=== PATIENT | male | born 1960 | race Caucasian/White ===

== ENCOUNTER 2020-05-08 14:54 | Emergency (ER) | payer BC ==
[~2020-05-08] VITALS: Ht 180.3 cm; Wt 128.4 kg
--- OUTSIDE RECORDS SUMMARY | ~2020-05-08 | XMS | Encounter Summary ---
Demographics + + + | Address | [address] | | | [place] [address] | + + + | Home Phone | | + + + | Preferred Language | Unknown | + + + | Marital Status | | + + + | Advent Affiliation | 1013 | + + + | Race | White | + + + | Ethnic Group | Not or | + + + Author + + + | Author | [facility] | | | and [place] | + + + | Organization | [facility] | | | and [place] | + + + | Address | Unknown | + + + | Phone | Unavailable | + + + Support + + + + + | Name | Relationship | Address | Phone | + + + + + | Jenny Trammellehart | ECON | [address] | | | | | [place] | | | | | [address] | | + + + + + Care Team Providers + +------+ + | Care Public Space Attendant Name | Role | Phone | + +------+ + | Radha Rodriguez | PCP | | | PA-C | | | + +------+ + Reason for Referral Evaluate & Treat (Routine) +--------+ + + + + + | Status | Reason | Specialty | Diagnoses / | Referred By | Referred To | | | | | Procedures | Contact | Contact | +--------+ + + + + + | Closed | Specialty | Neurosurgery | Diagnoses | | Oralia, | | | Services | | Cervical | Jeffery, | Spencer Fisher DO | | | Required | | radiculopath | Maricruz, | [address] | | | | | y DDD | PA-C [address] | [address] | | | | | (degenerativ | [address], | [place] | | | | | e disc | [address] | [address] Phone: | | | | | disease), | [place], [place] | [phone] | | | | | cervical | [address] | Fax: | | | | | Paresthesias | Phone: | [phone] | | | | | Foraminal | [phone] | | | | | | stenosis of | Fax: | | | | | | cervical | [phone] | | | | | | region | | | +--------+ + + + + + Reason for Visit + + + | Reason | Comments | + + + | Follow-up | post C7-T1 ILESI on 07/04/16 | + + + | Neck Pain | R>L neck pain | + + + Encounter Details +--------+---------+ + + + | Date | Type | Department | Care Team | Description | +--------+---------+ + + + | 07/31/ | Office | [facility] | Bogdanowicz, | Cervical | | 2017 | Visit | PHYSIATRY [address] | [address] | radiculopathy | | | | [address] | [address], [address] | (Primary Dx); DDD | | | | [facility], [place] | [place] [address] | (degenerative disc | | | | [address] | [phone] | disease), cervical; | | | | [phone] | | Paresthesias; | | | | | | Foraminal stenosis | | | | | | of cervical region | +--------+---------+ + + + Social History + +-------+ +--------+ + | Tobacco Use | Types | Packs/Day | Years | Date | | | | | Used | | + +-------+ +--------+ + | Former Smoker | | | 16 | Quit: 07/29/1997 | + +-------+ +--------+ + + + +---------+ + | Alcohol Use | Drinks/Week | oz/Week | Comments | + + +---------+ + | Yes | 0 Standard drinks | 0.0 | social | | | or equivalent | | | + + +---------+ + + + + | Sex Assigned at | Date Recorded | | | | + + + | Not on file | | + + + documented as of this encounter Last Filed Vital Signs + + + + + | Vital Sign | Reading | Time Taken | Comments | + + + + + | Blood Pressure | 128/79 | 07/31/2016 8:07 AM | | | | | PST | | + + + + + | Pulse | 64 | 07/31/2016 8:07 AM | | | | | PST | | + + + + + | Temperature | - | - | | + + + + + | Respiratory Rate | - | - | | + + + + + | Oxygen Saturation | - | - | | + + + + + | Inhaled Oxygen | - | - | | | Concentration | | | | + + + + + | Weight | 136.5 kg (301 lb) | 07/31/2016 8:07 AM | | | | | PST | | + + + + + | Height | 182.9 cm (6') | 07/31/2016 8:07 AM | | | | | PST | | + + + + + | Body Mass Index | 40.82 | 07/31/2016 8:07 AM | | | | | PST | | + + + + + documented in this encounter Patient Instructions Patient Instructions Maricruz Gil PA-C - 07/31/2016 8:23 AM PST1) Right upper extr emity nerve conduction study 2) Consultation with neurosurgery documented in this encounter Progress Notes Maricruz Gil PA-C - 07/31/2016 8:09 AM PSTFormatting of this note might be differe nt from the original. CHIEF COMPLAINT: Chief Complaint Patient presents with Follow-up post C7-T1 ILESI on 07/04/16 Neck Pain R>L neck pain HISTORY OF PRESENT ILLNESS: The patient is a 56 y.o. male being seen today for follow at [facility] of neck pain that radiates up into the head with daily headaches. He has previously seen us and it was recommended he have a C7/T1 ILESI. This was done 07/04/2016 and he repor ts no improvement of his symptoms, but actually feels his neck pain, headaches and paresthes ias are worsening/ Since the symptoms began he reports that the symptoms have been constant. He describes the pain as an aching, sharp, shooting and throbbing feeling. He rates the pain as moderate to s evere. His symptoms worsen with changing positions, sitting at a computer, working, reachin g, pulling. His symptoms improve with rest,changing positions and sitting. He reports numb ness into the bilateral hands, mostly to the 3-5 fingers but reports this has worsened on th e right hand to the whole hand. The patient also describes arm symptoms that occur on both sides. The arm symptoms account for greater than or equal to 50% of his symptoms. The arm symptoms are persistent and the symptoms travels from the neck down to the hands, right greater than left. The patient does describe numbness of the arms which present mostly at night. He does rep ort weakness of the left side. He has tried PT, Massage, TENS, NSAIDS and Muscle relaxers. The patient is currently taki ng tramadol, gabapentin, Soma and Aleve. Patient's medications, allergies, past medical, surgical, social and family histories were reviewed and updated as appropriate. CURRENT MEDICATIONS: Current Outpatient Prescriptions Medication Sig Dispense Refill azaTHIOprine (IMURAN) 50 mg tablet Take 50 mg by mouth 2 times daily. carisoprodol (SOMA) 350 mg tablet Take 350 mg by mouth nightly. Celecoxib (CELEBREX PO) Take by mouth. CLONIDINE HCL PO Take by mouth. FLUoxetine (PROZAC) 20 MG tablet Take 20 mg by mouth Daily. gabapentin (NEURONTIN) 600 MG tablet Take 600 mg by mouth 3 times daily. hydroxychloroquine (PLAQUENIL) 200 mg tablet Take 200 mg by mouth 2 times daily. lovastatin (MEVACOR) 20 mg tablet Take 20 mg by mouth nightly. Multiple Vitamins-Minerals (CENTRUM SILVER PO) Take 1 capsule by mouth Daily. Naproxen Sodium (ALEVE) 220 MG CAPS Take 2 tablets by mouth 3 times daily. traMADol (ULTRAM) 50 mg tablet Take 50 mg by mouth 3 times daily. No current facility-administered medications for this visit. ALLERGIES: Allergies Allergen Reactions Amitriptyline REVIEW OF SYSTEMS: A multisystem review of system checklist was reviewed with the patient and shows only the p ain and/or parasthesias and other complaints as in HPI. All remaining review of systems was negative. PHYSICAL EXAMINATION: Filed Vitals: 07/31/16 0807 PainSc: 6 PainLoc: Neck Body mass index is 40.81 kg/(m^2). GENERAL: The patient is well developed and well nourished. He does not appear uncomfortabl e when seated. HEENT: HEAD/FACE: EYES: Normocephalic and atraumatic. There are no areas of recent trauma. Normal sclerae without icterus. SKIN Limited skin exam shows no significant rashes or lesions. There are not scars in the cervical region. CHEST: The patient is in no acute respiratory distress with unlabored respirations. ABDOMEN: The patient is obese. NEUROLOGIC: The patient is awake, alert, and oriented to time, place, person. He follows simple and complex commands. His speech is fluent. He comprehends speech well. He has no apparent deficits with short or intellectual property paralegal memory. He has appropriate fund of knowledge Cranial nerves 2-12 appear grossly intact. Sensory exam does not show diminished sensation to light touch in the upper and lower extre mities. REFLEX: RIGHT LEFT BICEPS 1+ 1+ BRACHIORADIALIS 1+ 1+ TRICEPS 1+ 1+ PATELLAR 2+ 1+ ACHILLES 0 0 PARKS'S Negative Negative PLANTAR Downgoing Downgoing MUSCULOSKELETAL There is no major palpable deformity of the spine. Range of motion testing of the cervical spine was limited and painful in all directions. Sp urling sign was positive, especially to the right. Shoulder examination shows fairly well pr eserved range of motion with external rotation and internal rotation. He had significantly d ecreased ROM with abduction of both shoulders. Impingement testing was positive bilaterally . There was no tenderness over the bicipital groove or over the AC joint. Speed's test was negative. Empty can test was negative. Strength testing in bilateral upper extremities s howed 5/5 strength with the exception of decreased master steam yacht strength bilaterally. Abduction of the left shoulder was also mildly weak but the weakness may have also been due to pain inhib ition. He seemed to have negative Tinel's and Phalen's signs bilaterally at the wrists. RADIOGRAPHIC REVIEW: The patient's imaging was reviewed in detail with the patient today during the visit. The xray of the cervical spine from 03/12/2016 shows DDD at C5-C6 and C6-C7. Cervical MRI shows D DD with mild posterior disc bulges, there is foraminal stenosis at C3-C4 towards the left an d bilateral foraminal stenosis at C5-C6. ASSESSMENT: Encounter Diagnoses Name Primary? Cervical radiculopathy Yes DDD (degenerative disc disease), cervical Paresthesias Foraminal stenosis of cervical region PLAN: 1. Unfortunately the patient did not improve from the C7/T1 ILESI right of midline. He only had 25% relief initially with no improvement after two weeks and feels his symptoms have wo rsened. 2. He has already tried PT, chiropractic and multiple medications. 3. He reports worsening right hand paresthesias, now affecting the entire hand and fingers . I have ordered a right UE NCS to be done. 4. We discussed surgery, he would like to have a consultation. I informed him his headach es sound more like migraines and may not be related to his neck. A referral to Dr. Oralia low as been made. ELECTRONICALLY EDITED AND SIGNED BY: Maricruz Gil PA-C, 07/31/2016 CC: Radha Vega documented in this encounter Plan of Treatment +--------+---------+ + + + | Date | Type | Specialty | Care Team | Description | +--------+---------+ + + + | 05/12/ | Office | Rheumatology | Nandini Ward | | | 2019 | Visit | | [place] | | | | | | [facility] | | | | | | [place] [address] | | | | | | [phone] | | | | | | | | +--------+---------+ + + + + + +--------+ + + | Name | Type | Priori | Associated Diagnoses | Order Schedule | | | | ty | | | + + +--------+ + + | [facility] REF[facility] [place] [facility] | Outpatient | Routin | Cervical | Ordered: 07/31/2016 | | [facility] | Referral | e | radiculopathy DDD | | | | | | (degenerative disc | | | | | | disease), cervical | | | | | | Paresthesias | | | | | | Foraminal stenosis | | | | | | of cervical region | | + + +--------+ + + documented as of this encounter Visit Diagnoses + + | Diagnosis | + + | Cervical radiculopathy - Primary Brachial neuritis or radiculitis nos | + + | DDD (degenerative disc disease), cervical Degeneration of cervical intervertebral | | disc | + + | Paresthesias Disturbance of skin sensation | + + | Foraminal stenosis of cervical region Spinal stenosis in cervical region | + + documented in this encounter"
--- OUTSIDE RECORDS SUMMARY | ~2020-05-08 | XMS | Encounter Summary ---
Demographics + + + | Address | [address] | | | [place] [address] | + + + | Home Phone | | + + + | Preferred Language | Unknown | + + + | Marital Status | | + + + | Caodaism Affiliation | 1013 | + + + | Race | White | + + + | Ethnic Group | Not or | + + + Author + + + | Author | [facility] | | | and [place] | + + + | Organization | [facility] | | | and [place] | + + + | Address | Unknown | + + + | Phone | Unavailable | + + + Support + + + + + | Name | Relationship | Address | Phone | + + + + + | Jenny Jade | ECON | [address] | | | | | [place] | | | | | [address] | | + + + + + Care Team Providers + +------+ + | Care Business Consultant Name | Role | Phone | + +------+ + | Radha Rodriguez | PCP | | | PA-C | | | + +------+ + Reason for Visit + +--------+ + | Reason | Onset | Comments | | | Date | | + +--------+ + | Procedure | 10/11/ | | | | 2016 | | + +--------+ + Encounter Details +--------+ + + + + | Date | Type | Department | Care Team | Description | +--------+ + + + + | 10/11/ | Telephone | [facility] [place] | Spencer Barton, | Procedure | | 2017 | | NEUROSURGERY [address] | DO [address] | | | | | [address] | [address] [place], [place] | | | | | [place], [place] | [id number] | | | | | [address] | | | | | | [phone] | | | +--------+ + + + + Social History + + + +--------+ + | Tobacco Use | Types | Packs/Day | Years | Date | | | | | Used | | + + + +--------+ + | Former Smoker | Cigarettes | 2 | 16 | 07/29/1981 - | | | | | | 07/29/1997 | + + + +--------+ + + +------+---+ + | Smokeless Tobacco: | Chew | | Quit: | | Former User | | | 07/29/18 | | | | | 98 | + +------+---+ + + + +---------+ + | Alcohol [...] + + documented as of this encounter Miscellaneous Notes Telephone Encounter - Saranya Holly Cert MA - 10/16/2016 2:10 PM PDTJames has been schedu led for surgery elephone Encounte r - Saranya Holly Cert MA - 10/16/2016 2:09 PM PDTVM left for Steven requesting a call back elephone EncounDrew Brasher - 10/15/2016 9:21 AM PDTPatient called back in looking to talk with Saranya. Please call him back on cell [phone] signed by Drew Thompson at 10/16/19 9:22 AM PDTTelephone Encounter - Mia Anderson - 10/12/2016 12:27 PM PDTPatient re turned Saranya's call. He is asking for a call back to schedule surgery on Saturday elephone Encounter - Saranya Holly Cert MA - 10/11/2016 3:14 PM PDTVM left for patient to discuss scheduling surgery documented in this encounter Plan of Treatment +--------+---------+ + + + | Date | Type | Specialty | Care Team | Description | +--------+---------+ + + + | 05/12/ | Office | Rheumatology | Nandini Ward | | | 2020 | Visit | | [place] [address] | | | | | | [address] | | | | | | [place] [address] | | | | | | [phone] | | | | | | | | +--------+---------+ + + + documented as of this encounter Visit Diagnoses Not on filedocumented in this encounter"
--- OUTSIDE RECORDS SUMMARY | ~2020-05-08 | XMS | Encounter Summary ---
Demographics + + + | Address | [address] | | | [place] [address] | + + + | Home Phone | | + + + | Preferred Language | Unknown | + + + | Marital Status | | + + + | Mosque Affiliation | 1013 | + + + | Race | White | + + + | Ethnic Group | Not or | + + + Author + + + | Author | [facility] | | | and [place] | + + + | Organization | [facility] | | | and [place] | + + + | Address | Unknown | + + + | Phone | Unavailable | + + + Support + + + + + | Name | Relationship | Address | Phone | + + + + + | Jenny Jade | ECON | [address] | | | | | [place] | | | | | [address] | | + + + + + Care Team Providers + +------+ + | Care Plastics And Composites Inspector Name | Role | Phone | + +------+ + | Radha Rodriguez | PCP | | | PA-C | | | + +------+ + Reason for Visit + +--------+ + | Reason | Onset | Comments | | | Date | | + +--------+ + | Paperwork | 12/03/ | | | | 2016 | | + +--------+ + Encounter Details +--------+ + + + + | Date | Type | Department | Care Team | Description | +--------+ + + + + | 12/03/ | Telephone | [facility] [place] | Spencer Barton, | Paperwork | | 2017 | | NEUROSURGERY [address] | DO [address] | | | | | [address] | [address] [place], [place] | | | | | [place], [place] | [address] | | | | | [address] | | | | | | [phone] | | | +--------+ + + + [...] | Yes | 0 Standard drinks | 12.0 | | | | or equivalent 12 | | | | | Glasses of wine | | | + + +---------+ + + + + | Sex Assigned at | Date Recorded | | | | + + + | Not on file | | + + + documented as of this encounter Miscellaneous Notes Telephone Encounter - Raúl Alberts Cert MA - 12/03/2016 3:14 PM PDTI spoke with Stew yang and let her know that the forms are filled out and ready to be faxed. She approved me faxing it to [facility] and I will send a copy to HIM. RAÚL ALBERTS elephone Encounjuany r Raúl Kemp Cert MA - 12/03/2016 12:40 PM PDTVM left for Steven. Forms complete. Wan t to confirm okay to go ahead and fax to [facility] before sending. elephone EncounAlicia Quiroz - 12/03/2016 11:39 AM PDTPatient called returning Raúl's call. Informe d patient forms have not been completed but per Raúl she will be working on these and hopefu lly completing them and faxing them today. Patient verbalized understanding.Electronically s igned by Alicia Mansfield at 12/03/2016 11:40 AM PDTTelephone Encounter - Raúl Alberts Cer t MA - 12/03/2016 11:31 AM PDTI attempted to reach Steven back. Home line is busy and left a VM on his cell phone requesting a call back. elephone EncounRaúl Chavez Cert MA - 12/03/2016 10:48 AM PDTThese are currently pending. I plan to g et them filled out and faxed back today RAÚL ALBERTS elephone EncounAlicia Quiroz 12/03/2016 8:38 AM PDTPatient called stated he dropped off some Afl ac forms that were to be completed and returned to him. Patient would like a call back with a status update documente d in this encounter Plan of Treatment +--------+---------+ + + + | Date | Type | Specialty | Care Team | Description | +--------+---------+ + + + | 05/12/ | Office | Rheumatology | Nandini Ward | | | 2019 | Visit | | [place] [address] | | | | | | [facility] | | | | | | [place] [address] | | | | | | [phone] | | | | | | | | +--------+---------+ + + + documented as of this encounter Visit Diagnoses Not on filedocumented in this encounter"
--- OUTSIDE RECORDS SUMMARY | ~2020-05-08 | XMS | Encounter Summary ---
Demographics + + + | Address | [address] | | | [place] [address] | + + + | Home Phone | | + + + | Preferred Language | Unknown | + + + | Marital Status | | + + + | Jainism Affiliation | 1013 | + + + | Race | White | + + + | Ethnic Group | Not or | + + + Author + + + | Author | [facility] | | | and [place] | + + + | Organization | [facility] | | | and [place] | + + + | Address | Unknown | + + + | Phone | Unavailable | + + + Support + + + + + | Name | Relationship | Address | Phone | + + + + + | Jenny Trammellehart | ECON | [address] | | | | | [place] | | | | | [address] | | + + + + + Care Team Providers + +------+ + | Care Food Services Coordinator Name | Role | Phone | + +------+ + | Radha Rodriguez | PCP | | | PA-C | | | + +------+ + Reason for Referral Diagnostic/Screening (Routine) +--------+--------+ + + + + | Status | Reason | Specialty | Diagnoses / | Referred By | Referred To | | | | | Procedures | Contact | Contact | +--------+--------+ + + + + | Closed | | Radiology | Diagnoses | Rauler, | [facility] | | | | | | Dwaine M, | [address] | | | | | Osteoarthrit | [address] | [place], | | | | | is of | [place] | [place] | | | | | cervical | [place] | [address] | | | | | spine, | [address] | Phone: | | | | | unspecified | [place], [place] | [phone] | | | | | spinal | [address] | Fax: | | | | | osteoarthrit | Phone: | [phone] | | | | | is | [phone] | | | | | | complication | Fax: | | | | | | status | [phone] | | | | | | Procedures | | | | | | | MRI Cervical | | | | | | | Spine wo | | | | | | | Contrast | | | +--------+--------+ + + + + Reason for Visit Diagnostic/Screening (Routine) +--------+--------+ + + + + | Status | Reason | Specialty | Diagnoses / | Referred By | Referred To | | | | | Procedures | Contact | Contact | +--------+--------+ + + + + | Closed | | Radiology | Diagnoses | Dechter, | [facility] | | | | | | Dwaine M, | [address] | | | | | Osteoarthrit | DO [address] | [place], | | | | | is of | [place] | [place] | | | | | cervical | [place] | [address] | | | | | spine, | [address] | Phone: | | | | | unspecified | [place], [place] | [phone] | | | | | spinal | [address] | Fax: | | | | | osteoarthrit | Phone: | [phone] | | | | | is | [phone] | | | | | | complication | Fax: | | | | | | status | [phone] | | | | | | Procedures | | | | | | | MRI Cervical | | | | | | | Spine wo | | | | | | | Contrast | | | +--------+--------+ + + + + Encounter Details +--------+ + + + + | Date | Type | Department | Care Team | Description | +--------+ + + + + | 03/09/ | Hospital | [facility] | Dwaine Berg | Osteoarthritis of | | 2018 | Encounter | [facility] MRI [address] | M, [address] | cervical spine, | | | | [address] [place], | [address] | unspecified spinal | | | | [place] [address] | [place] [address] | osteoarthritis | | | | [phone] | [phone] | complication status | | | | | | | +--------+ + + + [...] + + documented as of this encounter Medications at Time of Discharge + + + +---------+ + + | Medication | Sig | Dispensed | Refills | Start | End Date | | | | | | Date | | + + + +---------+ + + | hydroxychloroquine | Take 200 mg by mouth | | 0 | | | | (PLAQUENIL) 200 mg | 2 times daily. | | | | | | tablet | | | | | | + + + +---------+ + + | azaTHIOprine | TAKE TWO AND | | 0 | 05/13/20 | | | (IMURAN) 50 mg | ONE-HALF TABLETS BY | | | 17 | 0 | | tablet | MOUTH DAILY | | | | | + + + +---------+ + + | azaTHIOprine | Take 50 mg by mouth | | 0 | | | | (IMURAN) 50 mg | 2 times daily. | | | | 0 | | tablet | | | | | | + + + +---------+ + + | carisoprodol | Take 350 mg by mouth | | 0 | | | | (SOMA) 350 mg tablet | nightly. | | | | 0 | + + + +---------+ + + | ergocalciferol | Take 1 capsule by | | 0 | 02/22/20 | | | (VITAMIN D-2) 50,000 | mouth once a week. | | | 17 | 0 | | units capsule | | | | | | + + + +---------+ + + | ergocalciferol | Take 50,000 Units by | | 0 | 02/22/20 | | | (VITAMIN D2) 42984 | mouth every 7 days. | | | 17 | 8 | | units capsule | | | | | | + + + +---------+ + + | gabapentin | Take 400 mg by mouth | | 0 | 02/06/20 | | | (NEURONTIN) 400 mg | 2 times daily. | | | 17 | 0 | | capsule | | | | | | + + + +---------+ + + | gabapentin | Take 1,200 mg by | | 0 | | | | (NEURONTIN) 600 MG | mouth nightly. | | | | 0 | | tablet | | | | | | + + + +---------+ + + | | Take 1-2 tablets by | 120 | 0 | 02/26/20 | | | HYDROcodone-acetamin | mouth every 4 hours | tablet | | 17 | 0 | | ophen (NORCO) | as needed for Pain. | | | | | | 7.5-325 mg per | | | | | | | tabletIndications: | | | | | | | S/P cervical spinal | | | | | | | fusion | | | | | | + + + +---------+ + + | lactulose 10 g/15 | Take 30 mLs by mouth | 240 mL | 2 | 11/30/19 | | | mL solution | Daily as needed. | | | 17 | 0 | + + + +---------+ + + | lovastatin | Take 20 mg by mouth | | 0 | | | | (MEVACOR) 20 mg | nightly. | | | | 0 | | tablet | | | | | | + + + +---------+ + + documented as of this encounter Plan of Treatment +--------+---------+ + + + | Date | Type | Specialty | Care Team | Description | +--------+---------+ + + + | 05/12/ | Office | Rheumatology | Nandini Ward | | | 2020 | Visit | | [facility] [address] | | | | | | [facility] | | | | | | [place] [address] | | | | | | [phone] | | | | | | | | +--------+---------+ + + + documented as of this encounter Procedures + +--------+ + + + | Procedure Name | Priori | Date/Time | Associated Diagnosis | Comments | | | ty | | | | + +--------+ + + + | MRI CERVICAL SPINE | Routin | 10/04/2017 | Osteoarthritis of | Results for this | | WO CONTRAST | e | 9:07 AM | cervical spine, | procedure are in the | | | | PST | unspecified spinal | results section. | | | | | osteoarthritis | | | | | | complication status | | + +--------+ + + + documented in this encounter Results MRI Cervical Spine wo Contrast (10/04/2017 9:07 AM PST) + + | Specimen | + + | | + + + + + | Narrative | Performed At | + + + | UNENHANCED MRI CERVICAL SPINE 10/04/2017 8:44 AM CLINICAL HISTORY: | [facility] | | Osteoarthritis of cervical spine with bilateral hand tingling and | | | numbness, ACDF performed in November 2016 COMPARISON: Radiographs | | | February 2017, MRI May 2016 TECHNIQUE: The following 3T MR | | | sequences of the cervical spine were obtained: 1. Sagittal and | | | coronal T1. 2. Axial and sagittal T2. 3. Axial GRE. 4. | | | Sagittal STIR. FINDINGS: Artifact from ACDF hardware extends | | | from C5 through C7. Evaluation of the degree of interbody fusion is | | | limited. Vertebral height is maintained without evident fracture. | | | Marrow signal is largely normal. Imaged contents of the posterior | | | fossa and foramen magnum are unremarkable. The cervical and imaged | | | thoracic spinal cord demonstrates normal signal intensity and | | | caliber. Asymmetric smaller caliber of the imaged right vertebral | | | artery is again visible, potentially reflecting a developmental | | | variant. Imaged cervical and upper thoracic soft tissues are | | | otherwise unremarkable. The craniocervical junction and C1-2 and | | | C2-3 levels are unremarkable on provided sagittal and coronal images | | | through the region. C3-4: Minimal posterior disc bulge combines | | | with dorsal ligamentous and facet hypertrophy to minimally narrow the | | | central canal and right neural foramen and at least moderately | | | narrow the left neural foramen to a similar degree. C4-5: Minimal | | | posterior disc bulge combines with dorsal ligamentous and facet | | | hypertrophy to mildly narrow the central canal and foramina to a | | | similar degree. C5-6: Vertebral osteophytes and facet hypertrophy | | | result in mild residual right foraminal stenosis and moderate to | | | severe left foraminal stenosis. There is no central canal stenosis | | | status post ACDF. C6-7: Vertebral osteophyte mildly narrows the | | | left neural foramen. There is no central canal stenosis status post | | | ACDF. C7-T1: 2 mm anterolisthesis and progressive disc space | | | narrowing are apparent, along with more pronounced Modic endplate | | | hyperintensity. Annular tear and left greater than right foraminal | | | disc osteophyte complexes persist, along with mild to moderate | | | appearing left and minimal right foraminal stenosis. There is only | | | minimal central canal stenosis. The imaged upper thoracic spine is | | | unremarkable on provided sagittal images through the region. | | | IMPRESSION - 1. SIMILAR DEGENERATIVE DISC DISEASE AND ASYMMETRIC | | | LEFT FORAMINAL STENOSIS AT C3-4 COMPARED WITH MRI OF MAY 2016. | | | 2. SIMILAR DEGENERATIVE DISC DISEASE AND MILD STENOSIS AT C4-5. | | | 3. MODERATE TO SEVERE LEFT FORAMINAL STENOSIS AT C5-6, STATUS | | | POST ACDF. 4. MILD LEFT FORAMINAL STENOSIS AT C6-7, STATUS POST | | | ACDF. 5. 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 CONSIDER FOLLOW-UP FLEXION/EXTENSION | | | RADIOGRAPHY. Dictated and Signed by: Marciano Richter MD | | | Electronically signed: 10/04/2017 10:24 AM | | + + + + + | Procedure Note | + + | Carlos, Rad Results In - 10/04/2017 10:27 AM PST UNENHANCED MRI CERVICAL SPINE 10/04/2017 | | 8:44 AMCLINICAL HISTORY: Osteoarthritis of cervical spine with bilateral hand | | tinglingand numbness, ACDF performed in November 2016COMPARISON: Radiographs February 2017, MRI | | May 2016TECHNIQUE: The following 3T MR sequences of the cervical spine were | | obtained:1. Sagittal and coronal T1.2. Axial and sagittal T2.3. Axial GRE.4. | | Sagittal STIR.FINDINGS: Artifact from ACDF hardware extends from C5 through C7. | | Evaluation ofthe degree of interbody fusion is limited. Vertebral height is | | maintainedwithout evident fracture. Marrow signal is largely normal. Imaged contents | | ofthe posterior fossa and foramen magnum are unremarkable. The cervical andimaged | | thoracic spinal cord demonstrates normal signal intensity and caliber. Asymmetric | | smaller caliber of the imaged right vertebral artery is againvisible, potentially | | reflecting a developmental variant. Imaged cervical andupper thoracic soft tissues are | | otherwise unremarkable.The craniocervical junction and C1-2 and C2-3 levels are | | unremarkable onprovided sagittal and coronal images through the region.C3-4: Minimal | | posterior disc bulge combines with dorsal ligamentous and facethypertrophy to minimally | | narrow the central canal and right neural foramen andat least moderately narrow the left | | neural foramen to a similar degree.C4-5: Minimal posterior disc bulge combines with | | dorsal ligamentous and facethypertrophy to mildly narrow the central canal and foramina | | to a similar degree.C5-6: Vertebral osteophytes and facet hypertrophy result in mild | | residual rightforaminal stenosis and moderate to severe left foraminal stenosis. There | | is nocentral canal stenosis status post ACDF.C6-7: Vertebral osteophyte mildly narrows | | the left neural foramen. There is nocentral canal stenosis status post ACDF.C7-T1: 2 mm | | anterolisthesis and progressive disc space narrowing are apparent,along with more | | pronounced Modic endplate hyperintensity. Annular tear and leftgreater than right | | foraminal disc osteophyte complexes persist, along with mildto moderate appearing left | | and minimal right foraminal stenosis. There is onlyminimal central canal stenosis.The | | imaged upper thoracic spine is unremarkable on provided sagittal imagesthrough the | | region.IMPRESSION -1. SIMILAR DEGENERATIVE DISC DISEASE AND ASYMMETRIC LEFT FORAMINAL | | STENOSIS ATC3-4 COMPARED WITH MRI OF MAY 2016.2. SIMILAR DEGENERATIVE DISC DISEASE | | AND MILD STENOSIS AT C4-5.3. MODERATE TO SEVERE LEFT FORAMINAL STENOSIS AT C5-6, | | STATUS POST ACDF.4. MILD LEFT FORAMINAL STENOSIS AT C6-7, STATUS POST ACDF.5. MILD | | ANTEROLISTHESIS AND PROGRESSIVE DEGENERATIVE DISC DISEASE AT C7-T1 WITHMILD TO MODERATE | | LEFT FORAMINAL STENOSIS AND MINIMAL CENTRAL CANAL STENOSIS. CONSIDER FOLLOW-UP | | FLEXION/EXTENSION RADIOGRAPHY.Dictated and Signed by: Marciano Richter MD Electronically | | signed: 10/04/2017 10:24 AM | | | |C6-7: Vertebral osteophyte mildly narrows the left neural foramen. There is no | |central canal stenosis status post ACDF. | | | |C7-T1: 2 mm anterolisthesis and progressive disc space narrowing are apparent, | |along with more pronounced Modic endplate hyperintensity. Annular tear and left | |greater than right foraminal disc osteophyte complexes persist, along with mild | |to moderate appearing left and minimal right foraminal stenosis. There is only | |minimal central canal stenosis. | | | |The imaged upper thoracic spine is unremarkable on provided sagittal images | |through the region. | | | |IMPRESSION - | |1. SIMILAR DEGENERATIVE DISC DISEASE AND ASYMMETRIC LEFT FORAMINAL STENOSIS AT | |C3-4 COMPARED WITH MRI OF MAY 2016. | | | |2. SIMILAR DEGENERATIVE DISC DISEASE AND MILD STENOSIS AT C4-5. | | | |3. MODERATE TO SEVERE LEFT FORAMINAL STENOSIS AT C5-6, STATUS POST ACDF. | | | |4. MILD LEFT FORAMINAL STENOSIS AT C6-7, STATUS POST ACDF. | | | |5. MILD ANTEROLISTHESIS AND PROGRESSIVE DEGENERATIVE DISC DISEASE AT C7-T1 WITH | |MILD TO MODERATE LEFT FORAMINAL STENOSIS AND MINIMAL CENTRAL CANAL STENOSIS. | |CONSIDER FOLLOW-UP FLEXION/EXTENSION RADIOGRAPHY. | | | |Dictated and Signed by: Marciano Richter MD | | Electronically signed: 10/04/2017 10:24 AM | + + + +---------+ + + | Performing | Address | City/State/Zipcode | Phone Number | | Organization | | | | + +---------+ + + | [facility] | | | | + +---------+ + + documented in this encounter Visit Diagnoses + + | Diagnosis | + + | Osteoarthritis of cervical spine, unspecified spinal osteoarthritis complication | | status | + + documented in this encounter"
--- OUTSIDE RECORDS SUMMARY | ~2020-05-08 | XMS | Encounter Summary ---
Demographics + + + | Address | [address] | | | [place] [address] | + + + | Home Phone | | + + + | Preferred Language | Unknown | + + + | Marital Status | | + + + | Hoahaoism Affiliation | 1013 | + + + | Race | White | + + + | Ethnic Group | Not or | + + + Author + + + | Author | [facility] | | | and [place] | + + + | Organization | [facility] | | | and [place] | + + + | Address | Unknown | + + + | Phone | Unavailable | + + + Support + + + + + | Name | Relationship | Address | Phone | + + + + + | Jenny Jade | ECON | [address] | | | | | [place] | | | | | [address] | | + + + + + Care Team Providers + +------+ + | Care Marine Mechanic Name | Role | Phone | + +------+ + | Radha Rodriguez | PCP | | | PA-C | | | + +------+ + Reason for Visit +---------+ + | Reason | Comments | +---------+ + | Post Op | 3m PO | +---------+ + Encounter Details +--------+---------+ + + + | Date | Type | Department | Care Team | Description | +--------+---------+ + + + | 03/05/ | Office | [facility] | Spencer Barton, | Osteoarthritis of | | 2017 | Visit | NEUROSURGERY [address] | DO [address] | spine with | | | | [address] | [address] [place], [place] | radiculopathy, | | | | [place], [place] | [address] | cervical region | | | | [address] | | (Primary Dx); S/P | | | | [phone] | | cervical spinal | | | | | | fusion | +--------+---------+ + + + Social History + + [...] + + + | Blood Pressure | 112/72 | 03/05/2017 2:17 PM | | | | | PDT | | + + + + + | Pulse | 85 | 03/05/2017 2:17 PM | | | | | PDT | | + + + + + | Temperature | - | - | | + + + + + | Respiratory Rate | 16 | 03/05/2017 2:17 PM | | | | | PDT | | + + + + + | Oxygen Saturation | - | - | | + + + + + | Inhaled Oxygen | - | - | | | Concentration | | | | + + + + + | Weight | 126.6 kg (279 lb) | 03/05/2017 2:17 PM | | | | | PDT | | + + + + + | Height | 180.3 cm (5' 11") | 03/05/2017 2:17 PM | | | | | PDT | | + + + + + | Body Mass Index | 38.91 | 03/05/2017 2:17 PM | | | | | PDT | | + + + + + documented in this encounter Patient Instructions Patient Instructions Spencer Barton DO - 03/05/2017 1:30 PM PDTPlease undergo new x-rays of the cervical spine in 3 and 9 months. Please follow-up with me as needed. documented in this encounter Progress Notes Spencer Barton DO - 03/05/2017 1:30 PM PDTFormatting of this note might be different fro m the original. Spencer Barton DO [address] [facility], [address] [place], [place] [id number] FAX: NEUROSURGERY FOLLOW-UP CHIEF COMPLAINT: Chief Complaint Patient presents with Post Op 3m PO HISTORY OF PRESENT ILLNESS: The patient is a 56 y.o. male that had an ACDF C5-7 by me for neck and arm pain around 3 months ago. He returns and overall is doing well. The patient c omplains of right shoulder-region nerve pain. His preoperative neck and right arm pain to th e hand is improved. Issues with swallowing have been a major issue, but is since much impro shana. Most of the pre- and postsurgical complaints have continued to improve overall. PAST MEDICAL HISTORY: Past Medical History: Diagnosis Date Adverse effect of anesthesia slow to wake up Arthralgia of multiple sites Cervical radiculopathy DDD (degenerative disc disease), cervical 05/23/2016 Foraminal stenosis of cervical region 06/15/2016 Headache Herniated intervertebral disc of lumbar spine High cholesterol Insomnia Paresthesias 05/23/2016 PONV (postoperative nausea and vomiting) Stomach ulcer Systemic lupus erythematosus (HCC) PAST SURGICAL HISTORY: Past Surgical History: Procedure Laterality Date CERVICAL SPINE SURGERY N/A 11/28/2016 Procedure: C5-6, C6-7 Anterior Cervical Discectomy w/ Fusion and Plating; Surgeon: Spencer Barton DO; Location: [facility] MAIN OR CHOLECYSTECTOMY 1994 [facility] KNEE JOINT REPLACEMENT Left 2013 [facility] SHOULDER SURGERY Right [facility] CURRENT MEDICATIONS: Current Outpatient Prescriptions Medication Sig Dispense Refill azaTHIOprine (IMURAN) 50 mg tablet Take 50 mg by mouth 2 times daily. carisoprodol (SOMA) 350 mg tablet Take 350 mg by mouth nightly. ergocalciferol (VITAMIN D2) 23981 units capsule Take 50,000 Units by mouth every 7 days . gabapentin (NEURONTIN) 400 mg capsule Take 400 mg by mouth 2 times daily. gabapentin (NEURONTIN) 600 MG tablet Take 1,200 mg by mouth nightly. HYDROcodone-acetaminophen (NORCO) 7.5-325 mg per tablet Take 1-2 tablets by mouth every 4 hours as needed for Pain. 120 tablet 0 hydroxychloroquine (PLAQUENIL) 200 mg tablet Take 200 mg by mouth 2 times daily. lactulose 10 g/15 mL solution Take 30 mLs by mouth Daily as needed. 240 mL 2 lovastatin (MEVACOR) 20 mg tablet Take 20 mg by mouth nightly. No current facility-administered medications for this visit. ALLERGIES: No Known Allergies SOCIAL HISTORY: The patient reports that he quit smoking about 19 years ago. His smoking use included Ciga rettes. He started smoking about 35 years ago. He has a 32.00 pack-year smoking history. He quit smokeless tobacco use about 19 years ago. His smokeless tobacco use included Chew. He r eports that he drinks about 7.2 oz of alcohol per week . He reports that he uses drugs. FAMILY HISTORY: Family History Problem Relation Age of Onset Cancer Father colon Cancer Mother Unknown cancer of blood Cancer Sister Uterine Cancer Daughter Uterine Cancer Maternal Aunt Leukemia Cancer Maternal Grandfather melanoma Cancer Father bone cancer Arthritis Other Family history Alcohol abuse Other Family history Mental illness Other Family history REVIEW OF SYSTEMS GENERALLY: No fever, no night sweats, no anemia, no fatigue, no recent profound weight ch anges. EYES: No eye problems, no use of corrective lenses, no eye injury, no double vision, no bl indness. EARS, NOSE, AND THROAT: No changes in taste or smell, no hearing difficulty, no ringing in the ears, no ear drainage, no dizziness, no voice changes, no difficulty swallowing, no sig nificant snoring, no sleep apnea, no sinus problems, no major dental work. NEUROLOGICALLY: Please see the review of systems discussed above in the history of present illness. In addition, the patient has numbness/pain of legs, muscle aching, pain in back. PSYCHIATRIC: No depression, no sleep disorders, no anxiety, no bipolar disorder, no psycho tic episodes. CARDIOVASCULAR: No heart attacks, no heart murmur, no heart fluttering, no chest pain, no ankle swelling. LUNG DISEASE: No shortness of breath, no cough, no tuberculosis, no bloody cough, no asth ma, no emphysema/COPD. GASTROINTESTINAL: No bowel disease, no nausea or vomiting, no rectal bleeding, no constipa tion, no stool incontinence, no liver disease, no gallbladder disease, no abdominal pain, no ulcers. KIDNEY DISEASE: No urinary frequency, no painful or difficult urination, no incontinence. ENDOCRINE: No diabetes, no thyroid disease, no osteopenia or osteoporosis, no breast drain age. SKIN: No breast lumps, no skin changes, no rashes, no itches. HEMATOLOGIC/LYMPHATIC: No enlarged lymph nodes, no easy or unusual bleeding, no personal h istory of cancer. RHEUMATOLOGIC: + joint arthritis, no rheumatoid arthritis. INTERIM PHYSICAL EXAMINATION: Blood pressure 112/72, pulse 85, resp. rate 16, height 1.803 m (5' 11"), weight 126.6 kg (2 79 lb). Body mass index is 38.91 kg/m. GENERAL: Steven Jade is in no acute distress with unlabored respirations. HEENT: HEAD/FACE: Normocephalic and atraumatic. There are no areas of recent trauma. SPINE: The patient s incision has healed further and is again without drainage, erythema, or discharge EXTREMITIES: No lower extremity edema. NEUROLOGICAL EXAMINATION: MENTAL STATUS: The patient is awake, alert, and oriented. He follows simple and complex commands MOTOR EXAM: Motor strength is 5/5. This is improved from the preoperative exam. SENSORY EXAM: The sensory examination improved from the preoperative exam. REFLEXES: Reflexes are unchanged from his preoperative history and physical. RADIOGRAPHIC REVIEW: The patient s postoperative x-rays show stable instrumentation and alignment and were rev iewed with the patient today. There have been no interval changes since the immediate posto perative films. There has not been increased arthrodesis since the patient s last x-ray w [facility] was also reviewed for comparison. ASSESSMENT: S/P ACDF C5-7: Encounter Diagnoses Name Primary? Osteoarthritis of spine with radiculopathy, cervical region Yes S/P cervical spinal fusion Past Medical History: Diagnosis Date Adverse effect of anesthesia slow to wake up Arthralgia of multiple sites Cervical radiculopathy DDD (degenerative disc disease), cervical 05/23/2016 Foraminal stenosis of cervical region 06/15/2016 Headache Herniated intervertebral disc of lumbar spine High cholesterol Insomnia Paresthesias 05/23/2016 PONV (postoperative nausea and vomiting) Stomach ulcer Systemic lupus erythematosus (HCC) PLAN: Overall, the patient is doing well. The patient's preoperative symptoms are improving at this point. I have increased the patient s activities as of today, and I would like the patient to co ntinue to advance with activities as tolerated. I am hoping to see complete healing in the next 3-9 months time and will continue to follow the patient with x-rays. I hope sincerely that he continues to see further improvement in his symptoms over the course of his recovery . He will undergo repeat x-ray of the neck in 3 and 9 months and follow-up with me as needed. ELECTRONICALLY SIGNED BY: Spencer Barton DO, 03/05/2017 15:00 documented in this encounter Plan of Treatment +--------+---------+ + + + | Date | Type | Specialty | Care Team | Description | +--------+---------+ + + + | 05/12/ | Office | Rheumatology | Nandini Ward | | | 2019 | Visit | | [facility] [address] | | | | | | [facility] | | | | | | [place] [address] | | | | | | [phone] | | | | | | | | +--------+---------+ + + + + +---------+--------+ + + | Name | Type | Priori | Associated Diagnoses | Order Schedule | | | | ty | | | + +---------+--------+ + + | XR Cervical Spine 2 | Imaging | Routin | Osteoarthritis of | Expected: 11/03/2017 | | or 3 Views | | e | spine with | (Approximate), | | | | | radiculopathy, | Expires: 03/05/2018 | | | | | cervical region S/P | | | | | | cervical spinal | | | | | | fusion | | + +---------+--------+ + + | XR Cervical Spine 2 | Imaging | Routin | Osteoarthritis of | Expected: 06/05/2017 | | or 3 Views | | e | spine with | (Approximate), | | | | | radiculopathy, | Expires: 03/05/2018 | | | | | cervical region S/P | | | | | | cervical spinal | | | | | | fusion | | + +---------+--------+ + + documented as of this encounter Procedures + +--------+ + + + | Procedure Name | Priori | Date/Time | Associated Diagnosis | Comments | | | ty | | | | + +--------+ + + + | ECG - EXTERNAL SCAN | | 03/13/2017 | | Results for this | | | | 12:00 AM | | procedure are in the | | | | PDT | | results section. | + +--------+ + + + documented in this encounter Results ECG - EXTERNAL SCAN (03/13/2017 12:00 AM PDT) + + + | Narrative | Performed At | + + + | Ordered by an | | | unspecified provider. | | + + + documented in this encounter Visit Diagnoses + + | Diagnosis | + + | Osteoarthritis of spine with radiculopathy, cervical region - Primary | + + | S/P cervical spinal fusion Arthrodesis status | + + documented in this encounter
--- OUTSIDE RECORDS SUMMARY | ~2020-05-08 | XMS | Encounter Summary ---
Demographics + + + | Address | [address] | | | [place] [address] | + + + | Home Phone | | + + + | Preferred Language | Unknown | + + + | Marital Status | | + + + | Samaritan Affiliation | 1013 | + + + | Race | White | + + + | Ethnic Group | Not or | + + + Author + + + | Author | [facility] | | | and [place] | + + + | Organization | [facility] | | | and [place] | + + + | Address | Unknown | + + + | Phone | Unavailable | + + + Support + + + + + | Name | Relationship | Address | Phone | + + + + + | Jenny Jade | ECON | [address] | | | | | [place] | | | | | [address] | | + + + + + Care Team Providers + +------+ + | Care Mine Car Dispatcher Name | Role | Phone | + +------+ + | Radha Rodriguez | PCP | | | PA-C | | | + +------+ + Reason for Visit + +--------+ + | Reason | Onset | Comments | | | Date | | + +--------+ + | Imaging Only | 12/03/ | 1Y PO XR | | | 2017 | | + +--------+ + Encounter Details +--------+ + + + + | Date | Type | Department | Care Team | Description | +--------+ + + + + | 12/03/ | Telephone | [facility] | Spencer Barton, | Imaging Only (1Y PO | | 2018 | | NEUROSURGERY [address] | DO [address] | XR) | | | | [facility] [address] | [address] [place], [place] | | | | | [place], [place] | [address] | | | | | [address] | | | | | | [phone] | | | +--------+ + + + [...] this encounter Miscellaneous Notes Telephone Encounter - Waleska Saucedo Medical Assistant - 12/26/2017 9:55 AM PDTLetter has been sent to patient as a reminder. elephone Encounter - Waleska Saucedo Medical Assistant - 9:42 AM PDTLeft VM to check if patient has completed x-rays. I stated the x-ray order has been sent to [facility] which is a walk in basis. I requested a call back once images co mplete. elephone Encounter - Guadalupe Chu Medical Assistant - 12/13/2017 11:51 AM PDTCalled shelby ent left voicemail to remind him he's due for his one year post op cervical xray. Electronic ally signed by Teodoro Fregoso at 12/13/2017 11:52 AM PDTTelephone Encount er - Guadalupe Chu Medical Assistant - 12/03/2017 4:22 PM PDTCalled patient to notify hi m he's due for his one year post op cervical xray. Left voicemail for patient to return our call once imaging completed. Reminder set to follow up. Order was routed to [facility]. Oksana ctronically signed by Teodoro Fregoso at 12/03/2017 4:24 PM PDTdocumented in this encounter Plan of Treatment +--------+---------+ + + + | Date | Type | Specialty | Care Team | Description | +--------+---------+ + + + | 05/12/ | Office | Rheumatology | Nandini Ward | | | 2019 | Visit | | [facility] [address] | | | | | | [address] | | | | | | [place] [address] | | | | | | [phone] | | | | | | | | +--------+---------+ + + + documented as of this encounter Visit Diagnoses Not on filedocumented in this encounter"
--- OUTSIDE RECORDS SUMMARY | ~2020-05-08 | XMS | Encounter Summary ---
Demographics + + + | Address | [address] | | | [place] [address] | + + + | Home Phone | | + + + | Preferred Language | Unknown | + + + | Marital Status | | + + + | Yarsani Affiliation | 1013 | + + + | Race | White | + + + | Ethnic Group | Not or | + + + Author + + + | Author | [facility] | | | and [place] | + + + | Organization | [facility] | | | and [place] | + + + | Address | Unknown | + + + | Phone | Unavailable | + + + Support + + + + + | Name | Relationship | Address | Phone | + + + + + | Jenny Lynchart | ECON | [address] | | | | | [place] | | | | | [address] | | + + + + + Care Team Providers + +------+ + | Care Mortgage Closer Name | Role | Phone | + +------+ + | Radha Rodriguez | PCP | | | PA-C | | | + +------+ + Encounter Details +--------+ + + + + | Date | Type | Department | Care Team | Description | +--------+ + + + + | 12/26/ | Hospital | [facility] | Spencer Barton, | Cervical spondylosis | | 2017 | Encounter | MED CTR XRAY [address] | DO [address] | with radiculopathy; | | | | [place] | [address] [place], [place] | Status post | | | | [place] [address] | [address] | cervical spinal | | | | [phone] | | fusion | +--------+ + + + + Social [...] + + + +---------+ + + | diazePAM (VALIUM) | Take 1 tablet by | 60 | 0 | 11/30/19 | | | 5 mg tablet | mouth every 6 hours | tablet | | 17 | 7 | | | as needed. | | | | | + + + +---------+ + + | gabapentin | Take 1,200 mg by | | 0 | | | | (NEURONTIN) 600 MG | mouth nightly. | | | | 0 | | tablet | | | | | | + + + +---------+ + + | | Take 1-2 tablets by | 120 | 0 | 12/27/19 | | | HYDROcodone-acetamin | mouth every 4 hours | tablet | | 17 | 7 | | ophen (NORCO) | as needed for Pain. | | | | | | 7.5-325 mg per | | | | | | | tablet [...] + + + +---------+ + + | medical marijuana | 2 times daily. CBD | | 0 | | | | (CANNABIS) | capsule | | | | 7 | + + + +---------+ + + | traMADol (ULTRAM) | Take 50 mg by mouth | | 0 | | | | 50 mg tablet | 3 times daily. | | | | 7 | + + + +---------+ + + documented as of this encounter Plan of Treatment +--------+---------+ + + + | Date | Type | Specialty | Care Team | Description | +--------+---------+ + + + | 05/12/ | Office | Rheumatology | Nandini Ward | | | 2019 | Visit | | [facility] [address] | | | | | | [address] | | | | | | [place] [address] | | | | | | [phone] | | | | | | | | +--------+---------+ + + + documented as of this encounter Procedures + +--------+ + + + | Procedure Name | Priori | Date/Time | Associated Diagnosis | Comments | | | ty | | | | + +--------+ + + + | XR CERVICAL SPINE 2 | Routin | 12/26/2016 | Cervical | Results for this | | OR 3 VIEWS | e | 1:34 PM | spondylosis with | procedure are in the | | | | PDT | radiculopathy | results section. | | | | | Status post cervical | | | | | | spinal fusion | | + +--------+ + + + documented in this encounter Results XR Cervical Spine 2 or 3 Views (12/26/2016 1:34 PM PDT) + + | Specimen | + + | | + + + + + | Narrative | Performed At | + + + | EXAM:XR CERVICAL SPINE 2 OR 3 VIEWS CLINICAL HISTORY: S/P | [facility] | | Cervical Fusion COMPARISON: 11/28/2016 FINDINGS: Frontal and | [facility] | | lateral views. Anterior cervical discectomy and fusion changes from | [facility] | | C5 to C7. There is intact hardware. No change in positioning of | - IMAGING | | the interbody graft markers. No change in spinal alignment. | | | Interval resolution of operative changes in the precervical soft | | | tissues. A drain catheter has been removed. The visible lung | | | apices are clear. IMPRESSION - No radiographic evidence for | | | an interval complication. Dictated and Signed by: Steven Salinas | | | MD Florentin Electronically signed: 12/26/2016 2:31 PM | | + + + + + | Procedure Note | + + | Xander Gonzalez Results In - 12/26/2016 2:34 PM PDT EXAM:XR CERVICAL SPINE 2 OR 3 VIEWS | | | | CLINICAL HISTORY: S/P Cervical Fusion | | | | COMPARISON: 11/28/2016 | | | | FINDINGS: Frontal and lateral views. Anterior cervical discectomy and fusion | | changes from C5 to C7. There is intact hardware. No change in positioning of | | the interbody graft markers. No change in spinal alignment. Interval | | resolution of operative changes in the precervical soft tissues. A drain | | catheter has been removed. The visible lung apices are clear. | | | | IMPRESSION - | | | | No radiographic evidence for an interval complication. | | | | Dictated and Signed by: Steven Lerma MD | | Electronically signed: 12/26/2016 2:31 PM | + + + + + + + | Performing | Address | City/State/Zipcode | Phone Number | | Organization | | | | + + + + + | [facility] | [address] | [place], [place] | [phone] | | [facility] | | [address] | | | - IMAGING | | | | + + + + + documented in this encounter Visit Diagnoses + + | Diagnosis | + + | Cervical spondylosis with radiculopathy Cervical spondylosis with myelopathy | + + | Status post cervical spinal fusion Arthrodesis status | + + documented in this encounter"
--- OUTSIDE RECORDS SUMMARY | ~2020-05-08 | XMS | Encounter Summary ---
Demographics + + + | Address | [address] | | | [place] [address] | + + + | Home Phone | | + + + | Preferred Language | Unknown | + + + | Marital Status | | + + + | Zoroastrian Affiliation | 1013 | + + + | Race | White | + + + | Ethnic Group | Not or | + + + Author + + + | Author | [facility] | | | and [place] | + + + | Organization | [facility] | | | and [place] | + + + | Address | Unknown | + + + | Phone | Unavailable | + + + Support + + + + + | Name | Relationship | Address | Phone | + + + + + | Jenny Lynchart | ECON | [address] | | | | | [place] | | | | | [address] | | + + + + + Care Team Providers + +------+ + | Care Ferryboat Deckhand Name | Role | Phone | + +------+ + | Radha Rodriguez | PCP | | | PA-C | | | + +------+ + Encounter Details +--------+ + + + + | Date | Type | Department | Care Team | Description | +--------+ + + + + | 02/22/ | Orders Only | [facility] | Provider, | | | 2019 | | SYSTEM GENERIC OP | [address] | | | | | [address] | [address] | | | | | [address] [place], [place] | [place] [address] | | | | | [address] | | | | | | [phone] | | | +--------+ + + + [...] | | | | | [place] [address] | | | | | | [phone] | | | | | | | | +--------+---------+ + + + documented as of this encounter Visit Diagnoses Not on filedocumented in this encounter"
--- OUTSIDE RECORDS SUMMARY | ~2020-05-08 | XMS | Encounter Summary ---
Demographics + + + | Address | [address] | | | [place] [address] | + + + | Home Phone | | + + + | Preferred Language | Unknown | + + + | Marital Status | | + + + | Mandaen Affiliation | 1013 | + + + | Race | White | + + + | Ethnic Group | Not or | + + + Author + + + | Author | [facility] | | | and [place] | + + + | Organization | [facility] | | | and [place] | + + + | Address | Unknown | + + + | Phone | Unavailable | + + + Support + + + + + | Name | Relationship | Address | Phone | + + + + + | Jenny Trammellehart | ECON | [address] | | | | | [place] | | | | | [address] | | + + + + + Care Team Providers + +------+ + | Care Yoke Setter Name | Role | Phone | + +------+ + | Demetris Steward MD | PCP | | + +------+ + Encounter Details +--------+ + + + + | Date | Type | Department | Care Team | Description | +--------+ + + + + | 02/24/ | Orders Only | [facility] | Deb Ernandez | Systemic lupus | | 2020 | | [address] | [place], [place] | erythematosus, | | | | [place], [place] | | unspecified SLE | | | | [address] | | type, unspecified | | | | [phone] | | organ involvement | | | | | | status ([facility]); High | | | | | | risk medication use | +--------+ + + + + Social [...] + + +---------+ + | Yes | 12 Glasses of wine | 12.0 | | | | 0 Standard drinks | | | | | or equivalent | | [...] 2019 | Visit | | [facility] [address] | | | | | | [address] | | | | | | [place] [address] | | | | | | [phone] | | | | | | | | +--------+---------+ + + + documented as of this encounter Procedures + +--------+ + + + | Procedure Name | Priori | Date/Time | Associated Diagnosis | Comments | | | ty | | | | + +--------+ + + + | TARUN, IFA | Routin | 02/25/2020 | Systemic lupus | Results for this | | | e | 11:56 AM | erythematosus, | procedure are in the | | | | PDT | unspecified SLE | results section. | | | | | type, unspecified | | | | | | organ involvement | | | | | | status ([facility]) High | | | | | | risk medication use | | + +--------+ + + + | JURGEN+DNA/DS+ANTICH+CE | Routin | 02/25/2020 | | Results for this | | NTRO+FA (NOT ORD) | e | 11:56 AM | | procedure are in the | | | | PDT | | results section. | + +--------+ + + + | URINALYSIS WITH | Routin | 02/25/2020 | Systemic lupus | Results for this | | MICROSCOPIC IF | e | 11:56 AM | erythematosus, | procedure are in the | | INDICATED | | PDT | unspecified SLE | results section. | | | | | type, unspecified | | | | | | organ involvement | | | | | | status ([facility]) High | | | | | | risk medication use | | + +--------+ + + + | SEDIMENTATION RATE | STAT | 02/25/2020 | Systemic lupus | Results for this | | | | 11:56 AM | erythematosus, | procedure are in the | | | | PDT | unspecified SLE | results section. | | | | | type, unspecified | | | | | | organ involvement | | | | | | status ([facility]) | | + +--------+ + + + | CBC WITH | Routin | 02/25/2020 | Systemic lupus | Results for this | | DIFFERENTIAL | e | 11:56 AM | erythematosus, | procedure are in the | | | | PDT | unspecified SLE | results section. | | | | | type, unspecified | | | | | | organ involvement | | | | | | status ([facility]) | | + +--------+ + + + | COMPLEMENT C3 AG | Routin | 02/25/2020 | Systemic lupus | Results for this | | | e | 11:56 AM | erythematosus, | procedure are in the | | | | PDT | unspecified SLE | results section. | | | | | type, unspecified | | | | | | organ involvement | | | | | | status ([facility]) High | | | | | | risk medication use | | + +--------+ + + + | COMPLEMENT C4 AG | Routin | 02/25/2020 | Systemic lupus | Results for this | | | e | 11:56 AM | erythematosus, | procedure are in the | | | | PDT | unspecified SLE | results section. | | | | | type, unspecified | | | | | | organ involvement | | | | | | status ([facility]) High | | | | | | risk medication use | | + +--------+ + + + | C-REACTIVE PROTEIN | STAT | 02/25/2020 | Systemic lupus | Results for this | | | | 11:56 AM | erythematosus, | procedure are in the | | | | PDT | unspecified SLE | results section. | | | | | type, unspecified | | | | | | organ involvement | | | | | | status ([facility]) | | + +--------+ + + + | COMPREHENSIVE | STAT | 02/25/2020 | Systemic lupus | Results for this | | METABOLIC PANEL | | 11:56 AM | erythematosus, | procedure are in the | | | | PDT | unspecified SLE | results section. | | | | | type, unspecified | | | | | | organ involvement | | | | | | status ([facility]) | | + +--------+ + + + documented in this encounter Results JURGEN+DSDNA+Antich+Centro+FA (02/25/2020 11:56 AM PDT) + + + + + + | Component | Value | Ref Range | Performed | Pathologist | | | | | At | Signature | + + + + + + | Nuclear Ab | >1:1280 (A) | | REFERENCE | | | Pattern.Felicia | | | LAB | | | ogeneous | | | [facility] | | | | | | LABORATORY | | + + + + + + | Note: | (See Below)Comment: A | | REFERENCE | | | | positive TARUN result may | | LAB | | | | occur in healthy | | [facility] | | | | individuals (lowtiter) | | LABORATORY | | | | or be associated with a | | | | | | variety of diseases. | | | | | | Seeinterpretation | | | | | | chart which is not all | | | | | | inclusive:Pattern | | | | | | Antigen Detected | | | | | | Suggested Disease | | | | | | Association | | | | | | | | | | | | | | | | | | -------Homogeneous | | | | | | DNA(ds,ss), | | | | | | SLE - High titers | | | | | | Nucleosomes, | | | | | | | | | | | | Histones | | | | | | Drug-induced | | | | | | SLE | | | | | | | | | | | | | | | | | | -------Speckled | | | | | | Sm, COMMUNITY INTEGRATION SPECIALIST, SCL-70, | | | | | | SLE,MCTD,PSS (diffuse | | | | | | form), | | | | | | SS-A/SS-B | | | | | | Sjogrens | | | | | | | | | | | | | | | | | | -------Nucleolar | | | | | | SCL-70, PM-1/SCL | | | | | | High titers | | | | | | Scleroderma, | | | | | | | | | | | | | | | | | | PM/DM | | | | | | | | | | | | | | | | | | -------Centromere | | | | | | Centromere | | | | | | PSS (limited form) | | | | | | w/Crest | | | | | | | | | | | | syndrome | | | | | | variable | | | | | | | | | | | | | | | | | | -------Nuclear Dot | | | | | | [id number] | | | | | | Primary Biliary | | | | | | Cirrhosis | | | | | | | | | | | | | | | | | | -------Nuclear | | | | | | [id number], | | | | | | Primary Biliary | | | | | | CirrhosisMembrane | | | | | | meri A,B,C | | | | | | | | | | | | | | | | | | ------- | | | | + + + + + + | DS DNA AB | 5Comment: | 0 - 9 IU/mL | REFERENCE | | | | | | LAB | | | | Negative | | [facility] | | | | <5 | | LABORATORY | | | | | | | | | | Equivocal | | | | | | 5 - 9 | | | | | | | | | | | | Positive | | | | | | >9 | | | | + + + + + + | COMMUNITY INTEGRATION SPECIALIST | <0.2 | 0.0 - 0.9 AI | REFERENCE | | | Autoantibod | | | LAB | | | y | | | [facility] | | | | | | LABORATORY | | + + + + + + | THOMPSON | <0.2 | 0.0 - 0.9 AI | REFERENCE | | | ANTIBODY | | | LAB | | | | | | [facility] | | | | | | LABORATORY | | + + + + + + | SCL-70 | <0.2 | 0.0 - 0.9 AI | REFERENCE | | | Autoantibod | | | LAB | | | y | | | [facility] | | | | | | LABORATORY | | + + + + + + | SS-A | <0.2 | 0.0 - 0.9 AI | REFERENCE | | | Autoantibod | | | LAB | | | y | | | [facility] | | | | | | LABORATORY | | + + + + + + | SS-B | <0.2 | 0.0 - 0.9 AI | REFERENCE | | | Autoantibod | | | LAB | | | y | | | [facility] | | | | | | LABORATORY | | + + + + + + | Antichromat | 0.3 | 0.0 - 0.9 AI | REFERENCE | | | in IgG, | | | LAB | | | Antibodies | | | [facility] | | | | | | LABORATORY | | + + + + + + | MARY-1 | <0.2 | 0.0 - 0.9 AI | REFERENCE | | | ANTIBODY | | | LAB | | | IGG | | | [facility] | | | | | | LABORATORY | | + + + + + + | Centromere | <0.2 | 0.0 - 0.9 AI | REFERENCE | | | B | | | LAB | | | Autoantibod | | | [facility] | | | y | | | LABORATORY | | + + + + + + | See below: | (See Below)Comment: | | REFERENCE | | | | Autoantibody | | LAB | | | | | | [facility] | | | | Disease | | LABORATORY | | | | Association | | | | | | | | | | | | | | | | | | | | | | | | Condition | | | | | | | | | | | | Frequency | | | | | | -------- | | | | | | | | | | | | ---------Antinuclear | | | | | | Antibody, SLE, | | | | | | mixed connectiveDirect | | | | | | (TARUN-D) | | | | | | tissue | | | | | | diseases | | | | | | ----- | | | | | | | | | | | | ---------dsDNA | | | | | | | | | | | | SLE | | | | | | 40 - | | | | | | 60% | | | | | | | | | | | | | | | | | | ---------Chromatin | | | | | | | | | | | | Drug induced SLE | | | | | | 90% | | | | | | | | | | | | SLE | | | | | | | | | | | | 48 - | | | | | | 97% | | | | | | | | | | | | | | | | | | ---------SSA (Ro) | | | | | | | | | | | | SLE | | | | | | 25 - 35% | | | | | | | | | | | | Sjogren's | | | | | | Syndrome 40 | | | | | | - 70% | | | | | | | | | | | | Lupus | | | | | | | | | | | | 100% | | | | | | - | | | | | | | | | | | | ---------SSB (La) | | | | | | | | | | | | SLE | | | | | | | | | | | | 10% | | | | | | Sjogren's | | | | | | Syndrome | | | | | | | | | | | | 30% | | | | | | -- | | | | | | | | | | | | ---------Sm | | | | | | (anti-Thompson) | | | | | | SLE | | | | | | 15 - | | | | | | 30% | | | | | | | | | | | | | | | | | | ---------COMMUNITY INTEGRATION SPECIALIST | | | | | | | | | | | | Mixed Connective | | | | | | Tissue | | | | | | | | | | | | Disease | | | | | | | | | | | | 95%(U1 nRNP, | | | | | | SLE | | | | | | | | | | | | 30 - | | | | | | 50%anti-ribonucleoprotei | | | | | | n) Polymyositis and/or | | | | | | | | | | | | | | | | | | Dermatomyositis | | | | | | | | | | | | 20% | | | | | | | | | | | | | | | | | | ---------Scl-70 | | | | | | (antiDNA | | | | | | Scleroderma (diffuse) | | | | | | 20 - | | | | | | 35%topoisomerase) | | | | | | Crest | | | | | | | | | | | | | | | | | | 13% | | | | | | | | | | | | | | | | | | ---------Mary-1 | | | | | | | | | | | | Polymyositis and/or | | | | | | | | | | | | Dermatomyositis | | | | | | 20 - | | | | | | 40% | | | | | | | | | | | | | | | | | | ---------Centromere | | | | | | B | | | | | | Scleroderma - Crest | | | | | | | | | | | | variant | | | | | | | | | | | | 80%Testing performed | | | | | | at [facility], [address] | | | | | | [place] | | | | | | [address] | | | | + + + + + + + + | Specimen | + + | | + + + + + + + | Performing | Address | City/State/Zipcode | Phone Number | | Organization | | | | + + + + + | REFERENCE LAB | [address] | [place], [place] | [phone] | | [facility] | [address] | [address] | | | LABORATORY | | | | + + + + + | REFERENCE LAB | [address] | [place], [place] | | | [facility] | Bl[address] | [address] | | | LABORATORY | | | | + + + + + CBC with Differential (02/25/2020 11:56 AM PDT) + + + + + + | Component | Value | Ref Range | Performed | Pathologist | | | | | At | Signature | + + + + + + | WBC | 4.57 | 3.80 - 11.00 | REFERENCE | | | | | K/uL | LAB | | | | | | [facility] | | | | | | LABORATORY | | + + + + + + | Red Blood | 3.90 (L) | 4.20 - 5.70 | REFERENCE | | | Cells | | M/uL | LAB | | | | | | [facility] | | | | | | LABORATORY | | + + + + + + | Hemoglobin | 14.4 | 13.2 - 17.0 | REFERENCE | | | | | g/dL | LAB | | | | | | [facility] | | | | | | LABORATORY | | + + + + + + | Hematocrit | 40.8 | 39.0 - 50.0 % | REFERENCE | | | | | | LAB | | | | | | [facility] | | | | | | LABORATORY | | + + + + + + | MCV | 104.6 (H) | 80.0 - 100.0 fl | REFERENCE | | | | | | LAB | | | | | | [facility] | | | | | | LABORATORY | | + + + + + + | MCH | 36.9 (H) | 27.0 - 34.0 pg | REFERENCE | | | | | | LAB | | | | | | [facility] | | | | | | LABORATORY | | + + + + + + | MCHC | 35.3 | 32.0 - 35.5 | REFERENCE | | | | | g/dL | LAB | | | | | | [facility] | | | | | | LABORATORY | | + + + + + + | RDW-SD | 51.6 | 37 - 53 fl | REFERENCE | | | | | | LAB | | | | | | [facility] | | | | | | LABORATORY | | + + + + + + | Platelet | 272 | 150 - 400 K/uL | REFERENCE | | | Count | | | LAB | | | | | | [facility] | | | | | | LABORATORY | | + + + + + + | MPV | 8.9 | fl | REFERENCE | | | | | | LAB | | | | | | [facility] | | | | | | LABORATORY | | + + + + + + | Diff Type | AUTOMATED | | REFERENCE | | | | | | LAB | | | | | | [facility] | | | | | | LABORATORY | | + + + + + + | % | 65.38 | % | REFERENCE | | | Neutrophils | | | LAB | | | | | | [facility] | | | | | | LABORATORY | | + + + + + + | % | 20.03 | % | REFERENCE | | | Lymphocytes | | | LAB | | | | | | [facility] | | | | | | LABORATORY | | + + + + + + | Monocyte % | 10.00 | % | REFERENCE | | | | | | LAB | | | | | | [facility] | | | | | | LABORATORY | | + + + + + + | Eosinophils | 3.47 | % | REFERENCE | | | % | | | LAB | | | | | | [facility] | | | | | | LABORATORY | | + + + + + + | Basophils % | 1.12 | % | REFERENCE | | | | | | LAB | | | | | | [facility] | | | | | | LABORATORY | | + + + + + + | Neutrophils | 2.99 | 1.90 - 7.40 | REFERENCE | | | , Absolute | | K/uL | LAB | | | | | | [facility] | | | | | | LABORATORY | | + + + + + + | Absolute | 0.92 (L) | 1.00 - 3.90 | REFERENCE | | | Lymphocytes | | K/uL | LAB | | | | | | [facility] | | | | | | LABORATORY | | + + + + + + | Absolute | 0.46 | 0.00 - 0.80 | REFERENCE | | | Monocytes | | K/uL | LAB | | | | | | [facility] | | | | | | LABORATORY | | + + + + + + | Eosinophils | 0.16 | 0.00 - 0.50 | REFERENCE | | | , Absolute | | K/uL | LAB | | | | | | [facility] | | | | | | LABORATORY | | + + + + + + | Basophils, | 0.05Comment: Testing | 0.00 - 0.10 | REFERENCE | | | Absolute | performed at [facility];[address] | K/uL | LAB | | | | [address] | | [facility] | | | | [address];[place] [address] | | LABORATORY | | + + + + + + + + | Specimen | + + | Blood | + + + + + + + | Performing | Address | City/State/Zipcode | Phone Number | | Organization | | | | + + + + + | REFERENCE LAB | [address] | [place] | [phone] | | [facility] | [address] | [address] | | | LABORATORY | | | | + + + + + | REFERENCE LAB | [address] | [place] | | | [facility] | [address] | [address] | | | LABORATORY | | | | + + + + + Sedimentation Rate (02/25/2020 11:56 AM PDT) + + + + + + | Component | Value | Ref Range | Performed | Pathologist | | | | | At | Signature | + + + + + + | ESR | 31 (H)Comment: Testing | 0 - 20 mm/Hr | REFERENCE | | | | performed at [facility];[address] | | LAB | | | | [place] | | [facility] | | | | [address];[place] [address] | | LABORATORY | | + + + + + + + + | Specimen | + + | Blood | + + + + + + + | Performing | Address | City/State/Zipcode | Phone Number | | Organization | | | | + + + + + | REFERENCE LAB | [address] [place] [address] | [place], [place] | [phone] | | [facility] | [address] | [address] | | | LABORATORY | | | | + + + + + | REFERENCE LAB | [address] [place] [address] | [place], [place] | | | [facility] | [address] | [address] | | | LABORATORY | | | | + + + + + Comprehensive Metabolic Panel (02/25/2020 11:56 AM PDT) + + + + + + | Component | Value | Ref Range | Performed | Pathologist | | | | | At | Signature | + + + + + + | Na | 138 | 135 - 145 | REFERENCE | | | | | mmol/L | LAB | | | | | | [facility] | | | | | | LABORATORY | | + + + + + + | K | 4.2 | 3.5 - 4.9 | REFERENCE | | | | | mmol/L | LAB | | | | | | [facility] | | | | | | LABORATORY | | + + + + + + | Cl | 104 | 99 - 109 mmol/L | REFERENCE | | | | | | LAB | | | | | | [facility] | | | | | | LABORATORY | | + + + + + + | CO2 | 27 | 23 - 32 mmol/L | REFERENCE | | | | | | LAB | | | | | | [facility] | | | | | | LABORATORY | | + + + + + + | Anion Gap | 11 | 5 - 20 mmol/L | REFERENCE | | | | | | LAB | | | | | | [facility] | | | | | | LABORATORY | | + + + + + + | Glucose | 103 (H) | 65 - 99 mg/dL | REFERENCE | | | | | | LAB | | | | | | [facility] | | | | | | LABORATORY | | + + + + + + | BUN | 19 | 8 - 25 mg/dL | REFERENCE | | | | | | LAB | | | | | | [facility] | | | | | | LABORATORY | | + + + + + + | Creatinine | 0.70 | 0.70 - 1.30 | REFERENCE | | | | | mg/dL | LAB | | | | | | [facility] | | | | | | LABORATORY | | + + + + + + | BUN/Creatin | 27 | | REFERENCE | | | ine Ratio | | | LAB | | | | | | [facility] | | | | | | LABORATORY | | + + + + + + | Calcium | 8.9 | 8.5 - 10.5 | REFERENCE | | | | | mg/dL | LAB | | | | | | [facility] | | | | | | LABORATORY | | + + + + + + | Protein, | 7.0 | 6.3 - 8.2 g/dL | REFERENCE | | | Total | | | LAB | | | | | | [facility] | | | | | | LABORATORY | | + + + + + + | Albumin | 3.4 (L) | 3.6 - 5.0 g/dL | REFERENCE | | | | | | LAB | | | | | | [facility] | | | | | | LABORATORY | | + + + + + + | Globulin | 3.6 | 1.3 - 4.9 g/dL | REFERENCE | | | | | | LAB | | | | | | [facility] | | | | | | LABORATORY | | + + + + + + | A/G Ratio | 0.9 (L) | 1.0 - 2.4 | REFERENCE | | | | | | LAB | | | | | | [facility] | | | | | | LABORATORY | | + + + + + + | BILIRUBIN, | 0.5 | 0.1 - 1.5 mg/dL | REFERENCE | | | TOTAL | | | LAB | | | | | | [facility] | | | | | | LABORATORY | | + + + + + + | ALK PHOS | 93 | 35 - 115 U/L | REFERENCE | | | | | | LAB | | | | | | [facility] | | | | | | LABORATORY | | + + + + + + | AST | 27 | 10 - 45 U/L | REFERENCE | | | | | | LAB | | | | | | [facility] | | | | | | LABORATORY | | + + + + + + | ALT | 29 | 10 - 65 U/L | REFERENCE | | | | | | LAB | | | | | | [facility] | | | | | | LABORATORY | | + + + + + + | Estimated | >60Comment: GFR <60: | >60 | REFERENCE | | | GFR | CHRONIC KIDNEY DISEASE, | mL/min/1.73m2 | LAB | | | | IF FOUND OVER A 3 MONTH | | [facility] | | | | PERIOD.GFR <15: KIDNEY | | LABORATORY | | | | FAILURE.FOR | | | | | | AMERICANS, MULTIPLY THE | | | | | | CALCULATED GFR BY | | | | | | 1.210.This eGFR is | | | | | | calculated using the | | | | | | MDRD IDMS traceable | | | | | | equation.Testing | | | | | | performed at [facility];[address] | | | | | | [facility] | | | | | | [facility];[place] [address] | | | | | | | | | | + + + + + + + + | Specimen | + + | Blood | + + + + + + + | Performing | Address | City/State/Zipcode | Phone Number | | Organization | | | | + + + + + | REFERENCE LAB | [address] [place] [address] | [place], [place] | [phone] | | [facility] | Bl[address] | [address] | | | LABORATORY | | | | + + + + + | REFERENCE LAB | [address] [place] [address] | [place], [place] | | | [facility] | Blvd. | [address] | | | LABORATORY | | | | + + + + + C-Reactive Protein (02/25/2020 11:56 AM PDT) + + + + + + | Component | Value | Ref Range | Performed | Pathologist | | | | | At | Signature | + + + + + + | CRP | 0.8 (H)Comment: Testing | <0.5 mg/dL | REFERENCE | | | | performed at [facility];[address] | | LAB | | | | [place] | | [facility] | | | | [address];[place] [address] | | LABORATORY | | + + + + + + + + | Specimen | + + | Blood | + + + + + + + | Performing | Address | City/State/Zipcode | Phone Number | | Organization | | | | + + + + + | REFERENCE LAB | [address] | [place] | [phone] | | [facility] | [address] | [address] | | | LABORATORY | | | | + + + + + | REFERENCE LAB | [address] | [place] | | | [facility] | Bl[address] | [address] | | | LABORATORY | | | | + + + + + Complement C3 Ag (02/25/2020 11:56 AM PDT) + + + + + + | Component | Value | Ref Range | Performed | Pathologist | | | | | At | Signature | + + + + + + | C3 | 107Comment: Testing | 82 - 167 mg/dL | REFERENCE | | | COMPLEMENT | performed at [facility], | | LAB | | | | [address], [place] [address], | | [facility] | | | | [facility] [address] | | LABORATORY | | + + + + + + + + | Specimen | + + | Blood | + + + + + + + | Performing | Address | City/State/Zipcode | Phone Number | | Organization | | | | + + + + + | REFERENCE LAB | [address] [place] [address] | [place], [place] | [phone] | | [facility] | [address] | [address] | | | LABORATORY | | | | + + + + + | REFERENCE LAB | [address] [place] [address] | [place], [place] | | | [facility] | [address] | [address] | | | LABORATORY | | | | + + + + + Complement C4 Ag (02/25/2020 11:56 AM PDT) + + + + + + | Component | Value | Ref Range | Performed | Pathologist | | | | | At | Signature | + + + + + + | C4 | 9 (L)Comment: Testing | 14 - 44 mg/dL | REFERENCE | | | COMPLEMENT | performed at [facility], | | LAB | | | | [address] | | [facility] | | | | [facility] [address] | | LABORATORY | | + + + + + + + + | Specimen | + + | Blood | + + + + + + + | Performing | Address | City/State/Zipcode | Phone Number | | Organization | | | | + + + + + | REFERENCE LAB | [address] | [place], [place] | [phone] | | [facility] | [address] | [address] | | | LABORATORY | | | | + + + + + | REFERENCE LAB | [address] [place] [address] | [place], [place] | | | [facility] | [address] | [address] | | | LABORATORY | | | | + + + + + BALBIR MCNEIL (02/25/2020 11:56 AM PDT) + + + + + + | Component | Value | Ref Range | Performed | Pathologist | | | | | At | Signature | + + + + + + | TARUN | Positive (A)Comment: | | REFERENCE | | | | | | LAB | | | | | | [facility] | | | | Negative <1:80 | | LABORATORY | | | | | | | | | | | | | | | | Borderline 1:80 | | | | | | | | | | | | | | | | | | Positive >1:80 | | | | + + + + + + | Please | (See Below)Comment: [facility] | | REFERENCE | | | Note: | Multiplex methodology | | LAB | | | | was designed to detect | | [facility] | | | | up to 11 antibodiesof | | LABORATORY | | | | the 100+ antibodies that | | | | | | may be detected by [facility] | | | | | | IFA methodology.Testing | | | | | | performed at [facility], [address] | | | | | [facility] | | | | | | [place] [address] | | | | + + + + + + + + | Specimen | + + | Blood | + + + + + + + | Performing | Address | City/State/Zipcode | Phone Number | | Organization | | | | + + + + + | REFERENCE LAB | [address] [place] [address] | [place], [place] | [phone] | | [facility] | [address] | [address] | | | LABORATORY | | | | + + + + + | REFERENCE LAB | [address] [place] [address] | [place], [place] | | | [facility] | [address] | [address] | | | LABORATORY | | | | + + + + + Urinalysis with Microscopic if Indicated (02/25/2020 11:56 AM PDT) + + + + + + | Component | Value | Ref Range | Performed | Pathologist | | | | | At | Signature | + + + + + + | Color, UA | YELLOW | | REFERENCE | | | | | | LAB | | | | | | [facility] | | | | | | LABORATORY | | + + + + + + | Clarity, | CLEAR | | REFERENCE | | | Urine | | | LAB | | | | | | [facility] | | | | | | LABORATORY | | + + + + + + | Specific | 1.012 | 1.002 - 1.030 | REFERENCE | | | [place], | | | LAB | | | Urine | | | [facility] | | | | | | LABORATORY | | + + + + + + | Leukocyte | NEGATIVEComment: | NEG | REFERENCE | | | esterase, | | | LAB | | | UA | | | [facility] | | | | | | LABORATORY | | + + + + + + | Nitrite, UA | NEGATIVE | NEG | REFERENCE | | | | | | LAB | | | | | | [facility] | | | | | | LABORATORY | | + + + + + + | Urobilinoge | <1.6 | <1.6 mg/dL | REFERENCE | | | n, Ur | | | LAB | | | | | | [facility] | | | | | | LABORATORY | | + + + + + + | Protein, | NEGATIVE | NEG mg/dL | REFERENCE | | | Urine | | | LAB | | | (mg/dL) | | | [facility] | | | | | | LABORATORY | | + + + + + + | pH, Urine | 5.0 | 5.0 - 8.0 | REFERENCE | | | | | | LAB | | | | | | [facility] | | | | | | LABORATORY | | + + + + + + | Blood, UA | NEGATIVE | NEG | REFERENCE | | | | | | LAB | | | | | | [facility] | | | | | | LABORATORY | | + + + + + + | Ketones, UA | NEGATIVE | NEG mg/dL | REFERENCE | | | | | | LAB | | | | | | [facility] | | | | | | LABORATORY | | + + + + + + | Bilirubin, | NEGATIVE | NEG | REFERENCE | | | UA | | | LAB | | | | | | [facility] | | | | | | LABORATORY | | + + + + + + | Glucose, Ur | NEGATIVEComment: Testing | NEG mg/dL | REFERENCE | | | | performed at [facility];[address] | | LAB | | | | [place] | | [facility] | | | | [address];[place] [address] | | LABORATORY | | + + + + + + + + | Specimen | + + | Urine | + + + + + + + | Performing | Address | City/State/Zipcode | Phone Number | | Organization | | | | + + + + + | REFERENCE LAB | [address] | [place] | [phone] | | [facility] | [address] | [address] | | | LABORATORY | | | | + + + + + | REFERENCE LAB | [address] [facility] | [place], [place] | | | [facility] | [address] | [address] | | | LABORATORY | | | | + + + + + documented in this encounter Visit Diagnoses + + | Diagnosis | + + | Systemic lupus erythematosus, unspecified SLE type, unspecified organ involvement | | status (HCC) | + + | High risk medication use Encounter for long-term (current) use of other medications | + + documented in this encounter"
--- OUTSIDE RECORDS SUMMARY | ~2020-05-08 | XMS | Encounter Summary ---
Demographics + + + | Address | [address] | | | [place] [address] | + + + | Home Phone | | + + + | Preferred Language | Unknown | + + + | Marital Status | | + + + | Yarsanism Affiliation | 1013 | + + + | Race | White | + + + | Ethnic Group | Not or | + + + Author + + + | Author | [facility] | | | and [place] | + + + | Organization | [facility] | | | and [place] | + + + | Address | Unknown | + + + | Phone | Unavailable | + + + Support + + + + + | Name | Relationship | Address | Phone | + + + + + | Jenny Trammellehart | ECON | [address] | | | | | [place] | | | | | [address] | | + + + + + Care Team Providers + +------+ + | Care Real Estate Photographer Name | Role | Phone | + +------+ + | Radha Rodriguez | PCP | | | PA-C | | | + +------+ + Reason for Visit Service/Procedure (Routine) +--------+--------+ + + + + | Status | Reason | Specialty | Diagnoses / | Referred By | Referred To | | | | | Procedures | Contact | Contact | +--------+--------+ + + + + | Closed | | Radiology | Diagnoses | | [facility] | | | | | Cervical | [place], | [address] | | | | | radiculopath | Joey Salinas MD | [place], | | | | | y | [address] | [place] | | | | | Procedures | [place] | [address] | | | | | [place] | [place] | Phone: | | | | | DX/THER SBST | [address] | [phone] | | | | | | Phone: | Fax: | | | | | EPIDURAL/SUB | [phone] | [phone] | | | | | SARKIS | Fax: | | | | | | CERV/THORACI | [phone] | | | | | | C AR | | | | | | | TRIAMCINOLON | | | | | | | E ACET INJ | | | | | | | NOS, 10 MG | | | | | | | CHG FLUOR | | | | | | | NEEDLE/CATH | | | | | | | SPINE/PARASP | | | | | | | INAL DX/THER | | | | | | | ADDON Appt | | | | | | | 12/7 C7-T1 | | | | | | | ILESI right | | | | | | | of midline | | | +--------+--------+ + + + + Encounter Details +--------+ + + + + | Date | Type | Department | Care Team | Description | +--------+ + + + + | 07/04/ | Hospital | [facility] | Padmajawicz, | Cervical | | 2016 | Encounter | MED CTR XRAY [address] | [address] | radiculopathy; DDD | | | | [place] | [facility], [address] | (degenerative disc | | | | [place] [address] | [place] [address] | disease), cervical; | | | | [phone] | [phone] | Foraminal stenosis | | | | | | of cervical region | | | | | [employer] [place] | | | | | | [place] | | +--------+ + + + + Social History + +-------+ [...] this encounter Last Filed Vital Signs + +---------+ + + | Vital Sign | Reading | Time Taken | Comments | + +---------+ + + | Blood Pressure | 171/78 | 07/04/2016 1:18 PM | | | | | PST | | + +---------+ + + | Pulse | 68 | 07/04/2016 1:18 PM | | | | | PST | | + +---------+ + + | Temperature | - | - | | + +---------+ + + | Respiratory Rate | - | - | | + +---------+ + + | Oxygen Saturation | - | - | | + +---------+ + + | Inhaled Oxygen | - | - | | | Concentration | | | | + +---------+ + + | Weight | - | - | | + +---------+ + + | Height | - | - | | + +---------+ + + | Body Mass Index | - | - | | + +---------+ + + documented in this encounter Medications at Time of Discharge + + + +---------+--------+ + | Medication | Sig | Dispensed | Refills | Start | End Date | | | | | | Date | | + + + +---------+--------+ + | hydroxychloroquine | Take 200 mg by mouth | | 0 | | | | (PLAQUENIL) 200 mg | 2 times daily. | | | | | | tablet | | | | | | + + + +---------+--------+ + | azaTHIOprine | Take 50 mg by mouth | | 0 | | | | (IMURAN) 50 mg | 2 times daily. | | | | 0 | | tablet | | | | | | + + + +---------+--------+ + | carisoprodol | Take 350 mg by mouth | | 0 | | | | (SOMA) 350 mg tablet | nightly. | | | | 0 | + + + +---------+--------+ + | Celecoxib | Take by mouth. | | 0 | | | | (CELEBREX PO) | | | | | 7 | + + + +---------+--------+ + | CLONIDINE HCL PO | Take by mouth. | | 0 | | | | | | | | | 7 | + + + +---------+--------+ + | FLUoxetine | Take 20 mg by mouth | | 0 | | | | (PROZAC) 20 MG | Daily. | | | | 7 | | tablet | | | | | | + + + +---------+--------+ + | gabapentin | Take 1,200 mg by | | 0 | | | | (NEURONTIN) 600 MG | mouth nightly. | | | | 0 | | tablet | | | | | | + + + +---------+--------+ + | lovastatin | Take 20 mg by mouth | | 0 | | | | (MEVACOR) 20 mg | nightly. | | | | 0 | | tablet | | | | | | + + + +---------+--------+ + | Multiple | Take 1 capsule by | | 0 | | | | Vitamins-Minerals | mouth Daily. | | | | 7 | | (CENTRUM SILVER PO) | | | | | | + + + +---------+--------+ + | Naproxen Sodium | Take 2 tablets by | | 0 | | | | (ALEVE) 220 MG CAPS | mouth 3 times daily. | | | | 7 | + + + +---------+--------+ + | traMADol (ULTRAM) | Take 50 mg by mouth | | 0 | | | | 50 mg tablet | 3 times daily. | | | | 7 | + + + +---------+--------+ + documented as of this encounter Plan of Treatment +--------+---------+ + + + | Date | Type | Specialty | Care Team | Description | +--------+---------+ + + + | 05/12/ | Office | Rheumatology | Nandini Ward | | | 2020 | Visit | | [address] | | | | | | [facility] | | | | | | [place] [address] | | | | | | [phone] | | | | | | | | +--------+---------+ + + + documented as of this encounter Procedures + +--------+ + + + | Procedure Name | Priori | Date/Time | Associated Diagnosis | Comments | | | ty | | | | + +--------+ + + + | FL EPIDURAL STEROID | Routin | 07/04/2016 | Cervical | Results for this | | INJ CERVICAL | e | 1:20 PM | radiculopathy DDD | procedure are in the | | THORACIC | | PST | (degenerative disc | results section. | | INTERLAMINAR | | | disease), cervical | | | | | | Foraminal stenosis | | | | | | of cervical region | | + +--------+ + + + documented in this encounter Results FL ANNALISE Cervical Thoracic Interlaminar (07/04/2016 1:20 PM PST) + + | Specimen | + + | | + + + + + | Narrative | Performed At | + + + | 07/04/2016 CERVICAL INTERLAMINAR EPIDURAL STEROID INJECTION | [facility] | | CLINICAL HISTORY: ICD-10 CODE M54.12 CERVICAL RADICULOPATHY Steven HIGGINBOTHAM | | Yemibarber TrammellYasmany presents to the fluoroscopy suite for a | [facility] | | fluoroscopically-guided C7-T1 interlaminar epidural steroid injection, | - IMAGING | | right of midline, as part of conservative management for chronic | | | pain with cervical radiculopathy and degenerative disk disease. | | | After informed consent was obtained, the patient lay in the prone | | | position on the fluoroscopy table. The area was identified under | | | fluoroscopic guidance. The area was prepped and draped in sterile | | | fashion. A 25-gauge, 1.5-inch needle was inserted into this region | | | and approximately 3 mL of buffered 1% lidocaine was infused. Then a | | | 22-gauge epidural needle was advanced into the epidural space at the | | | C7-T1 level. Confirmation into the epidural space was obtained | | | with loss of resistance, as well as infusion of approximately 1 mL | | | of Isovue contrast which showed epidural flow. Then, a combination | | | of 2.5 mL of normal saline and 1.5 mL of 6 mg/mL Celestone was | | | infused. The patient tolerated the procedure well without | | | complications. Pre- and post-procedure blood pressures were stable. | | | The patient was given verbal as well as written followup | | | instructions. Prior to the start of the procedure, the following | | | were performed and verified, including correct patient identity, | | | correct site/side marked and visible, agreement on the procedure to | | | be done, correct patient positioning and an accurate procedure | | | consent form. Any safety precautions based on clinical history | | | and/or medication use have been addressed. I personally performed | | | the procedure above. Estimated blood loss: Minimal | | | Complications: None Findings: As expected Anesthesia: Local 1% | | | Lidocaine | | + + + + + + + + | Performing | Address | City/State/Zipcode | Phone Number | | Organization | | | | + + + + + | [facility] | [address] | [place] | [phone] | | [facility] | | [address] | | | - IMAGING | | | | + + + + + documented in this encounter Visit Diagnoses + + | Diagnosis | + + | Cervical radiculopathy Brachial neuritis or radiculitis nos | + + | DDD (degenerative disc disease), cervical Degeneration of cervical intervertebral | | disc | + + | Foraminal stenosis of cervical region Spinal stenosis in cervical region | + + documented in this encounter Administered Medications + +--------+ +------+------+------+ | Medication Order | MAR | Action | Dose | Rate | Site | | | Action | Date | | | | + +--------+ +------+------+------+ | betamethasone (CELESTONE | Given | 07/04/20 | 9 mg | | | | SOLUSPAN) injection 9 mg 9 mg, | | 16 1:10 | | | | | Other, ONCE, Sat07/04/16 at 1330, | | PM PST | | | | | For 1 dose, Shake well. Not for | | | | | | | IV use., | | | | | | + +--------+ +------+------+------+ +---+---+ | | | +---+---+ + +-------+ +-------+---+---+ | iohexol (OMNIPAQUE 300) 300 | Given | 07/04/20 | 4 mLs | | | | mg/mL injection 4 mL 4 mL, | | 16 1:10 | | | | | Other, ONCE, Sat07/04/16 at 1330, | | PM PST | | | | | For 1 dose | | | | | | + +-------+ +-------+---+---+ +---+---+ | | | +---+---+ + +-------+ +-------+---+---+ | lidocaine 1% injection 3 mL 3 | Given | 07/04/20 | 4 mLs | | | | mL, Other, ONCE, Sat07/04/16 at | | 16 1:05 | | | | | 1330, For 1 dose | | PM PST | | | | + +-------+ +-------+---+---+ +---+---+ | | | +---+---+ + +-------+ +------+---+---+ | sodium bicarbonate (NEUT) 4% | Given | 07/04/20 | 1 mL | | | | injection 2 mL 2 mL, | | 16 1:05 | | | | | Infiltration, ONCE, Sat07/04/16 | | PM PST | | | | | at 1330, For 1 dose | | | | | | + +-------+ +------+---+---+ +---+---+ | | | +---+---+ documented in this encounter"
--- OUTSIDE RECORDS SUMMARY | ~2020-05-08 | XMS | Encounter Summary ---
Demographics + + + | Address | [address] | | | [place] [address] | + + + | Home Phone | | + + + | Preferred Language | Unknown | + + + | Marital Status | | + + + | Congregational Affiliation | 1013 | + + + | Race | White | + + + | Ethnic Group | Not or | + + + Author + + + | Author | [facility] | | | and [place] | + + + | Organization | [facility] | | | and [place] | + + + | Address | Unknown | + + + | Phone | Unavailable | + + + Support + + + + + | Name | Relationship | Address | Phone | + + + + + | Jenny Lynchart | ECON | [address] | | | | | [place] | | | | | [address] | | + + + + + Care Team Providers + +------+ + | Care Behavioral Interventionist Name | Role | Phone | + +------+ + | Radha Rodriguez | PCP | | | PA-C | | | + +------+ + Encounter Details +--------+ + + + + | Date | Type | Department | Care Team | Description | +--------+ + + + + | 08/08/ | Orders Only | [facility] | Spencer Barton, | Neck pain (Primary | | 2017 | | NEUROSURGERY [address] | DO [address] | Dx) | | | | [address] | [address] [place], [place] | | | | | [place] | [address] | | | | | [address] | | | | | | [phone] | | | +--------+ + + + [...] W | | | | | | [facility] | | | | | | [place] [address] | | | | | | [phone] | | | | | | | | +--------+---------+ + + + documented as of this encounter Results XR Cervical Spine 4 or 5 Vws (10/03/2016 8:19 AM PST) + + | Specimen | + + | | + + + + + | Narrative | Performed At | + + + | XR CERVICAL SPINE 4 OR 5 VWS 10/03/2016 8:19 AM HISTORY: Neck | [facility] | | pain. COMPARISON: 06/11/2016 FINDINGS: Sagittal imaging | [facility] | | demonstrates multilevel disc marginal osteophytosis, intervertebral | [facility] | | disc space narrowing, and facet spondylosis which is moderate to | - IMAGING | | severe at C5-C6 and moderate at C6-C7. Cervical spine vertebral body | | | heights and alignment is maintained. No evidence of dynamic listhesis | | | on flexion or extension imaging. Craniocervical and atlantoaxial | | | articulations are intact. Prevertebral soft tissues are unremarkable. | | | Moderate degenerative changes seen involving the C1-C2 articulation. | | | IMPRESSION - Multilevel degenerative disc disease and facet | | | spondylosis which is moderate to severe at C5-C6 and moderate at | | | C6-C7. Moderate degenerative changes at the atlantoaxial | | | articulation. Dictated and Signed by: Pb Tran MD | | | Electronically signed: 10/03/2016 10:15 AM | | + + + + + | Procedure Note | + + | Carlos, Rad Results In - 10/03/2016 10:18 AM PST XR CERVICAL SPINE 4 OR 5 VWS 10/03/2016 | | 8:19 AMHISTORY: Neck pain.COMPARISON: 06/11/2016FINDINGS:Sagittal imaging demonstrates | | multilevel disc marginal osteophytosis,intervertebral disc space narrowing, and facet | | spondylosis which is moderate tosevere at C5-C6 and moderate at C6-C7. Cervical spine | | vertebral body heights andalignment is maintained. No evidence of dynamic listhesis on | | flexion orextension imaging. Craniocervical and atlantoaxial articulations are | | intact.Prevertebral soft tissues are unremarkable. Moderate degenerative changes | | seeninvolving the C1-C2 articulation.IMPRESSION -Multilevel degenerative disc disease | | and facet spondylosis which is moderate tosevere at C5-C6 and moderate at C6-C7.Moderate | | degenerative changes at the atlantoaxial articulation.Dictated and Signed by: Pb | | MD Chelsea Electronically signed: 10/03/2016 10:15 AM | |extension imaging. Craniocervical and atlantoaxial articulations are intact. | |Prevertebral soft tissues are unremarkable. Moderate degenerative changes seen | |involving the C1-C2 articulation. | | | |IMPRESSION - | |Multilevel degenerative disc disease and facet spondylosis which is moderate to | |severe at C5-C6 and moderate at C6-C7. | | | |Moderate degenerative changes at the atlantoaxial articulation. | | | |Dictated and Signed by: Pb Tran MD | | Electronically signed: 10/03/2016 10:15 AM | + + + + + + + | Performing | Address | City/State/Zipcode | Phone Number | | Organization | | | | + + + + + | [facility] | [address] | [place] | [phone] | | [facility] | | [address] | | | - IMAGING | | | | + + + + + documented in this encounter Visit Diagnoses + + | Diagnosis | + + | Neck pain - Primary Cervicalgia | + + documented in this encounter"
--- OUTSIDE RECORDS SUMMARY | ~2020-05-08 | XMS | Encounter Summary ---
Demographics + + + | Address | [address] | | | [place] [address] | + + + | Home Phone | | + + + | Preferred Language | Unknown | + + + | Marital Status | | + + + | Hoahaoism Affiliation | 1013 | + + + | Race | White | + + + | Ethnic Group | Not or | + + + Author + + + | Author | [facility] | | | and [place] | + + + | Organization | [facility] | | | and [place] | + + + | Address | Unknown | + + + | Phone | Unavailable | + + + Support + + + + + | Name | Relationship | Address | Phone | + + + + + | Jenny Lynchart | ECON | [address] | | | | | [place] | | | | | [address] | | + + + + + Care Team Providers + +------+ + | Care Supervisor Floor Assembly Name | Role | Phone | + +------+ + | Radha Rodriguez | PCP | | | PA-C | | | + +------+ + Encounter Details +--------+ + + + + | Date | Type | Department | Care Team | Description | +--------+ + + + + | 10/03/ | Hospital | [facility] | Spencer Barton, | Neck pain | | 2017 | Encounter | MED CTR XRAY [address] | DO [address] | | | | | [place] | [address] [place], [place] | | | | | [place] [address] | [address] | | | | | [phone] | | | +--------+ + + + [...] 2019 | Visit | | [address] | | | | | | [address] | | | | | | [place] [address] | | | | | | [phone] | | | | | | | | +--------+---------+ + + + documented as of this encounter Procedures + +--------+ + + + | Procedure Name | Priori | Date/Time | Associated Diagnosis | Comments | | | ty | | | | + +--------+ + + + | XR CERVICAL SPINE 4 | Routin | 10/03/2016 | Neck pain | Results for this | | OR 5 VWS | e | 8:19 AM | | procedure are in the | | | | PST | | results section. | + +--------+ + + + documented in this encounter Results XR Cervical Spine 4 [...] | + + + + + | [facility] | [address] | [place] | [phone] | | [facility] | | [address] | | | - IMAGING | | | | + + + + + documented in this encounter Visit Diagnoses + + | Diagnosis | + + | Neck pain Cervicalgia | + + documented in this encounter"
--- OUTSIDE RECORDS SUMMARY | ~2020-05-08 | XMS | Encounter Summary ---
Demographics + + + | Address | [address] | | | [place] [address] | + + + | Home Phone | | + + + | Preferred Language | Unknown | + + + | Marital Status | | + + + | Sabianism Affiliation | 1013 | + + + | Race | White | + + + | Ethnic Group | Not or | + + + Author + + + | Author | [facility] | | | and [place] | + + + | Organization | [facility] | | | and [place] | + + + | Address | Unknown | + + + | Phone | Unavailable | + + + Support + + + + + | Name | Relationship | Address | Phone | + + + + + | Jenny Jade | ECON | [address] | | | | | [place] | | | | | [address] | | + + + + + Care Team Providers + +------+ + | Care Gifts Officer Name | Role | Phone | + +------+ + | Radha Rodriguez | PCP | | | PA-C | | | + +------+ + Reason for Visit + +--------+ + | Reason | Onset | Comments | | | Date | | + +--------+ + | Medication Refill | 01/24/ | | | | 2016 | | + +--------+ + Encounter Details +--------+--------+ + + + | Date | Type | Department | Care Team | Description | +--------+--------+ + + + | 01/24/ | Refill | [facility] | Spencer Barton, | Medication Refill | | 2016 | | NEUROSURGERY [address] | DO [address] | | | | | [address] [facility] [address] | [address] [place], [place] | | | | | [place], [place] | [id number] | | | | | [address] | | | | | | [phone] | | | +--------+--------+ + + + Social History + + [...] this encounter Miscellaneous Notes Telephone Encounter - Bettie Thompson RN - 01/24/2017 4:53 PM PDTNotified patient Rx nadeen roved and sending [facility] Certified Mail # [phone] elephone Encounter - Osvaldo Harrington PA - 01/24 4:21 PM PDTDone elephone Encounter - Bettie Thompson RN - 01/24/2017 12:03 PM PDTMedication Refill Request Procedure: C5-6, C6-7 Anterior Cervical Discectomy w/ Fusion and Plating Date of Surgery: 11/28/2016 Date of Next Office Visit: 03/05/2017 Medication requested: HYDROcodone-acetaminophen (NORCO) 7.5-325 mg Do you have a pain contract with any providers: PCP will resume following 90 day post op p eriod (has already discussed and has appointment scheduled) Are you receiving pain medication prescriptions from any other providers: No Current intake: 3-4 tablets daily Date of last refill: 12/26/2016 # of tabs left/or when will patient run out of this medication: 20 tablets left Where is pain located? Type of pain (constant, intermittent, sharp, dull)? : Doing better, swallowing better; pain at surgical site and from lupus Send in the mail or call in to preferred pharmacy? [facility] Please approve/ deny Rx. elephone Encounter - Alicia Mansfield - 01/24/2017 10:15 AM PDTPatient called to request a refill for HYDROcod one-acetaminophen (NORCO) 7.5-325 mg per tablet. Patient would like a call back.Electronical ly signed by Alicia Mansfield at 01/24/2017 10:16 AM PDTdocumented in this encounter Plan of Treatment +--------+---------+ + + + | Date | Type | Specialty | Care Team | Description | +--------+---------+ + + + | 05/12/ | Office | Rheumatology | Nandini Ward | | | 2019 | Visit | | [address] | | | | | | [facility] | | | | | | [place] [address] | | | | | | [phone] | | | | | | | | +--------+---------+ + + + documented as of this encounter Visit Diagnoses + + | Diagnosis | + + | S/P cervical spinal fusion - Primary Arthrodesis status | + + documented in this encounter"
--- OUTSIDE RECORDS SUMMARY | ~2020-05-08 | XMS | Encounter Summary ---
Demographics + + + | Address | [address] | | | [place] [address] | + + + | Home Phone | | + + + | Preferred Language | Unknown | + + + | Marital Status | | + + + | Taoist Affiliation | 1013 | + + + | Race | White | + + + | Ethnic Group | Not or | + + + Author + + + | Author | [facility] | | | and [place] | + + + | Organization | [facility] | | | and [place] | + + + | Address | Unknown | + + + | Phone | Unavailable | + + + Support + + + + + | Name | Relationship | Address | Phone | + + + + + | Jenny Jade | ECON | [address] | | | | | [place] | | | | | [address] | | + + + + + Care Team Providers + +------+ + | Care Vinyl Welder And Fabricator Name | Role | Phone | + +------+ + | Radha Rodriguez | PCP | | | PA-C | | | + +------+ + Reason for Visit + +--------+ + | Reason | Onset | Comments | | | Date | | + +--------+ + | Medication Refill | 02/25/ | | | | 2016 | | + +--------+ + Encounter Details +--------+--------+ + + + | Date | Type | Department | Care Team | Description | +--------+--------+ + + + | 02/25/ | Refill | [facility] | Spencer Barton, | Medication Refill | | 2016 | | NEUROSURGERY [address] | DO [address] | | | | | [facility] [address] | [address] [place], [place] | | | | | [place], [place] | [id number] | | | | | [address] | | | | | | [phone] | | | +--------+--------+ + + + [...] Telephone Encounter - Bettie Thompson RN - 02/26/2017 8:19 AM PDTLeft message to notify patient Rx approved and sending US Certified Mail # [id number] [phone] s igned by Bettie Thompson RN at 02/26/2017 8:24 AM PDTTelephone Encounter - Osvaldo Harrington PA - 02/25/2017 7:53 PM PDTDone. Please remind patient that he is almost 3 months out from surgery and will need another provider to prescribe future medicationsElectronically si gned by MELANIE Sainz at 02/25/2017 7:53 PM PDTTelephone Encounter - Bettie Thompson RN - 02/25/2017 1:29 PM PDTMedication Refill Request Procedure: C5-6, C6-7 Anterior Cervical Discectomy w/ Fusion and Plating Date of Surgery: 11/28/2016 Date of Next Office Visit: 03/05/2017 (Oralia) Medication requested: HYDROcodone-acetaminophen (NORCO) 7.5-325 mg Do you have a pain contract with any providers: PCP will resume following 90 day post op p ghassan (has already discussed and has appointment scheduled) Are you receiving pain medication prescriptions from any other providers: No Current intake: 4-5 tablets daily Date of last refill: 01/24/2017 # of tabs left/or when will patient run out of this medication: 15 tablets left (patient ac knowledged possibility that Rx will not reach him before he runs out and will use acetaminop hen as directed, not exceeding max dose in 24 hours from all sources to stretch hydrocodone supply on hand) Where is pain located? Type of pain (constant, intermittent, sharp, dull)? : Increased use with recent lupus flare r/t heat and stress; surgical pain 1-2/10, minimal and with swallow ing and continuing to improve Send in the mail or call in to preferred pharmacy? [facility] Please approve/ deny Rx. elephone Kanchan Khan - 02/25/2017 1:05 PM PDTPatient called in for a refill on his hydroc odone. Please mail prescription to patient. Patient only has three days of pills left. Patient can be reached at [phone].Electronically signed by Kanchan Akhtar at 2016 1:06 PM PDTdocumented in this encounter Plan of Treatment +--------+---------+ + + + | Date | Type | Specialty | Care Team | Description | +--------+---------+ + + + | 05/12/ | Office | Rheumatology | Nandini Ward | | | 2019 | Visit | | [facility] [address] | | | | | | [facility] | | | | | | [place] [address] | | | | | | [phone] | | | | | | | | +--------+---------+ + + + documented as of this encounter Visit Diagnoses + + | Diagnosis | + + | S/P cervical spinal fusion Arthrodesis status | + + documented in this encounter"
--- OUTSIDE RECORDS SUMMARY | ~2020-05-08 | XMS | Encounter Summary ---
Demographics + + + | Address | [address] | | | [place] [address] | + + + | Home Phone | | + + + | Preferred Language | Unknown | + + + | Marital Status | | + + + | Episcopal Affiliation | 1013 | + + + | Race | White | + + + | Ethnic Group | Not or | + + + Author + + + | Author | [facility] | | | and [place] | + + + | Organization | [facility] | | | and [place] | + + + | Address | Unknown | + + + | Phone | Unavailable | + + + Support + + + + + | Name | Relationship | Address | Phone | + + + + + | Jenny Lynchart | ECON | [address] | | | | | [place] | | | | | [address] | | + + + + + Care Team Providers + +------+ + | Care Etcher Apprentice Photoengraving Name | Role | Phone | + +------+ + | Demetris Steward MD | PCP | | + +------+ + Reason for Visit + + + | Reason | Comments | + + + | Rheumatology | | | Appointment | | + + + Encounter Details +--------+---------+ + + + | Date | Type | Department | Care Team | Description | +--------+---------+ + + + | 02/24/ | Office | [facility] | Nandini Ward | Systemic lupus | | 2020 | Visit | RHEUMATOLOGY [address] | [place] [address] | erythematosus, | | | | [address] | unspecified SLE | | | | [place] | [place] [address] | type, unspecified | | | | [address] | [phone] | organ involvement | | | | [phone] | | status (HCC) | | | | | | (Primary Dx); | | | | | | Chronic midline low | | | | | | back pain without | | | | | | sciatica | +--------+---------+ + + + Social History [...] + + + | Blood Pressure | 160/100 | 02/25/2020 10:56 AM | | | | | PDT | | + + + + + | Pulse | 75 | 02/25/2020 10:56 AM | | | | | PDT | | + + + + + | Temperature | 36.7 C (98 F) | 02/25/2020 10:56 AM | | | | | PDT | [...] + + + + | Weight | 141.2 kg (311 lb 3.2 | 02/25/2020 10:56 AM | | | | oz) | PDT | | + + + + + | Height | 182.9 cm (6') | 02/25/2020 10:56 AM | | | | | PDT | | + + + + + | Body Mass Index | 42.21 | 02/25/2020 10:56 AM | | | | | PDT | | + + + + + documented in this encounter Patient Instructions Patient Instructions Kobe Law, Project Estimator - 02/25/2020 11:00 AM PDTWe hop e that you have experienced exceptional care today and that you found our service to be cour teous and helpful. If you have any questions or need medication refills you can send us a message/request u Code Blue or call our office at [phone]. To reach Anna OSBORN use ext [phone] To reach Kobe OSBORN use ext [phone] If you are unable to reach a nurse during clinic hours, please leave a detailed message. We check our messages often and return calls in a timely manner during clinic hours. Orders for labs or imaging: Please remember that Nandini will only call you if somethi ng of concern needs to be addressed, otherwise all result will be discussed at your next off ice visit. You can also look at your results on [employer]. If you are experiencing an emergency, please call 911 documented in this encounter Progress Notes Nandini Ward PA-C - 02/25/2020 11:00 AM PDTFormatting of this note might be diff erent from the original. Subjective: Patient ID: Steven Jade is a 59 y.o. male. Rheumatological History [place] [address] luna an initial presentation of herman cota and [facility] [place] also mouth sores. Patient reported subjectivity and "butterfly" rash Sicca symptoms. Serology:Positive TARUN titer, Positive antinuclear autoantibodies dsDNA and Chromatinand Elevated acute phase reactants Pertinent Imaging:OA changes to spine Tried and failed oral DMARDs include: methotrexate (WBC and infections) Tried and failed biologic DMARDs include: none Past medical history does include: OA, HLD I Kobe OSBORN am personally taking down the notes in the presence of Nandini Ward PA-C. History of Present Illness Here for:SLE Here for: Follow up Last seen: 08/30/2017 Any changes in overall health since last visit: Dr. Steward at [facility] has been manag ing SLE and meds Cervical fusion 11/28/2016 Current rheumatological medications: Plaquenil 400 mg daily, Imuran 75 mg twice daily Current rheumatological complaint: (SLE family)Doing well denies joint swelling, mouth sore s, rashes, abnormal bleeding or bruising; also denies chest pain and SOB [facility] has been [facility] with [facility]. He returns today after two years with multiple complaints including : Generalized joint pain, lower abdominal pain, denies constipation or diarrhea. Left mid ba ck :kidney pain", when he drinks a lot of water its helpful. Blister like rash on abdomen and inside checks and tongue. Facial red rash. Chest tightness, he feels this is associated with increased work stress Location:Shoulders,legs,chest tightness Morning stiffness lasting about 30 mins Quality: ache Severity: mild Duration: chronic Timing:intermittent Aggravated by:activity Relieved by:medication Denies: infection, fever and abdominal pain Patient's medications, allergies, past medical, surgical, social and family histories were obtained and reviewed as appropriate. Review of Systems Constitutional: Negative for fever. HENT: Positive for mouth sores (Blisters on tongue and cheeks) and sore throat (chronic). Eyes: Positive for pain and redness. Negative for discharge. Respiratory: Negative for shortness of breath and wheezing. Cardiovascular: Negative for chest pain. Chest tightness Gastrointestinal: Positive for abdominal pain. Negative for constipation, diarrhea, nausea and vomiting. Genitourinary: Negative for dysuria. Musculoskeletal: Positive for arthralgias and joint swelling. Skin: Positive for rash (facial rash, blisters on abdomen). Negative for wound. Neurological: Negative for dizziness and headaches. I, Nandini Ward PA-C, reviewed the above ROS. Objective: BP (!) 160/100 | Pulse 75 | Temp 36.7 C (98 F) (Temporal) | Ht 1.829 m (6') | Wt (! ) 141.2 kg (311 lb 3.2 oz) | BMI 42.21 kg/m Physical Exam Constitutional: Appearance: He is well-developed. HENT: Nose: No nasal deformity. Mouth/Throat: Pharynx: Uvula midline. No oropharyngeal exudate. Eyes: General: No scleral icterus. Conjunctiva/sclera: Conjunctivae normal. Cardiovascular: Rate and Rhythm: Normal rate and regular rhythm. Pulmonary: Effort: Pulmonary effort is normal. Breath sounds: Normal breath sounds. Musculoskeletal: Comments: Sternoclavicular- Negative Palms- negative MCPs- negative PIPs- negative CMC- negative DIPS- negative Wrists- negative Fists- Able to make complete fists Elbows-negative Shoulders-negative Knees- negative Ankles- negative Feet/MTPs- negative Spine- Lumbar:Tenderness Thoracic: Pain with forward flexion Cervical: Satisfactory ROM Lymphadenopathy: Cervical: No cervical adenopathy. Skin: General: Skin is warm and dry. Findings: No rash. Comments: Red non raised rash on forehead and cheeks Neurological: Mental Status: He is alert. Lab Data: Lab Results Component Value Date WBC 5.06 08/30/2017 HCT 42.7 11/13/2016 MCV 102.9 (H) 08/30/2017 LABPLAT 278 08/30/2017 PLT 233 11/13/2016 Lab Results Component Value Date GLUF 90 08/30/2017 GLUF 101 (H) 05/22/2016 NA 139 08/30/2017 K 4.3 08/30/2017 CL 102 08/30/2017 CALCIUM 8.7 08/30/2017 CO2 30 08/30/2017 ALT 19 08/30/2017 AST 14 08/30/2017 EGFR >60 08/30/2017 Lab Results Component Value Date CRP 0.6 (H) 08/30/2017 No components found for: SEDRATE Imaging: Laboratory results were reviewed in [facility] as well as chart notes and imaging from other prov ider(s) since their last rheumatology clinic visit, Please see the EMR for further detail. Assessment and Plan: Visit Diagnoses and Associated Orders: Problem List Items Addressed This Visit Immune SLE (systemic lupus erythematosus) (HCC) - Primary Relevant Orders CBC with Differential Sedimentation Rate Comprehensive Metabolic Panel C-Reactive Protein Complement C3 Ag Complement C4 Ag TARUN, IFA Urinalysis with Microscopic if Indicated Musculoskeletal Chronic midline low back pain without sciatica Relevant Medications ibuprofen (ADVIL,MOTRIN) 800 MG tablet acetaminophen (TYLENOL) 500 mg tablet traMADol (ULTRAM) 50 mg tablet Other Relevant Orders XR Lumbar Spine 2 or 3 Vw This patient returns after two years with multiple complaints. I suspect the majority of hi s pains are coming from osteoarthritis primarily affecting his lumbar spine. Patient does re port being under more stress than usual at his job. I will update his laboratory work includ ing us TARUN, complement levels and a UA to look for SLE disease activity. I have also ordered an x-ray of the lumbar spine. Patient will return in a couple of weeks for review and further discussion on a treatment p thiago. Risks and benefits of a treatment plan were explained to patient. Patient will follow up with their primary care physician in regards to non-rheumatological symptoms listed under review of systems. Patient was advised to contact our office if there are any change in their symptoms. Avoidance of adverse drug interactions and optimization of treatment/therapy is the primary goal. Complex analysis and decision making was involved in today's visit. I,Nandini Ward PA-C, personally performed the services described in this documentation, with the scribe in my presence, and it is both accurate and complete. Dictation software [employer]/dictation services used, which may contain error for similar soun ding words even after review. Please do not hesitate to contact me for any clarification. Procedures: Procedures do cumented in this encounter Plan of Treatment +--------+---------+ + + + | Date | Type | Specialty | Care Team | Description | +--------+---------+ + + + | 05/12/ | Office | Rheumatology | Nandini Ward | | | 2019 | Visit | | [facility] [address] | | | | | | [facility] | | | | | | [place] [address] | | | | | | [phone] | | | | | | | | +--------+---------+ + + + + +------+--------+ + + | Name | Type | Priori | Associated Diagnoses | Order Schedule | | | | ty | | | + +------+--------+ + + | CBC with | Lab | Routin | Systemic lupus | Every 12 weeks for 4 | | Differential | | e | erythematosus, | Occurrences | | | | | unspecified SLE | starting 02/25/2020 | | | | | type, unspecified | until 02/23/2021, 1 | | | | | organ involvement | completed | | | | | status (HCC) | | + +------+--------+ + + | Sedimentation Rate | Lab | STAT | Systemic lupus | Every 12 weeks for 6 | | | | | erythematosus, | Occurrences | | | | | unspecified SLE | starting 02/25/2020 | | | | | type, unspecified | until 08/26/2021, 1 | | | | | organ involvement | completed | | | | | status ([facility]) | | + +------+--------+ + + | Comprehensive | Lab | STAT | Systemic lupus | Every 12 weeks for 6 | | Metabolic Panel | | | erythematosus, | Occurrences | | | | | unspecified SLE | starting 02/25/2020 | | | | | type, unspecified | until 08/26/2021, 1 | | | | | organ involvement | completed | | | | | status ([facility]) | | + +------+--------+ + + | C-Reactive Protein | Lab | STAT | Systemic lupus | Every 12 weeks for 6 | | | | | erythematosus, | Occurrences | | | | | unspecified SLE | starting 02/25/2020 | | | | | type, unspecified | until 08/26/2021, 1 | | | | | organ involvement | completed | | | | | status ([facility]) | | + +------+--------+ + + documented as of this encounter Results XR Lumbar Spine 2 or 3 Vw (02/25/2020 1:32 PM PDT) + + | Specimen | + + | | + + + + + | Impressions | Performed At | + + + | Multilevel disc degeneration most pronounced at L5/S1, grossly | [facility] | | unchanged compared to prior MRI from 10/04/2017. Final Report | | | Signed by: Dung Lewis, Thao Sign Date/Time: 02/25/2020 4:34 PM | | + + + + + + | Narrative | Performed At | + + + | LUMBAR SPINE TWO OR THREE VIEWS CLINICAL INFORMATION: | [facility] | | Chronic low back pain COMPARISON: MRI of the lumbar spine | | | 10/04/2017 FINDINGS: Alignment: Grade 1 retrolisthesis of L5 over | | | S1. Vertebrae: Normal. No fractures or evidence of acute vertebral | | | deformity. Lumbar Disc Levels: Mild loss of disc height at | | | L3-L4. Moderate loss of disc height at L4-L5 and severe loss of | | | disc height at L5/S1. Facets and Posterior Spinal Elements: Facet | | | degeneration at L4-L5 and L5/S1. | | + + + + + | Procedure Note | + + | Carlos, [id number] - 02/25/2020 4:38 PM PDT | | LUMBAR SPINE TWO OR THREE VIEWS | | | | CLINICAL INFORMATION: | | Chronic low back pain | | | | COMPARISON: | | MRI of the lumbar spine 10/04/2017 | | | | FINDINGS: | | Alignment: Grade 1 retrolisthesis of L5 over S1. | | | | Vertebrae: Normal. No fractures or evidence of acute vertebral | | deformity. | | | | Lumbar Disc Levels: Mild loss of disc height at L3-L4. Moderate loss | | of disc height at L4-L5 and severe loss of disc height at L5/S1. | | | | Facets and Posterior Spinal Elements: Facet degeneration at L4-L5 and | | L5/S1. | | | | IMPRESSION: | | Multilevel disc degeneration most pronounced at L5/S1, grossly | | unchanged compared to prior MRI from 10/04/2017. | | | | | | | | Final Report Signed by: Dung Lewis Mai | | Sign Date/Time: 02/25/2020 4:34 PM | + + + +---------+ + + | Performing | Address | City/State/[facility] | Phone Number | | Organization | | | | + +---------+ + + | [facility] | | | | + +---------+ + + Urinalysis with Microscopic if Indicated [...] - 1.030 | REFERENCE | | | [place], | | | LAB | | | [...] REFERENCE | | | | performed at [facility];[address] | | LAB | | | | [place] | | [facility] | | | | [address];[place] [address] | | LABORATORY | | + + + + + + + + | Specimen | + + | Urine | + + + + + + + | Performing | Address | City/State/Zipcode | Phone Number | | Organization | | | | + + + + + | REFERENCE LAB | [address] | [place] | [phone] | | [facility] | [address] | [address] | | | LABORATORY | | | | + + + + + | REFERENCE LAB | [address] | [place] | | | [facility] | [address] | [address] | | | LABORATORY | | | [...] | | | | | performed at [facility], [address] | | | | | | [facility] | | | | | | [place] [address] | | | | + + + + + + + + | Specimen | + + | Blood | + + + + + + + | Performing | Address | City/State/Zipcode | Phone Number | | Organization | | | | + + + + + | REFERENCE LAB | [address] [place] [address] | [place] | [phone] | | [facility] | [address] | [address] | | | LABORATORY | | | | + + + + + | REFERENCE LAB | [address] [place] [address] | [place], [place] | | | [facility] | [address] | [address] | | | LABORATORY | | | [...] [address], [address], | | [facility] | | | | [facility] [address] | | LABORATORY | | + + + + + + + + | Specimen | + + | Blood | + + + + + + + | Performing | Address | City/State/Zipcode | Phone Number | | Organization | | | | + + + + + | REFERENCE LAB | [address] [facility] | [place] | [phone] | | [facility] | [address] | [address] | | | LABORATORY | | | | + + + + + | REFERENCE LAB | [address] [facility] | [place] | | | [facility] | Bl[address]. | [address] | | | LABORATORY | | | [...] [address], [address], | | [facility] | | | | [place] [address] | | LABORATORY | | + + + + + + + + | Specimen | + + | Blood | + + + + + + + | Performing | Address | City/State/Zipcode | Phone Number | | Organization | | | | + + + + + | REFERENCE LAB | [address] [place] [address] | [place], [place] | [phone] | | [facility] | [address] | [address] | | | LABORATORY | | | | + + + + + | REFERENCE LAB | [address] [facility] | [place], [place] | | | [facility] | [address] | [address] | | | LABORATORY | | | [...] REFERENCE | | | | performed at [facility];[address] | | LAB | | | | [place] | | [facility] | | | | Blvd;[place] [address] | | LABORATORY | | + + + + + + + + | Specimen | + + | Blood | + + + + + + + | Performing | Address | City/State/Zipcode | Phone Number | | Organization | | | | + + + + + | REFERENCE LAB | [address] [place] [address] | [place] | [phone] | | [facility] | [address] | [address] | | | LABORATORY | | | | + + + + + | REFERENCE LAB | [address] [place] [address] | [place] | | | [facility] | [address] | [address] | | | LABORATORY | | | [...] | | | | | performed at [facility];[address] | | | | | | [facility] | | | | | | Blvd;[place] [address] | | | | | | | | | | + + + + + + + + | Specimen | + + | Blood | + + + + + + + | Performing | Address | City/State/Zipcode | Phone Number | | Organization | | | | + + + + + | REFERENCE LAB | [address] [facility] | [place] | [phone] | | [facility] | [address] | [address] | | | LABORATORY | | | | + + + + + | REFERENCE LAB | [address] [facility] | [place] | | | [facility] | [address] | [address] | | | LABORATORY | | | [...] REFERENCE | | | | performed at [facility];[address] | | LAB | | | | [place] | | [facility] | | | | [address];[place] [address] | | LABORATORY | | + + + + + + + + | Specimen | + + | Blood | + + + + + + + | Performing | Address | City/State/Zipcode | Phone Number | | Organization | | | | + + + + + | REFERENCE LAB | [address] [place] [address] | [place], [place] | [phone] | | [facility] | [address] | [address] | | | LABORATORY | | | | + + + + + | REFERENCE LAB | [address] [place] [address] | [place], [place] | | | [facility] | [address] | [address] | | | LABORATORY | | | [...] | | | Absolute | performed at [facility];[address] | [address] | LAB | | | | [facility] | | [facility] | | | | Blvd;[place] [address] | | LABORATORY | | + + + + + + + + | Specimen | + + | Blood | + + + + + + + | Performing | Address | City/State/Zipcode | Phone Number | | Organization | | | | + + + + + | REFERENCE LAB | [address] [place] [address] | [place], [place] | [phone] | | [facility] | [address] | [address] | | | LABORATORY | | | | + + + + + | REFERENCE LAB | [address] [place] [address] | [place], [place] | | | [facility] | [address] | [address] | | | LABORATORY | | | | + + + + + documented in this encounter Visit Diagnoses + + | Diagnosis | + + | Systemic lupus erythematosus, unspecified SLE type, unspecified organ involvement | | status (HCC) - Primary | + + | Chronic midline low back pain without sciatica | + + documented in this encounter
--- OUTSIDE RECORDS SUMMARY | ~2020-05-08 | XMS | Encounter Summary ---
Demographics + + + | Address | [address] | | | [place] [address] | + + + | Home Phone | | + + + | Preferred Language | Unknown | + + + | Marital Status | | + + + | Jehovah'S Witness Affiliation | 1013 | + + + | Race | White | + + + | Ethnic Group | Not or | + + + Author + + + | Author | [facility] | | | and [place] | + + + | Organization | [facility] | | | and [place] | + + + | Address | Unknown | + + + | Phone | Unavailable | + + + Support + + + + + | Name | Relationship | Address | Phone | + + + + + | Jenny Lynchart | ECON | [address] | | | | | [place] | | | | | [address] | | + + + + + Care Team Providers + +------+ + | Care Electric Blanket Packer Name | Role | Phone | + +------+ + | Radha Rodriguez | PCP | | | PA-C | | | + +------+ + Encounter Details +--------+ + + + + | Date | Type | Department | Care Team | Description | +--------+ + + + + | 07/08/ | Orders Only | [facility] | [place], | | | 2013 | | [address] | [place] | | | | | [place], [place] | [address] | | | | | [address] | [place] [address] | | | | | [phone] | [phone] | | | | | | | | +--------+ + + + + Social History + +-------+ +--------+------+ | Tobacco Use | Types | Packs/Day | Years | Date | | | | | Used | | + +-------+ +--------+------+ | Never Assessed | | | | | + +-------+ +--------+------+ + + + | Sex Assigned at [...] 2020 | Visit | | [facility] [address] | | | | | | [address] [facility] | | | | | | [place] [address] | | | | | | [phone] | | | | | | | | +--------+---------+ + + + documented as of this encounter Procedures + +--------+ + + + | Procedure Name | Priori | Date/Time | Associated Diagnosis | Comments | | | ty | | | | + +--------+ + + + | VITAMIN D, | Routin | 07/08/2014 | | Results for this | | DEFICIENCY SCREEN | e | 2:33 PM | | procedure are in the | | (25-HYDROXY) | | PST | | results section. | + +--------+ + + + documented in this encounter Results Vitamin D, Deficiency Screen (25-Hydroxy) (07/08/2014 2:33 PM PST) + + + + + + | Component | Value | Ref Range | Performed | Pathologist | | | | | At | Signature | + + + + + + | Vit D, | 27 (L)Comment: <20 ng/mL | 30 - 150 ng/mL | EXTERNAL | | | 25-Hydroxy | Suggests | | LAB | | | | deficiency of 25-OH | | | | | | Vitamin D. 20-29 ng/mL | | | | | | Suggests a relative | | | | | | insufficiency of 25-OH | | | | | | Vitamin D. 30-150 ng/mL | | | | | | Suggests a sufficient | | | | | | level of 25-OH Vitamin | | | | | | D. >150 ng/mL | | | | | | Toxic level of 25-OH | | | | | | Vitamin D. Blood levels | | | | | | of 25 Hydroxy Vitamin D | | | | | | vary with the extent of | | | | | | sun exposure. Values | | | | | | tend to be highest in | | | | | | late summer and lowest | | | | | | in the spring. Values | | | | | | also tend to decrease | | | | | | with age, due to | | | | | | decreased precursor | | | | | | synthesis in the | | | | | | skin.Testing performed | | | | | | at [facility];[address] [facility] | | | | | | [facility];[place], [place] | | | | | | [address] | | | | + + + + + + + + | Specimen | + + | | + + + +---------+ + + | Performing | Address | City[facility]State[facility] | Phone Number | | Organization | | | | + +---------+ + + | EXTERNAL LAB | | | | + +---------+ + + documented in this encounter Visit Diagnoses Not on filedocumented in this encounter"
--- OUTSIDE RECORDS SUMMARY | ~2020-05-08 | XMS | Encounter Summary ---
Demographics + + + | Address | [address] | | | [place] [address] | + + + | Home Phone | | + + + | Preferred Language | Unknown | + + + | Marital Status | | + + + | Scientology Affiliation | 1013 | + + + | Race | White | + + + | Ethnic Group | Not or | + + + Author + + + | Author | [facility] | | | and [place] | + + + | Organization | [facility] | | | and [place] | + + + | Address | Unknown | + + + | Phone | Unavailable | + + + Support + + + + + | Name | Relationship | Address | Phone | + + + + + | Jenny Lynchart | ECON | [address] | | | | | [place] | | | | | [address] | | + + + + + Care Team Providers + +------+ + | Care Specialty Finishing Utility Person Name | Role | Phone | + +------+ + | Radha Rodriguez | PCP | | | PA-C | | | + +------+ + Encounter Details +--------+ + + + + | Date | Type | Department | Care Team | Description | +--------+ + + + + | 10/03/ | Episode | [facility] [place] | Saranya Holly, | | | 2017 | Changes | NEUR[address]UR[address]ERY [address] | Cert [place] | | | | | [address] | | | | | | [place], [place] | | | | | | [address] | | | | | | [phone] | | | +--------+ + + + [...] | | | | | [place] [address] | | | | | | [phone] | | | | | | | | +--------+---------+ + + + documented as of this encounter Visit Diagnoses Not on filedocumented in this encounter"
--- OUTSIDE RECORDS SUMMARY | ~2020-05-08 | XMS | Encounter Summary ---
Demographics + + + | Address | [address] | | | [place] [address] | + + + | Home Phone | | + + + | Preferred Language | Unknown | + + + | Marital Status | | + + + | Catholic Affiliation | 1013 | + + + | Race | White | + + + | Ethnic Group | Not or | + + + Author + + + | Author | [facility] | | | and [place] | + + + | Organization | [facility] | | | and [place] | + + + | Address | Unknown | + + + | Phone | Unavailable | + + + Support + + + + + | Name | Relationship | Address | Phone | + + + + + | Jenny Jade | ECON | [address] | | | | | [place] | | | | | [address] | | + + + + + Care Team Providers + +------+ + | Care Glass Cutter Name | Role | Phone | + +------+ + | Radha Rodriguez | PCP | | | PA-C | | | + +------+ + Reason for Visit + +--------+ + | Reason | Onset | Comments | | | Date | | + +--------+ + | Procedure | 11/26/ | Reminder | | | 2016 | | + +--------+ + Encounter Details +--------+ + + + + | Date | Type | Department | Care Team | Description | +--------+ + + + + | 11/26/ | Telephone | [facility] | Spencer Barton, | Procedure (Reminder | | 2016 | | NE[address]UR[address]ERY [address] | DO [address] | ) | | | | [address] [facility] [address] | [address] [place], [place] | | | | | [place], [place] | [id number] | | | | | [address] | | | | | | [phone] | | | +--------+ + + + [...] Encounter - Saranya Holly Cert [place] - 11/26/2016 3:46 PM PDTAll presurgical check -in instructions given Surgery date: 11/28/2016 Check-in Time: 10:15am (OR Schedule states procedure start time 1215) No solids or liquids after midnight the night before surgery. Follow the cleansing instructions provided beginning the night before surgery after you manuel wer or bathe. No showering the morning of surgery. Please do not wear jewelry, contact lenses, nail chinese (on fingers or toes), or make-up to surgery check-in. If you have dentures, hearing aids, or glasses please bring the cases with you to check-in. Medications instructions: Naproxen, MV, Plaquenil, Soma, Imuran Surgical Admit Anticipated Disposition reviewed and correct: "Yes Confirmation of procedure/approval: "Yes". documented in this encounter Plan of Treatment [...] | | | | | [place] [address] | | | | | | [phone] | | | | | | | | +--------+---------+ + + + documented as of this encounter Visit Diagnoses Not on filedocumented in this encounter
--- OUTSIDE RECORDS SUMMARY | ~2020-05-08 | XMS | Encounter Summary ---
Demographics + + + | Address | [address] | | | [place] [address] | + + + | Home Phone [...] + + + | Author | [facility] | | | and [place] | + + + | Organization | [facility] | | | and [place] | + + + | Address | Unknown | + + + | Phone | Unavailable | + + + Support + + + + + | Name | Relationship | Address | Phone | + + + + + | Jenny Jade | ECON | [address] | | | | | [place] | | | | | [address] | | + + + + + Care Team Providers + +------+ + | Care Data Lead Name | Role | Phone | + +------+ + | Radha Rodriguez | PCP | | | PA-C | | | + +------+ + Reason for Visit + + + | Reason | Comments | + + + | Results, Imaging | MRI review | + + + | Neck Pain | radiates into both shoulders and hands | + + + Encounter Details +--------+---------+ + + + | Date | Type | Department | Care Team | Description | +--------+---------+ + + + | 06/15/ | Office | [facility] | Bogdanowicz, | Cervical | | 2016 | Visit | [address]ATRY [address] | [address] | radiculopathy | | | | [address] | [address] | (Primary Dx); DDD | | | | [place], [place] | [place] [address] | (degenerative disc | | | | [address] | [phone] | disease), cervical; | | | | [phone] | | Foraminal stenosis | | | [...] + + + | Blood Pressure | 131/87 | 06/15/2016 8:10 AM | | | | | PST | | + + + + + | Pulse | 56 | 06/15/2016 8:10 AM | | | | | PST [...] Weight | 136.5 kg (301 lb) | 06/15/2016 8:10 AM | | | | | PST | | + + + + + | Height | 182.9 cm (6') | 06/15/2016 8:10 AM | | | | | PST | | + + + + + | Body Mass Index | 40.82 | 06/15/2016 8:10 AM | | | | | PST | | + + + + + documented in this encounter Patient Instructions Patient Instructions Maricruz Gil PA-C - 06/15/2016 8:27 AM PST1) Epidural injecti on with Dr. James Foraminal Stenosis/Radicular Pain: Foraminal stenosis is a narrowing of the spinal foramen, the hole through which passes a s massimo nerve as it exits the spine. It is usually a form of degenerative spine disease which occurs slowly over time with wear and tear of the spinal column. Arthritic changes of the s pine, a herniated discs, soft tissue swelling and bony growth can all impinge on the formal foramen and compress the nerve. Because the narrowing (stenosis) of the foramen pinches a nerve, the primary symptoms relat ed to this disorder is directly related to that nerve which is affected. This obviously vari es depending on which foramina are involved. The pinched nerve can lead to basically two cl asses of symptoms. Symptoms include pain in the distribution of that nerve as well as numbne ss, tingling and or weakness can occur. Steroids are a very strong anti-inflammatory, this helps reduce pain by reducing swelling. Complications of steroids are bleeding, infection, and an increase of blood sugars if you are diabetic. residential risk can lead to osteoporosis which is why we limited the number of injections to 3 times per year. With an epidural injection, the nerve root that comes out of the spine and travels down your leg is targeted. The procedure is about 20 minutes long . You will lie on your back while x-rays are taken. Once the region is marked, it is numbe d and then injected with steroids. Follow-up at the hospital thirty minutes before your scheduled procedure to allow for time to check in. You may eat and drink as usual on the day of the procedure. If you are scheduled for an epidural injection do not take any blood thinning medications f or at least 5-7 days prior to your procedure unless you have been instructed by another phys ician not to discontinue blood thinning medications. If you are having a procedure other than an epidural injection (i.e. facet injection, media l branch block, SI joint injection or other joint injection) it is not absolutely necessary to discontinue blood thinning medications but doing so will decrease the risk of bruising or bleeding. If you have had a prior stroke, DVT or PE or if you are taking blood thinning medication be cause you have atrial fibrillation, a prosthetic cardiac valve replacement or heart stenting do not stop taking your blood thinning medications unless you have permission from your car diologist or primary care provider. All other medications should be taken as usual on the day of the procedure. Common blood thinning medications include: Aspirin (a baby aspirin is o.k.) Ibuprofen (Advil or Motrin) Naproxen (Aleve) Nabumetone (Relafen) Clopidogrel (Plavix) Dipyridamole/ASA (Aggrenox) Warfarin (Coumadin) Dabigatran (Pradaxa) Rivaroxaban (Xarelto) There are many others. If you have questions about your medications and whether or not you should stop any medications please contact our office. If you are having an epidural injection or if you take any medication for relaxation/sedati on on the day of the procedure you must provide a hyster driver to take you home. For all procedur es it is recommended that someone else drive you home. documented in this encounter Progress Notes Maricruz Gil PA-C - 06/15/2016 8:12 AM PSTFormatting of this note might be differe nt from the original. CHIEF COMPLAINT: Chief Complaint Patient presents with Results, Imaging MRI review Neck Pain radiates into both shoulders and hands HISTORY OF PRESENT ILLNESS: The patient is a 55 y.o. male [facility] pain that radiates up into the head with daily headaches. Since the symptoms began he reports that the symptoms have been near constant. He describes the pain as an aching, sharp, shooting and throbbing feeling. He rates the pain as moderate to severe. His symptoms worsen with rest and changing positions. His symptoms improve wit h rest,changing positions and sitting. He reports numbness into the bilateral hands, mostly to the 3-5 fingers. The patient also describes arm symptoms that occur on both sides. The arm symptoms account for greater than or equal to 50% of his symptoms. The arm symptoms are persistent and the symptoms travels from the neck down to the hands. The patient does describe numbness of the [...] systems was negative. PHYSICAL EXAMINATION: Filed Vitals: 06/15/16 0810 BP: 131/87 Pulse: 56 PainSc: 4 PainLoc: Neck Body mass index is 40.81 [...] has no apparent deficits with short or terminal makeup operator memory. He has appropriate fund of knowledge [...] 5/5 strength with the exception of decreased jig and fixture builder apprentice strength bilaterally. Abduction of the left shoulder [...] radiculopathy Yes DDD (degenerative disc disease), cervical Foraminal stenosis of cervical region PLAN: 1. The patient has had significant conservative care including medications (NSAIDS and narc otics), PT (multiple sessions over the years) and gericare aide teacher. Unfortunately he contin ues to have significant discomfort. It appears to me that the pain is primarily coming from the cervical foraminal stenosis. I did feel that he would be a good candidate for interven tional procedures and I offered a C7/T1 ILESI right of midline. 2. He has already tried PT, chiropractic and multiple medications. 3. We discussed surgical interventions. He does not want to pursue this at this time. ELECTRONICALLY EDITED AND SIGNED BY: Maricruz Gil PA-C, 06/15/2016 documented in this encounter Plan of Treatment +--------+---------+ + + + | Date | Type | Specialty | Care Team | Description | +--------+---------+ + + + | 05/12/ | Office | Rheumatology | Nandini Ward | | | 2019 | Visit | | [facility] [address] | | | | | | [facility] | | | | | | [place] [address] | | | | | | [phone] | | | | | | | | +--------+---------+ + + + documented as of this encounter Results [place] ANNALISE Cervical Thoracic Interlaminar (07/04/2016 1:20 PM PST) + + | Specimen | + + | | + + + + + | Narrative | Performed At | + + + | 07/04/2016 CERVICAL INTERLAMINAR EPIDURAL STEROID INJECTION | [facility] | | CLINICAL HISTORY: ICD-10 CODE M54.12 CERVICAL RADICULOPATHY [facility] | | Yemi Jade presents to the fluoroscopy suite for a [facility] | | fluoroscopically-guided C7-T1 interlaminar epidural steroid [...] | + + + + + | [address] | [address] | [place] | [phone] | | [facility] | | [address] | | | - IMAGING | | [...]
--- OUTSIDE RECORDS SUMMARY | ~2020-05-08 | XMS | Encounter Summary ---
Demographics + + + | Address | [address] | | | [place] [address] | + + + | Home Phone | | + + + | Preferred Language | Unknown | + + + | Marital Status | | + + + | Mu-Ism Affiliation | 1013 | + + + | Race | White | + + + | Ethnic Group | Not or | + + + Author + + + | Author | [facility] | | | and [place] | + + + | Organization | [facility] | | | and [place] | + + + | Address | Unknown | + + + | Phone | Unavailable | + + + Support + + + + + | Name | Relationship | Address | Phone | + + + + + | Jenny Lynchart | ECON | [address] | | | | | [place] | | | | | [address] | | + + + + + Care Team Providers + +------+ + | Care Boat Repairer Name | Role | Phone | + +------+ + | Radha Rodriguez | PCP | | | PA-C | | | + +------+ + Encounter Details +--------+ + + + + | Date | Type | Department | Care Team | Description | +--------+ + + + + | 10/03/ | Orders Only | [facility] [place] | Spencer Barton, | Cervical spondylosis | | 2017 | | NEUR[address]UR[address]ERY [address] | DO [address] | with radiculopathy | | | | [address] | [address] [place], [place] | (Primary Dx); Spinal | | | | [place], [place] | [address] | stenosis in | | | | [address] | | cervical region; | | | | [phone] | | Brachial neuritis; | | | | | | Cervicalgia | +--------+ + + + + Social [...] HOSPITAL | | | | | | [place] [address] | | | | | | [phone] | | | | | | | | +--------+---------+ + + + documented as of this encounter Visit Diagnoses + + | Diagnosis | + + | Cervical spondylosis with radiculopathy - Primary Cervical spondylosis with | | myelopathy | + + | Spinal stenosis in cervical region | + + | Brachial neuritis Brachial neuritis or radiculitis nos | + + | Cervicalgia | + + documented in this encounter"
--- OUTSIDE RECORDS SUMMARY | ~2020-05-08 | XMS | Encounter Summary ---
Demographics + + + | Address | [address] | | | [place] [address] | + + + | Home Phone | | + + + | Preferred Language | Unknown | + + + | Marital Status | | + + + | Mosque Affiliation | 1013 | + + + | Race | White | + + + | Ethnic Group | Not or | + + + Author + + + | Author | [facility] | | | and [place] | + + + | Organization | [facility] | | | and [place] | + + + | Address | Unknown | + + + | Phone | Unavailable | + + + Support + + + + + | Name | Relationship | Address | Phone | + + + + + | Jenny Lynchart | ECON | [address] | | | | | [place] | | | | | [address] | | + + + + + Care Team Providers + +------+ + | Care Vegetable Loader Machine Operator Name | Role | Phone | + +------+ + | El Meyers MD | PCP | | + +------+ + Encounter Details +--------+ + + + + | Date | Type | Department | Care Team | Description | +--------+ + + + + | 09/20/ | Hospital | [facility] | Conversion | Pain | | 2015 | Encounter | CONVERSION [address]P [address] | Transaction, | | | | | [address] | Provider Unknown | | | | | [place] | [phone] | | | | | [address] | | | | | | [phone] | | | +--------+ + + + [...] 2019 | Visit | | [facility] [address] | | | | | | [address] | | | | | | [place] [address] | | | | | | [phone] | | | | | | | | +--------+---------+ + + + documented as of this encounter Procedures + +--------+ + + + | Procedure Name | Priori | Date/Time | Associated Diagnosis | Comments | | | ty | | | | + +--------+ + + + | MRI LUMBAR SPINE WO | Routin | 08/05/2014 | | Results for this | | CONTRAST | e | 11:02 PM | | procedure are in the | | | | PST | | results section. | + +--------+ + + + documented in this encounter Results MRI Lumbar Spine wo Contrast (08/05/2014 11:02 PM PST) + + | Specimen | + + | | + + + + + | Narrative | Performed At | + + + | This is a non-reportable procedure without a radiologist report and | | | is used for image storage only | | + + + + + | Procedure Note | + + | Xander Gonzalez Feliberto - 03/12/2019 11:13 PM PDT This is a non-reportable procedure | | without a radiologist report and isused for image storage only | + + documented in this encounter Visit Diagnoses + + | Diagnosis | + + | Pain Generalized pain | + + documented in this encounter"
--- OUTSIDE RECORDS SUMMARY | ~2020-05-08 | XMS | Encounter Summary ---
Demographics + + + | Address | [address] | | | [place] [address] | + + + | Home Phone | | + + + | Preferred Language | Unknown | + + + | Marital Status | | + + + | Rastafari Affiliation | 1013 | + + + | Race | White | + + + | Ethnic Group | Not or | + + + Author + + + | Author | [facility] | | | and [place] | + + + | Organization | [facility] | | | and [place] | + + + | Address | Unknown | + + + | Phone | Unavailable | + + + Support + + + + + | Name | Relationship | Address | Phone | + + + + + | Jenny Lynchart | ECON | [address] | | | | | [place] | | | | | [phone] | | + + + + + Care Team Providers + +------+ + | Care Clip Riveter Name | Role | Phone | + +------+ + | Radha Rodriguez | PCP | | | PA-C | | | + +------+ + Encounter Details +--------+ + + + + | Date | Type | Department | Care Team | Description | +--------+ + + + + | 05/22/ | Orders Only | [facility] | Osvaldo Alcantara, | | | 2015 | | [address] | | [address] | [address] [place], [place] | | | | | [place], [place] | [address] | | | | | [address] | | | | | | [phone] | | | +--------+ + + + [...] 2019 | Visit | | [facility] [address] | | | | | [address] | | | | | | [place] [address] | | | | | | [phone] | | | | | | | | +--------+---------+ + + + documented as of this encounter Procedures + +--------+ + + + | Procedure Name | Priori | Date/Time | Associated Diagnosis | Comments | | | ty | | | | + +--------+ + + + | URINALYSIS WITH | Routin | 05/22/2016 | | Results for this | | MICROSCOPIC IF | e | 4:00 PM | | procedure are in the | | INDICATED | | PDT | | results section. | + +--------+ + + + | EXTERNAL LAB: CBC | Routin | 05/22/2016 | | Results for this | | | e | 3:56 PM | | procedure are in the | | | | PDT | | results section. | + +--------+ + + + | DNA DOUBLE-STRANDED | Routin | 05/22/2016 | | Results for this | | AB, IGG | e | 3:56 PM | | procedure are in the | | | | PDT | | results section. | + +--------+ + + + | SEDIMENTATION RATE, | Routin | 05/22/2016 | | Results for this | | AUTOMATED | e | 3:56 PM | | procedure are in the | | | | PDT | | results section. | + +--------+ + + + | COMPLEMENT C3 AG | Routin | 05/22/2016 | | Results for this | | | e | 3:56 PM | | procedure are in the | | | | PDT | | results section. | + +--------+ + + + | COMPLEMENT C4 AG | Routin | 05/22/2016 | | Results for this | | | e | 3:56 PM | | procedure are in the | | | | PDT | | results section. | + +--------+ + + + | COMPREHENSIVE | Routin | 05/22/2016 | | Results for this | | METABOLIC PANEL | e | 3:56 PM | | procedure are in the | | | | PDT | | results section. | + +--------+ + + + documented in this encounter Results Urinalysis with Microscopic if Indicated (05/22/2016 4:00 PM PDT) + + + + + + | Component | Value | Ref Range | Performed | Pathologist | | | | | At | Signature | + + + + + + | Color | YELLOW | | EXTERNAL | | | | | | LAB | | + + + + + + | Clarity, | CLEAR | | EXTERNAL | | | Urine | | | LAB | | + + + + + + | Specific | 1.019 | 1.002 - 1.030 | EXTERNAL | | | [place], | | | LAB | | | Urine | | | | | + + + + + + | Leukocyte | NEGATIVEComment: | | EXTERNAL | | | Esterase, | | | LAB | | | Urine | | | | | + + + + + + | Nitrite, | NEGATIVE | | EXTERNAL | | | Urine | | | LAB | | + + + + + + | Urobilinoge | NORMAL | mg/dL | EXTERNAL | | | n, Urine | | | LAB | | + + + + + + | Protein, | NEGATIVE | mg/dL | EXTERNAL | | | Urine | | | LAB | | + + + + + + | pH, Urine | 7.0 | 5.0 - 8.0 | EXTERNAL | | | | | | LAB | | + + + + + + | Blood, | NEGATIVE | | EXTERNAL | | | Urine | | | LAB | | + + + + + + | Ketones | NEGATIVE | mg/dL | EXTERNAL | | | | | | LAB | | + + + + + + | Bilirubin, | NEGATIVE | | EXTERNAL | | | Urine | | | LAB | | + + + + + + | Glucose, | NEGATIVE | mg/dL | EXTERNAL | | | Urine | | | LAB | | + + + + + + + + | Specimen | + + | Urine specimen | | (specimen) | + + + +---------+ + + | Performing | Address | City/State/Zipcode | Phone Number | | Organization | | | | + +---------+ + + | EXTERNAL LAB | | | | + +---------+ + + DNA Double-Stranded Ab, IgG (05/22/2016 3:56 PM PDT) + + + + + + | Component | Value | Ref Range | Performed | Pathologist | | | | | At | Signature | + + + + + + | dsDNA | 6 (H)Comment: | [iU]/mL | EXTERNAL | | | Autoantibod | INDETERMINATE: 5 TO 9 | | LAB | | | y | | | | | + + + + + + + + | Specimen | + + | Blood specimen | | (specimen) | + + + +---------+ + + | Performing | Address | City/State/Zipcode | Phone Number | | Organization | | | | + +---------+ + + | EXTERNAL LAB | | | | + +---------+ + + Sedimentation rate, automated (05/22/2016 3:56 PM PDT) + +--------+ + + + | Component | Value | Ref Range | Performed | Pathologist | | | | | At | Signature | + +--------+ + + + | Sed Rate | 37 (H) | 0 - 20 mm/h | EXTERNAL | | | | | | LAB | | + +--------+ + + + + + | Specimen | + + | Blood specimen | | (specimen) | + + + +---------+ + + | Performing | Address | City/State/Zipcode | Phone Number | | Organization | | | | + +---------+ + + | EXTERNAL LAB | | | | + +---------+ + + External Lab: CBC (05/22/2016 3:56 PM PDT) + + + + + + | Component | Value | Ref Range | Performed | Pathologist | | | | | At | Signature | + + + + + + | WBC | 4.8 | 3.8 - 11.0 | EXTERNAL | | | | | 10*3/uL | LAB | | + + + + + + | Non- | 4.29 | 4.20 - 5.70 | EXTERNAL | | | Red Blood | | 10*6/uL | LAB | | | Cells | | | | | | Counted | | | | | + + + + + + | Hemoglobin | 14.5 | 13.2 - 17.0 | EXTERNAL | | | | | g/dL | LAB | | + + + + + + | Hematocrit, | 42.9 | 39.0 - 50.0 % | EXTERNAL | | | POC | | | LAB | | + + + + + + | MCV | 100.0 | 80.0 - 100.0 fL | EXTERNAL | | | | | | LAB | | + + + + + + | MCH | 33.7 | 27.0 - 34.0 pg | EXTERNAL | | | | | | LAB | | + + + + + + | MCHC | 33.8 | 32.0 - 35.5 | EXTERNAL | | | | | g/dL | LAB | | + + + + + + | RDW-CV | 49.9 | 37 - 53 fL | EXTERNAL | | | | | | LAB | | + + + + + + | Platelet | 267 | 150 - 400 | EXTERNAL | | | Count | | 10*3/uL | LAB | | | Plasma | | | | | + + + + + + | MPV | 9.7 | fL | EXTERNAL | | | | | | LAB | | + + + + + + | Differentia | AUTOMATED | | EXTERNAL | | | l Type | | | LAB | | + + + + + + | % Segmented | 50.89 | % | EXTERNAL | | | | | | LAB | | | Neutrophils | | | | | + + + + + + | % | 33.99 | % | EXTERNAL | | | Lymphocytes | | | LAB | | + + + + + + | % Monocytes | 11.41 | % | EXTERNAL | | | | | | LAB | | + + + + + + | % | 2.65 | % | EXTERNAL | | | Eosinophils | | | LAB | | + + + + + + | % Basophils | 1.06 | % | EXTERNAL | | | | | | LAB | | + + + + + + | Absolute | 2.43 | 1.90 - 7.40 | EXTERNAL | | | Segmented | | 10*3/uL | LAB | | | Neutrophils | | | | | + + + + + + | Absolute | 1.63 | 1.00 - 3.90 | EXTERNAL | | | Lymphocytes | | 10*3/uL | LAB | | + + + + + + | Absolute | 0.55 | 0.00 - 0.80 | EXTERNAL | | | Monocytes | | 10*3/uL | LAB | | + + + + + + | Absolute | 0.13 | 0.00 - 0.50 | EXTERNAL | | | Eosinophils | | 10*3/uL | LAB | | + + + + + + | Absolute | 0.05 | 0.00 - 0.10 | EXTERNAL | | | Basophils | | 10*3/uL | LAB | | + + + + + + + + | Specimen | + + | Blood specimen | | (specimen) | + + + +---------+ + + | Performing | Address | City/State/Zipcode | Phone Number | | Organization | | | | + +---------+ + + | EXTERNAL LAB | | | | + +---------+ + + Complement C3 Ag (05/22/2016 3:56 PM PDT) + +-------+ + + + | Component | Value | Ref Range | Performed | Pathologist | | | | | At | Signature | + +-------+ + + + | C3 | 106 | 90 - 180 mg/dL | EXTERNAL | | | COMPLEMENT | | | LAB | | + +-------+ + + + + + | Specimen | + + | Blood specimen | | (specimen) | + + + +---------+ + + | Performing | Address | City/State/Zipcode | Phone Number | | Organization | | | | + +---------+ + + | EXTERNAL LAB | | | | + +---------+ + + Complement C4 Ag (05/22/2016 3:56 PM PDT) + +-------+ + + + | Component | Value | Ref Range | Performed | Pathologist | | | | | At | Signature | + +-------+ + + + | Complement | 10.1 | 10 - 40 mg/dL | EXTERNAL | | | Comp 4 | | | LAB | | + +-------+ + + + + + | Specimen | + + | Blood specimen | | (specimen) | + + + +---------+ + + | Performing | Address | City/State/Zipcode | Phone Number | | Organization | | | | + +---------+ + + | EXTERNAL LAB | | | | + +---------+ + + Comprehensive Metabolic Panel (05/22/2016 3:56 PM PDT) + + + + + + | Component | Value | Ref Range | Performed | Pathologist | | | | | At | Signature | + + + + + + | Na | 141 | 135 - 145 | EXTERNAL | | | | | mmol/L | LAB | | + + + + + + | K | 4.2 | 3.5 - 4.9 | EXTERNAL | | | | | mmol/L | LAB | | + + + + + + | Cl | 106 | 99 - 109 mmol/L | EXTERNAL | | | | | | LAB | | + + + + + + | CO2 | 27 | 23 - 32 mmol/L | EXTERNAL | | | | | | LAB | | + + + + + + | Anion Gap | 12 | 5 - 20 mmol/L | EXTERNAL | | | | | | LAB | | + + + + + + | Glucose, | 101 (H) | 65 - 99 mg/dL | EXTERNAL | | | Fasting | | | LAB | | + + + + + + | BUN | 19 | 8 - 25 mg/dL | EXTERNAL | | | | | | LAB | | + + + + + + | Creatinine | 0.8 | 0.70 - 1.30 | EXTERNAL | | | | | mg/dL | LAB | | + + + + + + | BUN/Creatin | 24 | | EXTERNAL | | | ine Ratio | | | LAB | | + + + + + + | Calcium | 8.8 | 8.5 - 10.5 | EXTERNAL | | | | | mg/dL | LAB | | + + + + + + | Protein, | 6.9 | 6.3 - 8.2 g/dL | EXTERNAL | | | Total | | | LAB | | + + + + + + | Albumin | 3.4 (L) | 3.6 - 5.0 g/dL | EXTERNAL | | | | | | LAB | | + + + + + + | Globulin | 3.5 | 1.3 - 4.9 g/dL | EXTERNAL | | | | | | LAB | | + + + + + + | A/G Ratio | 1.0 | 1.0 - 2.4 | EXTERNAL | | | | | | LAB | | + + + + + + | Bilirubin | 0.3 | 0.1 - 1.5 mg/dL | EXTERNAL | | | Total | | | LAB | | + + + + + + | ALP, | 92 | 35 - 115 U/L | EXTERNAL | | | External | | | LAB | | + + + + + + | AST | 19 | 10 - 45 U/L | EXTERNAL | | | | | | LAB | | + + + + + + | ALT | 21 | 10 - 65 U/L | EXTERNAL | | | | | | LAB | | + + + + + + | Estimated | >60Comment: GFR <60: | mL/min/{1.73_m2 | EXTERNAL | | | GFR | CHRONIC KIDNEY DISEASE, | } | LAB | | | | IF FOUND OVER A 3 MONTH | | | | | | PERIOD. GFR <15: KIDNEY | | | | | | FAILURE. FOR | | | | | | AMERICANS, MULTIPLY THE | | | | | | CALCULATED GFR BY 1.210. | | | | + + + + + + + + | Specimen | + + | Blood specimen | | (specimen) | + + + +---------+ + + | Performing | Address | City/State/Zipcode | Phone Number | | Organization | | | | + +---------+ + + | EXTERNAL LAB | | | | + +---------+ + + documented in this encounter Visit Diagnoses Not on filedocumented in this encounter"
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
--- OUTSIDE RECORDS SUMMARY | ~2020-05-08 | XMS | Encounter Summary ---
Demographics + + + | Address | [address] | | | [place] [address] | + + + | Home Phone | | + + + | Preferred Language | Unknown | + + + | Marital Status | | + + + | Hinduism Affiliation | 1013 | + + + | Race | White | + + + | Ethnic Group | Not or | + + + Author + + + | Author | [facility] | | | and [place] [...] + | Jenny Trammellehart | ECON | [address] | | | | | [place] | | | | | [address] | | + + + + + Care Team Providers + +------+ + | Care Rivet Sorter Name | Role | Phone | + +------+ + | aRdha Rodriguez | PCP | | | PA-C [...] | | | | | Cervical | [place], | [address] | | | | | radiculopath | Joey Salinas MD | [place], | | | | | y DDD | [address] | [place] | | | | | (degenerativ | [place] | [address] | | | | | e disc | [place], [place] | Phone: | | | | | disease), | [address] | [phone] | | | | | cervical | Phone: | Fax: | | | | | Procedures | [phone] | [phone] | | | | | MRI Cervical | Fax: | | | | | | Spine wo | [phone] | | | | | | Contrast [...] | | | | | Cervical | Jacob, | [address] | | | | | radiculopath | Joey Salinas MD | [place], | | | | | y DDD | [address] | [place] | | | | | (degenerativ | [place] | [address] | | | | | e disc | [place] | Phone: | | | | | disease), | [address] | [phone] | | | | | cervical | Phone: | Fax: | | | | | Procedures | [phone] | [phone] | | | | | MRI Cervical | Fax: | | | | | | Spine wo | [phone] | | | | | | Contrast [...] | +--------+ + + + + | 06/11/ | Hospital | [facility] | RoycefeJoey valdez | Cervical | | 2016 | Encounter | [facility] [address], [address] | radiculopathy; DDD | | | | [address] [place], | [place] | (degenerative disc | | | | [place] [address] | [address] | disease), cervical | | | | [phone] | | | +--------+ + + + [...] | + + + +---------+--------+ + | traZODone | Take 150 mg by mouth | | 0 | | | | (DESYREL) 150 MG | nightly. | | | | 6 | | tablet | | | | | | + + + +---------+--------+ + documented as of this encounter Plan of Treatment +--------+---------+ + + + | Date | Type | Specialty | Care Team | Description | +--------+---------+ + + + | 05/12/ | Office | Rheumatology | Nandini Ward | | | 2019 | Visit | | [facility] [address] | | | | | | [facility] | | | | | | [place] [address] | | | | | | [phone] | | | | | | | | +--------+---------+ + + + documented as of this encounter Procedures + +--------+ + + + | Procedure Name | Priori | Date/Time | Associated Diagnosis | Comments | | | ty | | | | + +--------+ + + + | MRI CERVICAL SPINE | Routin | 06/11/2016 | Cervical | Results for this | | WO CONTRAST | e | 11:16 AM | radiculopathy DDD | procedure are in the | | | | PST | (degenerative disc | results section. | | | | | disease), cervical | | + +--------+ + + + [...] Cervical radiculopathy. COMPARISON: None. PROTOCOL: Sagittal | [facility] | | T2, sagittal T1, axial T2, [...] [address] | [place] | [phone] | | [facility] | | [address] | | | - IMAGING | | | | + + + + + documented in this encounter Visit Diagnoses + + | Diagnosis | + + | Cervical radiculopathy Brachial neuritis or radiculitis nos | + + | DDD (degenerative disc disease), cervical Degeneration of cervical intervertebral | | disc | + + documented in this encounter"
--- OUTSIDE RECORDS SUMMARY | ~2020-05-08 | XMS | Encounter Summary ---
Demographics + + + | Address | [address] | | | [place] [address] | + + + | Home Phone | | + + + | Preferred Language | Unknown | + + + | Marital Status | | + + + | Mormon Affiliation | 1013 | + + + | Race | White | + + + | Ethnic Group | Not or | + + + Author + + + | Author | [facility] | | | and [place] | + + + | Organization | [facility] | | | and [place] | + + + | Address | Unknown | + + + | Phone | Unavailable | + + + Support + + + + + | Name | Relationship | Address | Phone | + + + + + | Jenny Jade | ECON | [address] | | | | | [place] | | | | | [address] | | + + + + + Care Team Providers + +------+ + | Care Press Manager Name | Role | Phone | + +------+ + | Radha Rodriguez | PCP | | | PA-C | | | + +------+ + Reason for Visit +---------+--------+ + | Reason | Onset | Comments | | | Date | | +---------+--------+ + | Post Op | 12/03/ | PO Call | | | 2016 | | +---------+--------+ + Encounter Details +--------+ + + + + | Date | Type | Department | Care Team | Description | +--------+ + + + + | 12/03/ | Telephone | [facility] | Spencer Barton, | Post Op (PO Call) | | 2017 | | NEUROSURGERY [address] | DO [address] | | | | | [address] | [address] [place], [place] | | | | | [place], [place] | [id number] | | | | | [address] | | | | | | [phone] | | | +--------+ + + + [...] Telephone Encounter - Bettie Thompson RN - 12/03/2016 3:59 PM PDTProcedure: C5-6, C6-7 Anterior Cervical Discectomy w/ Fusion and Plating Date of Surgery: 11/28/2016 1. How are you feeling-if pain where (legs/surgical site)? Better than expected; some naus ea 45-60 minutes after taking steroids, but almost done with MDP; pretty tired by later in d ay; Swallowing improved with MDP. 2. Weakness/Numbness (New onset)? No 3.Taking pain meds (Name/Dosage)? Hydrocodone-acetaminophen 7.5-325 mg PM, HS- taking 2 ta blets each dose; diazepam (not taking); gabapentin 600 mg 3 times daily; not using medical m arijuana or Tramadol 4.Loss of Bowel or Bladder (When/Chronic)? No Constipation? Taking laxative; having regu lar BMs 5.Ambulating (How often)? First couple of days every 45 minutes; now even more active SURGICAL ISSUES 1.Steri-strips/outer bandages intact. Advised ok to remove outer bandage and leave uncover ed, even for showers; remove any remaining steri strips at 2 weeks post op. Beltran/sutures that need to be removed no. Operative note reviewed yes. 2.Appearance of the site? "Looks great" Advised to check incision daily and watch for inc reased redness, swelling, heat, drainage and edges not healing well together. Call and have wound checked with any concerns Is there drainage from the site? no. 3.Do you have a fever? no. 4.Follow up appointments? 12/26/2016 @ 1500; reminded to check in by 1430 and confirmed shelby ent prefers to have XR at [facility] by 1330 Staple/suture removal nurse visit? N/A 5.What could we have done to make your visit better? expressed that she is excited to meet the great doctor in person since she just missed him each time. 6. Has preoperative pain improved? Improvement in neck ROM (within restrictions); Feeling much better (cautioned patient not to advance ROM or activities beyond restrictions. Ernst nt verbalized understanding) All questions answered at this time. Patient/ spouse encouraged to call with any further q uestions or concerns. documented in this encounter Plan of Treatment +--------+---------+ + + + | Date | Type | Specialty | Care Team | Description | +--------+---------+ + + + | 05/12/ | Office | Rheumatology | Nandini Ward | | | 2019 | Visit | | [facility] [address] | | | | | | [facility] | | | | | | [place] [address] | | | | | | [phone] | | | | | | | | +--------+---------+ + + + documented as of this encounter Visit Diagnoses Not on filedocumented in this encounter
--- OUTSIDE RECORDS SUMMARY | ~2020-05-08 | XMS | Encounter Summary ---
Demographics + + + | Address | [address] | | | [place] [address] | + + + | Home Phone | | + + + | Preferred Language | Unknown | + + + | Marital Status | | + + + | [employer] Affiliation | 1013 | + + + | Race | White | + + + | Ethnic Group | Not or | + + + Author + + + | Author | [facility] | | | and [place] | + + + | Organization | 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 Name | Role | Phone | + +------+ + | Radha Rodriguez | PCP | | | PA-C | | | + +------+ + Reason for Visit Auth/Cert +--------+--------+ + + + + | Status | Reason | Specialty | Diagnoses / | Referred By | Referred To | | | | | Procedures | Contact | Contact | +--------+--------+ + + + + | | | | Diagnoses | | | | | | | Cervical | | | | | | | spondylosis | | | | | | | with | | | | | | | radiculopath | | | | | | | y (M47.22), | | | | | | | Spinal | | | | | | | stenosis in | | | | | | | cervical | | | | | | | region | | | | | | | (M48.02), | | | | | | | Brachial | | | | | | | neuritis | | | | | | | (M54.12), | | | | | | | Cervicalgia | | | | | | | (M54.2) | | | | | | | Procedures | | | | | | | [place] | | | | | | | ARTHRODESIS | | | | | | | ANT | | | | | | | INTERBODY | | | | | | | INC | | | | | | | DISCECTOMY, | | | | | | | CERVICAL | | | | | | | BELOW C2 | | | | | | | ANTERIOR | | | | | | | INSTRUMENTAT | | | | | | | ION 2-3 | | | | | | | VERTEBRAL | | | | | | | SEGMENTS [place] | | | | | | | ALLOGRAFT | | | | | | | FOR SPINE | | | | | | | SURGERY ONLY | | | | | | | STRUCTURAL | | | | | | | [place] | | | | | | | ARTHRODESIS | | | | | | | ANT | | | | | | | INTERBODY | | | | | | | INC | | | | | | | DISCECTOMY, | | | | | | | CERVICAL | | | | | | | BELOW C2 | | | | | | | EACH ADDL | | | | | | | FUSION | | | | | | | CERVICAL | | | | | | | ANTERIOR W/ | | | | | | | PLATING | | | +--------+--------+ + + + + Encounter Details +--------+ + + + + | Date | Type | Department | Care Team | Description | +--------+ + + + + | 11/28/ | Hospital | [facility] | Spencer Barton, | Cervical | | 2017 - | Encounter | [facility] | DO [address] | radiculopathy | | | | [address] [facility] | [address] | (Primary Dx) | | 11/30/ | | [place] [address] | [id number] | | | 2016 | | [phone] | | | +--------+ + + + [...] + + + | Blood Pressure | 122/66 | 11/30/2016 7:27 AM | | | | | PDT | | + + + + + | Pulse | 70 | 11/30/2016 7:27 AM | | | | | PDT | | + + + + + | Temperature | 36.5 C (97.7 F) | 11/30/2016 7:27 AM | | | | | PDT | | + + + + + | Respiratory Rate | 16 | 11/30/2016 7:27 AM | | | | | PDT | | + + + + + | Oxygen Saturation | 96% | 11/30/2016 7:27 AM | | | | | PDT | | + + + + + | Inhaled Oxygen | - | - | | | Concentration | | | | + + + + + | Weight | 136.5 kg (301 lb) | 11/28/2016 10:14 AM | | | | | PDT | | + + + + + | Height | 180.3 cm (5' 11") | 11/28/2016 10:14 AM | | | | | PDT | | + + + + + | Body Mass Index | 41.98 | 11/28/2016 10:14 AM | | | | | PDT | | + + + + + documented in this encounter Discharge Summaries Scar Mendoza PA-C - 11/29/2016 7:22 AM PDTFormatting of this note might be differen t from the original. DISCHARGE SUMMARY Pt. Name/Age/: Steven Jade 56 y.o. 1960 Date of Admission: 11/28/2016 Date of Discharge: 11/29/2016 Admitting Physician: Spencer Barton DO PCP: Radha Vega Discharging Physician: Scar Mendoza PA-C Primary Discharge Dx: 1. Cervical spondylosis C5-6, C6-7. 2. Cervical stenosis C5-6, C6-7. 3. Cervical radiculopathy. 4. Cervicalgia. Secondary Discharge Dx: Patient Active Problem List Diagnosis Cervical radiculopathy DDD (degenerative disc disease), cervical Paresthesias Chronic pain of both shoulders Foraminal stenosis of cervical region BMI 40.0-44.9, adult Reason for Admission (Brief): Mr. Jade is a 56-year-old man, who presented with signs a nd symptoms and radiographic evidence of cervical stenosis - upper extremity radiculopathy, and neck pain. He failed conservative treatment and symptoms continued to progress. MRI of t he cervical spine demonstrated spondylosis and stenosis C5-C7. Given the progression of his symptoms, he decided to proceed with anterior cervical fusion, C5-7. Hospital Course, including Complications: On the day of admission the patient was admitted to [facility] and underwent a C5-7 f usion . Patient was transferred to PACU and then to the neurosurgical floor. In brief, the hospital stay was uncomplicated, the patient mobilized well with physical therapy and occup ational therapy. There were no cardiac issues, pulmonary issues, evidence of DVT or infecti on. Appropriate discharge plans were made in line with his progress and mobility and he was ultimately discharged to home. Medications Reconciled upon Discharge are: Discharge Medications New Medications Details diazePAM 5 mg tablet Take 1 tablet by mouth every 6 hours as needed. aka: VALIUM HYDROcodone-acetaminophen 7.5-325 mg per tablet Take 1-2 tablets by mouth every 4 hours as needed for Pain. aka: NORCO lactulose 10 g/15 mL solution Take 30 mLs by mouth Daily as needed. Unchanged Medications Details azaTHIOprine 50 mg tablet Take 50 mg by mouth 2 times daily. aka: IMURAN carisoprodol 350 mg tablet Take 350 mg by mouth nightly. aka: SOMA CENTRUM SILVER PO Take 1 capsule by mouth Daily. gabapentin 600 MG tablet Take 600 mg by mouth 3 times daily. aka: NEURONTIN hydroxychloroquine 200 mg tablet Take 200 mg by mouth 2 times daily. aka: PLAQUENIL lovastatin 20 mg tablet Take 20 mg by mouth nightly. aka: MEVACOR medical marijuana 2 times daily. CBD capsule aka: CANNABIS traMADol 50 mg tablet Take 50 mg by mouth 3 times daily. aka: ULTRAM Discontinued Medications ALEVE 220 MG Caps Generic drug: Naproxen Sodium Condition on Discharge: Stable Disposition: Patient was discharged to home Follow-Up Plans: Follow-up with: Dr. Barton's office in 4 weeks Follow-up with primary care physician as needed. Diet: Resume regular diet Activity: Continue to follow guidelines and precautions as previously discussed. Brace: B brace Electronically signed by: Scar Mendoza, 11/29/2016 7:22 [facility] documented in th is encounter Discharge Instructions Instructions Scar Mendoza PA-C - 11/29/2016Discharge Instructions for Cervical Fusio n You had a cervical fusion. During this procedure, your doctor lockedtogether (fused) some of the bones in the curve of your neck. This limits the movement of these bones to help rel ieve your pain. Here s what you need to know about home care following a cervical fusion. Activity Arrange your household to keep the items you need within reach. Remove electrical cords, throw rugs,and anything else that may cause you to fall. Follow your doctor s instructions for wearing acervical collar or brace. The neck co llar or brace is important because it supports and correctly positions your neck after surge ry. Be sure to follow instructions for its care, use, and the length of time you must wear i t. Don t raise your hands over your head [id number](s)after your surgery. Don t drive until your doctor says it s OK. This will most likely be when you can mo ve your neck from side to side freely and without pain. Never drive while you are taking opi oid pain medication. Walk as much as possible. You may also go up and down stairs as much as you can tolerate . Walking outside or walking on a treadmill at a slow speed with no incline is OK. Don t lift anything heavier than5 pounds. Ask your doctor when you can return to work. Other home care Take your medication exactly as directed. Talk to your doctor about pain medication. Don t take nonsteroidal, anti-inflammatory medications (NSAIDs),such as ibuprofen un less your doctor approves. They may delay or prevent proper fusion of bone. As long as you keep your incision dry you may shower as desired after your surgery. You may allow shower water to run over the incision and get it wet after 5 days, but do not subm erse the incision under water until after you see your provider at your 1 month post op visi t. You may be instructed to use a neck collar while you shower. If so, carefully remove it when you finish showering. Then keep your neck correctly positioned as you gently pat dry y our skin, the incision, and the neck collar. Then put the neck collar back on. Don t soak in bathtubs, hot tubs, or swimming pools until instructed by your doctor. Your incision mayhave beenclosed using sutures, nacho, or strips of tape. You can allow strips of tape to fall off on their own. Don t rub the incision, or apply creams or lotions onit. If you smoke, quit. Smoking slows healing of bone. Enroll in a stop-smoking program to i mprove your chances of success. Follow-up Most patients will have a 4 week follow up appointment. Please get your 1 month post op x-rays prior to this your 1 month post op appointment. [phone] [employer] [place] [address], [place] [id number]. All righ ts reserved. This information is not intended as a substitute for professional medical care. Always follow your healthcare professional's instructions. documented in this encounter Medications at Time [...] tablets by | 120 | 0 | 11/30/19 | | | HYDROcodone-acetamin | mouth every [...] + + + +---------+ + + | methylPREDNISolone | FOLLOW INSTRUCTIONS, | 21 | 0 | 12/01/19 | | | (MEDROL DOSEPAK) 4 | TAKE ORALLY TAT | tablet | | 17 | 7 | | mg tablet | | | | | | + + + +---------+ + + | Multiple | Take 1 capsule [...] + + documented as of this encounter Progress Notes Ag Almodovar PA-C - 11/30/2016 7:27 AM PDTFormatting of this note might be differ ent from the original. [facility] NEUROSURGERY PROGRESS NOTE PATIENT NAME: Steven Jade AGE: 56 y.o. DATE OF SERVICE: 11/30/2016 7:27 S: The patient c/o manageable neck pain. The patient has been mobilizing well. The arm sy mptoms are at improved from preoperatively. The patient is having moderate swallowing difficulty. IV steroids are helping. Patient i s planning to DC today CURRENT MEDICATIONS: Current Facility-Administered Medications Medication Dose Route Frequency Provider Last Rate Last Dose atorvaSTATin (LIPITOR) tablet 5 mg 5 mg Oral Nightly Scar Mendoza PA-C 5 mg at 11/29/162123 azaTHIOprine (IMURAN) tablet 50 mg 50 mg Oral BID Scar Mendoza PA-C 50 mg a t 11/29/162124 bisacodyl (DULCOLAX) suppository 10 mg 10 mg Rectal Daily PRN RUFINO Larson calcium carbonate (TUMS) chewable tablet 1,000 mg 1,000 mg Oral Q2H PRN Scar Mendoza PA-C carisoprodol (SOMA) tablet 350 mg 350 mg Oral Nightly Scar Mendoza PA-C 350 mg at 11/29/162123 dexamethasone (DECADRON) 4 mg/mL injection 4 mg 4 mg Intravenous 4 times per day RUFINO Sainz 4 mg at 11/30/16 0605 diazePAM (VALIUM) injection 2.5-5 mg 2.5-5 mg Intravenous Q6H PRN Scar Mendoza PA-C diazePAM (VALIUM) tablet 5 mg 5 mg Oral Q6H PRN Scar Mendoza PA-C 5 mg at 0 11/28/162123 diphenhydrAMINE (BENADRYL) injection 12.5 mg 12.5 mg Intravenous Q4H PRN Scar Mendoza PA-C Or diphenhydrAMINE (BENADRYL) tablet 25 mg 25 mg Oral Q4H PRN Scar Mendoza PA-C Or diphenhydrAMINE (BENADRYL) 12.5 mg/5 mL liquid 25 mg 25 mg Oral Q4H PRN Scar Mendoza PA-C docusate sodium (COLACE) capsule 100 mg 100 mg Oral BID Scar Mendoza PA-C 1 00 mg at 11/29/162123 enalaprilat (VASOTEC) injection 1.25 mg 1.25 mg Intravenous Q6H PRN Scar amezcua PA-C gabapentin (NEURONTIN) capsule 600 mg 600 mg Oral TID Scar Mendoza PA-C 600 mg at 11/29/162123 HYDROcodone-acetaminophen (NORCO) 7.5-325 mg per tablet 1-2 tablet 1-2 tablet Oral Q4H PRN Scar Mendoza PA-C 1 tablet at 11/30/16 0022 hydroxychloroquine (PLAQUENIL) tablet 200 mg 200 mg Oral BID JEREMY Larson 200 mg at 11/29/162124 lactulose liquid 30 mL 30 mL Oral Daily PRN Scar Mendoza PA-C magnesium hydroxide (MILK OF MAGNESIA) 400 mg/5 mL suspension 30 mL 30 mL Oral BID PRN Scar Mendoza PA-C menthol (HALLS COUGH DROP) lozenge 1 lozenge 1 lozenge Buccal Q2H PRN Scar manriquez PA-C methocarbamol (ROBAXIN) tablet 1,500 mg 1,500 mg Oral Q6H PRN RUFINO Larson metoclopramide (REGLAN) 5 mg/mL injection 10 mg 10 mg Intravenous Q4H PRN Scar Mendoza PA-C metoclopramide (REGLAN) tablet 10 mg 10 mg Oral Q4H PRN Scar Mendoza PA-C morphine injection 2-8 mg 2-8 mg Intravenous Q2H PRN Scar Mendoza PA-C 2 mg at 11/28/16 2314 ondansetron (ZOFRAN ODT) disintegrating tablet 4 mg 4 mg Oral Q6H PRN Scar manriquez PA-C ondansetron (ZOFRAN) injection 4 mg 4 mg Intravenous Q6H PRN JEREMY Larson phenol (CHLORASEPTIC) spray 1-2 spray 1-2 spray Mouth/Throat Q3H PRN Scar gar PA-C 2 spray at 11/28/162010 polyethylene glycol (MIRALAX) powder 17 g 17 g Oral Daily PRN RUFINO Larson prochlorperazine (COMPAZINE) tablet 10 mg 10 mg Oral Q6H PRN JEREMY Larson senna (SENOKOT) tablet 8.6 mg 8.6 mg Oral BID Scar Mendoza PA-C 8.6 mg at 0 11/29/16 2124 sodium chloride 0.9% (NS) infusion Intravenous Continuous Scar Mendoza PA-C Stopped at 11/29/16 1104 ALLERGIES: No Known Allergies PHYSICAL EXAMINATION: Temp: [36.5 C (97.7 F)-37.4 C (99.3 F)] 36.5 C (97.7 F) Pulse: [70-81] 70 Resp: [16-18] 16 BP: (121-141)/(66-82) 121/66 mmHg Intake/Output Summary (Last 24 hours) at 11/30/16 0727 Last data filed at 11/30/16 0609 Gross per 24 hour Intake 3200 ml Output 3200 ml Net 0 ml GENERAL: Steven Jade is in no acute distress with unlabored respirations. HEENT: HEAD/FACE: EYES: Normocephalic and atraumatic. There are no areas of recent trauma. Normal sclerae without icterus. NECK: There is mild swelling but the neck is not firm or tight. CHEST: Clear. HEART: Regular. EXTREMITIES: No edema or swelling. SCD's NEUROLOGICAL EXAM: MENTAL STATUS: The patient is awake, alert, and oriented. He follows simple and complex commands. He speech is fluent, his comprehends speech well, and his repeats well. He has no apparent deficits with short or usp memory. MOTOR EXAM: Motor strength is stable SENSORY EXAM: Sensory exam is stable 24 HOUR LABS: All Component Based Labs (Last 10 results in the past 24 hours) None ASSESSMENT: NEUROSURGICAL DIAGNOSES: S/p Cervical Fusion, Hospital Day 2 HOSPITAL/GENERAL DIAGNOSES: Past Medical History Diagnosis Date High cholesterol Stomach ulcer Arthralgia of multiple sites Cervical radiculopathy Systemic lupus erythematosus (HCC) Herniated intervertebral disc of lumbar spine Headache Insomnia DDD (degenerative disc disease), cervical 05/23/2016 Paresthesias 05/23/2016 Foraminal stenosis of cervical region 06/15/2016 PONV (postoperative nausea and vomiting) Adverse effect of anesthesia slow to wake up PLAN: - Neurologically stable and pain control is appropriate. - will DC with medrol dose pack - Mobilize, PT/OT - SCD's - Patient is having adequate bowel function without any concerns. They were counseled that full bowel function may not return for a few days - Drain output is low and it can be removed now - Disp: Home today with a steroid taper ELECTRONICALLY SIGNED BY: Ag Almodovar PA-C, 11/30/2016 7:27 Judy Skinner PA-C - 11/29/2016 7:15 AM PDTFormatting of this note might be different from the orig [facility]. [facility] NEUROSURGERY PROGRESS NOTE PATIENT NAME: Steven Jade AGE: 56 y.o. DATE OF SERVICE: 11/29/2016 7:15 S: The patient is doing well this AM. Pain is under control with medicine. He complains of mild difficulty swallowing and a sore throat. He is tolerated pudding, medication, and water without issues. Voiding well. No flatus, no BM. He feels comfortable going home today after therapies. O: CURRENT MEDICATIONS: Current Facility-Administered Medications Medication Dose Route Frequency Provider Last Rate Last Dose atorvaSTATin (LIPITOR) tablet 5 mg 5 mg Oral Nightly Scar Mendoza PA-C 5 mg at 11/28/162123 azaTHIOprine (IMURAN) tablet 50 mg 50 mg Oral BID Scar Mendoza PA-C 50 mg a t 11/28/162123 bisacodyl (DULCOLAX) suppository 10 mg 10 mg Rectal Daily PRN RUFINO Larson calcium carbonate (TUMS) chewable tablet 1,000 mg 1,000 mg Oral Q2H PRN Scar Mendoza PA-C carisoprodol (SOMA) tablet 350 mg 350 mg Oral Nightly Sacr Mendoza PA-C 350 mg at 11/28/162123 diazePAM (VALIUM) injection 2.5-5 mg 2.5-5 mg Intravenous Q6H PRN Scar Mendoza PA-C diazePAM (VALIUM) tablet 5 mg 5 mg Oral Q6H PRN Scar Mendoza PA-C 5 mg at 0 11/28/162123 diphenhydrAMINE (BENADRYL) injection 12.5 mg 12.5 mg Intravenous Q4H PRN Scar Mendoza PA-C Or diphenhydrAMINE (BENADRYL) tablet 25 mg 25 mg Oral Q4H PRN Scar Mendoza PA-C Or diphenhydrAMINE (BENADRYL) 12.5 mg/5 mL liquid 25 mg 25 mg Oral Q4H PRN Scar Mendoza PA-C docusate sodium (COLACE) capsule 100 mg 100 mg Oral BID Scar Mendoza PA-C 1 00 mg at 11/28/162123 enalaprilat (VASOTEC) injection 1.25 mg 1.25 mg Intravenous Q6H PRN Scar amezcua PA-C gabapentin (NEURONTIN) capsule 600 mg 600 mg Oral TID Scar Mendoza PA-C 600 mg at 11/28/162123 HYDROcodone-acetaminophen (NORCO) 7.5-325 mg per tablet 1-2 tablet 1-2 tablet Oral Q4H PRN Scar Mendoza PA-C 2 tablet at 11/29/165 hydroxychloroquine (PLAQUENIL) tablet 200 mg 200 mg Oral BID JEREMY Larson 200 mg at 11/28/16 2124 lactulose liquid 30 mL 30 mL Oral Daily PRN Scar Mendoza PA-C magnesium hydroxide (MILK OF MAGNESIA) 400 mg/5 mL suspension 30 mL 30 mL Oral BID PRN Scar Mendoza PA-C menthol (HALLS COUGH DROP) lozenge 1 lozenge 1 lozenge Buccal Q2H PRN Scar manriquez PA-C methocarbamol (ROBAXIN) 750 mg in sodium chloride 0.9% 100 mL IVPB 750 mg Intravenous Q8H Scar Mendoza PA-C 143.3 mL/hr at 11/29/16 0135 750 mg at 11/29/16 0135 methocarbamol (ROBAXIN) tablet 1,500 mg 1,500 mg Oral Q6H PRN RUFINO Larson metoclopramide (REGLAN) 5 mg/mL injection 10 mg 10 mg Intravenous Q4H PRN Scar Mendoza PA-C metoclopramide (REGLAN) tablet 10 mg 10 mg Oral Q4H PRN Scar Mendoza PA-C morphine injection 2-8 mg 2-8 mg Intravenous Q2H PRN Scar Mendoza PA-C 2 mg at 11/28/16 2314 ondansetron (ZOFRAN ODT) disintegrating tablet 4 mg 4 mg Oral Q6H PRN Scar manriquez PA-C ondansetron (ZOFRAN) injection 4 mg 4 mg Intravenous Q6H PRN JEREMY Larson phenol (CHLORASEPTIC) spray 1-2 spray 1-2 spray Mouth/Throat Q3H PRN Scar gar PA-C 2 spray at 11/28/162010 polyethylene glycol (MIRALAX) powder 17 g 17 g Oral Daily PRN RUFINO Larson prochlorperazine (COMPAZINE) tablet 10 mg 10 mg Oral Q6H PRN JEREMY Larson senna (SENOKOT) tablet 8.6 mg 8.6 mg Oral BID Scar Mendoza PA-C 8.6 mg at 0 11/28/164 sodium chloride 0.9% (NS) infusion Intravenous Continuous Scar Mendoza PA-C 100 mL/hr at 11/28/16 1833 ALLERGIES: No Known Allergies PHYSICAL EXAMINATION: Temp: [36.5 C (97.7 F)-37.4 C (99.3 F)] 36.9 C (98.4 F) Pulse: [62-109] 91 Resp: [8-20] 16 BP: (116-157)/(66-123) 122/67 mmHg Intake/Output Summary (Last 24 hours) at 11/29/16 0715 Last data filed at 11/29/16 0547 Gross per 24 hour Intake 2339 ml Output 2505 ml Net -166 ml GENERAL: Steven Jade is in no acute distress with unlabored respirations. HEENT: HEAD/FACE: EYES: Normocephalic and atraumatic. There are no areas of recent trauma. Normal sclerae without icterus. NECK: There is no significant swelling and the neck is soft. CHEST: Clear. HEART: Regular. EXTREMITIES: No edema or swelling. SCD's NEUROLOGICAL EXAM: MENTAL STATUS: The patient is awake, alert, and oriented. He follows simple and complex commands. He speech is fluent, his comprehends speech well, and his repeats well. He has no apparent deficits with short or usp memory. MOTOR EXAM: Motor strength is improved SENSORY EXAM: Decreased sensation in bilat thumbs. Preop bilat 3rd, 4th, and 5th fingers is improved. 24 HOUR LABS: All Component Based Labs (Last 10 results in the past 24 hours) 11/28/16 1110 ABO O Antibody Screen Negative Rh Type Positive ASSESSMENT: NEUROSURGICAL DIAGNOSES: S/p Cervical Fusion, Hospital Day 1 HOSPITAL/GENERAL DIAGNOSES: Past Medical History Diagnosis Date High cholesterol Stomach ulcer Arthralgia of multiple sites Cervical radiculopathy Systemic lupus erythematosus (HCC) Herniated intervertebral disc of lumbar spine Headache Insomnia DDD (degenerative disc disease), cervical 05/23/2016 Paresthesias 05/23/2016 Foraminal stenosis of cervical region 06/15/2016 PONV (postoperative nausea and vomiting) Adverse effect of anesthesia slow to wake up PLAN: - Neurologically stable and pain control is appropriate. - Medically stable. - Mobilize, PT/OT - SCD's - Working on BM/bowel function. Encouraged activity and medications to assist - Drain output is low and it can be removed now - Disp: Home today with routine follow-up ELECTRONICALLY SIGNED BY: Scar Mendoza PA-C, 11/29/2016 7:15 documented in th is encounter H&P Notes Spencer Barton DO - 11/28/2016 2:06 PM PDTSURGICAL INTERIM HISTORY & PHYSICAL UPDATE Pt. Name/Age/: Steven Jade 56 y.o. 1960 Date of admission: 11/28/2016 The current H&P was reviewed. The patient was reexamined. Re-evaluation of the patient co nfirms the necessity for the scheduled procedure. No change has occurred in the patient s condition since the H&P was completed less than 30 days ago. VERIFICATION OF CONSENT (PARQ) The patient was counseled regarding the procedure, its indications, risks, potential compli cations and alternatives. Any questions were answered. Consent was obtained. Electronically signed by: Spencer Barton DO, 11/28/2016 14:06 [facility] reyerSpencer DO - 11/28/2016 2:06 PM PDT Spencer Barton DO [address] [facility] [address] [place] [address] FAX: NEUROSURGERY HISTORY AND PHYSICAL EXAMINATION CHIEF COMPLAINT: Chief Complaint Patient presents with Neck Pain neck pain that radiates down to shoulders worse on right shoulder. HISTORY OF PRESENT ILLNESS: The patient is a 56 y.o. male with the complaint of neck pain symptoms that began many years ago. The patient describes neck pain since playing [employer] in high school and college. It has become worse in the last year. The symptoms have been rapidly worsening. He rates the pain as severe. The symptoms are frequent, daily. He describes the pain as aching and stabbing. The patient describes arm symptoms down both sides, right worse than left. The arm sympto ms account for at least greater than or equal to 50% of his symptoms. His pain travels fro m his neck down into the hands. He also describes decreased range of motion, hand weakness , and dropping objects. He does indicate a history of loss of fine motor function. Other findings of progressive myelopathy are not present. His symptoms improve with rest. His symptoms worsen with changing position, standing, sitting, bending, twisting and light exertion. He has tried lifestyle modification, pain medication, rest, years of physical therapy, ster oid injection, traction, massage, chiropractics, TENS. Since his last visit, his symptoms are unchanged. He presents for surgery today. PAST MEDICAL HISTORY: Past Medical History Diagnosis Date High cholesterol Stomach ulcer Arthralgia of multiple sites Cervical radiculopathy Systemic lupus erythematosus (HCC) Herniated intervertebral disc of lumbar spine Headache Insomnia DDD (degenerative disc disease), cervical 05/23/2016 Paresthesias 05/23/2016 Foraminal stenosis of cervical region 06/15/2016 PAST SURGICAL HISTORY: Past Surgical History Procedure Laterality Date Knee joint replacement Left 2013 [facility] Shoulder surgery Right 1999 [facility] Cholecystectomy 1994 [facility] CURRENT MEDICATIONS: Current Outpatient Prescriptions Medication Sig [...] about 35 years ago. He has a 32 pack-year smoking history. He natalie t smokeless tobacco use about 19 years ago. His smokeless tobacco use included Chew. He repo rts that he drinks alcohol. He reports that he does not use illicit drugs. FAMILY HISTORY: Family History Problem [...] anemia, no fatigue, no recent profound weight lema ges. EYES: No eye problems, +use of corrective lenses, no eye injury, no double vision, no blind ness. EARS, NOSE, AND THROAT: No changes in taste or smell, no hearing difficulty, no ringing in the ears, no ear drainage, no dizziness, no voice changes, + difficulty swallowing, + signif icant snoring, no sleep apnea, + sinus problems, no major dental work. NEUROLOGICALLY: Please see the review of systems discussed above in the history of present illness. In addition, the patient has numbness/pain of arms, numbness/pain of legs, awake wi th numbness/pain, weakness, muscle aching, coordination difficulty, change in walk, back inj ury, pian in neck, pain in back, headaches, memory loss and confusion. PSYCHIATRIC: No depression, + sleep disorders, no anxiety, no bipolar disorder, no psychoti c episodes. CARDIOVASCULAR: No heart attacks, no heart murmur, no heart fluttering, no chest pain, no a nkle swelling. LUNG DISEASE: No shortness of breath, no cough, no tuberculosis, no bloody cough, no asthma , no emphysema/COPD. GASTROINTESTINAL: No bowel disease, no nausea or vomiting, no rectal bleeding, no constipat ion, no stool incontinence, no liver disease, no gallbladder disease, no abdominal pain, no ulcers. KIDNEY DISEASE: No urinary frequency, no painful or difficult urination, no incontinence. ENDOCRINE: No diabetes, no thyroid disease, no osteopenia or osteoporosis, no breast draina ge. SKIN: No breast lumps, no skin changes, no rashes, no itches. HEMATOLOGIC/LYMPHATIC: No enlarged lymph nodes, no easy or unusual bleeding, no personal hi story of cancer. RHEUMATOLOGIC: + joint arthritis, no rheumatoid arthritis. Other: Lupus. PHYSICAL EXAMINATION: Blood pressure 130/81, pulse 71, height 1.829 m (6'), weight 139.164 kg (306 lb 12.8 oz). B ebtsey mass index is 41.6 kg/(m^2). GENERAL: Steven Jade is in no acute distress with unlabored respirations. The patient does appear uncomfortable throughout the exam today. HEENT: HEAD/FACE: EYES: EARS: NASOPHARNYX: OROPHARNYX: Normocephalic and atraumatic. There are no areas of recent trauma. Normal sclerae without icterus. No drainage or tenderness. Clear without drainage. Clear without erythema. NECK (ANTERIOR): Supple and without palpable masses. CHEST: Clear to ausculation without crackles or wheeze. HEART: Regular rate and rhythm without murmurs. ABDOMEN: Soft, non-tender, non-distended, and without palpable masses. The patient is ob vern. SPINE: The cervical spine exam shows there is tenderness over the C-5, C-6 and C-7 region . Range of motion is limited. Rotation and extension does cause symptoms to radiate into the extremities on both sides. Flexion and extension of the neck does cause severe disc omfort. No tenderness in the midline of the thoracic or lumbar spine. There is no major palpable deformity of the spine. EXTREMITIES: No cyanosis, clubbing, or edema. Distal pulses are palpable. NEUROLOGICAL EXAM: MENTAL STATUS: The patient is awake, alert, and oriented. He follows simple and complex commands. His speech is fluent, he comprehends speech well, and he repeats well. He has no apparent deficits with short or usp memory. CRANIAL NERVES: II: Acuity is intact. Ashraf are full to confrontation. III, IV, : The pupils are reactive. Extraocular movements are intact. No ptosis is noted. V: Facial sensation is intact and symmetric. VII: Facial movements are symmetric. VIII: Hearing is intact bilaterally. IX, X: The uvula and palate move appropriately. XI: Shrug is equal bilaterally. XII: Tongue protrusion is midline. MOTOR EXAM: (5 IS NORMAL) * Indicates pain limited MUSCLE/ MOVEMENT: RIGHT LEFT Deltoids 4+ 5 Biceps 4+ 5 Triceps 4+ 5 Wrist Flexion 4 5 Wrist Extension 4 5 Median Intrinsics 4 5 Ulnar Intrinsics 4 5 Heavy Equipment Sales Manager Strength 4 5 Hip Flexion 5 5 Hip Extension 5 5 Knee Flexion 5 5 Knee Extension 5 5 Dorsiflexion 5 5 Extensor Hallicus Longus 5 5 Plantarflexion 5 5 SENSORY EXAM: Sensory exam shows bilateral C6 and C7-type dysesthesia. REFLEXES: (2 OR 2+ IS NORMAL) REFLEX: RIGHT LEFT BICEPS 2+ 2+ BRACHIORADIALIS 2+ 2+ TRICEPS 2+ 2+ PATELLAR 2+ 2+ ACHILLES 2+ 2+ PARKS'S ABSENT ABSENT PLANTAR DOWNGOING DOWNGOING GAIT: Gait is steady. PERIPHERAL NERVE/MISC: Tinel is negative at the wrists and elbows bilaterally. Phalen is negative. Straight leg raise is negative bilaterally. Carlo's test of the hips is negative bilaterally. RADIOGRAPHIC REVIEW: The patient's imaging was reviewed in detail with the patient today during the visit. The MRI of the cervical spine from 06/11/16 demonstrates loss of cervical lordosis. There is di ffuse spondylosis, worse at C5-6 and C6-7 with bilateral foraminal stenosis. Cervical flexion and extension views show no dynamic instability. ASSESSMENT: NEUROSURGICAL DIAGNOSES: Encounter Diagnoses Name Primary? Osteoarthritis of spine with radiculopathy, cervical region Yes Cervical stenosis of spinal canal Cervical radicular pain Cervicalgia GENERAL DIAGNOSES: Past Medical History Diagnosis Date High cholesterol Stomach ulcer Arthralgia of multiple sites Cervical radiculopathy Systemic lupus erythematosus (HCC) Herniated intervertebral disc of lumbar spine Headache Insomnia DDD (degenerative disc disease), cervical 05/23/2016 Paresthesias 05/23/2016 Foraminal stenosis of cervical region 06/15/2016 PLAN: Steven Jade presented today, and it was a pleasure seeing this patient and assessi ng his problems. The patient has spondylosis and stenosis C5-7. This is likely contributin g to his neck and arm symptoms. I had a lengthy discussion with the patient about his options for care including surgical a nd non-surgical options. He would like to proceed with ACDF C5-7. We discussed the risks, alternatives, and benefits to surgical intervention with Mr. Carpio rt in clinic. These risks included but were not limited to , stroke, heart attack, nu mbness, weakness, paralysis, failure of fusion, failure of hardware, subsidence, adjacent se gment degeneration, cerebrospinal fluid leak, bleeding, infection, injury to surrounding tis sues and organs, injury from positioning, injury to the nerves, difficulty with breathing, d ifficulty with swallowing, difficulty with voice change, and need for additional surgery. Surgical options were discussed and the technique to be employed was described in detail to him. All his questions were answered. We discussed that the goal of the surgery is to prevent progression of his disease, but it is not considered a cure. We also discussed that although some patients may obtain 100% sy mptom relief, it is realistic to anticipate that some symptoms will continue postoperatively despite a successful surgery. We also discussed that there is no guarantee that surgery will provide improvement in his c ondition, and indeed may even worsen the symptoms. We also discussed that in the course of the procedure the operative plan may be altered to include more, less, or different levels depending upon findings in order to provide him with the best possible outcome. I recommend and would prescribe a cervical collar before surgery to improve his stability n ow to support his weak muscles and to reduce pain by restricting mobility. For multiple (more than 1 level fusions), I recommend the use of a bone growth stimulator p ostoperatively. This is to improve the probability and rate of fusion. documented in this en counter Miscellaneous Notes Plan of Care - Александр Chino RN - 11/30/2016 6:00 PM PDTProblem: Patient Care Over view (Adult) Goal: Care Team Goals & Evaluation PROBLEM-RELATED GOALS: 1. Steven will void within 6 hours of arrival to the unit on 11-28-16. 2. Steven will remain free from s/sx infection through 12-02-16. 3. Steven pain will be at a tolerable level/comfortable level through 12-02-16. 4. Steven will be free from falls/injuries through 12-02-16. 5. Steven will maintain adequate oxygenation via oximetry with SpO2 >90 by 12/02/16. STRATEGY TO ACHIEVE GOALS: 1. Encourage fluid intake, maintain IVF, assist pt in ambulation to the bathroom, BSC, and/ or with use of the urinal. Bladder scan as ordered/PRN. 2. Assess vitals with temps and monitor lab values; notify MD if abnormalities are identifi ed. 3. Assess pain q4h and PRN; medicated with analgesics and re-evaluate as needed. 4. Conduct hourly rounding during the day and every 2 hours during the night, answer call l ight in person and/or in a timely manner. - Monitor saturations via oximetry and titrate to order as indicated. Outcome: Adequate for Discharge Date Met: 11/30/16 Goal Evaluation: Pt met adequate goals to be discharged home with to Izabela. AVS reviewed no questi ons at this time. lan of Care - Mary Grace Ortega RN - 11/30/2016 1:50 AM PDTProblem: Patient Care Overview (Adult) Goal: Care Team Goals & Evaluation PROBLEM-RELATED GOALS: 1. Steven will void within 6 hours of arrival to the unit on 11-28-16. 2. Steven will remain free from s/sx infection through 12-02-16. 3. Steven pain will be at a tolerable level/comfortable level through 12-02-16. 4. Steven will be free from falls/injuries through 12-02-16. 5. Steven will maintain adequate oxygenation via oximetry with SpO2 >90 by 12/02/16. STRATEGY TO ACHIEVE GOALS: 1. Encourage fluid intake, maintain IVF, assist pt in ambulation to the bathroom, BSC, and/ or with use of the urinal. Bladder scan as ordered/PRN. 2. Assess vitals with temps and monitor lab values; notify MD if abnormalities are identifi ed. 3. Assess pain q4h and PRN; medicated with analgesics and re-evaluate as needed. 4. Conduct hourly rounding during the day and every 2 hours during the night, answer call l ight in person and/or in a timely manner. - Monitor saturations via oximetry and titrate to order as indicated. Goal Evaluation: Pt is alert and oriented pleasant man with no complaints or symptom s of distress. Pt is comfortable with pain medications as ordered, slight swelling to right side of neck under bandage. Pt has B brace on when up out of bed, good cms and neuro checks. lan of Care - Josseline Irene RN - 11/29/2016 8:42 PM PDTProblem: Patient Care Overview (Adult) Goal: Care Team Goals & Evaluation PROBLEM-RELATED GOALS: 1. Steven will void within 6 hours of arrival to the unit on 11-28-16. 2. Steven will remain free from s/sx infection through 12-02-16. 3. Steven pain will be at a tolerable level/comfortable level through 12-02-16. 4. Steven will be free from falls/injuries through 12-02-16. 5. Steven will maintain adequate oxygenation via oximetry with SpO2 >90 by 12/02/16. STRATEGY TO ACHIEVE GOALS: 1. Encourage fluid intake, maintain IVF, assist pt in ambulation to the bathroom, BSC, and/ or with use of the urinal. Bladder scan as ordered/PRN. 2. Assess vitals with temps and monitor lab values; notify MD if abnormalities are identifi ed. 3. Assess pain q4h and PRN; medicated with analgesics and re-evaluate as needed. 4. Conduct hourly rounding during the day and every 2 hours during the night, answer call l ight in person and/or in a timely manner. - Monitor saturations via oximetry and titrate to order as indicated. Outcome: Improving Goal Evaluation: 1) Voiding without difficulties 2) Dressing to neck, CDI. Vitals stable. 3) Complains of posterior neck pain 11/05, treating with [place] with good results. 4) No falls or injuries during shift. 5) On room air with clear lung sounds. lan of Care - Joshua Dias PT - 11/29/2016 11:47 AM PDT Problem: Patient Care Overview (Adult) Goal: Care Team Goals & Evaluation PROBLEM-RELATED GOALS: 1. Steven will void within 6 hours of arrival to the unit on 11-28-16. 2. Steven will remain free from s/sx infection through 12-02-16. 3. Steven pain will be at a tolerable level/comfortable level through 12-02-16. 4. Steven will be free from falls/injuries through 12-02-16. 5. Steven will maintain adequate oxygenation via oximetry with SpO2 >90 by 12/02/16. STRATEGY TO ACHIEVE GOALS: 1. Encourage fluid intake, maintain IVF, assist pt in ambulation to the bathroom, BSC, and/ or with use of the urinal. Bladder scan as ordered/PRN. 2. Assess vitals with temps and monitor lab values; notify MD if abnormalities are identifi ed. 3. Assess pain q4h and PRN; medicated with analgesics and re-evaluate as needed. 4. Conduct hourly rounding during the day and every 2 hours during the night, answer call l ight in person and/or in a timely manner. - Monitor saturations via oximetry and titrate to order as indicated. Outcome: Adequate for Discharge Date Met: 11/29/16 Physical Therapy Plan of Care Initial Evaluation, Treatment, Discharge Note Summary: Patient seen for initial evaluation and treatment following cervical fusion. Pat ient demonstrates modified independence with all mobility including gait, stairs, bed mobili ty, and transfers with no loss of balance or adverse event. Patient with no other concerns with mobility. No other PT needs identified, and therefore patient will be discharged from PT services. Patient has all the DME needs at home already in place. Patient reports that his will be home to assist him as needed. Recommended that patient go for short walks during the remainder of this admission. Patient acknowledged understanding. At this time p carissa is modified independent in room and hallway with mobility, RN aware. Physical Therapy Discharge Recommendations are: Recommended discharge disposition: home Post discharge physical therapy recommendation: outpatient therapy Equipment Recommendations: none Patient Status/Goals: Reflects last filed data and may be from multiple contributors. Gait Modified independent for extra time, and pain. Patient demonstrates good safety using sing le-point cane, with no loss of balance or adverse event. Level of Henry: modified independent Assistive Device: cane (straight, single point) Distance (feet): 200 feet Gait Pattern Analysis: 2-point gait Gait Deviations: nasim decreased, stride length decreased Stairs Modified independent for extra time, handrail, single-point cane. Number of Stairs: 4 x 2 Handrail Location: left side (ascending) Level of Henry: modified independent Assistive Device: 1 rail, cane (straight, single point) Technique Used: step to step (ascending), step to step (descending) Impairments: decreased flexibility, pain Transfers Modified independent for extra time. Patient with cautious movements due to pain. Trialed single-point cane due to patient uses single-point cane for ambulation in the home and comm unity. Patient demonstrated modified independence using single-point cane for transfers. Bed-Chair, Level of Henry: modified independent Chair-Bed, Level of Henry: modified independent Vao-[id number]-Vdx, Assistive Device: cane (straight, single point) Sit-Stand, Level of Henry: modified independent Stand-Sit, Level of Henry: modified independent Upm-Kvzlc-Eyf, Assistive Device: cane (straight, single point) Impairments: decreased flexibility, pain Bed Mobility Modified independent for extra time needed head of bed elevated. Patient reports that he h as a lift chair and a elevating head of bed that he will be using when he gets home. Assistive Device: HOB elevated Roll Left, Level of Henry: modified independent Supine to Sit, Level of Henry: modified independent Sit to Supine, Level of Henry: modified independent Safety Issues: decreased use of arms for pushing/pulling Impairments: decreased flexibility, pain Balance [facility] BASIC MOBILITY [facility] BASIC MOBILITY Turning over in bed: no assistance required Sitting down /standing up from arm chair: no assistance required Moving from supine to sitting on edge of bed: no assistance required Moving to and from a bed to a chair : independent or modified independent/no help Walking in hospital room: independent or modified independent/no help Climbing 3-5 steps with a railing: independent or modified independent/no help TOTAL - [facility] BASIC MOBILITY : 24 Unable / dependent = 1 A lot / modA = 2 A little / Pao = 3 None / independent = 4 Completed the [facility] Activity Measure for Post Acute Care (AM-PAC) "6 Clicks" [facility] Mobility Inpatient Short Form. This version of the AM-PAC is an assessment tool used to measure a person's level of disability in performing basic mobility tasks. This patient's score indicates a performance of 0.00% impairment in the functioning of basic mobility. Raw Score - Functional Limitation % (for [facility]) - "Severity Modifier" 6 - 100.00 - CN 7 - 92.36 - CM 8 - 86.62 - CM 9 - 81.38 - CM 10 - 76.75 - CL 11 - 72.57 - CL 12 - 68.66 - CL 13 - 64.91 - CL 14 - 61.29 - CL 15 - 57.70 - CK 16 - 54.16 - CK 17 - 50.57 - CK 18 - 46.58 - CK 19 - 41.77 - CK 20 - 35.83 - CJ 21 - 28.97 - CJ 22 - 20.91 - CJ 23 - 11.2 - CI 24 - 0.00 - CH Predicted Discharge During Acute Hospitalization (Raw Score) Home = 20.1 With assist = 17.9 SNF = 14 IRF = 13.6 LTAC = 11.5 Functional Endurance fair. Patient tolerated 200 feet ambulation with no increase in respirations or increased discomfort. ROM L LE ROM: Within functional limits R LE ROM: Within functional limits Neck ROM: Not tested due to cervical fusion Strength L LE Strength: Grossly 4/5 R LE Strength: Grossly 4/5 PT Goal Review Date Most Recent Value STG Review Date 11/30/16 at 11/29/2016 1138 [id number] Goal Most Recent Value STG Status new, met at 11/29/2016 1138 STG Henry Level modified independent at 11/29/2016 1138 STG Assistive Device HOB elevated at 11/29/2016 1138 Egz-Sianm-Gqt Goal Most Recent Value STG Status new, met at 11/29/2016 1138 STG Henry Level modified independent at 11/29/2016 1138 STG Assistive Device cane (straight, single point) at 11/29/2016 1138 Gait Goal Most Recent Value STG Status new, met at 11/29/2016 1138 STG Henry Level modified independent at 11/29/2016 1138 STG Assistive Device cane (straight, single point) at 11/29/2016 1138 STG Distance (feet) 150 feet at 11/29/2016 1138 Stair Goal Most Recent Value STG Status new, met at 11/29/2016 1138 STG Henry Level modified independent at 11/29/2016 1138 STG Assistive Device 1 rail, cane (straight, single point) at 11/29/2016 1138 STG Number of Stairs 4 2 at 11/29/2016 1138 Electronically signed by: Joshua Dias, PT, 11/29/2016 11:46 lan of Care - Dwaine Recinos, FORMST[employer] FITTER - 11/29/2016 11:45 AM PDTProblem: Patient Care Overview (Adult) Goal: Care Team Goals & Evaluation PROBLEM-RELATED GOALS: 1. Steven will void within 6 hours of arrival to the unit on 11-28-16. 2. Steven will remain free from s/sx infection through 12-02-16. 3. Steven pain will be at a tolerable level/comfortable level through 12-02-16. 4. Steven will be free from falls/injuries through 12-02-16. 5. Steven will maintain adequate oxygenation via oximetry with SpO2 >90 by 12/02/16. STRATEGY TO ACHIEVE GOALS: 1. Encourage fluid intake, maintain IVF, assist pt in ambulation to the bathroom, BSC, and/ or with use of the urinal. Bladder scan as ordered/PRN. 2. Assess vitals with temps and monitor lab values; notify MD if abnormalities are identifi ed. 3. Assess pain q4h and PRN; medicated with analgesics and re-evaluate as needed. 4. Conduct hourly rounding during the day and every 2 hours during the night, answer call l ight in person and/or in a timely manner. - Monitor saturations via oximetry and titrate to order as indicated. Outcome: Unchanged Goal Evaluation: Pt is on room air and O2 sats are 96%. No cpap in use. lan of Care - Nely Carrasquillo, OT - 11/29/2016 10:35 AM PDTProblem: Patient Care Overview (Adult) Goal: Care Team Goals & Evaluation PROBLEM-RELATED GOALS: 1. Steven will void within 6 hours of arrival to the unit on 11-28-16. 2. Steven will remain free from s/sx infection through 12-02-16. 3. Steven pain will be at a tolerable level/comfortable level through 12-02-16. 4. Steven will be free from falls/injuries through 12-02-16. 5. Steven will maintain adequate oxygenation via oximetry with SpO2 >90 by 12/02/16. STRATEGY TO ACHIEVE GOALS: 1. Encourage fluid intake, maintain IVF, assist pt in ambulation to the bathroom, BSC, and/ or with use of the urinal. Bladder scan as ordered/PRN. 2. Assess vitals with temps and monitor lab values; notify MD if abnormalities are identifi ed. 3. Assess pain q4h and PRN; medicated with analgesics and re-evaluate as needed. 4. Conduct hourly rounding during the day and every 2 hours during the night, answer call l ight in person and/or in a timely manner. - Monitor saturations via oximetry and titrate to order as indicated. [facility] Occupational Therapy OPIB Plan of Care Patient Name: Steven Jade Date of Onset of Illness/Injury or Date of Surgery: 11/28/16 Start of Care/Start of Certification Date: 11/29/2016 End of Certification Date: 11/29/2016 Summary: Pt seen for initial OT eval following cervical fusion (see MD Trevino and Melinda for details ). Pt lives at home with who has been helping him with some ADLs including dressing LB (donning/doffing socks). Pt states he has a raised toilet seat, built in shower seats, and periodically uses a FWW/cane at home for chronic mobiltiy issues. Pt performed transfers w ithout assistance, used only FWW with light incidental supervision. Pt able to perform stat ic standing without LOB and displayed good safety. Pt transferred in/out of chair and to to ilet, used raised toilet seat for ease of transfer. Pt states his will likely continue to help him at home with LB dressing while he is healing - he feels comfortable with this a rrangement. Discussed B brace precautions, brace management, and techniques for ADLs while maintaining precautions. No further acute OT needs noted at this time - pt progressing well and plans to d/c today to his home with his . Will sign off for now. Identified Problems Needing Skilled Intervention: Decreased activity tolerance Occupational Therapy Discharge Recommendations are: Recommended discharge disposition: Post discharge occupational therapy recommendation: family involved/supportive, no further OT Equipment Recommendations: none Planned Interventions: Recommended Frequency: evaluation only Patient Status/Goals: Reflects last filed data and may be from multiple contributors. ADLs Pt states he typically has assistance for LB dressing, plans to continue having assistance at home while he heals IADLs Bed Mobility bed mobility NT today, pt up in chair at start and end of session Transfers Pt requires extra time to move from sit<>stand, however does not require physical assist Sit-Stand, Level of Henry: supervised Stand-Sit, Level of Henry: supervised Fme-Zestl-Anl, Assistive Device: 2 wheeled walker (FWW) Toilet, Level of Henry: supervised Toilet, Assistive Device: 2 wheeled walker (FWW), commode (3 in 1) (Commode over toilet) Impairments: pain, ROM decreased, strength decreased ROM L UE ROM: WFL within cervical precautions R UE ROM: WFL within cervical precautions Strength L UE Strength: WFL within cervical precautions R UE Strength: WFL within cervical precautions Medicare Functional Limitation Reporting: OT G-codes Functional Assessment Tool Used: [facility] - Self care Score: 22 - CJ Functional Limitation: Self care Self Care Current Status (G8987): At least 20 percent but less than 40 percent impaired, li mited or restricted Self Care Discharge Status (G8989): At least 20 percent but less than 40 percent impaired, limited or restricted OT Time Calculation OT Individual Start Time: 1020 OT Individual Stop Time: 1035 OT Individual Total Time: 15 OT Total Treatment Time: 15 Timed [place] Code Minutes: 0 Electronically signed by: Nely Barragan OT, 11/29/2016 15:54 lan of Care - Maria Fernanda Gore MSW - 11/29/2016 10:22 AM PDTProblem: Discharge Planning Goal: Patient will be discharged in a safe manner This global marketing intern met with the patient to discuss plans post discharge. The patient lives with h is and plans to return home post discharge. His is taking time off to help him wh ile he recovers. She will provide transportation home. The patient has step children and f riends who will also help provide any support or care post discharge. The patient was indep endently performing ADLs and driving prior to hospitalization and does not anticipate having any needs post discharge. 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 His preferred pharmacy is [facility] in [place], [place]. Signed by: Maria Fernanda Das, Case Management, [facility] global marketing intern Associated attestation - Kev Archer LICSW - 11/29/2016 1:04 PM PDTI attest that I have read this note and agree with the content.Electronically signed by: Kev valdez [facility] 11/29/2016 13:04Plan of Care - Mis Joseph, Speech Pathologist - 11/29/2016 9: 20 AM PDT Problem: Patient Care Overview (Adult) Goal: Care Team Goals & Evaluation PROBLEM-RELATED GOALS: 1. Steven will void within 6 hours of arrival to the unit on 11-28-16. 2. Steven will remain free from s/sx infection through 12-02-16. 3. Steven pain will be at a tolerable level/comfortable level through 12-02-16. 4. Steven will be free from falls/injuries through 12-02-16. 5. Steven will maintain adequate oxygenation via oximetry with SpO2 >90 by 12/02/16. STRATEGY TO ACHIEVE GOALS: 1. Encourage fluid intake, maintain IVF, assist pt in ambulation to the bathroom, BSC, and/ or with use of the urinal. Bladder scan as ordered/PRN. 2. Assess vitals with temps and monitor lab values; notify MD if abnormalities are identifi ed. 3. Assess pain q4h and PRN; medicated with analgesics and re-evaluate as needed. 4. Conduct hourly rounding during the day and every 2 hours during the night, answer call l ight in person and/or in a timely manner. - Monitor saturations via oximetry and titrate to order as indicated. Speech Therapy OPIB Plan of Care Patient Name: Steven Jade Date of Onset of Illness/Injury or Date of Surgery: 11/28/16 Start of Care/Start of Certification Date: 11/29/16 End of Certification Date: 11/29/16 Summary: Steven Jade is a 56 year old male who was referred to for swallowing evalua tion s/p C5-6 C6-7 ACDF and plating. Pt was seen upright in chair without B brace present fo r swallowing evaluation following am meal. Pt reports prior hx of difficulty swallowing wit h c/o lump/mucous buildup on L side of throat with intermittent sticking of foods in throat. He also c/o occasional throat coughing spells/throat clearing at mealtimes. A variety of te xtures were trialed moving from puree-regular textures. Pt c/o increased pain with swallowin g with advancement of tetxtures, needed to use liquid wash to clear foods "sticking in his t hroat", used double swallow, and presented with intermitted throat clearing to clear "foods sticking in throat". ST Recommended: use of added sauce/gravy, added moisture with breads/d ry foods, double swallow, chin tuck, small bites/sips and alternating liquids/solids if need ed to reduce soreness with swallowing and improve bolus transit. ST discussed potential bene fit from MBS as an outpatient to further identify cause of chronic dysphagia and possible ne ed for continued ST. Recommended: mechanical soft chopped diet, no particulates, no mixed co nsistencies and thin liquids. Refer to outpatient ST if dysphagia persists beyond 1 month s /p ACDF. Identified Problems Needing Skilled Intervention: Mild-moderate odynophagia, mild-moderate pharyngeal dysphagia Speech Language Pathology Discharge Recommendations are: Recommended discharge disposition: home with family/caregiver Post discharge speech language pathology recommendation: continue IP LITIGATION ASSOCIATE tx for dysphagia (if dysphagia persists beyond 1 month) Planned Interventions: home program instruction, patient/caregiver education, diet texture modification, compensatory strategies Recommended Frequency: other (see comments) (No further IP ST) Patient Status/Goals: Reflects last filed data and may be from multiple contributors. Cognitive Mood/Behavior: calm, cooperative Orientation: oriented x 4 Dysphagia Goal Most Recent Value STG Status new, met at 11/29/2016 1146 STG Pt will recieve bedside dysphagia evaluation to guide diet/texture and safe swallow ing with D/C at 11/29/2016 1146 IP LITIGATION ASSOCIATE Time Calculation IP LITIGATION ASSOCIATE Individual Start Time: 0850 IP LITIGATION ASSOCIATE Individual Stop Time: 09 IP LITIGATION ASSOCIATE Individual Total Time: 30 IP LITIGATION ASSOCIATE Total Treatment Time: 30 Electronically signed by: Mis Joseph, SPEECH PATHO, 11/29/2016 11:53 p Note - Sarah Barton DO - 11/29/2016 5:54 AM PDTDATE: 11/28/2016 SURGEON: Spencer Barton DO HUMAN RESOURCES RECEPTIONIST: RUFINO Pierson PREOPERATIVE DIAGNOSES: 1. Cervical spondylosis C5-6, C6-7. 2. Cervical stenosis C5-6, C6-7. 3. Cervical radiculopathy. 4. Cervicalgia. POSTOPERATIVE DIAGNOSES: 1. Cervical spondylosis C5-6, C6-7. 2. Cervical stenosis C5-6, C6-7. 3. Cervical radiculopathy. 4. Cervicalgia. PROCEDURE PERFORMED: 1. C5-6, C6-7 anterior interbody diskectomy with decompression of the spinal cord and osteo phytectomy. 2. C5-6, C6-7 anterior interbody arthrodesis. 3. C5-6, C6-7 insertion of interbody PEEK cage. 4. C5-C7 anterior instrumentation. 5. Microsurgical techniques. 6. Fluoroscopic guidance for localization and instrumentation. ANESTHESIA: General endotracheal anesthesia. ESTIMATED BLOOD LOSS: 100 mL. DRAINS: LUCIANA. COMPLICATIONS: None. DISPOSITION: Patient stable to the PACU. INDICATION FOR THE PROCEDURE: Mr. Jade is a 56-year-old man, who presented with signs a nd symptoms and radiographic evidence of cervical stenosis - upper extremity radiculopathy, and neck pain. He failed conservative treatment and symptoms continued to progress. MRI of t he cervical spine demonstrated spondylosis and stenosis C5-C7. Given the progression of his symptoms, he decided to proceed with anterior cervical fusion, C5-7. SURGICAL RISKS: The patient was well-apprised of all objectives, benefits, risks, and poten tial complications of the procedure, including, but not limited to worsening of the current status, possible need for further procedures, risks of infection, headache, CSF leak, possib le spinal cord injury resulting in paralysis, infection, neck hematoma, hoarseness of voice, injury to major vessels causing hemorrhage, stroke, loss of language function, coma, and ev en . Informed consent was obtained and secured in the chart after the patient voiced un derstanding of these risks and decided to proceed with the operation. DESCRIPTION OF THE PROCEDURE: The patient was transferred to operating room #3. He was give n preoperative prophylactic IV antibiotics. The patient was sedated and intubated without di fficulty by the Anesthesia service. Eyes were taped shut after ointment was applied to preve nt corneal abrasion. A Beck Hugger was placed over the lower body to maintain control of cor e body temperature. The patient was placed in the supine position with an IV bag under his s capulae and a Cloward pillow behind his neck. All pressure points were carefully padded. The skin was prepped and draped in standard surgical fashion. The area was marked with a markin g pen, utilizing standard landmarks such as midline and cricoid cartilage. A transverse neck incision was performed opposite the C5-6 level with a #10 scalpel blade. The incision was deepened through the platysmal muscle and the edges were undermined using s harp dissection. Hemostasis was achieved using Bovie electrocautery as well as bipolar force ps. Further blunt and sharp dissection was carried down in a plane lateral to the omohyoid m uscle and medial to the carotid sheath until the anterior longitudinal ligament was reached in front of the spine. The C-arm fluoroscopy unit was draped with sterile drapes and brought into the operative fi eld. The level of C5-6 was confirmed by placing a marker needle under fluoroscopic x-ray. Th e longus colli muscles were undermined with monopolar electrocautery on either side until th e uncovertebral joints were exposed. [place] distraction pins were placed at the C5 and C7 le vels, and the diskectomy was initiated with a #11 blade at the C5-6 level. Diskectomy was ca rried out utilizing pituitary rongeurs, Kerrison rongeurs, and curettes to widen and remove the anterior disk-spur complex. The diskectomy was carried down to the level of the posterio r longitudinal ligament using high-speed electric drilling. Then, abrasion of the disk endpl ates was performed, and the posterior disk-spur complexes were removed down to the level of the posterior longitudinal ligament. The PLL was entered with 1B Codman curette. It was exci sed completely to fully expose the dura and further decompress the spinal cord. There was a large disc herniation deforming the spinal cord at this level. The osteophytectomy was completed with high-speed electric drilling to excise osteophytes a t the posterior margin of the superior and inferior endplates and the neural foramina bilate rally. These were decompressed using high-speed electric drilling as well as Kerrison rongeu rs. Using a blunt nerve hook, the foramina and undersurface of both vertebral bodies were tr acked, and exiting nerve root was found to be well decompressed. The clean disk space was sized appropriately with a trial, and a 7 x 16 x 14 mm PEEK cage f rom Medtronic was chosen and filled with Millard putty. To achieve arthrodesis endplates of the disk space were abraded again, and the permanent spacer was inserted into the disk space . It fit well and was snug. Next, attention was turned to the C6-7 level. The diskectomy was initiated with #11 by evgenyi sing the annulus at C6-7. Diskectomy was carried out utilizing pituitary rongeurs, Kerrison rongeurs, and curettes to widen and remove the anterior disk-spur complex. The diskectomy wa s carried down to the level of the PLL using high-speed electric drilling. Then, abrasion of the disk endplates was performed , and the posterior disk-spur complexes were removed down to the level of the PLL. The PLL was entered with 1B Codman curette. It was excised to fully expose the dura and further decompress the spinal cord. The osteophytectomy was completed with high-speed electric drilling to excise osteophytes a t the posterior margin of the superior and inferior endplates and the neural foramina bilate rally. Using blunt nerve hooks, the foramina and undersurface of both vertebral bodies were tracked, and exiting nerve roots were found to be well decompressed. The clean disk space was sized appropriately with a trial, and a 7 x 16 x 14 mm PEEK cage f rom Medtronic was chosen and filled with Millard putty. To achieve arthrodesis endplates of the disk space were abraded again, and the permanent spacer was inserted into the disk space . It fit well and was snug Next, the [place] pins were removed and bone wax was placed where the pins were to arrest sofia ne bleeding. A 42.5 mm [place] Translational plate was chosen. This is by [employer]. It was placed on top of the spine. There were large anterior osteophytes, which were drilled down until the plate fit appropriately, and then, 4.0 x 19 mm variable angled screws were placed in each hole at C5. At C6, 4.0 x 18 mm variable angled screws were placed. At C7, 4.0 x 18 m m variable angled screws were placed. Six screws were placed all together. Fluoroscopic x-ray confirmed good placement of the spacers, plate, and screws. The wound wa s inspected , and hemostasis was achieved. A Matti-Barboza drain was placed. A 3-0 Vicryl melo ture was used to reapproximate the platysmal layer in running fashion. A 4-0 Vicryl suture w as used to reapproximate the subcuticular layer in running fashion. Mastisol and Steri-Strip s were placed over the incision. All sponge counts, needle counts, and instrument counts wer e correct at the end of the case x2. The patient tolerated the procedure well and was transf erred in stable condition to the recovery room.Electronically signed by DO herminia Eisenberg 11/29/2016 5:56 AM PDTBrief Op Note - Spencer Barton DO - 11/29/2016 5:53 AM PDTFormat ting of this note might be different from the original. Brief Operative Note Steven Jade 56 y.o. male 1960 [id number] Proc. Date 11/28/2016 Preop Dx Cervical spondylosis with radiculopathy (M47.22), Spinal stenosis in cervical reg ion (M48.02), Brachial neuritis (M54.12), Cervicalgia (M54.2) Postop Dx same Procedure C5-6, C6-7 Anterior Cervical Discectomy w/ Fusion and Plating Anesthesia General Surgeon Spencer Barton DO - Primary Store Worker Scar Mendoza PA-C EBL 100 mL Findings Findings consistent with scheduled procedure. No other abnormalities found. Complications none Specimens * No specimens in log * Drains Drain/Device Site 11/28/16 1632 cervical spine (Active) Insertion Site Care dressing intact 11/29/2016 4:30 Drainage Characteristics/Odor sanguineous 11/29/2016 4:30 Drainage Amount small 11/29/2016 4:30 Output (mL) 5 11/29/2016 5:38 Electronically signed by: Spencer Barton DO 11/29/2016 5:53 [facility]ILITY[facility]ronically signed by Spencer Barton DO at 10/2016 5:53 AM PDTPlan of Care - Viviane Lehman RN - 11/29/2016 2:45 AM PDTProblem: Rufino locke Care Overview (Adult) Goal: Care Team Goals & Evaluation PROBLEM-RELATED GOALS: 1. Steven will void within 6 hours of arrival to the unit on 11-28-16. 2. Steven will remain free from s/sx infection through 12-02-16. 3. Steven pain will be at a tolerable level/comfortable level through 12-02-16. 4. Steven will be free from falls/injuries through 12-02-16. 5. Steven will maintain adequate oxygenation via oximetry with SpO2 >90 by 12/02/16. STRATEGY TO ACHIEVE GOALS: 1. Encourage fluid intake, maintain IVF, assist pt in ambulation to the bathroom, BSC, and/ or with use of the urinal. Bladder scan as ordered/PRN. 2. Assess vitals with temps and monitor lab values; notify MD if abnormalities are identifi ed. 3. Assess pain q4h and PRN; medicated with analgesics and re-evaluate as needed. 4. Conduct hourly rounding during the day and every 2 hours during the night, answer call l ight in person and/or in a timely manner. - Monitor saturations via oximetry and titrate to order as indicated. Outcome: Improving Goal Evaluation: A&O x4, CMS intact other than c/o numbness present in the L thumb which is a new onset post -op, vitals stable, drsg CDI, chief privacy officer moderate, dorsi/plantar strong, L strengths 4/5, R stren gths 5/5, L side is slightly weaker than the R side, heart rate reg, lungs clear on 2L O2 vi a NC, bowel tones active x4 (last BM was 11-27-16) pt denied the presence of n/v, tolerating a general diet well, voiding c/y urine via the use of a urinal, IVF maintained, SCD's on, B c ollar maintained, pt calls appropriately and is able to make needs known. Steven c/o 4-5/10 pain; medicated w/1-2 tabs [place] (7.5's) PRN, Phenol [place] PRN and 5mg PO Valium PRN; effective. LUCIANA drained 5mL sanguineous fluid this shift. lan of Care - Ayaka Krishnamurthy, FORMSTONE FITTER - 11/29/2016 2:28 AM PDTProblem: Patient Care Overview (Adult) Goal: Care Team Goals & Evaluation PROBLEM-RELATED GOALS: 1. Steven will void within 6 hours of arrival to the unit on 11-28-16. 2. Steven will remain free from s/sx infection through 12-02-16. 3. Steven pain will be at a tolerable level/comfortable level through 12-02-16. 4. Steven will be free from falls/injuries through 12-02-16. 5. Steven will maintain adequate oxygenation via oximetry with SpO2 >90 by 12/02/16. STRATEGY TO ACHIEVE GOALS: 1. Encourage fluid intake, maintain IVF, assist pt in ambulation to the bathroom, BSC, and/ or with use of the urinal. Bladder scan as ordered/PRN. 2. Assess vitals with temps and monitor lab values; notify MD if abnormalities are identifi ed. 3. Assess pain q4h and PRN; medicated with analgesics and re-evaluate as needed. 4. Conduct hourly rounding during the day and every 2 hours during the night, answer call l ight in person and/or in a timely manner. - Monitor saturations via oximetry and titrate to order as indicated. Goal Evaluation: Steven states he does not use cpap. Placed pt on ETCO2/continuous oximeter at bedside, sao2 92-95% on 2 lpm, ETCO2 43mmHg. BS appear clear. lan of Care - Josseline Locke RN - 11/28/2016 7:43 PM PDTPt arrived on surgical floor @ 1820. He ambu lated from rney to bed with minimum assistance. Complained of right posterior neck pain 5/ 10, treated with 2 mg of Morphine IV prior to shift change. LLE MS 4/5, RLE MS 5/5 with num bness to left thumb. Dressing to anterior neck is CDI. Bed alarm active, call light within reach. documente d in this encounter Plan of Treatment +--------+---------+ + + + | Date | Type | Specialty | Care Team | Description | +--------+---------+ + + + | 05/12/ | Office | Rheumatology | Nandini Ward | | | 2020 | Visit | | [facility] [address] | | | | | | [address] [facility] | | | | | | [place] [address] | | | | | | [phone] | | | | | | | | +--------+---------+ + + + documented as of this encounter Procedures + +--------+ + + + | Procedure Name | Priori | Date/Time | Associated Diagnosis | Comments | | | ty | | | | + +--------+ + + + | XR CERVICAL SPINE 2 | STAT | 11/28/2016 | | Results for this | | OR 3 VIEWS | | 6:11 PM | | procedure are in the | | | | PDT | | results section. | + +--------+ + + + | FL COLEEN STATS NO | Routin | 11/28/2016 | | Results for this | | CHARGE | e | 4:39 PM | | procedure are in the | | | | PDT | | results section. | + +--------+ + + + | FUSION CERVICAL | | 11/28/2016 | Cervical | | | ANTERIOR W/ PLATING | | 2:26 PM | spondylosis with | | | | | PDT | radiculopathy | | | | | | (M47.22), Spinal | | | | | | stenosis in cervical | | | | | | region (M48.02), | | | | | | Brachial neuritis | | | | | | (M54.12), | | | | | | Cervicalgia (M54.2) | | + +--------+ + + + +---+--------+ | | Case | | | Notes | | | | | | Origin | | | al | | | Reques | | | t | | | Inform | | | ation | | | Sent | | | Over | | | 10/16/ | | | 2016:S | | | pecial | | | | | | Equipt | | | ment: | | | C-Arm, | | | | | | Drill, | | | | | | Micros | | | cope | | | Biolog | | | ics: | | | Grafto | | | nTable | | | : | | | Skytro | | | nRep: | | | Jason | | | Jason | | | | | | Implan | | | ts: | | | Atlant | | | is | | | Transi | | | tional | | | , PEEK | | | | | | Spacer | +---+--------+ | | | | | Specia | | | l | | | Needs | | | Jason | | | | | | Jason | | | - | | | Atlant | | | is | | | Transi | | | tional | | | , PEEK | | | | | | Spacer | +---+--------+ + +--------+ +---+ + | TYPE AND SCREEN | Routin | 11/28/2016 | | Results for this | | | e | 11:10 AM | | procedure are in the | | | | PDT | | results section. | + +--------+ +---+ + documented in this encounter Results XR Cervical Spine 2 or 3 Views (11/28/2016 6:11 PM PDT) + + | Specimen | + + | | + + + + + | Narrative | Performed At | + + + | CLINICAL INFORMATION: post op cervial surgery. COMPARISON: | [facility] | | 10/03/2016 FINDINGS: 3 views of the cervical spine. Anterior | | | screw plate fusion changes at C5-C7 with interbody graft markers | | | noted. No evidence of hardware complication. Normal alignment of the | | | cervical spine. Drain tubing noted. C-collar in place. | | | Vertebral body height appears preserved throughout. IMPRESSION | | | - Fusion changes at C5-C7 without evidence of immediate complication. | | | Dictated and Signed by: Carlo Barragan MD Electronically | | | signed: 11/28/2016 7:31 PM | | + + + + + | Procedure Note | + + | Xander Gonzalez Results In - 11/28/2016 7:34 PM PDT | | CLINICAL INFORMATION: post op cervial surgery. | | | | COMPARISON: 10/03/2016 | | | | FINDINGS: | | 3 views of the cervical spine. | | | | Anterior screw plate fusion changes at C5-C7 with interbody graft markers noted. | | No evidence of hardware complication. Normal alignment of the cervical spine. | | | | Drain tubing noted. C-collar in place. | | | | Vertebral body height appears preserved throughout. | | | | | | IMPRESSION - Fusion changes at C5-C7 without evidence of immediate complication. | | | | Dictated and Signed by: Carlo Barragan MD | | Electronically signed: 11/28/2016 7:31 PM | + + + +---------+ + + | Performing | Address | City/State/Zipcode | Phone Number | | Organization | | | | + +---------+ + + | [facility] | | | | + +---------+ + + [place] Catherine Pryor No Aubrey (11/28/2016 4:39 PM PDT) + + | Specimen | + + | | + + + + + | Narrative | Performed At | + + + | No Radiologist interpretation, please see Chart Review. | [facility] | + + + + +---------+ + + | Performing | Address | City/State/Zipcode | Phone Number | | Organization | | | | + +---------+ + + | [facility] | | | | + +---------+ + + Type and Screen (11/28/2016 11:10 AM PDT) + + + + + + | Component | Value | Ref Range | Performed | Pathologist | | | | | At | Signature | + + + + + + | ABO | O | | [facility] | [facility] | | | [facility] - | | | | | | [facility] | | + + + + + + | Rh Type | Positive | | [facility] | [facility] | | | | | [facility] | | | | | [facility] - | | | | | | [facility] BANK | | + + + + + + | Antibody | Negative | | [facility] | | | Screen | | | [facility] | | | | | [facility] | | | | | | [facility] - | | | | | | [facility]LOOD BANK | | + + + + + + + + | Specimen | + + | Blood specimen | | (specimen) | + + + + + + + | Performing | Address | City/State/Zipcode | Phone Number | | Organization | | | | + + + + + | [facility] | [address] | [place] | | | [facility] | | [id number] | | | - BLOOD BANK | | | | + + + + + documented in this encounter Visit Diagnoses + + | Diagnosis | + + | Cervical radiculopathy - Primary Brachial neuritis or radiculitis nos | + + | BMI 40.0-44.9, adult (HCC) Body Mass Index 40.0-44.9, adult | + + documented in this encounter Administered Medications + +--------+ +------+------+------+ | Medication Order | MAR | Action | Dose | Rate | Site | | | Action | Date | | | | + +--------+ +------+------+------+ | atorvaSTATin (LIPITOR) tablet 5 | Given | 11/30/19 | 5 mg | | | | mg 5 mg, Oral, NIGHTLY, First | | 17 9:24 | | | | | dose on Sat11/28/16 at 2100, | | PM PDT | | | | | Post-op/Phase II | | | | | | + +--------+ +------+------+------+ +-------+ +------+---+---+ | Given | 11/29/19 | 5 mg | | | | | 17 9:24 | | | | | | PM PDT | | | | +-------+ +------+---+---+ +---+---+ | | | +---+---+ + +-------+ +-------+---+---+ | azaTHIOprine (IMURAN) tablet 50 | Given | 12/01/19 | 50 mg | | | | mg 50 mg, Oral, 2 TIMES DAILY, | | 17 8:53 | | | | | First dose on Sat11/28/16 at 2100, | | AM PDT | | | | | Hazardous: Use appropriate | | | | | | | handling precautions., | | | | | | | Post-op/Phase II | | | | | | + +-------+ +-------+---+---+ +-------+ +-------+---+---+ | Given | 11/30/19 | 50 mg | | | | | 17 9:25 | | | | | | PM PDT | | | | +-------+ +-------+---+---+ | Given | 11/30/19 | 50 mg | | | | | 17 9:48 | | | | | | AM PDT | | | | +-------+ +-------+---+---+ +---+---+ | | | +---+---+ + +-------+ +--------+---+---+ | carisoprodol (SOMA) tablet 350 | Given | 11/30/19 | 350 mg | | | | mg 350 mg, Oral, NIGHTLY, First | | 17 9:24 | | | | | dose on Sat11/28/16 at 2100, | | PM PDT | | | | | Post-op/Phase II | | | | | | + +-------+ +--------+---+---+ +-------+ +--------+---+---+ | Given | 11/29/19 | 350 mg | | | | | 17 9:24 | | | | | | PM PDT | | | | +-------+ +--------+---+---+ +---+---+ | | | +---+---+ + +---------+ +-----+-------+---+ | ceFAZolin in saline (ANCEF) | New Bag | 11/30/19 | 2 g | 100 | | | IVPB 2 g 2 g, Intravenous, | | 17 5:35 | | mL/hr | | | Administer over 30 Minutes, EVERY | | AM PDT | | | | | 8 HOURS INTERVAL, First dose on | | | | | | | 11/28/16 at 2200, For 2 doses, | | | | | | | Start 8 hours after previous | | | | | | | dose. Last dose to be given | | | | | | | within 24 hours of surgery end | | | | | | | time. Keep in refrigerator., | | | | | | | Post-op/Phase II, Indications: | | | | | | | Surgical Prophylaxis | | | | | | + +---------+ +-----+-------+---+ +---------+ +-----+-------+---+ | New Bag | 11/29/19 | 2 g | 100 | | | | 17 9:50 | | mL/hr | | | | PM PDT | | | | +---------+ +-----+-------+---+ +---+---+ | | | +---+---+ + +-------+ +------+---+---+ | dexamethasone (DECADRON) 4 | Given | 12/01/19 | 4 mg | | | | mg/mL injection 4 mg 4 mg, | | 17 12:35 | | | | | Intravenous, EVERY 6 HOURS (4 | | PM PDT | | | | | times per day), First dose on [place]iki | | | | | | | 11/29/16 at 1500, For 4 doses | | | | | | + +-------+ +------+---+---+ +-------+ +------+---+---+ | Given | 12/01/19 | 4 mg | | | | | 17 6:05 | | | | | | AM PDT | | | | +-------+ +------+---+---+ | Given | 12/01/19 | 4 mg | | | | | 17 12:22 | | | | | | AM PDT | | | | +-------+ +------+---+---+ +---+---+ | | | +---+---+ + +-------+ +------+---+---+ | diazePAM (VALIUM) tablet 5 mg | Given | 11/29/19 | 5 mg | | | | 5 mg, Oral, EVERY 6 HOURS PRN, | | 17 9:24 | | | | | Muscle spasms, Starting Wed | | PM PDT | | | | | 11/28/16 at 1824, Use if | | | | | | | methocarbamol and cyclobenzaprine | | | | | | | ineffective or not ordered., | | | | | | | Post-op/Phase II | | | | | | + +-------+ +------+---+---+ +---+---+ | | | +---+---+ + +-------+ +--------+---+---+ | docusate sodium (COLACE) | Given | 12/01/19 | 100 mg | | | | capsule 100 mg 100 mg, Oral, 2 | | 17 8:53 | | | | | TIMES DAILY, First dose on Wed | | AM PDT | | | | | 11/28/16 at 2100, First line agent | | | | | | | for constipation, Post-op/Phase | | | | | | | II | | | | | | + +-------+ +--------+---+---+ +-------+ +--------+---+---+ | Given | 11/30/19 | 100 mg | | | | | 17 9:24 | | | | | | PM PDT | | | | +-------+ +--------+---+---+ | Given | 11/30/19 | 100 mg | | | | | 17 9:47 | | | | | | AM PDT | | | | +-------+ +--------+---+---+ +---+---+ | | | +---+---+ + +-------+ +--------+---+---+ | fentaNYL (PF) injection 25 mcg | Given | 11/29/19 | 25 mcg | | | | 25 mcg, Intravenous, EVERY 5 MIN | | 17 5:02 | | | | | PRN, Pain, Starting 11/28/16 | | PM PDT | | | | | at 1643, Maximum total dose 200 | | | | | | | mcg. PACU IV Narcotic Priority: | | | | | | | Only use fentanyl for immediate | | | | | | | post-op pain (one dose) or | | | | | | | breakthrough pain when any other | | | | | | | IV narcotics ordered have been | | | | | | | ineffective (if ordered). If | | | | | | | both morphine and hydromorphone | | | | | | | are ordered, use morphine first, | | | | | | | and use hydromorphone if morphine | | | | | | | ineffective., Recovery/Phase I | | | | | | + +-------+ +--------+---+---+ +-------+ +--------+---+---+ | Given | 11/29/19 | 25 mcg | | | | | 17 4:57 | | | | | | PM PDT | | | | +-------+ +--------+---+---+ +---+---+ | | | +---+---+ + +-------+ +--------+---+---+ | gabapentin (NEURONTIN) capsule | Given | 12/01/19 | 600 mg | | | | 600 mg 600 mg, Oral, 3 TIMES | | 17 2:34 | | | | | DAILY, First dose on Sat11/28/16 | | PM PDT | | | | | at 2100, Post-op/Phase II | | | | | | + +-------+ +--------+---+---+ +-------+ +--------+---+---+ | Given | 12/01/19 | 600 mg | | | | | 17 8:53 | | | | | | AM PDT | | | | +-------+ +--------+---+---+ | Given | 11/30/19 | 600 mg | | | | | 17 9:24 | | | | | | PM PDT | | | | +-------+ +--------+---+---+ +---+---+ | | | +---+---+ + +-------+ + +---+---+ | HYDROcodone-acetaminophen | Given | 12/01/19 | 1 tablet | | | | (NORCO) 7.5-325 mg per tablet 1-2 | | 17 12:22 | | | | | tablet 1-2 tablet, Oral, EVERY | | AM PDT | | | | | 4 HOURS PRN, Pain, Starting Wed | | | | | | | 11/28/16 at 1824, Maximum | | | | | | | acetaminophen is 4000 mg/day from | | | | | | | all sources, Post-op/Phase II | | | | | | + +-------+ + +---+---+ +-------+ +---------+---+---+ | Given | 11/30/19 | 2 | | | | | 17 6:43 | tablets | | | | | PM PDT | | | | +-------+ +---------+---+---+ | Given | 11/30/19 | 2 | | | | | 17 10:07 | tablets | | | | | AM PDT | | | | +-------+ +---------+---+---+ +---+---+ | | | +---+---+ + + + +--------+---+---+ | HYDROmorphone (DILAUDID) | Given by | 11/29/19 | 0.2 mg | | | | injection 0.2-0.5 mg 0.2-0.5 mg, | Other | 17 5:51 | | | | | Intravenous, EVERY 10 MIN PRN, | | PM PDT | | | | | Pain, Starting 11/28/16 at | | | | | | | 1643, Maximum total dose 4 mg. | | | | | | | PACU IV Narcotic Priority: Only | | | | | | | use fentanyl for immediate | | | | | | | post-op pain (one dose) or | | | | | | | breakthrough pain when any other | | | | | | | IV narcotics ordered have been | | | | | | | ineffective (if ordered). If | | | | | | | both morphine and hydromorphone | | | | | | | are ordered, use morphine first, | | | | | | | and use hydromorphone if morphine | | | | | | | ineffective., Recovery/Phase I | | | | | | + + + +--------+---+---+ +-------+ +--------+---+---+ | Given | 11/29/19 | 0.3 mg | | | | | 17 5:31 | | | | | | PM PDT | | | | +-------+ +--------+---+---+ | Given | 11/29/19 | 0.5 mg | | | | | 17 5:18 | | | | | | PM PDT | | | | +-------+ +--------+---+---+ +---+---+ | | | +---+---+ + +-------+ +--------+---+---+ | hydroxychloroquine (PLAQUENIL) | Given | 12/01/19 | 200 mg | | | | tablet 200 mg 200 mg, Oral, 2 | | 17 8:53 | | | | | TIMES DAILY, First dose on Sat | | AM PDT | | | | | 11/28/16 at 2100, Post-op/Phase II | | | | | | + +-------+ +--------+---+---+ +-------+ +--------+---+---+ | Given | 11/30/19 | 200 mg | | | | | 17 9:25 | | | | | | PM PDT | | | | +-------+ +--------+---+---+ | Given | 11/30/19 | 200 mg | | | | | 17 9:47 | | | | | | AM PDT | | | | +-------+ +--------+---+---+ +---+---+ | | | +---+---+ + +---------+ +--------+--------+---+ | methocarbamol (ROBAXIN) 750 mg | New Bag | 11/30/19 | 750 mg | 143.3 | | | in sodium chloride 0.9% 100 mL | | 17 9:48 | | mL/hr | | | IVPB 750 mg, Intravenous, | | AM PDT | | | | | Administer over 45 Minutes, EVERY | | | | | | | 8 HOURS INTERVAL, First dose on | | | | | | | 11/28/16 at 1730, For 3 doses, | | | | | | | Post-op/Phase II | | | | | | + +---------+ +--------+--------+---+ +---------+ +--------+--------+---+ | New Bag | 11/30/19 | 750 mg | 143.3 | | | | 17 1:35 | | mL/hr | | | | AM PDT | | | | +---------+ +--------+--------+---+ | New Bag | 11/29/19 | 750 mg | 143.3 | | | | 17 5:30 | | mL/hr | | | | PM PDT | | | | +---------+ +--------+--------+---+ +---+---+ | | | +---+---+ + +-------+ +------+---+---+ | morphine injection 2-8 mg 2-8 | Given | 11/29/19 | 2 mg | | | | mg, Intravenous, EVERY 2 HOURS | | 17 11:14 | | | | | PRN, Pain, Starting 11/28/16 at | | PM PDT | | | | | 1824, If oral route not an | | | | | | | option. Slow IV push, not faster | | | | | | | than 2mg/minute. First dose must | | | | | | | be lowest dose, titrate to | | | | | | | effective dose by repeat of | | | | | | | lowest dose every 30 minutes prn | | | | | | | pain, may not exceed maximum dose | | | | | | | ordered per interval. Use Pasero | | | | | | | Sedation Scale., Post-op/Phase | | | | | | | II | | | | | | + +-------+ +------+---+---+ +-------+ +------+---+---+ | Given | 11/29/19 | 2 mg | | | | | 17 6:40 | | | | | | PM PDT | | | | +-------+ +------+---+---+ +---+---+ | | | +---+---+ + +-------+ + +---+---+ | phenol (CHLORASEPTIC) spray 1-2 | Given | 11/29/19 | 2 sprays | | | | spray 1-2 spray, Mouth/Throat, | | 17 8:11 | | | | | EVERY 3 HOURS PRN, Sore Throat, | | PM PDT | | | | | Starting 11/28/16 at 1824, To | | | | | | | back of throat, Post-op/Phase II | | | | | | + +-------+ + +---+---+ +---+---+ | | | +---+---+ + +---------+ +---------+---+ + | scopolamine (TRANSDERM-SCOP) 1 | Patch | 11/29/19 | 1 patch | | Ear-Behi | | mg/3 days 1 patch 1 patch, | Applied | 17 11:17 | | | nd Left | | Transdermal, ONCE PRN, For | | AM PDT | | | | | history of Post-Operative Nausea | | | | | | | that has not been resolved by | | | | | | | more modern anesthetics., | | | | | | | Starting Sat11/28/16 at 1029, For | | | | | | | 1 dose, Apply to mastoid process, | | | | | | | Pre-op | | | | | | + +---------+ +---------+---+ + +---+---+ | | | +---+---+ + +-------+ +--------+---+---+ | senna (SENOKOT) tablet 8.6 mg | Given | 12/01/19 | 8.6 mg | | | | 8.6 mg, Oral, 2 TIMES DAILY, | | 17 8:53 | | | | | First dose on Sat11/28/16 at 2100, | | AM PDT | | | | | If docusate ineffective or not | | | | | | | ordered, Post-op/Phase II | | | | | | + +-------+ +--------+---+---+ +-------+ +--------+---+---+ | Given | 11/30/19 | 8.6 mg | | | | | 17 9:24 | | | | | | PM PDT | | | | +-------+ +--------+---+---+ | Given | 11/30/19 | 8.6 mg | | | | | 17 9:47 | | | | | | AM PDT | | | | +-------+ +--------+---+---+ +---+---+ | | | +---+---+ + +---------+ +---+---+---+ | sodium chloride 0.9% (NS) | New Bag | 11/29/19 | | | | | infusion at 100 mL/hr, | | 17 4:33 | | | | | Intravenous, CONTINUOUS, Starting | | PM PDT | | | | | 11/28/16 at 1045, Pre-op | | | | | | + +---------+ +---+---+---+ +---------+ +---+-------+---+ | New Bag | 11/29/19 | | 100 | | | | 17 11:17 | | mL/hr | | | | AM PDT | | | | +---------+ +---+-------+---+ +---+---+ | | | +---+---+ + + + +---+-------+---+ | sodium chloride 0.9% (NS) | Continue | 11/29/19 | | 100 | | | infusion at 100 mL/hr, | bag | 17 6:33 | | mL/hr | | | Intravenous, CONTINUOUS, Starting | from | PM PDT | | | | | 11/28/16 at 1845, | transfer | | | | | | Post-op/Phase II | | | | | | + + + +---+-------+---+ +---+---+ | | | +---+---+ documented in this encounter
--- OUTSIDE RECORDS SUMMARY | ~2020-05-08 | XMS | Encounter Summary ---
Demographics + + + | Address | [address] | | | [place] [address] | + + + | Home Phone | | + + + | Preferred Language | Unknown | + + + | Marital Status | | + + + | Hindu Affiliation | 1013 | + + + | Race | White | + + + | Ethnic Group | Not or | + + + Author + + + | Author | [facility] | | | and [place] | + + + | Organization | [facility] | | | and [place] | + + + | Address | Unknown | + + + | Phone | Unavailable | + + + Support + + + + + | Name | Relationship | Address | Phone | + + + + + | Jenny Jade | ECON | [address] | | | | | [place] | | | | | [address] | | + + + + + Care Team Providers + +------+ + | Care Doubling Machine Operator Name | Role | Phone [...] | | | | | | | IN | | | | | | | [...] | | | | | | SEGMENTS [place] | | | | | | | ALLOGRAFT | | | | | | | FOR SPINE | | | | | | | SURGERY ONLY | | | | | | | STRUCTURAL | | | | | | | IN | | | | | | | [...] + + + + | 11/28/ | Anesthesia | [facility] | Timo Zabala | | | 2017 | Event | [facility] OP | MD Shahriar [address] | | | | | [address] | [address] [place] | | | | | [place] | [place] [address] | | | | | [phone] | [phone] | | | | | [phone] | | | | | | | Rober Rowe MD | | | | | | [address] | | | | | | [place] | | | | | | [address] | | | | | | | | +--------+ + + + + Anesthesia Record + + + + + | Procedure Name | Responsible | Anesthesia Start | Anesthesia Stop Time | | | Anesthesiologist | Time | | + + + + + | C5-6, C6-7 Anterior | Timo Avoyellesmason Zabala, | 11/28/16 1424 | 11/28/16 1653 | | Cervical Discectomy | MD | | | | w/ Fusion and | | | | | Plating (N/A Neck) | | | | + + + + + +----+---+ + + | Da | T | Event | Comment | | te | i | | | | | m | | | | | e | | | +----+---+ + + | 05 | 1 | An Checkout | Pre-use anesthesia machine/equipment checkout. | | /0 | 4 | | | | 3/ | 1 | | | | 20 | 4 | | | | 17 | | | | +----+---+ + + | | 1 | | | | | 4 | | | | | 1 | | | | | 6 | | | +----+---+ + + | | 1 | An Start | Reassessment prior to anesthesia induction/procedure. | | | 4 | | | | | 2 | | | | | 4 | | | +----+---+ + + | | 1 | Antibiotic | | | | 4 | Given | | | | 2 | | | | | 4 | | | +----+---+ + + | | 1 | Preoxygenat | | | | 4 | ed | | | | 2 | | | | | 8 | | | +----+---+ + + | | 1 | An | | | | 4 | Induction | | | | 2 | | | | | 9 | | | +----+---+ + + | | 1 | An | | | | 4 | Intubation | | | | 3 | | | | | 0 | | | +----+---+ + + | | 1 | Canvas | | | | 4 | 43-degrees | | | | 4 | | | | | 5 | | | +----+---+ + + | | 1 | First | | | | 4 | Inc/Proc St | | | | 4 | | | | | 9 | | | +----+---+ + + | | 1 | Canvas off | | | | 6 | | | | | 4 | | | | | 3 | | | +----+---+ + + | | 1 | AN No | TOF 4/4 with sustained tetanus. | | | 6 | Residual | | | | 4 | NMB | | | | 3 | | | +----+---+ + + | | 1 | Breathing | | | | 6 | Spontaneous | | | | 4 | ly | | | | 3 | | | +----+---+ + + | | 1 | Oropharynx | | | | 6 | Suctioned | | | | 4 | | | | | 3 | | | +----+---+ + + | | 1 | Moving | | | | 6 | Purposefull | | | | 4 | y | | | | 3 | | | +----+---+ + + | | 1 | Extubated | | | | 6 | Awake | | | | 4 | | | | | 3 | | | +----+---+ + + | | 1 | an stop | | | | 6 | data | | | | 4 | | | | | 6 | | | +----+---+ + + | | 1 | An Stop | Patient handed off to recovery nurse. | | | 5 | | | | | 3 | | | +----+---+ + + +------+ | Meds | +------+ + + + | Name | Total | + + + | midazolam | 2 mg | + + + | fentaNYL | 200 mcg | + + + | lidocaine 2% (PF) | 100 mg | + + + | propofol | 240 mg | + + + | propofol | 261.66 mg | + + + | succinylcholine | 160 mg | + + + | dexamethasone | 10 mg | + + + | ondansetron | 4 mg | + + + | ceFAZolin in saline (ANCEF) IVPB | 2 g | | 2 g | | + + + | hydrALAZINE | 6 mg | + + + | dexmedetomidine (Bolus) | 25 mcg | + + + | esmolol | 30 mg | + + + | sodium chloride 0.9% (NS) | 1,000 mL | | infusion | | + + + + + | Name | + + | N2O Flow Rate (L/Min) | + + | O2 Flow Rate (L/Min) | + + | Insp O2 | + + | Exp SEV | + + | Exp EARL | + + | Air Flow Rate (L/Min) | + + + + | No blood administrations on file. | + + +--------+ + + + | Type | Details | Placement | Removal | +--------+ + + + | Periph | 11/28/16; 1116; Right; Wrist; 20 | 11/28/16 1116 by | 10/20/18 1643 by | | eral | gauge, 1 1/4 in length; Blood | Alka M Wooten | User Epic | | IV | Bank; distraction, intradermal | | | | | injection, tolerated well; | | | | | 10/20/18 (Removed/Completed by | | | | | utility); 164 (Removed/Completed | | | | | by utility) | | | +--------+ + + + | Airway | Placement Date: 11/28/16; | 11/28/16 1430 by | 11/28/16 1643 by Tor | | | Placement Time: 1430 (created via | Rober Rowe MD | Shahriar Zabala MD | | | procedure documentation); Mask | | | | | Ventilation: EZ; Airway Grade: 1; | | | | | Successful Technique: Mac; | | | | | Laryngoscope Blade Size: 3; | | | | | Attempts: 1; Airway Type: | | | | | endotracheal; Size: 7; Airway | | | | | Tube Secured At: 24; Trauma: | | | | | none; Other Equipment: stylette; | | | | | Placement Check: exhaled CO2 | | | | | detection device, bilateral chest | | | | | rise; Removal Date: 11/28/16; | | | | | Removal Time: 1643 | | | +--------+ + + + | Read | 11/28/16; 1505; Right; neck; | 11/28/16 1505 by | 10/21/18 1342 by | | only - | 10/21/18 (Completed/Removed by | Raheel Maurice RN | User Epic | | | Utility); 1342 (Completed/Removed | | | | Incisi | by Utility) | | | | on | | | | +--------+ + + + | Drain/ | 11/28/16; 1632; cervical spine; | 11/28/16 1632 by | 10/20/18 1643 by | | Device | collapsible closed device; 10f; | Carole Bran RN | User Epic | | Site | 10/20/18 (Removed/Completed by | | | | | utility); 1643 (Removed/Completed | | | | | by utility) | | | +--------+ + + + documented in this encounter Social History + + + +--------+ + [...] + + documented as of this encounter OR Notes Anesthesia Postprocedure Evaluation - Timo Zabala MD - 11/28/2016 4:55 PM PDTForm atting of this note might be different from the original. ANESTHESIA POSTANESTHESIA EVALUATION Steven Jade 56 y.o. male 1960 [id number] Procedure(s) C5-6, C6-7 Anterior Cervical Discectomy w/ Fusion and Plating (N/A Neck) Cooperates? Yes Mental Status Performs simple tasks. Respiratory Satisfactory - Airway patent (self maintained). Cardiovascular Satisfactory Blood pressure and heart rate acceptable Temperature Satisfactory Pain Unsatisfactory - Continue titration of ordered pain medications N/V Control Satisfactory Hydration Satisfactory No signs of dehydration Complications None apparent Filed Vitals: 11/28/16 1014 11/28/16 1650 BP: 135/96 157/82 Pulse: 62 88 Temp: 36.6 C (97.9 F) 36.5 C (97.7 F) Resp: 16 13 SpO2: 97% 93% Electronically signed by Timo Zabala MD 11/28/2016 16:55 [facility] nesthesia Proced ure Notes - Rober Rowe MD - 11/28/2016 2:35 PM PDTAssociated Order(s): ANE AIRWAY NOT EAnesthesia Airway Placement 11/28/2016 14:30 Preprocedure check: patient identified, suction, airway equipment checked, oxygen, airway a ssessed and patient reassessment prior to induction Rapid Sequence Induction: no Mask ventilation: easy Successful technique: Mac Laryngoscope blade size: 3 Airway grade: 1 (Full view of glottis) Other equipment: stylette Attempts: 1 Airway type: endotracheal Size: 7 Cuffed: cuffed Route, reference point: teeth/lips Tube depth: 24 cm Tube secured with: adhesive tape Trauma: none Tube placement verification: carbon dioxide detection and bilateral chest rise Performing provider: ROBER ROWE Electronically Signed by: Rober Rowe MD ESig date/time: 11/28/2016 14:35 nesthesia Preprocedu re Evaluation - Rober Rowe MD - 11/28/2016 1:05 PM PDTFormatting of this note might b e different from the original. ANESTHESIA PREANESTHESIA EVALUATION Steven Jade 56 y.o. male 1960 [id number] Procedure(s): C5-6, C6-7 Anterior Cervical Discectomy w/ Fusion and Plating (N/A Neck) Medical history, anesthesia, medications, allergy, NPO status verified histories reviewed. ECG reviewed. Labs reviewed. Review of Systems / Med History Anesthesia History (+) PONV Cardiovascular Results for orders placed or performed in visit on 11/13/16 -ECG 12 lead Result Value Ref Ra nge INTERPRETATION TEXT Sinus rhythm with occasional premature ventricular complexes Nonspecific inferior T-wave abnormality No previous ECGs available Confirmed by SONYA BRAVO MD ([id number]) on 11/14/2016 7:24:15 AM . Pulmonary (+) sleep apnea: at risk Neurology (+) headaches Renal . Gastrointestinal/Hepatic (+) hyperlipidemia Endocrine (+) obesity: morbid BMI 40+ Other Lab Results Component Value Date WBC 5.0 11/13/2016 HGB 14.4 11/13/2016 HCT 42.7 11/13/2016 MCV 100.1 11/13/2016 PLT 233 11/13/2016 . Physical Exam Airway MP II, TM >3 FB, Mouth opening >2 FB. Neck: full ROM, extends >30 degrees. Dental Edilberto ssly normal except where noted below.; (+) Chipped/Broken teeth and missing teeth. CV Rhythm regular. Rate Normal. (-) murmur. Pulm Clear to auscultation bilaterally. Neuro Grossly normal. Other Morbid obesity Anesthesia Plan ASA 3 (BMI>40) Type: General. Induction: Intravenous. Potential problems: None anticipated. Monitors: Standard ASA monitors. Consent statement:Anesthetic plan, alternatives, risks and benefits discussed with patient. Risks discussed included (but were not limited to): sore throat, nausea, heart problems, re spiratory events, pain, perioperative CV events, . Consenting person understands and agrees to proceed. PARQ. GISEL precautions. documented in this en counter Plan of Treatment +--------+---------+ + + + | Date | Type | Specialty | Care Team | Description | +--------+---------+ + + + | 05/12/ | Office | Rheumatology | Nandini Ward | | | 2019 | Visit | | [place] [facility] [address] | | | | | | [facility] | | | | | | [facility] [place] [address] | | | | | | [phone] | | | | | | | | +--------+---------+ + + + documented as of this encounter Procedures + +--------+ + + + | Procedure Name | Priori | Date/Time | Associated Diagnosis | Comments | | | ty | | | | + +--------+ + + + | ANE AIRWAY NOTE | Routin | 11/28/2016 | | Results for this | | | e | 2:36 PM | | procedure are in the | | | | PDT | | results section. | + +--------+ + + + documented in this encounter Results Anesthesia Airway Note (11/28/2016 2:36 PM PDT) + + + | Narrative | Performed At | + + + | Rober Rowe MD 11/28/2016 14:36 Anesthesia Airway Placement | | | 11/28/2016 14:30 Preprocedure check: patient identified, suction, | | | airway equipment checked, oxygen, airway assessed and patient | | | reassessment prior to induction Rapid Sequence Induction: no Mask | | | ventilation: easy Successful technique: Mac Laryngoscope blade | | | size: 3 Airway grade: 1 (Full view of glottis) Other equipment: | | | stylette Attempts: 1 Airway type: endotracheal Size: 7 Cuffed: | | | cuffed Route, reference point: teeth/lips Tube depth: 24 cm Tube | | | secured with: adhesive tape Trauma: none Tube placement | | | verification: carbon dioxide detection and bilateral chest rise | | | Performing provider: ROBER ROWE Electronically Signed by: | | | Rober Rowe MD ESig | | | date/time: 11/28/2016 14:35 | | + + + documented in this encounter Visit Diagnoses Not on filedocumented in this encounter Administered Medications + +--------+ +------+------+------+ | Medication Order | MAR | Action | Dose | Rate | Site | | | Action | Date | | | | + +--------+ +------+------+------+ | ceFAZolin in saline (ANCEF) | Given | 11/29/19 | 2 g | | | | IVPB 2 g 2 g, Intravenous, | | 17 2:24 | | | | | Administer over 30 Minutes, Prior | | PM PDT | | | | | to Incision, Starting Sat11/28/16 | | | | | | | at 1029, For 1 dose, Administer | | | | | | | within 1 hour of surgical | | | | | | | incision. Keep in refrigerator., | | | | | | | Pre-op, Indications: Surgical | | | | | | | Prophylaxis | | | | | | + +--------+ +------+------+------+ +---+---+ | | | +---+---+ + +-------+ +-------+---+---+ | dexamethasone (DECADRON) 10 | Given | 11/29/19 | 10 mg | | | | mg/mL injection Intravenous, | | 17 2:34 | | | | | PRN, Starting Sat11/28/16 at 1434, | | PM PDT | | | | | Anesthesia Intra-op | | | | | | + +-------+ +-------+---+---+ +---+---+ | | | +---+---+ + +-------+ +--------+---+---+ | dexmedetomidine (PRECEDEX) in | Given | 11/29/19 | 25 mcg | | | | sodium chloride bolus infusion | | 17 3:38 | | | | | Intravenous, PRN, Starting Wed | | PM PDT | | | | | 11/28/16 at 1538, Anesthesia | | | | | | | Intra-op | | | | | | + +-------+ +--------+---+---+ +---+---+ | | | +---+---+ + +-------+ +-------+---+---+ | esmolol (BREVIBLOC) 10 mg/mL | Given | 11/29/19 | 30 mg | | | | injection Intravenous, PRN, | | 17 4:41 | | | | | Starting 11/28/16 at 1641, | | PM PDT | | | | | Anesthesia Intra-op | | | | | | + +-------+ +-------+---+---+ +---+---+ | | | +---+---+ + +-------+ +---------+---+---+ | fentaNYL (PF) injection | Given | 11/29/19 | 100 mcg | | | | Intravenous, PRN, Pain, Starting | | 17 2:41 | | | | | 11/28/16 at 1424, Anesthesia | | PM PDT | | | | | Intra-op | | | | | | + +-------+ +---------+---+---+ +-------+ +--------+---+---+ | Given | 11/29/19 | 50 mcg | | | | | 17 2:29 | | | | | | PM PDT | | | | +-------+ +--------+---+---+ | Given | 11/29/19 | 50 mcg | | | | | 17 2:24 | | | | | | PM PDT | | | | +-------+ +--------+---+---+ +---+---+ | | | +---+---+ + +-------+ +------+---+---+ | hydrALAZINE (APRESOLINE) | Given | 11/29/19 | 2 mg | | | | injection Intravenous, PRN, | | 17 3:24 | | | | | Starting Sat11/28/16 at 1512, | | PM PDT | | | | | Anesthesia Intra-op | | | | | | + +-------+ +------+---+---+ +-------+ +------+---+---+ | Given | 11/29/19 | 2 mg | | | | | 17 3:17 | | | | | | PM PDT | | | | +-------+ +------+---+---+ | Given | 11/29/19 | 2 mg | | | | | 17 3:12 | | | | | | PM PDT | | | | +-------+ +------+---+---+ +---+---+ | | | +---+---+ + +-------+ +--------+---+---+ | lidocaine (PF) 2% injection | Given | 11/29/19 | 100 mg | | | | PRN, Starting 11/28/16 at 1429, | | 17 2:29 | | | | | Anesthesia Intra-op | | PM PDT | | | | + +-------+ +--------+---+---+ +---+---+ | | | +---+---+ + +-------+ +------+---+---+ | midazolam (VERSED) 1 mg/mL | Given | 11/29/19 | 2 mg | | | | injection Intravenous, PRN, | | 17 2:24 | | | | | Anxiety, Starting Sat11/28/16 at | | PM PDT | | | | | 1424, Anesthesia Intra-op | | | | | | + +-------+ +------+---+---+ +---+---+ | | | +---+---+ + +-------+ +------+---+---+ | ondansetron (ZOFRAN) injection | Given | 11/29/19 | 4 mg | | | | PRN, Nausea, Vomiting, Starting | | 17 2:34 | | | | | Sat11/28/16 at 1434, Anesthesia | | PM PDT | | | | | Intra-op | | | | | | + +-------+ +------+---+---+ +---+---+ | | | +---+---+ + +-------+ +-------+---+---+ | propofol (DIPRIVAN) injection | Given | 11/29/19 | 40 mg | | | | Intravenous, PRN, Starting Wed | | 17 3:21 | | | | | 11/28/16 at 1429, Anesthesia | | PM PDT | | | | | Intra-op | | | | | | + +-------+ +-------+---+---+ +-------+ +--------+---+---+ | Given | 11/29/19 | 200 mg | | | | | 17 2:29 | | | | | | PM PDT | | | | +-------+ +--------+---+---+ +---+---+ | | | +---+---+ + +---------+ + +-------+---+ | propofol (DIPRIVAN) injection | New Bag | 11/29/19 | 37 | 30.2 | | | Intravenous, CONTINUOUS PRN, | | 17 3:21 | mcg/kg/m | mL/hr | | | Starting 11/28/16 at 1521, | | PM PDT | in | | | | Anesthesia Intra-op | | | | | | + +---------+ + +-------+---+ +---+---+ | | | +---+---+ + +---------+ [...] +---+-------+---+ +---+---+ | | | +---+---+ + +-------+ +--------+---+---+ | succinylcholine (ANECTINE) | Given | 11/29/19 | 160 mg | | | | injection Intravenous, PRN, | | 17 2:29 | | | | | Starting 11/28/16 at 1429, | | PM PDT | | | | | Anesthesia Intra-op | | | | | | + +-------+ +--------+---+---+ +---+---+ | | | +---+---+ documented in this encounter"
--- OUTSIDE RECORDS SUMMARY | ~2020-05-08 | XMS | Encounter Summary ---
Demographics + + + | Address | [address] | | | [place] [address] | + + + | Home Phone | | + + + | Preferred Language | Unknown | + + + | Marital Status | | + + + | Holiness Affiliation | 1013 | + + + | Race | White | + + + | Ethnic Group | Not or | + + + Author + + + | Author | [facility] | | | and [place] | + + + | Organization | [facility] | | | and [place] | + + + | Address | Unknown | + + + | Phone | Unavailable | + + + Support + + + + + | Name | Relationship | Address | Phone | + + + + + | Jenny Lynchart | ECON | [address] | | | | | [place] | | | | | [address] | | + + + + + Care Team Providers + +------+ + | Care Wedger Machine Name | Role | Phone | + +------+ + | Radha Rodriguez | PCP | | | PA-C | | | + +------+ + Encounter Details +--------+ + + + + | Date | Type | Department | Care Team | Description | +--------+ + + + + | 11/20/ | Orders Only | [facility] | Spencer [facility], | Cervical spondylosis | | 2017 | | NEUROSURGERY [address] | DO [address] | with radiculopathy | | | | [address] | [address] [place], [place] | (Primary Dx); Status | | | | [place], [place] | [address] | post cervical | | | | [address] | | spinal fusion | | | | [phone] | | | +--------+ + + + [...] W | | | | | | [facility] | | | | | | [place] [address] | | | | | | [phone] | | | | | | | | +--------+---------+ + + + documented as of this encounter Results XR Cervical Spine 2 [...] cervical discectomy and fusion changes from | [facility] | | C5 to C7. There is [...] + | Carlos, Rad Results In - 12/26/2016 2:34 PM PDT [...] | + + + + + | [facility] | [address] | [place] | [phone] | | [facility] | | [address] | | | - IMAGING | | | | + + + + + documented in this encounter Visit Diagnoses + + | Diagnosis | + + | Cervical spondylosis with radiculopathy - Primary Cervical spondylosis with | | myelopathy | + + | Status post cervical spinal fusion Arthrodesis status | + + documented in this encounter"
--- OUTSIDE RECORDS SUMMARY | ~2020-05-08 | XMS | Encounter Summary ---
Demographics + + + | Address | [address] | | | [place] [address] | + + + | Home Phone | | + + + | Preferred Language | Unknown | + + + | Marital Status | | + + + | Yazdanism Affiliation | 1013 | + + + | Race | White | + + + | Ethnic Group | Not or | + + + Author + + + | Author | [facility] | | | and [place] | + + + | Organization | [facility] | | | and [place] | + + + | Address | Unknown | + + + | Phone | Unavailable | + + + Support + + + + + | Name | Relationship | Address | Phone | + + + + + | Jenny Trammellehart | ECON | [address] | | | | | [place] | | | | | [address] | | + + + + + Care Team Providers + +------+ + | Care Trash Collector Name | Role | Phone | + +------+ + PCP | Unavailable | + +------+ + Encounter Details +--------+ + + + + | Date | Type | Department | Care Team | Description | +--------+ + + + + | 11/26/ | Hospital | [facility] | [place] | | | 2006 - | Encounter | [facility] | Cade Love MD [address] | | | | CENTER [address] | [address] | | | 12/26/ | | [place] | [address] [place] | | | 2006 | | [address] | [address] | | | | | [phone] | | | +--------+ + + + [...] 2020 | Visit | | [facility] [address] | | | | | | [facility] | | | | | | [place] [address] | | | | | | [phone] | | | | | | | | +--------+---------+ + + + documented as of this encounter Visit Diagnoses Not on filedocumented in this encounter"
--- OUTSIDE RECORDS SUMMARY | ~2020-05-08 | XMS | Encounter Summary ---
Demographics + + + | Address | [address] | | | [place] [address] | + + + | Home Phone | | + + + | Preferred Language | Unknown | + + + | Marital Status | | + + + | Baptism Affiliation | 1013 | + + + | Race | White | + + + | Ethnic Group | Not or | + + + Author + + + | Author | [facility] | | | and [place] | + + + | Organization | [facility] | | | and [place] | + + + | Address | Unknown | + + + | Phone | Unavailable | + + + Support + + + + + | Name | Relationship | Address | Phone | + + + + + | Jenny Lynchart | ECON | [address] | | | | | [place] | | | | | [address] | | + + + + + Care Team Providers + +------+ + | Care Sand Slinger Name | Role | Phone | + +------+ + | Radha Rodriguez | PCP | | | PA-C | | | + +------+ + Encounter Details +--------+ + + + + | Date | Type | Department | Care Team | Description | +--------+ + + + + | 11/13/ | Preadmit | [facility] | Spencer Barton, | Pre-operative | | 2017 | Visit | [facility] | DO [address] | clearance (Primary | | | | CLINIC [address] | [address] [place] | Dx); Cervical | | | | [place], [place] | [address] | radiculopathy; DDD | | | | [phone] | | (degenerative disc | | | | [phone] | | disease), cervical; | | | | | | Chronic pain of both | | | | | | shoulders; | | | | | | Foraminal stenosis | | | | | | of cervical region; | | | | | | Paresthesias | +--------+ + + + + Social [...] 2019 | Visit | | [facility] [address] | | | | | | [address] | | | | | | [place] [address] | | | | | | [phone] | | | | | | | | +--------+---------+ + + + documented as of this encounter Procedures + +--------+ + + + | Procedure Name | Priori | Date/Time | Associated Diagnosis | Comments | | | ty | | | | + +--------+ + + + | CBC WITH | Routin | 11/13/2016 | Cervical | Results for this | | DIFFERENTIAL | e | 9:41 AM | radiculopathy DDD | procedure are in the | | | | PDT | (degenerative disc | results section. | | | | | disease), cervical | | | | | | Chronic pain of both | | | | | | shoulders | | | | | | Foraminal stenosis | | | | | | of cervical region | | | | | | Paresthesias | | + +--------+ + + + | CULTURE, MRSA | Routin | 11/13/2016 | Pre-operative | Results for this | | | e | 9:40 AM | clearance | procedure are in the | | | | PDT | | results section. | + +--------+ + + + | ECG 12 LEAD | Routin | 11/13/2016 | Cervical | Results for this | | | e | 9:35 AM | radiculopathy DDD | procedure are in the | | | | PDT | (degenerative disc | results section. | | | | | disease), cervical | | | | | | Chronic pain of both | | | | | | shoulders | | | | | | Foraminal stenosis | | | | | | of cervical region | | | | | | Paresthesias | | + +--------+ + + + documented in this encounter Results CBC with Differential (11/13/2016 9:41 AM PDT) + + + + + + | Component | Value | Ref Range | Performed | Pathologist | | | | | At | Signature | + + + + + + | White Blood | 5.0 | 4.0 - 11.0 K/uL | [facility] | | | Cells | | | [facility] | | | | | | [facility] | | | | | | [facility] - | | | | | | LABORATORY | | + + + + + + | Red Blood | 4.27 (L) | 4.30 - 5.70 | [facility] | | | Cells | | M/uL | [facility] | | | | | | MEDICAL | | | | | | C[facility] - | | | | | | LABORATORY | | + + + + + + | Hemoglobin | 14.4 | 13.5 - 18.0 | [facility] | | | | | g/dL | [facility] | | | | | | [facility]ICAL | | | | | | C[facility] - | | | | | | LABORATORY | | + + + + + + | Hematocrit | 42.7 | 40.0 - 51.0 % | [facility] | | | | | | [facility] | | | | | | [facility] | | | | | | [facility] - | | | | | | LABORATORY | | + + + + + + | MCV | 100.1 | 83.0 - 101.0 fL | [facility] | | | | | | [facility] | | | | | | [facility] | | | | | | C[facility] - | | | | | | LABORATORY | | + + + + + + | MCH | 33.8 | 28.0 - 35.0 pg | [facility] | | | | | | [facility] | | | | | | [facility] | | | | | | [facility] - | | | | | | LABORATORY | | + + + + + + | MCHC | 33.7 | 32.0 - 36.0 | [facility] | | | | | g/dL | [facility] | | | | | | [facility]ICAL | | | | | | CENTER - | | | | | | LABORATORY | | + + + + + + | RDW-CV | 13.7 | <15.0 % | [facility] | | | | | | [facility] | | | | | | [facility] | | | | | | [facility] - | | | | | | LABORATORY | | + + + + + + | Platelet | 233 | 140 - 440 K/uL | [facility] | | | Count | | | [facility] | | | | | | [facility] | | | | | | C[facility] - | | | | | | LABORATORY | | + + + + + + | MPV | 9.2 | fL | [facility] | | | | | | [facility] | | | | | | [facility] | | | | | | [facility] - | | | | | | LABORATORY | | + + + + + + | % | 47.5 | 45.0 - 82.0 % | [facility] | | | Neutrophils | | | [facility] | | | | | | MEDICAL | | | | | | CENTER - | | | | | | LABORATORY | | + + + + + + | % | 35.5 | 20.0 - 45.0 % | [facility] | | | Lymphocytes | | | [facility] | | | | | | MEDICAL | | | | | | CENTER - | | | | | | LABORATORY | | + + + + + + | % Monocytes | 13.6 (H) | 4.0 - 12.0 % | [facility] | | | | | | [facility] | | | | | | MEDICAL | | | | | | CENTER - | | | | | | LABORATORY | | + + + + + + | % | 2.3 | 0.0 - 5.0 % | [facility] | | | Eosinophils | | | [facility] | | | | | | MEDICAL | | | | | | CENTER - | | | | | | LABORATORY | | + + + + + + | % Basophils | 1.1 (H) | 0.0 - 1.0 % | [facility] | | | | | | [facility] | | | | | | MEDICAL | | | | | | CENTER - | | | | | | LABORATORY | | + + + + + + | Absolute | 2.40 | 1.80 - 8.50 | [facility] | | | Neutrophils | | K/uL | [facility] | | | | | | [facility]ICAL | | | | | | CENTER - | | | | | | LABORATORY | | + + + + + + | Absolute | 1.80 | 0.60 - 3.20 | [facility] | | | Lymphocytes | | K/uL | [facility] | | | | | | MEDICAL | | | | | | CENTER - | | | | | | LABORATORY | | + + + + + + | Absolute | 0.70 | 0.00 - 1.00 | [facility] | | | Monocytes | | K/uL | [facility] | | | | | | [facility] | | | | | | CENTER - | | | | | | LABORATORY | | + + + + + + | Absolute | 0.10 | 0.00 - 0.40 | [facility] | | | Eosinophils | | K/uL | [facility] | | | | | | MEDICAL | | | | | | CENTER - | | | | | | LABORATORY | | + + + + + + | Absolute | 0.10 | 0.00 - 0.10 | [facility] | | | Basophils | | K/uL | [facility] | | | | | | MEDICAL | | | | | | CENTER - | | | | | | LABORATORY | | + + + + + + + + | Specimen | + + | Blood | + + + + + + + | Performing | Address | City/State/Zipcode | Phone Number | | Organization | | | | + + + + + | [facility] | [address] | [place] | [phone] | | [facility] | | [address] | | | - LABORATORY | | | | + + + + + Culture, MRSA (11/13/2016 9:40 AM PDT) + + + + + + | Component | Value | Ref Range | Performed | Pathologist | | | | | At | Signature | + + + + + + | Culture | Negative for MRSA by | | [facility] | | | | chromogenic agar method | | [facility] | | | | | | MEDICAL | | | | | | CENTER - | | | | | | LABORATORY | | + + + + + + + + | Specimen | + + | Respiratory - Both | | anterior nares (body | | structure) | + + + + + + + | Performing | Address | City/State/Zipcode | Phone Number | | Organization | | | | + + + + + | [facility] | [address] | [place] | [phone] | | [facility] | | [address] | | | - LABORATORY | | | | + + + + + ECG 12 lead (11/13/2016 9:35 AM PDT) + + + + + + | Component | Value | Ref Range | Performed | Pathologist | | | | | At | Signature | + + + + + + | VENTRICULAR | 69 | BPM | [facility] | | | RATE EKG | | | | | + + + + + + | ATRIAL RATE | 69 | BPM | [facility] | | + + + + + + | P-R | 182 | ms | [facility] | | | INTERVAL | | | | | + + + + + + | QRS | 82 | ms | [facility] | | | DURATION | | | | | + + + + + + | Q-T | 394 | ms | [facility] | | | INTERVAL | | | | | + + + + + + | Q-T | 422 | ms | [facility] | | | INTERVAL | | | | | | (CORRECTED) | | | | | + + + + + + | P WAVE AXIS | 7 | degrees | [facility] | | + + + + + + | QRS AXIS | 28 | degrees | [facility] | | + + + + + + | T AXIS | 0 | degrees | [facility] | | + + + + + + | INTERPRETAT | Sinus rhythm with | | [facility] | | | ION TEXT | occasional premature | | | | | | ventricular | | | | | | complexesNonspecific | | | | | | inferior T-wave | | | | | | abnormalityNo previous | | | | | | ECGs availableConfirmed | | | | | | by SONYA BRAVO MD | | | | | | ([id number]) on 11/14/2016 | | | | | | 7:24:15 AM | | | | + + + + + + + + | Specimen | + + | | + + + + + | Narrative | Performed At | + + + | | | + + + + +---------+ + + | Performing | Address | City/State/Zipcode | Phone Number | | Organization | | | | + +---------+ + + | [facility] | | | | + +---------+ + + documented in this encounter Visit Diagnoses + + | Diagnosis | + + | Pre-operative clearance - Primary Preoperative examination, unspecified | + + | Cervical radiculopathy Brachial neuritis or radiculitis nos | + + | DDD (degenerative disc disease), cervical Degeneration of cervical intervertebral | | disc | + + | Chronic pain of both shoulders Pain in joint, shoulder region | + + | Foraminal stenosis of cervical region Spinal stenosis in cervical region | + + | Paresthesias Disturbance of skin sensation | + + documented in this encounter"
--- OUTSIDE RECORDS SUMMARY | ~2020-05-08 | XMS | Encounter Summary ---
Demographics + + + | Address | [address] | | | [place] [address] | + + + | Home Phone | | + + + | Preferred Language | Unknown | + + + | Marital Status | | + + + | Mormonism Affiliation | 1013 | + + + | Race | White | + + + | Ethnic Group | Not or | + + + Author + + + | Author | [facility] | | | and [place] [...] + | Jenny Trammellehart | ECON | [address] | | | | | [place] | | | | | [address] | | + + + + + Care Team Providers + +------+ + | Care Reed Press Feeder Name | Role | Phone | + +------+ + PCP | Unavailable | + +------+ + Encounter Details +--------+ + + + + | Date | Type | Department | Care Team | Description | +--------+ + + + + | 08/14/ | [facility] | [facility] | | | | 1992 | Encounter | [facility] | | | | | | CENTER [address] | | | | | | [place] | | | | | | [address] | | | | | | [phone] | | | +--------+ + + + [...] | | | | | [place] [address] | | | | | | [phone] | | | | | | | | +--------+---------+ + + + documented as of this encounter Visit Diagnoses Not on filedocumented in this encounter"
--- OUTSIDE RECORDS SUMMARY | ~2020-05-08 | XMS | Encounter Summary ---
Demographics + + + | Address | [address] | | | [place] [address] | + + + | Home Phone | | + + + | Preferred Language | Unknown | + + + | Marital Status | | + + + | Rastafari Affiliation | 1013 | + + + | Race | White | + + + | Ethnic Group | Not or | + + + Author + + + | Author | [facility] | | | and [place] | + + + | Organization | [facility] | | | and [place] | + + + | Address | Unknown | + + + | Phone | Unavailable | + + + Support + + + + + | Name | Relationship | Address | Phone | + + + + + | Jenny Lynchart | ECON | [address] | | | | | [place] | | | | | [address] | | + + + + + Care Team Providers + +------+ + | Care Flight Crew Time Clerk Name | Role | Phone | + +------+ + | Radha Rodriguez | PCP | | | PA-C | | | + +------+ + Reason for Visit + + + | Reason | Comments | + + + | Pre-op Exam | | + + + Encounter Details +--------+---------+ + + + | Date | Type | Department | Care Team | Description | +--------+---------+ + + + | 11/13/ | Office | [facility] | Osvaldo Harrington, | Cervical spondylosis | | 2017 | Visit | NEUROSURGERY [address] | PA-C [address] | with radiculopathy | | | | [address] | [address] [place] | (Primary Dx); Spinal | | | | [place], [place] | [place] [address] | stenosis in | | | | [address] | [phone] | cervical region; | | | | [phone] | | Cervicalgia; | | | | | | Osteoarthritis of | | | | | | spine with | | | | | | radiculopathy, | | | | | | cervical region; | | | | | | Cervical stenosis of | | | | | | spinal canal; | | | | | | Cervical radicular | | | | | | pain | +--------+---------+ + + + Social History [...] + + + | Blood Pressure | 137/88 | 11/13/2016 8:25 AM | | | | | PDT | | + + + + + | Pulse | 69 | 11/13/2016 8:25 AM | | | | | PDT [...] + + + + | Weight | 140.6 kg (310 lb) | 11/13/2016 8:25 AM | | | | | PDT | | + + + + + | Height | 182.9 cm (6') | 11/13/2016 8:25 AM | | | | | PDT | | + + + + + | Body Mass Index | 42.04 | 11/13/2016 8:25 AM | | | | | PDT | | + + + + + documented in this encounter Patient Instructions Patient Instructions Osvaldo Harrington PA - 11/13/2016 8:45 AM PDTPlease don't take any a nti inflammatories within 5 days of surgery. This will include Ibuprofen, Aspirin, Aleve, Ad gerber, Naproxen, and Motrin. You can take your normal morning AM medications with a small sip of water the day of surgery. You will need someone to drive you home the day of surgery. documented in this encounter Progress Notes Osvaldo Harrington PA - 11/13/2016 9:28 AM PDTFormatting of this note might be different f rom the original. MELANIE Diana [address] [facility], [address] [place], [place] [id number] FAX: NEUROSURGERY HISTORY AND PHYSICAL EXAMINATION CHIEF COMPLAINT: Chief Complaint Patient presents with Pre-op Exam HISTORY OF PRESENT ILLNESS: Steven presents for clinic today for a preoperative examination. He is scheduled for a C5-C7 fusion. The patient is a 56 y.o. male with the complaint of n rajiv pain symptoms that began many years ago. The patient describes neck pain since playing football in high school and college. It has become worse in the last year. The symptoms hav e been rapidly worsening. He rates the pain as severe. The symptoms are frequent, daily. He describes the pain as a daniella and stabbing. The patient describes arm symptoms down both sides, right worse than left. The arm symptom s account for at least greater than or equal to 50% of his symptoms. His pain travels from his neck down into the hands. He also describes decreased range of motion, hand weakness, a nd dropping objects. He does indicate a history of loss of fine motor function. Other find ings of progressive myelopathy are not present. He has had no interval changes in the severity or character of his symptoms since his last visit. He denies any shortness of breath or chest pain. He denies any fever or chills.He has no open sores on his body and has not had any antibiotics recently. The PCP has seen chiara ellis and they have cleared him for surgery. His symptoms improve with rest. His symptoms worsen with changing position, standing, sitting, bending, twisting and light exertion. He has tried lifestyle modification, pain medication, rest, years of physical therapy, ster oid injection, traction, massage, chiropractics, TENS. PAST MEDICAL HISTORY: Past Medical History Diagnosis Date High cholesterol Stomach ulcer Arthralgia of multiple sites Cervical radiculopathy Systemic lupus erythematosus (HCC) Herniated intervertebral disc of lumbar spine Headache Insomnia DDD (degenerative disc disease), cervical 05/23/2016 Paresthesias 05/23/2016 Foraminal stenosis of cervical region 06/15/2016 PAST SURGICAL HISTORY: Past Surgical History Procedure Laterality Date Knee joint replacement Left 2013 [facility] Shoulder surgery Right 1999 [facility] [address] [facility] CURRENT MEDICATIONS: Current Outpatient Prescriptions Medication Sig Dispense Refill azaTHIOprine (IMURAN) 50 mg tablet Take 50 mg by mouth 2 times daily. carisoprodol (SOMA) 350 mg tablet Take 350 mg by mouth nightly. gabapentin (NEURONTIN) 600 MG tablet Take 600 [...] arthritis. Other: Lupus. PHYSICAL EXAMINATION: Blood pressure 137/88, pulse 69, height 1.829 m (6'), weight 140.615 kg (310 lb). Body mass index is 42.03 kg/(m^2). GENERAL: Steven Jade is in no acute distress with unlabored respirations. The pat dex does appear uncomfortable throughout the exam today. [...] and without palpable masses. The patient is obe se. SPINE: The cervical spine exam shows there is tenderness over the C-5, C-6 and C-7 region. Range of motion is limited. Rotation and extension does cause symptoms to radiate into the extremities on both sides. Flexion and extension of the neck does cause severe discomfort . No tenderness in the midline of the thoracic or lumbar spine. There is no major palpable d eformity of the spine. EXTREMITIES: No cyanosis, clubbing, or edema. Distal pulses are palpable. NEUROLOGICAL EXAM: MENTAL STATUS: The patient is awake, alert, and oriented. He follows simple and complex commands. His speech is fluent, he comprehends speech well, and he repeats well. He has no apparent deficits with short or moth exterminator memory. CRANIAL NERVES: II: Acuity is intact. Ashraf are full to confrontation. III, IV, : The pupils are reactive. Extraocular movements are intact. No ptosis is note d. V: Facial sensation is intact and symmetric. [...] Intrinsics 4 5 Ulnar Intrinsics 4 5 Ceramic Tile Installation Helper Strength 4 5 Hip Flexion 5 5 Hip Extension 5 5 Knee Flexion 5 5 Knee Extension 5 5 Dorsiflexion 5 5 Extensor Hallicus Longus 5 5 Plantarflexion 5 5 SENSORY EXAM: Sensory exam shows bilateral C6 and C7-type dysesthesia. REFLEXES: (2 OR 2+ IS NORMAL) REFLEX: RIGHT LEFT PATELLAR 2+ 2+ ACHILLES 2+ 2+ PARKS'S [...] demonstrates loss of cervical lordosis. There is dif fuse spondylosis, worse at C5-6 and C6-7 with bilateral foraminal stenosis. Cervical flexion and extension views show no dynamic instability. ASSESSMENT: NEUROSURGICAL DIAGNOSES: Encounter Diagnoses Name Primary? Cervical spondylosis with radiculopathy Yes Spinal stenosis in cervical region Cervicalgia Osteoarthritis of spine with radiculopathy, cervical region Cervical stenosis of spinal canal Cervical radicular pain GENERAL DIAGNOSES: Past Medical History Diagnosis Date [...] spondylosis and stenosis C5-7. This is likely contributing to his neck and arm symptoms. I had a lengthy discussion with the patient about his options for care including surgical a nd non-surgical options. He would like to proceed with ACDF C5-7. We discussed the risks, alternatives, and benefits to surgical intervention with Mr. Carpio rt in clinic. These risks included but were not limited to , stroke, heart attack, num bness, weakness, paralysis, failure of fusion, failure of hardware, subsidence, adjacent seg ment degeneration, cerebrospinal fluid leak, bleeding, infection, injury to surrounding tiss ues and organs, injury from positioning, injury to the nerves, difficulty with breathing, di fficulty with swallowing, difficulty with voice change, and [...] that although some patients may obtain 100% sym ptom relief, it is realistic to anticipate that some symptoms will continue postoperatively despite a successful surgery. We also discussed that there is no guarantee that surgery will provide improvement in his c ondition, and indeed may even worsen the symptoms. We also discussed that in the course of the procedure the operative plan may be altered to include more, less, or different levels d epending upon findings in order to provide him [...] improve the probability and rate of fusion. He will follow-up with his primary care provider for preoperative clearance and optimizatio n prior to presenting for surgery. ELECTRONICALLY SIGNED BY: MELANIE Diana, 11/13/2016 9:28 Joseline Oseguera RN - 11/13/2016 8:59 AM Bryanna locke in office for pre op appointment. Patient advised at this time to stop: naproxen (7 da ys prior and 90 days after); azathioprine, carisoprodol, multi vit (7 days prior). Patient v erbalized understanding. All questions answered at this time. EYdocumented in this en counter Plan of Treatment +--------+---------+ + + + | Date | Type | Specialty | Care Team | Description | +--------+---------+ + + + | 05/12/ | Office | Rheumatology | Nandini Ward | | | 2019 | Visit | | [facility] [address] | | | | | | [facility] | | | | | | [place] [address] | | | | | | [phone] | | | | | | | | +--------+---------+ + + + documented as of this encounter Visit Diagnoses + + | Diagnosis | + + | Cervical spondylosis with radiculopathy - Primary Cervical spondylosis with | | myelopathy | + + | Spinal stenosis in cervical region | + + | Cervicalgia | + + | Osteoarthritis of spine with radiculopathy, cervical region | + + | Cervical stenosis of spinal canal Spinal stenosis in cervical region | + + | Cervical radicular pain Brachial neuritis or radiculitis nos | + + documented in this encounter"
--- OUTSIDE RECORDS SUMMARY | ~2020-05-08 | XMS | Encounter Summary ---
Demographics + + + | Address | [address] | | | [place] [address] | + + + | Home Phone | | + + + | Preferred Language | Unknown | + + + | Marital Status | | + + + | Zoroastrian Affiliation | 1013 | + + + | Race | White | + + + | Ethnic Group | Not or | + + + Author + + + | Author | [facility] | | | and [place] | + + + | Organization | [facility] | | | and [place] | + + + | Address | Unknown | + + + | Phone | Unavailable | + + + Support + + + + + | Name | Relationship | Address | Phone | + + + + + | Jenny Trammellehart | ECON | [address] | | | | | [place] | | | | | [address] | | + + + + + Care Team Providers + +------+ + | Care Product Grader Name | Role | Phone | + +------+ + | Radha Rodriguez | PCP | | | PA-C | | | + +------+ + Reason for Visit Diagnostic/Screening (Routine) +--------+--------+ + + + + | Status | Reason | Specialty | Diagnoses / | Referred By | Referred To | | | | | Procedures | Contact | Contact | +--------+--------+ + + + + | Closed | | Radiology | Procedures | Provider, | | | | | | MRI Lumbar | Historical, | | | | | | Spine wo | [address] | | | | | | Contrast | [address] | | | | | | | [place] | | | | | | | [address] | | +--------+--------+ + + + + Encounter Details +--------+ + + + + | Date | Type | Department | Care Team | Description | +--------+ + + + + | 09/11/ | Imaging | [facility] | Kelly, | | | 2018 | Exam | [facility] | MD [address] | | | | | IMAGING [address] | [address] | | | | | [address] [place] | [place] [address] | | | | | [place] [address] | | | | | | [phone] | | | +--------+ + + + [...] 2019 | Visit | | [facility] [address] | | | | | | [address] [facility] | | | | | | [place] [address] | | | | | | [phone] | | | | | | | [...] this | | CONTRAST | e | 2:00 PM | | procedure are in the | | | | PST | | results section. | + +--------+ + + + documented in this encounter Results MRI Lumbar Spine wo Contrast (08/05/2014 2:00 PM PST) + + | Specimen | + + | | + + + + + | Narrative | Performed At | + + + | External films for comparison only - no result from Laura. | [facility] | + + + + +---------+ + + | Performing | Address | City/State/Zipcode | Phone Number | | Organization | | | | + +---------+ + + | [facility] | | | | + +---------+ + + documented in this encounter Visit Diagnoses Not on filedocumented in this encounter"
--- OUTSIDE RECORDS SUMMARY | ~2020-05-08 | XMS | Encounter Summary ---
Demographics + + + | Address | [address] | | | [place] [address] | + + + | Home Phone | | + + + | Preferred Language | Unknown | + + + | Marital Status | | + + + | Latter-Day Affiliation | 1013 | + + + | Race | White | + + + | Ethnic Group | Not or | + + + Author + + + | Author | [facility] | | | and [...] + | Jenny Trammellehart | ECON | [address] | | | | | [place] | | | | | [address] | | + + + + + Care Team Providers + +------+ + | Care Gun Stock Maker Name | Role | Phone | + [...] + + | Closed | Specialty | Otolaryngolog | Diagnoses | Sucharda, | Kris Torres | | | Services | y | Dysphagia, | Osvaldo E, | E, 1017 | | | Required | | unspecified | PA-C [address] | | | | | type | [address] | [address] [place] | | | | | | [address] | [place], [place] | | | | | | [place], | [address] Phone: | | | | | | [place] [address] | [phone] | | | | | | Phone: | Fax: | | | | | | [phone] | [phone] | | | | | | Fax: | | | | | | | [phone] | | +--------+ + + + + + Reason for Visit +---------+ + | Reason | Comments | +---------+ + | Post Op | 4w PO | +---------+ + Encounter Details +--------+---------+ + + + | Date | Type | Department | Care Team | Description | +--------+---------+ + + + | 12/26/ | Office | [facility] | Osvaldo Harrington, | Dysphagia, | | 2017 | Visit | NEUROSURGERY [address] | PA-C [address] | unspecified type | | | | [address] | [address] [place] | (Primary Dx) | | | | [place], [place] | [place] [address] | | | | | [address] | [phone] | | | | | [phone] | | | +--------+---------+ + + + Social History [...] + + + | Blood Pressure | 117/73 | 12/26/2016 3:07 PM | | | | | PDT | | + + + + + | Pulse | 73 | 12/26/2016 3:07 PM | | | | | PDT | | + + + + + | Temperature | - | - | | + + + + + | Respiratory Rate | 18 | 12/26/2016 3:07 PM | | | | | PDT | | + + + + + | Oxygen Saturation | - | - | | + + + + + | Inhaled Oxygen | - | - | | | Concentration | | | | + + + + + | Weight | 136.5 kg (301 lb) | 12/26/2016 3:07 PM | | | | | PDT | | + + + + + | Height | 180.3 cm (5' 11") | 12/26/2016 3:07 PM | | | | | PDT | | + + + + + | Body Mass Index | 41.98 | 12/26/2016 3:07 PM | | | | | PDT | | + + + + + documented in this encounter Patient Instructions Patient Instructions Guadalupe Chu Fish Peddler - 12/26/2016 3:00 PM PDTYou may no w slowly increase your lifting up to 15 pounds as tolerated. You may now reach overhead but it should only be 1-2 pounds. Please refrain from twisting for the next 8 weeks. Lastly, you will see Dr. Barton in approximately 2 months where a new x-ray will be taken at that time. In the meantime, you can also begin to wean out of your brace as instructed below. SPINE BRACE WEANING PROTOCOL (5 WEEKS) Below are instructions for weaning your brace. You can move through the weeks slower if yo u feel the need to do so, but the overall goal is to get you out of the brace slowly over th e next several weeks. WEEK 1 If you have been using your brace for activities like sleeping, showering, do not use the No.1 Traveller race for these activities any longer but continue using it for everything else. WEEK 2 Stop wearing your brace for sitting and short distance walking. You should use the brace f or anything more involved. WEEK 3 Stop using the brace for medium distance walking. You can bend and twist your back but sti ll proceed slowly with these activities. WEEK 4 Stop using the brace for everything but the most difficult tasks. You should now be able to go on long walks and lift more weight as directed. Add more bending and twisting as tolera alvarado. WEEK 5 Stop using the brace for daily use. I would encourage you to use the brace in the future f or activities that you know might aggravate your back or cause pain. You should still work to strengthen your back and use good technique when pickle solution maker things and bending. documented in this encounter Progress Notes Osvaldo Harrington PA - 12/26/2016 3:00 PM PDTFormatting of this note might be different f rom the original. MELANIE Diana [address] [facility] [address] [place] [address] FAX: NEUROSURGERY FOLLOW-UP CHIEF COMPLAINT: Chief Complaint Patient presents with Post Op 4w PO HISTORY OF PRESENT ILLNESS: The patient is a 56 y.o. male that had a C5-6, C6-7 Anterior C ervical Discectomy w/ Fusion and Plating for neck pain and around 4 weeks ago. He returns a nd overall is doing well. The patient complains of sharp pain of the arms and tingling of t he fingers when laying on his side. The patient has been walking as much as directed. He i s still taking pain medications at this point. Swallowing has been a major problem. Patient states he has lost 20 lbs since surgery due to difficulty swallowing foods and drinking liq uids. The patient has had no issues with his surgical site. PAST MEDICAL HISTORY: Past Medical History: Diagnosis [...] and Plating; Surgeon: Spencer Barton DO; Location: [facility] MAIN OR CHOLECYSTECTOMY [address] [facility] KNEE JOINT REPLACEMENT Left [address] [facility] SHOULDER SURGERY Right [facility] CURRENT MEDICATIONS: Current Outpatient Prescriptions Medication Sig Dispense Refill azaTHIOprine (IMURAN) 50 mg tablet Take 50 mg by mouth 2 times daily. carisoprodol (SOMA) 350 mg tablet Take 350 mg by mouth nightly. diazePAM (VALIUM) 5 mg tablet Take 1 tablet by mouth every 6 hours as needed. 60 tablet 0 gabapentin (NEURONTIN) 600 MG tablet Take 600 mg by mouth 3 times daily. HYDROcodone-acetaminophen (NORCO) 7.5-325 mg per tablet Take 1-2 tablets by mouth every 4 hours as needed for Pain. 120 tablet 0 hydroxychloroquine (PLAQUENIL) 200 mg tablet Take 200 mg by mouth 2 times daily. lactulose 10 g/15 mL solution Take 30 mLs by mouth Daily as needed. 240 mL 2 lovastatin (MEVACOR) 20 mg tablet Take 20 mg by mouth nightly. medical marijuana (CANNABIS) 2 times daily. CBD capsule traMADol (ULTRAM) 50 mg tablet Take 50 [...] Family history Mental illness Other Family history INTERIM PHYSICAL EXAMINATION: Blood pressure 117/73, pulse 73, resp. rate 18, height 1.803 m (5' 11"), weight (!) 136.5 k g (301 lb). Body mass index is 41.98 kg/m. GENERAL: Steven Jade is in no acute distress with unlabored respirations. SPINE: The patient s incisions are healing well without drainage, significant erythema, o r discharge. EXTREMITIES: No lower extremity edema. NEUROLOGICAL EXAMINATION: MENTAL STATUS: The patient is awake, alert, and oriented. He follows simple and complex commands MOTOR EXAM: Motor strength is 5/5. This is improved when compared to the preoperative exam . 4+ left bingo cashier strength. SENSORY EXAM: The sensory examination is improved when compared to the preoperative exam. Decreased sensation on the left thumb. RADIOGRAPHIC REVIEW: The patient s x-rays show stable instrumentation and alignment and were reviewed with the patient today. There have been no interval changes since the immediate postoperative films . Complete fusion has not yet occurred, but this is normal and would not be expected at thi s time. ASSESSMENT: Encounter Diagnosis Name Primary? Dysphagia, unspecified type Yes Past Medical History: Diagnosis Date Adverse effect of anesthesia slow to wake up Arthralgia of multiple sites Cervical radiculopathy DDD (degenerative disc disease), cervical 05/23/2016 Foraminal stenosis of cervical region 06/15/2016 Headache Herniated intervertebral disc of lumbar spine High cholesterol Insomnia Paresthesias 05/23/2016 PONV (postoperative nausea and vomiting) Stomach ulcer Systemic lupus erythematosus (HCC) PLAN: Overall, the patient is doing fairly well. The patient can see some improvements but mague nues to recover from recent surgery. I increased the patient s activities now allowing 15 pound lifting. The patient and also will begin the process of brace weaning. I would like the patient to advance slowly with t his process and discussed this at length during today's visit. I would also like the patien t to continue with postoperative rehabilitation and to advance with therapy as tolerated. We discussed that we can provide pain medications for up to 90 days after their surgical da te. We discussed the need to continue tapering pain medication. If they need longer term p ain medication, they should begin working on either pain management or with the primary care provider. I am hoping to see improvement over the coming weeks to months and plan to continue to foll ow this patient. The patient will follow-up in clinic in around 8 weeks for re-evaluation. We will refer patient to an ENT for his swallowing difficulty. Patient should discuss incre asing his Gabapentin with his Primary Care Provider to help relieve symptoms. ELECTRONICALLY SIGNED BY: MELANIE Diana, 12/26/2016 16:28 documented in this encounter Plan of Treatment +--------+---------+ + + + | Date | Type | Specialty | Care Team | Description | +--------+---------+ + + + | 05/12/ | Office | Rheumatology | Nandini Ward | | | 2020 | Visit | | [facility] [address] | | | | | | [facility] | | | | | | [place] [address] | | | | | | [phone] | | | | | | | | +--------+---------+ + + + + + +--------+ + + | Name | Type | Priori | Associated Diagnoses | Order Schedule | | | | ty | | | + + +--------+ + + | * [facility] | Outpatient | Routin | Dysphagia, | Ordered: 12/26/2016 | | Otolaryngology - AMB | Referral | e | unspecified type | | | Referral | | | | | + + +--------+ + + documented as of this encounter Results XR Cervical Spine 2 or 3 Views (03/05/2017 12:44 PM PDT) + + | Specimen | + + | | + + + + + | Narrative | Performed At | + + + | CLINICAL INFORMATION: Postop. COMPARISON: 12/26/2016 | [facility] | | FINDINGS: AP and lateral views of the cervical spine. Anterior | [facility] | | screw plate fusion changes at C5-C7 with anterior body graft spacers. | [facility] | | No evidence of hardware complication. Vertebral body height | - IMAGING | | appears preserved throughout. IMPRESSION - No evidence of | | | interval complication. Dictated and Signed by: Carlo Barragan MD | | | Electronically signed: 03/05/2017 1:07 PM | | + + + + + | Procedure Note | + + | Xander Gonzalez Results In - 03/05/2017 1:10 PM PDT | | CLINICAL INFORMATION: Postop. | | | | COMPARISON: 12/26/2016 | | | | FINDINGS: | | AP and lateral views of the cervical spine. | | | | Anterior screw plate fusion changes at C5-C7 with anterior body graft spacers. | | No evidence of hardware complication. | | | | Vertebral body height appears preserved throughout. | | | | | | IMPRESSION - No evidence of interval complication. | | | | Dictated and Signed by: Carlo Barragan MD | | Electronically signed: 03/05/2017 1:07 PM | + + + + + + + | Performing | Address | City/State/Zipcode | Phone Number | | Organization | | | | + + + + + | [facility] | [address] | [place] | [phone] | | [facility] | | [address] | | | - IMAGING | | | | + + + + + documented in this encounter Visit Diagnoses + + | Diagnosis | + + | Dysphagia, unspecified type - Primary | + + documented in this encounter
--- OUTSIDE RECORDS SUMMARY | ~2020-05-08 | XMS | Encounter Summary ---
Demographics + + + | Address | [address] | | | [place] [address] | + + + | Home Phone | | + + + | Preferred Language | Unknown | + + + | Marital Status | | + + + | Orthodoxy Affiliation | 1013 | + + + | Race | White | + + + | Ethnic Group | Not or | + + + Author + + + | Author | [facility] | | | and [place] | + + + | Organization | [facility] | | | and [place] | + + + | Address | Unknown | + + + | Phone | Unavailable | + + + Support + + + + + | Name | Relationship | Address | Phone | + + + + + | Jenny Trammellehart | ECON | [address] | | | | | [place] | | | | | [address] | | + + + + + Care Team Providers + +------+ + | Care Hand Quilter Name | Role | Phone | + [...] [facility] | | | | | Spondylosis | Dwaine Lobato, | [address] | | | | | without | DO [address] | [place], | | | | | myelopathy | [place] | [place] | | | | | or | [place] | [address] | | | | | radiculopath | [address] | Phone: | | | | | y, | [place], [place] | [phone] | | | | | lumbosacral | [address] | Fax: | | | | | region | Phone: | [phone] | | | | | Procedures | [phone] | | | | | | MRI Lumbar | Fax: | | | | | | Spine wo | [phone] | | | | | | Contrast | | | | | | | MRI Lumbar | | | | | | | [...] [facility] | | | | | Spondylosis | Dwaine M, | [address] | | | | | without | DO [address] | [place], | | | | | myelopathy | [place] | [place] | | | | | or | [place] | [address] | | | | | radiculopath | [address] | Phone: | | | | | y, | [place], [place] | [phone] | | | | | lumbosacral | [address] | Fax: | | | | | region | Phone: | [phone] | | | | | Procedures | [phone] | | | | | | MRI Lumbar | Fax: | | | | | | Spine wo | [phone] | | | | | | Contrast | | | | | | | MRI Lumbar | | | | | | | Spine wo | | | | | | | Contrast | | | +--------+--------+ + + + + Encounter Details +--------+ + + + + | Date | Type | Department | Care Team | Description | +--------+ + + + + | 10/04/ | Hospital | [facility] | Dwaine Berg | Spondylosis without | | 2018 | Encounter | [facility] MRI [address] | M, DO [address] | myelopathy or | | | | [address] [place], | [place] [address] | radiculopathy, | | | | [place] [address] | [place] [address] | lumbosacral region | | | | [phone] | [phone] | | | | | | | [...] | 02/22/20 | | | (VITAMIN D2) [address] | mouth every 7 days. | | [...] 2019 | Visit | | [facility] [address] | | | | | | [facility] | | | | | | [place] [address] | | | | | | [phone] | | | | | | | | +--------+---------+ + + + documented as of this encounter Procedures + +--------+ + + + | Procedure Name | Priori | Date/Time | Associated Diagnosis | Comments | | | ty | | | | + +--------+ + + + | MRI LUMBAR SPINE WO | Routin | 10/04/2017 | Spondylosis | Results for this | | CONTRAST | e | 9:33 AM | without myelopathy | procedure are in the | | | | PST | or radiculopathy, | results section. | | | | | lumbosacral region | | + +--------+ + + + documented in this encounter Results MRI Lumbar Spine wo Contrast (10/04/2017 9:33 AM PST) + + | Specimen | + + | | + + + + + | Narrative | Performed At | + + + | UNENHANCED MRI LUMBAR SPINE 10/04/2017 9:07 AM CLINICAL HISTORY: | [facility] | | Spondylosis and back pain without myelopathy or radiculopathy, | | | lumbosacral region COMPARISON: MRI July 2014 | | | TECHNIQUE: The following 3T MR sequences of the lumbar spine were | | | obtained: 1. Axial and sagittal T1. 2. Axial, sagittal, and | | | coronal T2. 3. Sagittal STIR. FINDINGS: Five non rib-bearing, | | | lumbar type vertebrae are suggested on the coronal sequence. There is | | | minimal rightward lumbar curvature. Vertebral height is maintained | | | without evident fracture or spondylolysis. Few small benign | | | vertebral hemangiomata are again visible. Marrow signal is otherwise | | | normal. The conus medullaris is unremarkable, terminating at L1. | | | Imaged intra-abdominal and paraspinal structures are unremarkable. | | | The T10-11, T11-12 and T12-L1 levels are unremarkable on provided | | | sagittal images through the region. L1-2: 3 mm retrolisthesis | | | persists. Mild posterior disc bulge and annular tear are more | | | pronounced however there is only minimal central canal stenosis and no | | | visible foraminal stenosis. L2-3: No visible disc pathology or | | | stenosis. L3-4: Early disc desiccation, minimal disc space | | | narrowing and subtle annular tear are present, without stenosis. | | | There is early facet hypertrophy, however the previously described | | | tiny synovial cyst along the medial margin of the left facet joint | | | has nearly completely resolved. L4-5: Early disc desiccation, mild | | | disc space narrowing, annular tear and minimal posterior disc bulge | | | combine with dorsal ligamentous and asymmetric right facet | | | hypertrophy to mildly narrow the right neural foramen to a similar | | | degree. There is no visible nerve root encroachment or central canal | | | stenosis. L5-S1: Disc desiccation, moderate, progressive disc | | | space narrowing, and mild Modic endplate hyperintensity are present. | | | 6 mm retrolisthesis persists and combines with posterior disc | | | osteophyte complex to mild to moderately narrow the foramina to a | | | slightly greater degree, with encroachment on the exiting L5 nerve | | | roots within and distal to their foramina, left greater than right. | | | IMPRESSION - 1. PROGRESSIVE DEGENERATIVE DISC DISEASE AND CHRONIC | | | MILD RETROLISTHESIS AT L5-S1 WITH SLIGHTLY GREATER MILD TO MODERATE | | | FORAMINAL STENOSIS AND ENCROACHMENT ON THE EXITING L5 NERVE ROOTS. | | | 2. SIMILAR DEGENERATIVE DISC DISEASE AND MILD RIGHT FORAMINAL | | | STENOSIS AT L4-5. 3. CHRONIC MILD RETROLISTHESIS AND MORE | | | PRONOUNCED DISC BULGE AND ANNULAR TEAR AT L1-2 WITH ONLY MINIMAL | | | STENOSIS. 4. MINIMAL RIGHTWARD LUMBAR CURVATURE WITH MULTILEVEL | | | FACET ARTHROPATHY, GREATEST AT L4-5. Dictated and Signed by: Marciano | | | MD Rober Electronically signed: 10/04/2017 10:42 AM | | + + + + + | Procedure Note | + + | Carlos, Rad Results In - 10/04/2017 10:45 AM PST UNENHANCED MRI LUMBAR SPINE 10/04/2017 | | 9:07 AMCLINICAL HISTORY: Spondylosis and back pain without myelopathy orradiculopathy, | | lumbosacral region COMPARISON: MRI July 2014TECHNIQUE: The following 3T MR | | sequences of the lumbar spine were obtained:1. Axial and sagittal T1.2. Axial, | | sagittal, and coronal T2.3. Sagittal STIR.FINDINGS: Five non rib-bearing, lumbar type | | vertebrae are suggested on thecoronal sequence. There is minimal rightward lumbar | | curvature. Vertebral heightis maintained without evident fracture or spondylolysis. | | Few small benignvertebral hemangiomata are again visible. Marrow signal is otherwise | | normal. The conus medullaris is unremarkable, terminating at L1. Imaged | | intra-abdominaland paraspinal structures are unremarkable.The T10-11, T11-12 and T12-L1 | | levels are unremarkable on provided sagittalimages through the region.L1-2: 3 mm | | retrolisthesis persists. Mild posterior disc bulge and annular tearare more pronounced | | however there is only minimal central canal stenosis and novisible foraminal | | stenosis.L2-3: No visible disc pathology or stenosis.L3-4: Early disc desiccation, | | minimal disc space narrowing and subtle annulartear are present, without stenosis. | | There is early facet hypertrophy, howeverthe previously described tiny synovial cyst | | along the medial margin of the leftfacet joint has nearly completely resolved.L4-5: | | Early disc desiccation, mild disc space narrowing, annular tear andminimal posterior | | disc bulge combine with dorsal ligamentous and asymmetricright facet hypertrophy to | | mildly narrow the right neural foramen to a similardegree. There is no visible nerve | | root encroachment or central canal stenosis.L5-S1: Disc desiccation, moderate, | | progressive disc space narrowing, and mildModic endplate hyperintensity are present. 6 | | mm retrolisthesis persists andcombines with posterior disc osteophyte complex to mild to | | moderately narrow theforamina to a slightly greater degree, with encroachment on the | | exiting L5 nerveroots within and distal to their foramina, left greater than | | right.IMPRESSION -1. PROGRESSIVE DEGENERATIVE DISC DISEASE AND CHRONIC MILD | | RETROLISTHESIS ATL5-S1 WITH SLIGHTLY GREATER MILD TO MODERATE FORAMINAL STENOSIS AND | | ENCROACHMENTON THE EXITING L5 NERVE ROOTS.2. SIMILAR DEGENERATIVE DISC DISEASE AND MILD | | RIGHT FORAMINAL STENOSIS AT L4-5.3. CHRONIC MILD RETROLISTHESIS AND MORE PRONOUNCED | | DISC BULGE AND ANNULAR TEARAT L1-2 WITH ONLY MINIMAL STENOSIS.4. MINIMAL RIGHTWARD | | LUMBAR CURVATURE WITH MULTILEVEL FACET ARTHROPATHY,GREATEST AT L4-5.Dictated and Signed | | by: Marciano Richter MD Electronically signed: 10/04/2017 10:42 AM | | | |L4-5: Early disc desiccation, mild disc space narrowing, annular tear and | |minimal posterior disc bulge combine with dorsal ligamentous and asymmetric | |right facet hypertrophy to mildly narrow the right neural foramen to a similar | |degree. There is no visible nerve root encroachment or central canal stenosis. | | | |L5-S1: Disc desiccation, moderate, progressive disc space narrowing, and mild | |Modic endplate hyperintensity are present. 6 mm retrolisthesis persists and | |combines with posterior disc osteophyte complex to mild to moderately narrow the | |foramina to a slightly greater degree, with encroachment on the exiting L5 nerve | |roots within and distal to their foramina, left greater than right. | | | |IMPRESSION - | |1. PROGRESSIVE DEGENERATIVE DISC DISEASE AND CHRONIC MILD RETROLISTHESIS AT | |L5-S1 WITH SLIGHTLY GREATER MILD TO MODERATE FORAMINAL STENOSIS AND ENCROACHMENT | |ON THE EXITING L5 NERVE ROOTS. | | | |2. SIMILAR DEGENERATIVE DISC DISEASE AND MILD RIGHT FORAMINAL STENOSIS AT L4-5. | | | |3. CHRONIC MILD RETROLISTHESIS AND MORE PRONOUNCED DISC BULGE AND ANNULAR TEAR | |AT L1-2 WITH ONLY MINIMAL STENOSIS. | | | |4. MINIMAL RIGHTWARD LUMBAR CURVATURE WITH MULTILEVEL FACET ARTHROPATHY, | |GREATEST AT L4-5. | | | |Dictated and Signed by: Marciano Richter MD | | Electronically signed: 10/04/2017 10:42 AM | + + + +---------+ + + | Performing | Address | City/State/Zipcode | Phone Number | | Organization | | | | + +---------+ + + | [facility] | | | | + +---------+ + + documented in this encounter Visit Diagnoses + + | Diagnosis | + + | Spondylosis without myelopathy or radiculopathy, lumbosacral region | + + documented in this encounter"
--- OUTSIDE RECORDS SUMMARY | ~2020-05-08 | XMS | Encounter Summary ---
Demographics + + + | Address | [address] | | | [place] [address] | + + + | Home Phone | | + + + | Preferred Language | Unknown | + + + | Marital Status | | + + + | Sikhism Affiliation | 1013 | + + + | Race | White | + + + | Ethnic Group | Not or | + + + Author + + + | Author | [facility] | | | and [place] | + + + | Organization | [facility] | | | and [place] | + + + | Address | Unknown | + + + | Phone | Unavailable | + + + Support + + + + + | Name | Relationship | Address | Phone | + + + + + | Jenny Trammellehart | ECON | [address] | | | | | [place] | | | | | [address] | | + + + + + Care Team Providers + +------+ + | Care Car Stereo Installer Name | Role | Phone | + +------+ + | El Meyers MD | PCP | | + +------+ + Encounter Details +--------+ + + + + | Date | Type | Department | Care Team | Description | +--------+ + + + + | 12/04/ | Hospital | [facility] | Conversion | SLE (systemic lupus | | 2016 | Encounter | [facility] | Transaction, | erythematosus) (HCC) | | | | [address] | Provider Unknown | | | | | [place], [place] | | | | | | [address] | (Fax) | | | | | [phone] | | | +--------+ + + + [...] 2019 | Visit | | ROOSEVELT Early [address] | | | | | | [address] | | | | | | [place] [address] | | | | | | [phone] | | | | | | | | +--------+---------+ + + + documented as of this encounter Procedures + +--------+ + + + | Procedure Name | Priori | Date/Time | Associated Diagnosis | Comments | | | ty | | | | + +--------+ + + + | MRI ANGIOGRAM HEAD | Routin | 12/05/2015 | | Results for this | | WO CONTRAST | e | 5:29 PM | | procedure are in the | | | | PDT | | results section. | + +--------+ + + + documented in this encounter Results MRI Angiogram Head wo Contrast (12/05/2015 5:29 PM PDT) + + | Specimen | + + | | + + + + + | Impressions | Performed At | + + + | 1. No MRA evidence of vasculitis. No flow-limiting stenosis or | | | aneurysm. | | | 5:55 PM | | + + + + + + | Narrative | Performed At | + + + | JORDAN Agrawal [facility] MRA HEAD WO CONTRAST 12/05/2015 5:29 PM | | | HISTORY: Systemic lupus erythematosus. Confusion. Possible EQUIPMENT OPERATOR | | | vasculitis. TECHNIQUE: Using 1.5 Odalis MRI unit, standard 3-D | | | [id number] imaging through the anterior circulation was performed | | | with standard maximum intensity projection images rendered. | | | COMPARISON: Brain MRI 12/05/2015. FINDINGS: The left vertebral | | | artery is dominant. Both vertebral arteries are patent. The basilar | | | artery and basilar arterial branches including the bilateral posterior | | | cerebral arteries are widely patent. The bilateral posterior | | | communicating arteries are patent, without aneurysm. The bilateral | | | internal carotid, middle cerebral, and anterior cerebral arteries are | | | widely patent. No anterior communicating artery aneurysm is found. No | | | luminal irregularity involves the intracranial arteries to suggest | | | vasculitis. | | + + + + + | Procedure Note | + + | Xander Gonzalez Conversion - 03/12/2019 4:51 AM PDT JORDAN PIMENTEL HEAD WO | | CONTRAST12/05/2015 5:29 PM HISTORY:Systemic lupus erythematosus. Confusion. Possible EQUIPMENT OPERATOR | | vasculitis. TECHNIQUE:Using 1.5 Odalis MRI unit, standard 3-D [id number] imaging | | through the anterior circulation was performed with standard maximum intensity | | projection images rendered. COMPARISON:Brain MRI 12/05/2015. FINDINGS:The left vertebral | | artery is dominant. Both vertebral arteries are patent. The basilar artery and basilar | | arterial branches including the bilateral posterior cerebral arteries are widely patent. | | The bilateral posterior communicating arteries are patent, without aneurysm. The | | bilateral internal carotid, middle cerebral, and anterior cerebral arteries are widely | | patent. No anterior communicating artery aneurysm is found. No luminal irregularity | | involves the intracranial arteries to suggest vasculitis. IMPRESSION: 1. No MRA | | evidence of vasculitis. No flow-limiting stenosis or aneurysm. | |FINDINGS: | |The left vertebral artery is dominant. Both vertebral arteries are patent. The basilar katharine ry and basilar arterial branches including the bilateral posterior cerebral arteries are wid juliet patent. The bilateral posterior | |communicating arteries are patent, | |without aneurysm. The bilateral internal carotid, middle cerebral, and anterior cerebral ar teries are widely patent. No anterior communicating artery aneurysm is found. No luminal irr egularity involves the intracranial arteries to suggest vasculitis. | | | |IMPRESSION: | |1. No MRA evidence of vasculitis. No flow-limiting stenosis or aneurysm. | | | | | + + documented in this encounter Visit Diagnoses + + | Diagnosis | + + | SLE (systemic lupus erythematosus) (HCC) Systemic lupus erythematosus | + + documented in this encounter"
--- OUTSIDE RECORDS SUMMARY | ~2020-05-08 | XMS | Encounter Summary ---
Demographics + + + | Address | [address] | | | [place] [address] | + + + | Home Phone | | + + + | Preferred Language | Unknown | + + + | Marital Status | | + + + | Synagogue Affiliation | 1013 | + + + | Race | White | + + + | Ethnic Group | Not or | + + + Author + + + | Author | [facility] | | | and [place] | + + + | Organization | [facility] | | | and [place] | + + + | Address | Unknown | + + + | Phone | Unavailable | + + + Support + + + + + | Name | Relationship | Address | Phone | + + + + + | Jenny Lynchart | ECON | [address] | | | | | [place] | | | | | [address] | | + + + + + Care Team Providers + +------+ + | Care Machine Veneer Repairer Name | Role | Phone | + +------+ + | Radha Rodriguez | PCP | | | PA-C | | | + +------+ + Reason for Visit + + + | Reason | Comments | + + + | Neck Pain | neck pain that radiates down to shoulders worse on right | | | shoulder. | + + + Evaluate & Treat (Routine) +--------+ + + [...] | | Cervical | Jeffery, | Spencer Fisher, | | | Required | | radiculopath | Maricruz, | [address] | | | | | y DDD | PA-C [address] | [address] | | | | | (degenerativ | [address], | [place] | | | | | e disc | [address] | [address] Phone: | | | | | disease), | [place] | [phone] | | | | | cervical | [address] | Fax: | | | | | Paresthesias | Phone: | [phone] | | | | | For[place] | [phone] | | | | | | stenosis of | Fax: | | | | | | cervical | [phone] | | | | | | region | | | +--------+ + + + + + Encounter Details +--------+---------+ + + + | Date | Type | Department | Care Team | Description | +--------+---------+ + + + | 10/03/ | Office | [facility] | Spencer Barton, | Osteoarthritis of | | 2017 | Visit | NEUR[address]URGERY [address] | DO [address] | spine with | | | | [address] | [address] [place], [place] | radiculopathy, | | | | [place], [place] | [id number] | cervical region | | | | [address] | | (Primary Dx); | | | | [phone] | | Cervical stenosis of | | | | | | spinal canal; | | | | | | Cervical radicular | | | | | | pain; Cervicalgia | +--------+---------+ + + + Social History [...] + + + | Blood Pressure | 130/81 | 10/03/2016 9:06 AM | | | | | PST | | + + + + + | Pulse | 71 | 10/03/2016 9:06 AM | | | | | PST [...] + + + + | Weight | 139.2 kg (306 lb | 10/03/2016 9:06 AM | | | | 12.8 oz) | PST | | + + + + + | Height | 182.9 cm (6') | 10/03/2016 9:06 AM | | | | | PST | | + + + + + | Body Mass Index | 41.61 | 10/03/2016 9:06 AM | | | | | PST | | + + + + + documented in this encounter Patient Instructions Patient Instructions Spencer Barton DO - 10/03/2016 9:39 AM PSTPlease follow-up with you r primary care physician for preoperative clearance. Please present for surgery when scheduled. documented in this encounter Progress Notes Spencer Barton DO - 10/03/2016 9:41 AM PSTFormatting of this note might be different fro m the original. Spencer Barton DO [address] [facility], [address] [place] [address] FAX: NEUROSURGERY HISTORY AND PHYSICAL EXAMINATION CHIEF [...] the last year. The symptoms have been ra pidly worsening. He rates the pain as severe. [...] ings of progressive myelopathy are not present. His [...] Laterality Date Knee joint replacement Left 2013 [facility] Shoulder surgery Right 1999 [facility] Cholecystectomy 1994 [facility] CURRENT MEDICATIONS: Current Outpatient Prescriptions [...] 139.164 kg (306 lb 12.8 oz). B betsey mass index is 41.6 kg/(m^2). GENERAL: Steven Jade is in no acute distress with unlabored respirations. The pat iearetha does appear uncomfortable throughout the exam today. [...] has no apparent deficits with short or senior care memory. CRANIAL NERVES: II: Acuity is intact. [...] Intrinsics 4 5 Ulnar Intrinsics 4 5 Data Sme Strength 4 5 Hip Flexion 5 5 [...] to presenting for surgery. ELECTRONICALLY SIGNED BY: Spencer Barton DO, 10/03/2016 9:48 documented in this en counter Plan of Treatment +--------+---------+ + + + | Date | Type | Specialty | Care Team | Description | +--------+---------+ + + + | 05/12/ | Office | Rheumatology | Nandini Ward | | | 2019 | Visit | | [facility] Early [address] | | | | | | [facility] | | | | | | [place] [address] | | | | | | [phone] | | | | | | | | +--------+---------+ + + + documented as of this encounter Visit Diagnoses + + | Diagnosis | + + | Osteoarthritis of spine with radiculopathy, cervical region - Primary | + + | Cervical stenosis of spinal canal Spinal stenosis in cervical region | + + | Cervical radicular pain Brachial neuritis or radiculitis nos | + + | Cervicalgia | + + documented in this encounter"
--- OUTSIDE RECORDS SUMMARY | ~2020-05-08 | XMS | Encounter Summary ---
Demographics + + + | Address | [address] | | | [place] [address] | + + + | Home Phone | | + + + | Preferred Language | Unknown | + + + | Marital Status | | + + + | Sikhism Affiliation | 1013 | + + + | Race | White | + + + | Ethnic Group | Not or | + + + Author + + + | Author | [facility] | | | and [place] | + + + | Organization | [facility] | | | and [place] | + + + | Address | Unknown | + + + | Phone | Unavailable | + + + Support + + + + + | Name | Relationship | Address | Phone | + + + + + | Jenny Jade | ECON | [address] | | | | | [place] | | | | | [address] | | + + + + + Care Team Providers + +------+ + | Care Plant Electrician Name | Role | Phone | + +------+ + | Radha Rodriguez | PCP | | | PA-C | | | + +------+ + Encounter Details +--------+ + + + + | Date | Type | Department | Care Team | Description | +--------+ + + + + | 05/18/ | Abstract | [facility] | Joey James | | | 2015 | | PHYSIATRY [address] | [address] | | | | [address] | [address] [place], [place] | | | | | [place], [place] | [address] | | | | | [address] | | | | | | [phone] | | | +--------+ + + + [...] 2019 | Visit | | [facility]T Early [address] | | | | | | [facility] [facility] | | | | | | [place] [address] | | | | | | [phone] | | | | | | | | +--------+---------+ + + + documented as of this encounter Visit Diagnoses Not on filedocumented in this encounter"
--- OUTSIDE RECORDS SUMMARY | ~2020-05-08 | XMS | Encounter Summary ---
Demographics + + + | Address | [address] | | | [place] [address] | + + + | Home Phone | | + + + | Preferred Language | Unknown | + + + | Marital Status | | + + + | Confucianist Affiliation | 1013 | + + + | Race | White | + + + | Ethnic Group | Not or | + + + Author + + + | Author | [facility] | | | and [place] | + + + | Organization | [facility] | | | and [place] | + + + | Address | Unknown | + + + | Phone | Unavailable | + + + Support + + + + + | Name | Relationship | Address | Phone | + + + + + | Jenny Lynchart | ECON | [address] | | | | | [place] | | | | | [address] | | + + + + + Care Team Providers + +------+ + | Care Coroner'S Juror Name | Role | Phone | + +------+ + | Radha Rodriguez | PCP | | | PA-C | | | + +------+ + Encounter Details +--------+ + + + + | Date | Type | Department | Care Team | Description | +--------+ + + + + | 11/13/ | Hospital | [facility] | Spencer Barton, | Cervical | | 2017 | Encounter | MED CTR XRAY [address] | DO [address] | radiculopathy; DDD | | | | [place] | [address] [place], [place] | (degenerative disc | | | | [place] [address] | [address] | disease), cervical; | | | | [phone] | | Chronic pain of both | | | | | Brett Patterson MD | shoulders; | | | | | [address] | Foraminal stenosis | | | | | [place], [place] | of cervical region; | | | | | [id number] | Paresthesias | | | | | | | [...] + + + +---------+ + + | Naproxen Sodium | Take 2 [...] 2019 | Visit | | [facility] Early [address] | | | | | | [address] | | | | | | [place] [address] | | | | | | [phone] | | | | | | | | +--------+---------+ + + + documented as of this encounter Procedures + +--------+ + + + | Procedure Name | Priori | Date/Time | Associated Diagnosis | Comments | | | ty | | | | + +--------+ + + + | XR CHEST 2 VIEWS | Routin | 11/13/2016 | Cervical | Results for this | | | e | 9:56 AM | radiculopathy DDD | procedure are [...] + documented in this encounter Results XR Chest 2 VW (11/13/2016 9:56 AM PDT) + + | Specimen | + + | | + + + + + | Narrative | Performed At | + + + | PA AND LATERAL CHEST 11/13/2016 9:52 AM CLINICAL HISTORY: Pre | [facility] | | operative clearance COMPARISON: Cervical radiographs October 03 | [facility] | | FINDINGS: There is thoracic aortic calcification. Mediastinum and | [facility] | | pulmonary vasculature are otherwise unremarkable. There is mild | - IMAGING | | hazy reticular opacity in the anterior lung bases. Additional | | | reticular opacity is present posterior in the lung bases on the | | | lateral view and there is blunting of the right lateral costophrenic | | | angle. Upper lung crandall are clear. No pneumothorax is evident. | | | There is multilevel vertebral spondylosis. IMPRESSION - 1. | | | NONSPECIFIC ANTERIOR AND POSTERIOR BASILAR RETICULAR OPACITY WITH | | | BLUNTING OF THE RIGHT COSTOPHRENIC ANGLE. NO PRIOR IMAGES ARE | | | AVAILABLE TO DETERMINE CHRONICITY. CHRONIC INTERSTITIAL LUNG | | | DISEASE IS A CONSIDERATION. INTERVAL RADIOGRAPHIC VERSUS CT | | | FOLLOW-UP SHOULD BE CONSIDERED. Dictated and Signed by: Marciano | | | MD Rober Electronically signed: 11/13/2016 12:04 PM | | + + + + + | Procedure Note | + + | Carlos, Rad Results In - 11/13/2016 12:07 PM PDT PA AND LATERAL CHEST 11/13/2016 9:52 AM | | | | CLINICAL HISTORY: Pre operative clearance | | | | COMPARISON: Cervical radiographs October 03 | | | | FINDINGS: There is thoracic aortic calcification. Mediastinum and pulmonary | | vasculature are otherwise unremarkable. There is mild hazy reticular opacity in | | the anterior lung bases. Additional reticular opacity is present posterior in | | the lung bases on the lateral view and there is blunting of the right lateral | | costophrenic angle. Upper lung crandall are clear. No pneumothorax is evident. | | There is multilevel vertebral spondylosis. | | | | IMPRESSION - | | | | 1. NONSPECIFIC ANTERIOR AND POSTERIOR BASILAR RETICULAR OPACITY WITH BLUNTING | | OF THE RIGHT COSTOPHRENIC ANGLE. NO PRIOR IMAGES ARE AVAILABLE TO DETERMINE | | CHRONICITY. CHRONIC INTERSTITIAL LUNG DISEASE IS A CONSIDERATION. INTERVAL | | RADIOGRAPHIC VERSUS CT FOLLOW-UP SHOULD BE CONSIDERED. | | | | Dictated and Signed by: Marciano Richter MD | | Electronically signed: 11/13/2016 12:04 PM | + + + + + + + | Performing | Address | City[facility] | Phone Number | | Organization | | | | + + + + + | [address] | [address] | [place] | [phone] | | [facility] | | [address] | | | - IMAGING | | [...]
--- OUTSIDE RECORDS SUMMARY | ~2020-05-08 | XMS | Encounter Summary ---
Demographics + + + | Address | [address] | | | [place] [address] | + + + | Home Phone | | + + + | Preferred Language | Unknown | + + + | Marital Status | | + + + | Gnosticist Affiliation | 1013 | + + + | Race | White | + + + | Ethnic Group | Not or | + + + Author + + + | Author | [facility] | | | and [place] | + + + | Organization | [facility] | | | and [place] | + + + | Address | Unknown | + + + | Phone | Unavailable | + + + Support + + + + + | Name | Relationship | Address | Phone | + + + + + | Jenny Jade | ECON | [address] | | | | | [place] | | | | | [address] | | + + + + + Care Team Providers + +------+ + | Care Lockstitch Coat Joiner Name | Role | Phone | + +------+ + | Radha Rodriguez | PCP | | | PA-C | | | + +------+ + Reason for Visit + +--------+ + | Reason | Onset | Comments | | | Date | | + +--------+ + | Imaging Only | 06/08/ | | | | 2016 | | + +--------+ + Encounter Details +--------+ + + + + | Date | Type | Department | Care Team | Description | +--------+ + + + + | 06/08/ | Telephone | [facility] | Spencer Barton, | Imaging Only | | 2017 | | NEUROSURGERY [address] | DO [address] | | | | | [address] | [address] [place], [place] | | | | | [place], [place] | [id number] | | | | | [address] | | | | | | [phone] | | | +--------+ + + + [...] Encounter - Raúl Alberts Cert MA - 08/05/2017 2:19 PM PSTXR order for 2 view c ervical spine PO XR sent to Dr. Berg's office RAÚL ALBERTS elephone Encounte r - Kanchan Akhtar - 08/05/2017 1:42 PM PSTPatient called in stating that he is now see ing Dr. Dwaine Berg for pain management. Dr. Berg is ordering MRIs and Xrays on his n rajiv and back. Steven would like to use these ones for his 6 mo po xrays. After speaking with Raúl about sending our order to Dr. Berg's office, I added Dr. Raul amezcua to patient's care team. elephone Encounter - Guadalupe Chu Edge Bander Operator - 08/04/2017 11:17 AM PSTCalled the patient to verify he was able to complete his 6M PO cervical xray. Left voicemail to re turn our call on Saturday. Reminder set to follow up. elephone Encounter - Dolly Johns Medical A ssistant - 06/08/2017 10:36 AM PSTCalled patient regarding 6M PO cervical x-rays. Patient st ated he can not do cervical x-rays at this time do to his insurance ending. Patient states h is new insurance will kick in the first of July and he will do imaging at this time. Loren ent also let me know that he would like orders sent to . I also reminded steffi t to please give our office a call once imaging is complete so we can forward imaging to Dr. Barton for review. Patient verbalized understanding. I sent orders to and will check on Saturday to make sure s received x-rays orders. documented in this encounter Plan of Treatment +--------+---------+ + + + | Date | Type | Specialty | Care Team | Description | +--------+---------+ + + + | 05/12/ | Office | Rheumatology | Nandini Ward | | | 2019 | Visit | | [facility] [address] | | | | | | [facility] | | | | | | [place] [address] | | | | | | [phone] | | | | | | | | +--------+---------+ + + + documented as of this encounter Visit Diagnoses Not on filedocumented in this encounter"
--- OUTSIDE RECORDS SUMMARY | ~2020-05-08 | XMS | Encounter Summary ---
Demographics + + + | Address | [address] | | | [place] [address] | + + + | Home Phone [...] + + + | Author | [facility] | | | and [place] | + + + | Organization | [facility] | | | and [place] | + + + | Address | Unknown | + + + | Phone | Unavailable | + + + Support + + + + + | Name | Relationship | Address | Phone | + + + + + | Jenny Trammellehart | ECON | [address] | | | | | [place] | | | | | [address] | | + + + + + Care Team Providers + +------+ + | Care Patternmaker Pressure Cast Name | Role | Phone | + +------+ + | El Meyers MD | PCP | | + +------+ + Encounter Details +--------+ + + + + | Date | Type | Department | Care Team | Description | +--------+ + + + + | 12/04/ | Hospital | [facility] | Conversion | SLE (systemic lupus | | 2016 | Encounter | [facility] | Transaction, | erythematosus) | | | | [address] | Provider Unknown | ([facility]); Confusion | | | | [place], [place] | | | | | | [address] | (Fax) | | | | | [phone] | | | +--------+ + + + [...] + + + | Blood Pressure | - | - | | + + + + + | Pulse | - | - | | + [...] + + + + | Weight | 131.5 kg (290 lb) | 12/05/2015 5:29 PM | | | | | PDT | | + + + + + | Height | - | - | | + + + + + | Body Mass Index | - | - | | + + + + + documented in this encounter Plan of Treatment +--------+---------+ + + + | Date | Type | Specialty | Care Team | Description | +--------+---------+ + + + | 05/12/ | Office | Rheumatology | Nandini Ward | | | 2020 | Visit | | [address] | | | | | | [address] | | | | | | [place] [address] | | | | | | [phone] | | | | | | | | +--------+---------+ + + + documented as of this encounter Procedures + +--------+ + + + | Procedure Name | Priori | Date/Time | Associated Diagnosis | Comments | | | ty | | | | + +--------+ + + + | MRI BRAIN W WO | Routin | 12/05/2015 | | Results for this | | CONTRAST | e | 5:32 PM | | procedure are in the | | | | PDT | | results section. | + +--------+ + + + documented in this encounter Results MRI Brain w wo Contrast (12/05/2015 5:32 PM PDT) + + | Specimen | + + | | + + + + + | Impressions | Performed At | + + + | 1. No definitive evidence of SLE induced vasculitis. 2. | | | Minimal nonenhancing supratentorial white matter disease, | | | nonspecific. If a small bilateral mastoid effusions. | | | | | + + + + + + | Narrative | Performed At | + + + | JORDAN MARTINEZ 12/05/2015 5:32 PM HISTORY: History of systemic | | | lupus erythematosus. Confusion. Possible QUALITY ASSURANCE vasculitis. | | | TECHNIQUE: Using a 1.5 Odalis MRI unit, standard multiplanar pre-and | | | post intravenous contrast sequences through the brain were obtained.25 | | | milliliters of MultiHance were utilized. COMPARISON: None. | | | FINDINGS: No intracranial infarct, hemorrhage, mass, or hydrocephalus | | | is observed. The corpus callosum, midbrain, phan, and medulla are | | | normal. Minimal supratentorial white matter disease is noted, as | | | evidenced by scattered punctate juxtacortical high FLAIR and T2 | | | signal at matter foci, numbering three on the right, and one on the | | | left, primarily in the bilateral frontal lobes. These demonstrate no | | | enhancement. The visualized intracranial vessels appear normal. The | | | orbital structures are normal. No paranasal sinus disease is found. | | | No worrisome bone lesions are seen. No significant paranasal sinus | | | disease is found. Small bilateral mastoid effusions are noted. | | + + + + + | Procedure Note | + + | Xander Gonzalez - 03/12/2019 4:51 AM PDT JORDAN MARTINEZ12/05/2015 5:32 PM | | HISTORY:History of systemic lupus erythematosus. Confusion. Possible QUALITY ASSURANCE vasculitis. | | TECHNIQUE:Using a 1.5 Odalis MRI unit, standard multiplanar pre-and post intravenous | | contrast sequences through the brain were obtained.25 milliliters of MultiHance were | | utilized. COMPARISON:None. FINDINGS:No intracranial infarct, hemorrhage, mass, or | | hydrocephalus is observed. The corpus callosum, midbrain, phan, and medulla are normal. | | Minimal supratentorial white matter disease is noted, as evidenced by scattered punctate | | juxtacortical high FLAIR and T2 signal at matter foci, numbering three on the right, | | and one on the left, primarily in the bilateral frontal lobes. These demonstrate no | | enhancement. The visualized intracranial vessels appear normal. The orbital structures | | are normal. No paranasal sinus disease is found. No worrisome bone lesions are seen. No | | significant paranasal sinus disease is found. Small bilateral mastoid effusions are | | noted. IMPRESSION: 1. No definitive evidence of SLE induced vasculitis. 2. Minimal | | nonenhancing supratentorial white matter disease, nonspecific. If a small bilateral | | mastoid effusions. | | signal at matter foci, numbering three on the right, and one on the left, primarily in the bilateral frontal lobes. These demonstrate no enhancement. The visualized intracranial vess els appear normal. The orbital structures are normal. No paranasal | |sinus disease is found. No worrisome bone lesions are seen. No significant paranasal sinus disease is found. Small bilateral mastoid effusions are noted. | | | |IMPRESSION: | |1. No definitive evidence of SLE induced vasculitis. | | | |2. Minimal nonenhancing supratentorial white matter disease, nonspecific. If a small bilat eral mastoid effusions. | | | | | + + documented in this encounter Visit Diagnoses + + | Diagnosis | + + | SLE (systemic lupus erythematosus) (HCC) Systemic lupus erythematosus | + + | Confusion Unspecified psychosis | + + documented in this encounter"
--- OUTSIDE RECORDS SUMMARY | ~2020-05-08 | XMS | Encounter Summary ---
Demographics + + + | Address | [address] | | | [place] [address] | + + + | Home Phone | | + + + | Preferred Language | Unknown | + + + | Marital Status | | + + + | Yazidism Affiliation | 1013 | + + + | Race | White | + + + | Ethnic Group | Not or | + + + Author + + + | Author | [facility] | [...] + | Jenny Trammellehart | ECON | [address] | | | | | [place] | | | | | [address] | | + + + + + Care Team Providers + +------+ + | Care Sprigger Name | Role | Phone | + +------+ + | Demetris Steward MD | PCP | | + +------+ + Encounter Details +--------+ + + + + | Date | Type | Department | Care Team | Description | +--------+ + + + + | 02/24/ | Hospital | [facility] | Nandini Ward | Chronic midline low | | 2020 | Encounter | [facility] | [address] | back pain without | | | | [address] | [facility] | sciatica | | | | [address] [place], [place] | [place] [address] | | | | | [address] | [phone] | | | | | [phone] | | | +--------+ + + + [...] | + + + +---------+--------+ + | acetaminophen | Take 500 mg by mouth | | 0 | | | | (TYLENOL) 500 mg | every 6 hours as | | | | | | tablet | needed for Pain TAKE | | | | | | | 2 TABS 4 TIMES | | | | | | | DAILY . | | | | | + + + +---------+--------+ + | azaTHIOprine | Take 75 mg by mouth | | 0 | | | | (AZASAM) 75 MG TABS | 2 times daily. | | | | | + + + +---------+--------+ + | cholecalciferol | Take 25 mcg by mouth | | 0 | | | | (VITAMIN D-3) 25 mcg | Daily. | | | | | | (1,000 units) | | | | | | | tablet | | | | | | + + + +---------+--------+ + | folic acid 1 mg | Take 1 mg by mouth | | 0 | | | | tablet | Daily. | | | | | + + + +---------+--------+ + | gabapentin | Take 400 mg by mouth | | 0 | | | | (NEURONTIN) 400 mg | 3 times daily 1 TAB | | | | | | capsule | IN THE MORNING, 1 | | | | | | | TAB AT NOON, AND 3 | | | | | | | TABS AT BEDTIME . | | | | | + + + +---------+--------+ + | hydroxychloroquine | Take 200 mg by mouth | | 0 | | | | (PLAQUENIL) 200 mg | 2 times daily. | | | | | | tablet | | | | | | + + + +---------+--------+ + | ibuprofen | Take 800 mg by mouth | | 0 | | | | (ADVIL,MOTRIN) 800 | every 8 hours as | | | | | | MG tablet | needed for Pain. | | | | | + + + +---------+--------+ + | lovastatin | Take 40 mg by mouth | | 0 | | | | (MEVACOR) 40 MG | nightly. | | | | | | tablet | | | | | | + + + +---------+--------+ + | pramipexole | Take 0.25 mg by | | 0 | | | | (MIRAPEX) 0.25 mg | mouth TAKE 1/2 TAB | | | | | | tablet | AT NIGHT NEEDED . | | | | | + + + +---------+--------+ + | traMADol (ULTRAM) | Take 50 mg by mouth | | 0 | | | | 50 mg tablet | every 6 hours as | | | | | | | needed. | | | | | + + + +---------+--------+ + documented as of this encounter Plan of Treatment +--------+---------+ + + + | Date | Type | Specialty | Care Team | Description | +--------+---------+ + + + | 05/12/ | Office | Rheumatology | Nandini Ward | | | 2019 | Visit | | [address] | | | | | | [address] | | | | | | [place] [address] | | | | | | [phone] | | | | | | | | +--------+---------+ + + + documented as of this encounter Procedures + +--------+ + + + | Procedure Name | Priori | Date/Time | Associated Diagnosis | Comments | | | ty | | | | + +--------+ + + + | XR LUMBAR SPINE 2 OR | Routin | 02/25/2020 | Chronic midline | Results for this | | 3 VW | e | 1:32 PM | low back pain | procedure are in the | | | | PDT | without sciatica | results section. | + +--------+ + + + documented in this encounter Results XR Lumbar Spine 2 [...] Procedure Note | + + | Carlos, [id number] - 02/25/2020 4:38 PM PDT | | [...] | | Final Report Signed by: Dung Lewis, Thao | | Sign Date/Time: 02/25/2020 4:34 PM | + + + +---------+ + + | Performing | Address | City/State/Zipcode | Phone Number | | Organization | | | | + +---------+ + + | [facility] | | | | + +---------+ + + documented in this encounter Visit Diagnoses + + | Diagnosis | + + | Chronic midline low back pain without sciatica | + + documented in this encounter"
--- OUTSIDE RECORDS SUMMARY | ~2020-05-08 | XMS | Encounter Summary ---
Demographics + + + | Address | [address] | | | [place] [address] | + + + | Home Phone | | + + + | Preferred Language | Unknown | + + + | Marital Status | | + + + | Judaism Affiliation | 1013 | + + + | Race | White | + + + | Ethnic Group | Not or | + + + Author + + + | Author | [facility] | | | and [place] | + + + | Organization | [facility] | | | and [place] | + + + | Address | Unknown | + + + | Phone | Unavailable | + + + Support + + + + + | Name | Relationship | Address | Phone | + + + + + | Jenny Jade | ECON | [address] | | | | | [place] | | | | | [address] | | + + + + + Care Team Providers + +------+ + | Care Rock Duster Name | Role | Phone | + [...] | | | | | | | [place] | | | | | | | [...] | | | | | | [place] | | | | | | | [facility]RAFT | | | | | | | FOR SPINE | | | | | | | SURGERY ONLY | | | | | | | [place]UCTURAL | | | | | | | [place] | | | | | | | [...] + + | 11/28/ | Hospital | [facility] | Spencer Barton, | | | 2017 | Encounter | MED CTR XRAY [address] | DO [address] | | | | | [place] | [address] [place], [place] | | | | | [place] [address] | [id number] | | | | | [phone] | | | +--------+ + + + [...] 2020 | Visit | | [facility] | | | | | | [facility] | | | | | | [place] [address] | | | | | | [phone] | | | | | | | | +--------+---------+ + + + documented as of this encounter Procedures + +--------+ + + + | Procedure Name | Priori | Date/Time | Associated Diagnosis | Comments | | | ty | | | | + +--------+ + + + | MERCEDES HORNE STATJennifer NO | Routin | 11/28/2016 | | Results for this | | CHARGE | e | 4:39 PM | | procedure are in the | | | | PDT | | results section. | + +--------+ + + + documented in this encounter Results MERCEDES Alexander Statjennifer No Charge (11/28/2016 4:39 PM PDT) + + | [...]
--- OUTSIDE RECORDS SUMMARY | ~2020-05-08 | XMS | Encounter Summary ---
Demographics + + + | Address | [address] | | | [place] [address] | + + + | Home Phone | | + + + | Preferred Language | Unknown | + + + | Marital Status | | + + + | Pentecostalism Affiliation | 1013 | + + + | Race | White | + + + | Ethnic Group | Not or | + + + Author + + + | Author | [facility] | | | and [place] | + + + | Organization | [facility] | | | and [place] | + + + | Address | Unknown | + + + | Phone | Unavailable | + + + Support + + + + + | Name | Relationship | Address | Phone | + + + + + | Jenny Lynchart | ECON | [address] | | | | | [place] | | | | | [address] | | + + + + + Care Team Providers + +------+ + | Care Tray Line Supervisor Name | Role | Phone | + +------+ + | Radha Rodriguez | PCP | | | PA-C | | | + +------+ + Encounter Details +--------+ + + + + | Date | Type | Department | Care Team | Description | +--------+ + + + + | 10/11/ | Episode | [facility] | Saranya Holly, | | | 2017 | Changes | NEUROSURGERY [address] | Cert [place] | | | | | [address] | | | | | | [place], [place] | | | | | | [address] | | | | | | [phone] | | | +--------+ + + + [...] | | 2020 | Visit | | [place] | | | | | | [facility] | | | | | | [place] [address] | | | | | | [phone] | | | | | | | | +--------+---------+ + + + documented as of this encounter Visit Diagnoses Not on filedocumented in this encounter"
--- OUTSIDE RECORDS SUMMARY | ~2020-05-08 | XMS | Encounter Summary ---
Demographics + + + | Address | [address] | | | [place] [address] | + + + | Home Phone | | + + + | Preferred Language | Unknown | + + + | Marital Status | | + + + | Episcopal Affiliation | 1013 | + + + | Race | White | + + + | Ethnic Group | Not or | + + + Author + + + | Author | [facility] | | | and [place] | + + + | Organization | [facility] | | | and [place] | + + + | Address | Unknown | + + + | Phone | Unavailable | + + + Support + + + + + | Name | Relationship | Address | Phone | + + + + + | Jenny Jade | ECON | [address] | | | | | [place] | | | | | [address] | | + + + + + Care Team Providers + +------+ + | Care Furniture Associate Name | Role | Phone | + +------+ + | Radha Rodriguez | PCP | | | PA-C | | | + +------+ + Encounter Details +--------+ + + + + | Date | Type | Department | Care Team | Description | +--------+ + + + + | 09/11/ | Imaging | [facility] | Provider, | | | 2018 | Exam | MED CTR EXTERNAL | MD [address] | | | | | IMAGING [address] | [address] | | | | | [address] [place] | [place] [address] | | | | | [place] [address] | | | | | | [phone] | | | +--------+ + + + [...] 2020 | Visit | | [facility] [address] | | | | | | [facility] | | | | | | [place] [address] | | | | | | [phone] | | | | | | | | +--------+---------+ + + + documented as of this encounter Procedures + +--------+ + + + | Procedure Name | Priori | Date/Time | Associated Diagnosis | Comments | | | ty | | | | + +--------+ + + + | XR CERVICAL SPINE 6 | Routin | 03/12/2016 | | Results for this | | OR MORE VWS | e | 10:35 AM | | procedure are in the | | | | PDT | | results section. | + +--------+ + + + documented in this encounter Results XR Cervical Spine 6 or More Vws (03/12/2016 10:35 AM PDT) + + | Specimen | + + | | + + + + + | Narrative | Performed At | + + + | External films for comparison only - no result from [place]. | [facility] | + + + + +---------+ + + | Performing | Address | City/State/Zipcode | Phone Number | | Organization | | | | + +---------+ + + | [facility] | | | | + +---------+ + + documented in this encounter Visit Diagnoses Not on filedocumented in this encounter"
--- OUTSIDE RECORDS SUMMARY | ~2020-05-08 | XMS | Encounter Summary ---
Demographics + + + | Address | [address] | | | [place] [address] | + + + | Home Phone | | + + + | Preferred Language | Unknown | + + + | Marital Status | | + + + | Confucianism Affiliation | 1013 | + + + | Race | White | + + + | Ethnic Group | Not or | + + + Author + + + | Author | [facility] [...] + | Jenny Trammellehart | ECON | [address] | | | | | [place] | | | | | [address] | | + + + + + Care Team Providers + +------+ + | Care Roll Operator Name | Role | Phone | + +------+ + PCP | Unavailable | + +------+ + Encounter Details +--------+ + + + + | Date | Type | Department | Care Team | Description | +--------+ + + + + | 03/20/ | Hospital | [facility] | Jorden Bobby | Pain in joint, | | 1999 | Encounter | CONVERSION [address] | MD Kunal [address] | shoulder region | | | | [address] | [place] | | | | | [place], [place] | [place] | | | | | [address] | [address] | | | | | [phone] | [phone] | | | | | | | [...] 2020 | Visit | | [facility] [address] | | | | | | [facility] | | | | | | [place] [address] | | | | | | [phone] | | | | | | | | +--------+---------+ + + + documented as of this encounter Visit Diagnoses + + | Diagnosis | + + | Pain in joint, shoulder region | + + documented in this encounter"
--- OUTSIDE RECORDS SUMMARY | ~2020-05-08 | XMS | Encounter Summary ---
Demographics + + + | Address | [address] | | | [place] [address] | + + + | Home Phone | | + + + | Preferred Language | Unknown | + + + | Marital Status | | + + + | Mu-Ism Affiliation | 1013 | + + + | Race | White | + + + | Ethnic Group | Not or | + + + Author + + + | Author | [facility] | | | and [place] | + + + | Organization | [facility] | | | and [place] | + + + | Address | Unknown | + + + | Phone | Unavailable | + + + Support + + + + + | Name | Relationship | Address | Phone | + + + + + | Jenny Jade | ECON | [address] | | | | | [place] | | | | | [address] | | + + + + + Care Team Providers + +------+ + | Care Brush Worker Name | Role | Phone | + +------+ + | Radha Rodriguez | PCP | | | PA-C | | | + +------+ + Reason for Visit +--------+--------+ + | Reason | Onset | Comments | | | Date | | +--------+--------+ + | Forms | 03/13/ | | | | 2016 | | +--------+--------+ + Encounter Details +--------+ + + + + | Date | Type | Department | Care Team | Description | +--------+ + + + + | 03/13/ | Telephone | [facility] | Spencer Barton, | Forms | | 2017 | | NEUROSURGERY [address] | DO [address] | | | | | [address] | [address] [place], [place] | | | | | [place], [place] | [id number] | | | | | [address] | | | | | | [phone] | | | +--------+ + + + [...] Encounter - Saranya Holly Cert [place] - 03/13/2017 3:12 PM [employer] Medical Stat us Report forms were completed and faxed back to [facility]. documented in this encounter Plan of Treatment +--------+---------+ + + + | Date | Type | Specialty | Care Team | Description | +--------+---------+ + + + | 05/12/ | Office | Rheumatology | Nandini Ward | | | 2019 | Visit | | [place] | | | | | | [facility] | | | | | | [place] [address] | | | | | | [phone] | | | | | | | | +--------+---------+ + + + documented as of this encounter Visit Diagnoses Not on filedocumented in this encounter"
--- OUTSIDE RECORDS SUMMARY | ~2020-05-08 | XMS | Encounter Summary ---
Demographics + + + | Address | [address] | | | [place] [address] | + + + | Home Phone | | + + + | Preferred Language | Unknown | + + + | Marital Status | | + + + | Christian Affiliation | 1013 | + + + | Race | White | + + + | Ethnic Group | Not or | + + + Author + + + | Author | [facility] | | | and [place] | + + + | Organization | [facility] | | | and [place] | + + + | Address | Unknown | + + + | Phone | Unavailable | + + + Support + + + + + | Name | Relationship | Address | Phone | + + + + + | Jenny Lynchart | ECON | [address] | | | | | [place] | | | | | [address] | | + + + + + Care Team Providers + +------+ + | Care Literary Writer Name | Role | Phone | + +------+ + | Radha Rodriguez | PCP | | | PA-C | | | + +------+ + Encounter Details +--------+ + + + + | Date | Type | Department | Care Team | Description | +--------+ + + + + | 03/05/ | Hospital | [facility] | Osvaldo Harrington, | Dysphagia, | | 2017 | Encounter | MED CTR XRAY [address] | PA-C [address] | unspecified type | | | | [place] | [address] [place] | | | | | [place] [address] | [place] [address] | | | | | [phone] | [phone] | | | | | | | [...] | 02/22/20 | | | (VITAMIN D2) 71529 | mouth every 7 days. | | [...] 2020 | Visit | | [place] [address] | | | | | | [facility] | | | | | | [place] [address] | | | | | | [phone] | | | | | | | | +--------+---------+ + + + documented as of this encounter Procedures + +--------+ + + + | Procedure Name | Priori | Date/Time | Associated Diagnosis | Comments | | | ty | | | | + +--------+ + + + | XR CERVICAL SPINE 2 | Routin | 03/05/2017 | Dysphagia, | Results for this | | OR 3 VIEWS | e | 12:44 PM | unspecified type | procedure are in the | | [...] views of the cervical spine. Anterior | [facility] | | screw plate fusion changes at C5-C7 with anterior body graft spacers. | [facility] | | No evidence of hardware complication. [...] ST. | [address] | [place] | [phone] | | [facility] | | [address] | | | - IMAGING | | | | + + + + + documented in this encounter Visit Diagnoses + + | Diagnosis | + + | Dysphagia, unspecified type | + + documented in this encounter"
--- OUTSIDE RECORDS SUMMARY | ~2020-05-08 | XMS | Encounter Summary ---
Demographics + + + | Address | [address] | | | [place] [address] | + + + | Home Phone | | + + + | Preferred Language | Unknown | + + + | Marital Status | | + + + | Scientologist Affiliation | [id number] | + + + | Race | White | + + + | Ethnic Group | Not or | + + + Author + + + | Author | [facility] | | | and [place] | + + + | Organization | [facility] | | | and [place] | + + + | Address | Unknown | + + + | Phone | Unavailable | + + + Support + + + + + | Name | Relationship | Address | Phone | + + + + + | Jenny Jade | ECON | [address] | | | | | [place] | | | | | [address] | | + + + + + Care Team Providers + +------+ + | Care Health It Specialist Name | Role | Phone | + [...] | | | | | | | DC | | | | | | | [...] | | | | | | [place] | | | | | | | ALLOGRAFT | | | | | | | FOR SPINE | | | | | | | SURGERY ONLY | | | | | | | STRUCTURAL | | | | | | | DC | | | | | | | [...] Description | +--------+---------+ + + + | 11/28/ | Surgery | [facility] | Spencer Barton, | C5-6, C6-7 Anterior | | 2017 | | [facility] OR [facility] OP | DO [address] | Cervical Discectomy | | | | [address] | [address] [place] [address] | w/ Fusion and | | | | [place], [place] | [id number] | Plating | | | | [address] | | | | | | [phone] | | | +--------+---------+ + + + [...] + + + | Blood Pressure | 135/96 | 11/28/2016 10:14 AM | | | | | PDT | | + + + + + | Pulse | 62 | 11/28/2016 10:14 AM | | | | | PDT | | + + + + + | Temperature | 36.6 C (97.9 F) | 11/28/2016 10:14 AM | | | | | PDT | | + + + + + | Respiratory Rate | 16 | 11/28/2016 10:14 AM | | | | | PDT | | + + + + + | Oxygen Saturation | 97% | 11/28/2016 10:14 AM | | | [...] of admission the patient was admitted to [facility] and underwent a C5-7 f usion . [...] Electronically signed by: Scar Mendoza, 11/29/2016 7:22 [facility] documented in th is encounter Discharge Instructions [...] t raise your hands over your head [id number])after your surgery. Don t drive until your [...] this your 1 month post op appointment. [phone] [employer]. [address] [place] [address], [place] [address]. All righ ts reserved. This information is [...] might be differ ent from the original. [facility] NEUROSURGERY PROGRESS NOTE PATIENT NAME: Steven Jade [...] mg 25 mg Oral Q4H PRN Scar Mednoza PA-C Or diphenhydrAMINE (BENADRYL) 12.5 mg/5 mL [...] has no apparent deficits with short or intermediate card tender memory. MOTOR EXAM: Motor strength is stable [...] note might be different from the orig inal. [facility] NEUROSURGERY PROGRESS NOTE PATIENT NAME: Steven Jade [...] Nightly Scar Mendoza PA-C 350 mg at 11/28/162123 diazePAM [...] PRN Scar Mendoza PA-C 2 tablet at 11/29/16 0135 hydroxychloroquine (PLAQUENIL) tablet 200 mg 200 mg Oral BID JEREMY Larson 200 mg at 11/28/164 lactulose liquid 30 mL 30 mL Oral [...] Scar Mendoza PA-C 8.6 mg at 0 11/28/16 2124 sodium chloride 0.9% (NS) infusion Intravenous [...] HEART: Regular. EXTREMITIES: No edema or swelling. [facility]'s NEUROLOGICAL EXAM: MENTAL STATUS: The patient is awake, alert, and oriented. He follows simple and complex commands. He speech is fluent, his comprehends speech well, and his repeats well. He has no apparent deficits with short or retirement memory. MOTOR EXAM: Motor strength is improved [...] signed by: Spencer Barton DO, 11/28/2016 14:06 [facility] reyerSpencer DO - 11/28/2016 2:06 PM PDT Spencer Barton DO [address] [facility], [address] [place] [address] FAX: NEUROSURGERY HISTORY AND PHYSICAL EXAMINATION CHIEF COMPLAINT: Chief Complaint Patient presents with Neck Pain neck pain that radiates down to shoulders worse on right shoulder. HISTORY OF PRESENT ILLNESS: The patient is a 56 y.o. male with the complaint of neck pain symptoms that began many years ago. The patient describes neck pain since playing [employer] in high school and college. It has [...] Date Knee joint replacement Left 2013 [facility] Shoulder surgery Right [address] [facility] [address] [facility] CURRENT MEDICATIONS: Current Outpatient Prescriptions Medication Sig [...] has no apparent deficits with short or retirement memory. CRANIAL NERVES: II: Acuity is intact. [...] Intrinsics 4 5 Ulnar Intrinsics [address] Strength 4 5 Hip Flexion 5 5 [...] stable. 3) Complains of posterior neck pain 10, treating with [place] with good results. 4) No falls or [...] be free from falls/injuries through 12-02-16. 5. Tseven will maintain adequate oxygenation via oximetry with [...] of balance or adverse event. Level of [place]: modified independent Assistive Device: cane (straight, single point) Distance (feet): 200 feet Gait Pattern Analysis: 2-point gait Gait Deviations: nasim decreased, stride length decreased Stairs Modified independent for extra time, handrail, single-point cane. Number of Stairs: 4 x 2 Handrail Location: left side (ascending) Level of [place]: modified independent Assistive Device: 1 rail, cane [...] single-point cane for transfers. Bed-Chair, Level of [place]: modified independent Chair-Bed, Level of [place]: modified independent Scy-Dvscs-Cmh, Assistive Device: cane (straight, single point) Sit-Stand, Level of [place]: modified independent Stand-Sit, Level of [place]: modified independent Xjf-Fdbkx-Bzy, Assistive Device: cane (straight, single point) Impairments: decreased flexibility, pain Bed Mobility Modified independent for extra time needed head of bed elevated. Patient reports that he h as a lift chair and a elevating head of bed that he will be using when he gets home. Assistive Device: HOB elevated Roll Left, Level of [place]: modified independent Supine to Sit, Level of [place]: modified independent Sit to Supine, Level of [place]: modified independent Safety Issues: decreased use of arms for pushing/pulling Impairments: decreased flexibility, pain Balance [facility] BASIC MOBILITY [facility] BASIC MOBILITY Turning over in bed: no [...] independent or modified independent/no help TOTAL - [facility] BASIC MOBILITY : 24 Unable / dependent = 1 A lot / modA = 2 A little / Pao = 3 None / independent = 4 Completed the [facility] Activity Measure for Post Acute Care (AM-PAC) "6 Clicks" [facility] Mobility Inpatient Short Form. This version of the AM-PAC is an assessment tool used to measure a person's level of disability in performing basic mobility tasks. This patient's score indicates a performance of 0.00% impairment in the functioning of basic mobility. Raw Score - Functional Limitation % (for CMS) - "Severity Modifier" 6 - 100.00 - [...] STG Review Date 11/30/16 at 11/29/2016 1138 Nbhvwv-Iet-Ppnmuf Goal Most Recent Value STG Status new, met at 11/29/2016 1138 STG [place] Level modified independent at 11/29/2016 1138 STG Assistive Device HOB elevated at 11/29/2016 1138 Kll-Ftxmr-Lvx Goal Most Recent Value STG Status new, met at 11/29/2016 1138 STG [place] Level modified independent at 11/29/2016 1138 STG Assistive Device cane (straight, single point) at 11/29/2016 1138 Gait Goal Most Recent Value STG Status new, met at 11/29/2016 1138 STG [place] Level modified independent at 11/29/2016 1138 STG Assistive Device cane (straight, single point) at 11/29/2016 1138 STG Distance (feet) 150 feet at 11/29/2016 1138 Stair Goal Most Recent Value STG Status new, met at 11/29/2016 1138 STG [place] Level modified independent at 11/29/2016 1138 STG Assistive Device 1 rail, cane (straight, single point) at 11/29/2016 1138 STG Number of Stairs 4 2 at 11/29/2016 1138 Electronically signed by: Joshua Dias, PT, 11/29/2016 11:46 lan of John - Dwaine Recinos, HARNESS RIGGER - 11/29/2016 11:45 AM PDTProblem: Patient Care [...] in use. lan of Care - Nely Carrasquillo OT - 11/29/2016 10:35 AM PDTProblem: Patient [...] oximetry and titrate to order as indicated. [facility] Occupational Therapy OPIB Plan of Care Patient Name: Steven Jade Date of Onset of Illness/Injury or Date of Surgery: 11/28/16 Start of Care/Start of Certification Date: 11/29/2016 End of Certification Date: 11/29/2016 Summary: Pt seen for initial OT eval following cervical fusion (see MD Remy for details ). Pt lives at home [...] not require physical assist Sit-Stand, Level of [place]: supervised Stand-Sit, Level of [place]: supervised Pek-Cgccy-Znl, Assistive Device: 2 wheeled walker (FWW) Toilet, Level of [place]: supervised Toilet, Assistive Device: 2 wheeled walker (FWW), commode (3 in 1) (Commode over toilet) Impairments: pain, ROM decreased, strength decreased ROM L UE ROM: WFL within cervical precautions R UE ROM: WFL within cervical precautions Strength L UE Strength: WFL within cervical precautions R UE Strength: WFL within cervical precautions Medicare Functional Limitation Reporting: OT G-codes Functional Assessment Tool Used: [facility] - Self care Score: 22 - CJ [...] be discharged in a safe manner This internet consultant met with the patient to discuss plans [...] he needs help. His preferred pharmacy is [facility] in [place], [place]. Signed by: Maria Fernanda Das Case Management, CUSTOMS COLLECTOR internet consultant Associated attestation - Kev Archer [facility] - 11/29/2016 1:04 PM PDTI attest that I have read this note and agree with the content.Electronically signed by: AMIE Rolle 11/29/2016 13:04Plan of Care - Mis Joseph Speech Pathologist - 11/29/2016 9: 20 AM [...] Post discharge speech language pathology recommendation: continue HOSPITAL PERSONNEL DIRECTOR tx for dysphagia (if dysphagia persists beyond [...] swallow ing with D/C at 11/29/2016 1146 HOSPITAL PERSONNEL DIRECTOR Time Calculation HOSPITAL PERSONNEL DIRECTOR Individual Start Time: 0850 HOSPITAL PERSONNEL DIRECTOR Individual Stop Time: 09 HOSPITAL PERSONNEL DIRECTOR Individual Total Time: 30 HOSPITAL PERSONNEL DIRECTOR Total Treatment Time: 30 Electronically signed by: Mis Joseph, SPEECH PATHO, 11/29/2016 11:53 p Note - Sarah Barton DO - 11/29/2016 5:54 AM PDTDATE: 11/28/2016 SURGEON: Spencer Barton DO ENDODONTIST: RUFINO Pierson PREOPERATIVE DIAGNOSES: 1. Cervical spondylosis [...] until th e uncovertebral joints were exposed. Gay distraction pins were placed at the C5 [...] rom Medtronic was chosen and filled with [place] putty. To achieve arthrodesis endplates of the [...] rom Medtronic was chosen and filled with [place] putty. To achieve arthrodesis endplates of the disk space were abraded again, and the permanent spacer was inserted into the disk space . It fit well and was snug Next, the Gay pins were removed and bone wax was placed where the pins were to arrest sofia ne bleeding. A 42.5 mm Ceresco Translational plate was chosen. This is by [employer]. It was placed on top of the [...] Note Steven Jade 56 y.o. male 1960 [id number] Proc. Date 11/28/2016 Preop Dx Cervical spondylosis with radiculopathy (M47.22), Spinal stenosis in cervical reg ion (M48.02), Brachial neuritis (M54.12), Cervicalgia (M54.2) Postop Dx same Procedure C5-6, C6-7 Anterior Cervical Discectomy w/ Fusion and Plating Anesthesia General Surgeon Spencer Barton DO - Primary Mail Handler Assistant Scar Mendoza PA-C EBL 100 mL Findings Findings consistent with scheduled procedure. No other abnormalities found. Complications none Specimens * No specimens in log * Drains Drain/Device Site 11/28/16 1632 cervical spine (Active) Insertion Site Care dressing intact 11/29/2016 4:30 Drainage Characteristics/Odor sanguineous 11/29/2016 4:30 Drainage Amount small 11/29/2016 4:30 Output (mL) 5 11/29/2016 5:38 Electronically signed by: Spencer Barton DO 11/29/2016 5:53 [facility] Spencer Barton DO at 0510/2016 5:53 AM PDTPlan of Care - Viviane [...] onset post -op, vitals stable, drsg CDI, truck driving moderate, dorsi/plantar strong, L strengths 4/5, R [...] able to make needs known. Steven c/o 4-12/05 pain; medicated w/1-2 tabs [place] (7.5's) PRN, Phenol [place]ut[place]ll PRN and 5mg PO Valium PRN; effective. LUCIANA drained 5mL sanguineous fluid this shift. lan of Care - Ayaka Krishnamurthy, HARNESS RIGGER - 11/29/2016 2:28 AM PDTProblem: Patient Care [...] 2020 | Visit | | [facility] [address] | | | | | | [facility] | | | | | | [place] [address] | | | | | | [phone] | | | | | | | [...] | + +---------+ + + [place] Catherine Roya Burgos (11/28/2016 4:39 PM PDT) + + | [...] [facility] | | | | | | [facility] | | | [facility] [...] | | | Screen | | | [facility] | | | | | | [facility] [...] [address] | [address] | [place] | | | [facility] | | [address] | | | - BLOOD BANK | | | | + + + + + documented in this encounter Visit Diagnoses Not on filedocumented in this encounter
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
--- OUTSIDE RECORDS SUMMARY | ~2020-05-08 | XMS | Encounter Summary ---
Demographics + + + | Address | [address] | | | [place] [address] | + + + | Home Phone | | + + + | Preferred Language | Unknown | + + + | Marital Status | | + + + | Religion Affiliation | 1013 | + + + | Race | White | + + + | Ethnic Group | Not or | + + + Author + + + | Author | [facility] | | | and [place] | + + + | Organization | [facility] | | | and [place] | + + + | Address | Unknown | + + + | Phone | Unavailable | + + + Support + + + + + | Name | Relationship | Address | Phone | + + + + + | Jenny Jo Yasmany | ECON | [address] | | | | | [place] | | | | | [address] | | + + + + + Care Team Providers + +------+ + | Care Admissions Clerk Name | Role | Phone | + +------+ + PCP | Unavailable | + +------+ + Encounter Details +--------+ + + + + | Date | Type | Department | Care Team | Description | +--------+ + + + + | 03/29/ | Hospital | [facility] | Drew Marcos MD | | | 1997 | Encounter | MED CTR GENERIC OP | [address] | | | | | CONV DEPT [address] | [place], [place] | | | | | [place], | [address] | | | | | [place] [address] | | | | | | [phone] | | | +--------+ + + + [...] 2019 | Visit | | [facility] [address] | | | | | | [place] | | | | | | [place] [address] | | | | | | [phone] | | | | | | | | +--------+---------+ + + + documented as of this encounter Visit Diagnoses Not on filedocumented in this encounter"
[~2020-05-08 14:54] MED LIST: ARAVA10 MG PO; CYCLOBENZAPRINE10 MG PO; GABAPENTIN300 MG PO; LOVASTATIN10 MG PO; LOVASTATIN20 MG PO; NORCO 10-325 T1 EACH PO; NORCO 5-325 TA1 EACH PO; OXYCODONE HCL5 MG PO; OXYCONTIN10 MG PO; OXYCONTIN20 MG PO; PLAQUENIL200 MG PO; TRAMADOL HCL50 MG PO; TRAZODONE HCL50 MG PO; XARELTO10 MG PO
--- OUTSIDE RECORDS SUMMARY | 2020-05-08 14:58 | XMS ---
PreManage Notification: JORDAN MARTINEZ Security Greeting Card Maker Events No recent Security Events currently on file CRITERIA MET - SIMEONP CARE PROVIDERS JENNIFER OLIVIER Physician Sql Developer Current PHONE: [phone] Gilles has no Care Guidelines for this patient. EHarper VISIT COUNT (12 MO.) 1 YOKO Yan TOTAL 1 NOTE: Visits indicate total known visits. ED/UCC VISIT TRACKING (12 MO.) 05/08/2020 14:[address] [facility] [place] TYPE: Emergency COMPLAINT: - FALL INPATIENT VISIT TRACKING (12 MO.) No inpatient visits to display in this time frame [email or web address]
[2020-05-08] MEDS ORDERED: TRAMADOL HCL50 MG PO (15:08)
[2020-05-08] MEDS ORDERED: PERCOCET 5-3251 EACH PO (18:55)
[2020-05-08] MEDS ORDERED: ROBAXIN-750750 MG PO (18:55)
== END 2020-05-08 19:53 | disposition home or self-care (01) ==
LOC: ED 14:54
DX: S10.93XA Contusion of unspecified part of neck, initial encounter (principal); S30.0XXA Contusion of lower back and pelvis, initial encounter; R51.9 Headache, unspecified; J92.9 Pleural plaque without asbestos; W11.XXXA Fall on and from ladder, initial encounter; Z79.899 Other long term (current) drug therapy
CPT/HCPCS: 70450; 72125; 72128; 72131; 85025; 96361; 96374; 96375; 96376; 99284-25; J1170; J1885; J2060; J2405; J7040

== ENCOUNTER 2024-02-16 19:26 | Inpatient (IN) | payer OTHER, BC ==
[~2024-02-16] VITALS: Ht 180.3 cm; Wt 144.5 kg
[~2024-02-16 19:26] MED LIST changes: -GABAPENTIN300 MG PO; +GABAPENTIN400 MG PO; +PERCOCET 5-3251 EACH PO; +ROBAXIN-750750 MG PO
--- OUTSIDE RECORDS SUMMARY | 2024-02-16 19:27 | XMS ---
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 Luis VISIT COUNT (12 MO.) 1 YOKO Yan TOTAL 1 NOTE: Visits indicate total known visits. ED/UCC VISIT TRACKING (12 MO.) 02/16/2024 19:27 Y[facility]O [facility] OR TYPE: Emergency COMPLAINT: - PRESSURE/PAIN ABD INPATIENT VISIT TRACKING (12 MO.) No inpatient visits to display in this time frame [email or web address]
[2024-02-16] MEDS ORDERED: LIPITOR40 MG PO (19:58)
[2024-02-16] MEDS ORDERED: COZAAR50 MG PO (19:58)
[2024-02-16] MEDS ORDERED: ondansetron HCL 4 MG/2 ML VIAL IV ONE (20:00)
[2024-02-16] MEDS ORDERED: MORPHINE SULFATE 4 MG/ML VIAL IV ONE (20:00)
[2024-02-16] MEDS ORDERED: SODIUM CHLORIDE 0.9% 1,000 ML IV ONE (20:00)
[2024-02-16 20:13] LABS: BASOPHILS 0.6 % (0-2); EOSINOPHILS 1.9 % (0-6); HEMATOCRIT 38.8 % (35.0-50.0); HEMOGLOBIN 13.2 g/dL (12.0-18.0); LYMPHOCYTES 7.7 % (24-44); MCHC 34.1 g/dl (30-36); MCV 102.7 fl (81-99); NEUTROPHILS 82.8 % (39-80); PLATELET COUNT 258 K/uL (140-440); RBC 3.78 M/ul (4.3-5.7); RDW 13.6 (10.5-15.0)
[2024-02-16] MEDS ORDERED: fentaNYL citrate 100 MCG/2 ML VIAL IV ONE (20:15)
[2024-02-16 20:30] LABS: ALBUMIN 3.1 g/dL (3.4-5.0); ALBUMIN/GLOBULIN RATIO 0.67 (1.1-2.4); ANION GAP 13.9 (7-21); BILIRUBIN, TOTAL 0.7 ng/dL (0.2-1.0); BUN/CREATININE RATIO 21.27 (6.0-28.6); CALCIUM 8.5 mg/dL (8.5-10.1); CREATININE, SERUM 0.94 mg/dL (0.70-1.30); POTASSIUM 3.9 mmol/L (3.5-5.1); PROTEIN, TOTAL 7.7 g/dL (6.4-8.2)
[2024-02-16 21:17] LABS: BILIRUBIN, URINE NEGATIVE (negative); BLOOD/HGB, URINE NEGATIVE (Negative); KETONE, URINE NEGATIVE (Negative); LEUK ESTERASE, URINE NEGATIVE (negative); NITRITE, URINE NEGATIVE (negative); PH, URINE 5.5 (5-7)
[2024-02-16] MEDS ORDERED: CEFTRIAXONE/SODIUM CHLORIDE 2 GM/100 ML PIGGYBACK IV SCH (22:00)
[2024-02-16] MEDS ORDERED: ACETAMINOPHEN 325 MG TAB PO PRN (22:00)
[2024-02-16] MEDS ORDERED: ondansetron HCL 4 MG/2 ML VIAL IV PRN (22:00)
[2024-02-16] MEDS ORDERED: HYDROmorphone HCL 1 MG/ML SYR IV PRN ×2 (22:00)
[2024-02-16] MEDS ORDERED: DEXTROSE 5% - LACTATED RINGERS 1,000 ML IV SCH (22:00)
[2024-02-16 23:15] VITALS: BP 145/71
[2024-02-16] MEDS ORDERED: IBUPROFEN800 MG PO (23:21)
[2024-02-16] MEDS ORDERED: ACETAMINOPHEN500 M1 PO (23:22)
[2024-02-17] VITALS (7 sets, daily range): BP systolic 110–169; BP diastolic 60–87
[2024-02-17 05:28] LABS: BASOPHILS 0.6 % (0-2); EOSINOPHILS 2.4 % (0-6); HEMATOCRIT 35.9 % (35.0-50.0); HEMOGLOBIN 12.3 g/dL (12.0-18.0); LYMPHOCYTES 9.9 % (24-44); MCH 35.4 (27-36); MCHC 34.2 g/dl (30-36); MCV 103.4 fl (81-99); MONOCYTES 9.4 % (0-12); NEUTROPHILS 77.7 % (39-80); PLATELET COUNT 228 K/uL (140-440); RBC 3.48 M/ul (4.3-5.7); RDW 13.8 (10.5-15.0)
[2024-02-17 05:47] LABS: ALBUMIN 2.8 g/dL (3.4-5.0); ALBUMIN/GLOBULIN RATIO 0.62 (1.1-2.4); ANION GAP 11.5 (7-21); BILIRUBIN, TOTAL 0.6 ng/dL (0.2-1.0); BUN/CREATININE RATIO 16.66 (6.0-28.6); CALCIUM 7.9 mg/dL (8.5-10.1); CREATININE, SERUM 0.84 mg/dL (0.70-1.30); MAGNESIUM 1.6 mg/dL (1.8-2.4); POTASSIUM 3.5 mmol/L (3.5-5.1); PROTEIN, TOTAL 7.3 g/dL (6.4-8.2)
[2024-02-17] MEDS ORDERED: DEXTROSE 5% - LACTATED RINGERS 1,000 ML IV SCH (06:45)
[2024-02-17] MEDS ORDERED: PROCHLORPERAZINE EDISYLATE 10 MG/2 ML VIAL IV PRN (06:45)
[2024-02-17] MEDS ORDERED: ACETAMINOPHEN 650 MG SUPP PR PRN (06:45)
[2024-02-17] MEDS ORDERED: ACETAMINOPHEN 325 MG TAB PO PRN (06:45)
[2024-02-17] MEDS ORDERED: HYDROCODONE/APAP 10/325 1 TAB PO PRN (06:45)
[2024-02-17] MEDS ORDERED: ondansetron HCL 4 MG/2 ML VIAL IV PRN ×2 (06:45→10:30)
[2024-02-17] MEDS ORDERED: HYDROmorphone HCL 1 MG/ML SYR IV PRN ×2 (06:45→10:30)
[2024-02-17] MEDS ORDERED: methocarbamoL 500 MG TABLET PO PRN (07:00)
[2024-02-17] MEDS ORDERED: fentaNYL citrate 100 MCG/2 ML VIAL ONE (07:54)
[2024-02-17] MEDS ORDERED: propofoL 200 MG/20 ML VIAL ONE (07:54)
[2024-02-17] MEDS ORDERED: ROCURONIUM BROMIDE 50 MG/5 ML SYR ONE (07:54)
[2024-02-17] MEDS ORDERED: LIDOCAINE HCL 2% 5 ML SDV ONE (07:54)
[2024-02-17] MEDS ORDERED: LIDOCAINE 1% W/ EPI 1:200,000 30 ML SDV ONE (07:55)
[2024-02-17] MEDS ORDERED: BUPIVACAINE HCL 0.25% 50 ML MDV ONE (07:55)
[2024-02-17] MEDS ORDERED: ACETAMINOPHEN 1,000 MG/100 ML VIAL ONE (08:10)
[2024-02-17] MEDS ORDERED: DEXAMETHASONE SOD PHOS 4 MG/ML VIAL ONE (08:10)
[2024-02-17] MEDS ORDERED: ondansetron HCL 4 MG/2 ML VIAL ONE (08:10)
[2024-02-17] MEDS ORDERED: dexmedeTOMIDine HCl 200 MCG/2 ML VIAL ONE (08:43)
[2024-02-17] MEDS ORDERED: ENOXAPARIN SODIUM 40 MG/0.4 ML SYR SUB-Q SCH (09:00)
[2024-02-17] MEDS ORDERED: HYDROXYCHLOROQUINE SULFATE 200 MG TAB PO SCH (09:00)
[2024-02-17] MEDS ORDERED: LOSARTAN POTASSIUM 25 MG TAB PO SCH (09:00)
[2024-02-17] MEDS ORDERED: GABAPENTIN 300 MG CAP PO SCH (09:00)
[2024-02-17] MEDS ORDERED: CEFTRIAXONE/SODIUM CHLORIDE 2 GM/100 ML PIGGYBACK IV SCH (09:00)
[2024-02-17] MEDS ORDERED: PANTOPRAZOLE SODIUM 40 MG/10 ML VIAL IV SCH (09:00)
[2024-02-17] MEDS ORDERED: SUGAMMADEX SODIUM 200 MG/2 ML ML ONE (09:22)
[2024-02-17] MEDS ORDERED: KETOROLAC TROMETHAMINE 30 MG/ML VIAL ONE (09:24)
[2024-02-17] MEDS ORDERED: CYCLOBENZAPRINE10 MG PO (09:47)
--- NOTE | 2024-02-17 09:53 | CONS ---
[facility] [address], [place] [address] Signed DATE OF CONSULTATION: 02/17/2024 CHIEF COMPLAINT: Right lower quadrant abdominal pain. HISTORY OF PRESENT ILLNESS: Jordan is a 63-year-old obese gentleman, who developed periumbilical abdominal pain yesterday localized to the right lower quadrant with some nausea. He came to emergency room for evaluation. He was tender in the right lower quadrant with stable vital signs. White count was normal. CT scan showed fluid-filled appendix at 16 mm with some minimal periappendiceal inflammation. I have been asked to admit him as a general surgeon on-call. He has received Rocephin and Flagyl, IV fluids and pain control overnight. PAST MEDICAL HISTORY: Lupus, hypercholesterolemia, neuropathy, lumbago, and hypertension. PAST SURGICAL HISTORY: Includes left total knee replacement, right shoulder arthroscopy, laparoscopic converted to an open cholecystectomy with Dr. Wong Ng, cervical surgery with metal remaining [place], [place] as well as several colonoscopies with Dr. Garcia. SOCIAL HISTORY: He does not smoke. He does have a drink once in a while. He is to his Jenny at [phone]. They have four children. 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 He does drive. He prefers the [facility]. Jennifer Rodriguez is his local primary care provider, but he also goes to the [facility] [place]. FAMILY HISTORY: None. REVIEW OF SYSTEMS: He had 10 systems reviewed. He told me about his neck with the metal. ALLERGIES: None. MEDICATIONS: Methocarbamol, hydroxychloroquine 400 mg p.o. daily, gabapentin 600 mg p.o. t.i.d., atorvastatin 20 mg p.o. daily, and losartan 25 mg p.o. daily. PHYSICAL EXAMINATION: Electronically Signed By: PELON BERGERON MD 02/17/24 0953 PATIENT NAME: JORDAN MARTINEZ CONSULTATION DATE OF : 64 REPORT #: [id number] PHYSICIAN: PELON BERGERON MD PCP: JENNIFER RODRIGUEZ PA-C REPORT IS CONFIDENTIAL AND NOT TO BE RELEASED WITHOUT AUTHORIZATION [facility] [address], [place] [address] Signed VITAL SIGNS: Blood pressure is 152/75, heart rate 95, respiratory rate 20, temperature is 98.1, he is 98% on room air, he is 5 feet 11 inches at 144 kg with a body mass index of 44. GENERAL: Jordan is a 63-year-old gentleman, lying supine semi-recumbent in his hospital bed. He is alert, awake, and interactive. LUNGS: Clear to auscultation bilaterally. HEART: Regular rate and rhythm without murmurs. ABDOMEN: Obese and soft, but he is tender in the right lower quadrant. LABORATORY DATA: His white blood count 6.8, hemoglobin 12, mean cell volume is 103, neutrophils 78, platelets 228. Electrolytes unremarkable. Magnesium a little low at 1.6. Liver function tests are negative. Albumin is 2.8. His urine specific gravity was greater than 1.030. RADIOGRAPHIC STUDIES: A CT scan was performed and he has a fluid-filled appendix about 16 mm with some minimal periappendiceal inflammation along with some peripheral arterial disease. ASSESSMENT AND PLAN: Jordan is a 63-year-old obese gentleman, who presents with acute appendicitis. He has been admitted given antibiotics and IV fluids and pain control. I reviewed the above findings with West in detail. I brought a brochure on appendicitis. We looked at a page by page. He understands the location and function of the appendix. We discussed laparoscopic versus open appendectomy. He understands expected intraop and postop course. We reviewed the risks including, but not limited to bleeding, infection, scarring, change in contour of the skin, damage to bowel, appendiceal stump leak, postoperative intraabdominal abscess, incisional hernias and other unforeseen comorbidities. He has expressed understanding and would like to proceed. Pelon Bergeron MD ALB/MODL /[id number] cc: Jennifer Rodriguez MD [facility] Electronically Signed By: PELON BERGERON MD 02/17/24 0953 PATIENT NAME: JORDAN MARTINEZ CONSULTATION DATE OF : 64 REPORT #: [id number] PHYSICIAN: PELON BERGERON MD PCP: JENNIFER RODRIGUEZ PA-C REPORT IS CONFIDENTIAL AND NOT TO BE RELEASED WITHOUT AUTHORIZATION [address] [address] Signed [place] Copies: ~ Electronically Signed By: PELON BERGERON MD 02/17/24 0953 PATIENT NAME: JORDAN MARTINEZ CONSULTATION DATE OF : 64 REPORT #: [id number] PHYSICIAN: PELON BERGERON MD PCP: JENNIFER RODRIGUEZ PA-C REPORT IS CONFIDENTIAL AND NOT TO BE RELEASED WITHOUT AUTHORIZATION
[2024-02-17] MEDS ORDERED: fentaNYL citrate 50 MCG/ML SDV IV PRN (10:30)
[2024-02-17] MEDS ORDERED: IBLOOD GLUCOSE TEST STRIP 1 EA TEST VI PRN (10:30)
[2024-02-17] MEDS ORDERED: NALOXONE HCL 0.4 MG SYR IV PRN (10:30)
[2024-02-17] MEDS ORDERED: AUGMENTIN 500-1 EACH PO (11:08)
[2024-02-17] MEDS ORDERED: HYDROCODON-ACE1 EAC8 PO (11:10)
--- NOTE | 2024-02-17 11:26 | EKG ---
[facility] [address] [facility] [place], [place] [address] Signed Normal sinus rhythm Normal ECG No previous ECGs available Confirmed by MALLORIE EVANGELISTA MD ([id number]) on 02/17/2024 11:26:09 AM Electronically Signed By: MALLORIE EVANGELISTA 02/17/24 1126 PATIENT NAME: JORDAN MARTINEZ JAXSON Electrocardiogram DATE OF : 64 PHYSICIAN: MALLORIE EVANGELISTA REPORT #: [id number] REPORT IS CONFIDENTIAL AND NOT TO BE RELEASED WITHOUT AUTHORIZATION
[2024-02-17] MEDS ORDERED: AZATHIOPRINE PO (11:35)
[2024-02-17] MEDS ORDERED: PRAMIPEXOLE DIHY1 MG PO (11:38)
[2024-02-17] MEDS ORDERED: IMITREX50 MG PO (11:39)
--- NOTE | 2024-02-17 12:01 | OR ---
[facility] [address] [place], [place] [address] Signed DATE OF OPERATION: 02/17/2024 SURGEON: Pelon Bergeron MD PREOPERATIVE DIAGNOSIS: Acute appendicitis. POSTOPERATIVE DIAGNOSIS: Acute suppurative appendicitis. PROCEDURES: Laparoscopic appendectomy. ESTIMATED BLOOD LOSS: 20 mL. FINDINGS: West indeed had acute suppurative appendicitis. INDICATIONS: Jordan is a 63-year-old obese gentleman with a body mass index of 44. He came in with 1-day history of periumbilical abdominal pain that localized to the right lower quadrant associated with nausea. His vital signs were stable and he was tender in the right lower quadrant in the ER. The white blood cell count was normal. The CT scan showed his dilated appendix at 16 mm with some minimal periappendiceal inflammation. I have been asked to admit him as a general surgeon on-call. He received Rocephin and Flagyl along with IV fluids and pain control. This morning he thought he was about the same. I brought a brochure with me on appendicitis. We went to it page by page. He understands the location and function of the appendix, we discussed laparoscopic versus open appendectomy. In fact, he is familiar with this concept. He underwent a laparoscopic converted to an open cholecystectomy quite a few years ago with Dr. Wong Ng. He understands there is risk to the surgery including, but not limited to bleeding, infection, scarring, change in contour of the skin, damage to bowel, appendiceal stump leak, postoperative intraabdominal abscess, incisional hernias and other unforeseen comorbidities. He had expressed understanding and wished to proceed. PROCEDURE IN DETAIL: Jordan was taken into the operating room and placed in the supine position under general endotracheal tube anesthesia. He was already on preoperative Rocephin and Flagyl along with Lovenox. SCDs were in place. A Hines catheter had been inserted with return of Electronically Signed By: PELON BERGERON MD 02/17/24 1201 PATIENT NAME: JORDAN MARTINEZ OPERATIVE REPORT DATE OF : 64 REPORT #: [id number] PHYSICIAN: PELON BERGERON MD PCP: JENNIFER RODRIGUEZ PA-C REPORT IS CONFIDENTIAL AND NOT TO BE RELEASED WITHOUT AUTHORIZATION [facility] [address] [place], [place] [address] Signed clear yellow urine without difficulty. He was prepped and draped in the usual sterile fashion. We placed our three trocars under direct visualization of camera without difficulty. Thankfully, his cecum was visible along with his appendix. It took just a minute to bluntly dissect away the fat pad of trees. We then cleared off the base of the appendix with the help of the cautery. A linear stapler was used to divide the appendix from the cecum. We then used our vascular load on the linear stapler to divide the mesoappendix. Both staple lines were quite hemostatic. We had taken pictures throughout for photodocumentation. We placed the appendix into an EndoCatch bag. It was taken out through the right subcostal trocar site. We used our laparoscopic suturing device to pass 0-Vicryl suture on either side of the fascia of the right subcostal trocar site. This was tied down to close the fascia primarily. After this, all the gas was allowed to escape and the remaining trocars were removed. The appendix was then passed off the field to our circulating nurse for photodocumentation. We closed the fascia of the supraumbilical trocar site with interrupted [id number] and simple 0 Vicryl sutures. Local anesthetic was copiously injected into all three trocar sites. Each trocar site was irrigated and suctioned out until clear. The skin and dermis of each trocar site were closed with interrupted 3-0 subcuticular Monocryl sutures. Benzoin and 0.5 inch Steri-Strips were then applied to each incision. Dry gauze and tape was applied over that. The Hines catheter was then removed with out difficulty. Just a tiny bit of blood on the outside of the catheter. His urine was quite yellow and clear. He was awakened from his anesthesia, extubated in the OR, and taken to recovery room in stable condition. Pelon Bergeron MD ALB/MODL /[id number] cc: Jennifer Rodirguez [place], [place] Pelon Bergeron MD Electronically Signed By: PELON BERGERON MD 02/17/24 1201 PATIENT NAME: JORDAN MARTINEZ OPERATIVE REPORT DATE OF : 64 REPORT #: [id number] PHYSICIAN: PELON BERGERON MD PCP: JENNIFER RODRIGUEZ PA-C REPORT IS CONFIDENTIAL AND NOT TO BE RELEASED WITHOUT AUTHORIZATION [address] [address] Signed Copies: PELON BERGERON MD ~ Electronically Signed By: PELON BERGERON MD 02/17/24 1201 PATIENT NAME: JUANJORDAN OPERATIVE REPORT DATE OF : 64 REPORT #: [id number] PHYSICIAN: PELON BERGERON MD PCP: JENNIFER RODRIGUEZ PA-C REPORT IS CONFIDENTIAL AND NOT TO BE RELEASED WITHOUT AUTHORIZATION
[2024-02-17] MEDS ORDERED: MAGOX 400400 MG PO (12:11)
[2024-02-17] MEDS ORDERED: VITAMIN D31250 MC1 PO (12:12)
[2024-02-17] MEDS ORDERED: PRESERVISION A1 EAC5 PO (12:12)
[2024-02-17] MEDS ORDERED: B COMPLEX1 EACH PO (12:12)
[2024-02-17] MEDS ORDERED: FISH OIL 1,0001 EAC6 PO (12:12)
[2024-02-17] MEDS ORDERED: ATORVASTATIN 20 MG TAB PO SCH (17:00)
[2024-02-18] MEDS ORDERED: PANTOPRAZOLE SODIUM 40 MG TABEC PO SCH (09:00)
== END 2024-02-17 14:15 | disposition home or self-care (01) | DRG 398 ==
LOC: ED 19:26 → MS 19:28
PROVIDERS: Family Medicine; ADMIT Colon & Rectal Surgery; ATTEND Colon & Rectal Surgery
PROC: 0DTJ4ZZ Resection of Appendix, Percutaneous Endoscopic Approach (ICD-10-PCS; principal; 2024-02-17 08:30)
DX: K35.80 Unspecified acute appendicitis (principal); Z68.41 Body mass index [BMI] 40.0-44.9, adult; E66.9 Obesity, unspecified; L93.0 Discoid lupus erythematosus; G62.9 Polyneuropathy, unspecified; E78.00 Pure hypercholesterolemia, unspecified; M54.50 Low back pain, unspecified; I10 Essential (primary) hypertension; Z98.890 Other specified postprocedural states; Z96.652 Presence of left artificial knee joint; Z79.899 Other long term (current) drug therapy; Z79.891 Long term (current) use of opiate analgesic
CPT/HCPCS: 00840; 36415; 71045; 74177; 80053; 81003; 83690; 83735; 85025; 88304; 93005; 93010; 94762; 96375; 99285-25; A9270; J0131; J0696; J1100; J1170; J1650; J1885; J2001; J2405; J2470; J2704; J3010; J3490; J7030; J7121; Q9967

== ENCOUNTER 2024-07-09 08:02 | Emergency (ER) | payer OTHER ==
[~2024-07-09] VITALS: Ht 180.3 cm; Wt 147.6 kg
[~2024-07-09 08:02] MED LIST changes: +ACETAMINOPHEN500 M1 PO; +AUGMENTIN 500-1 EACH PO; +AZATHIOPRINE PO; +B COMPLEX1 EACH PO; +COZAAR50 MG PO; +FISH OIL 1,0001 EAC6 PO; +HYDROCODON-ACE1 EAC8 PO; +IBUPROFEN800 MG PO; +IMITREX50 MG PO; +LIPITOR40 MG PO; +MAGOX 400400 MG PO; +PRAMIPEXOLE DIHY1 MG PO; +PRESERVISION A1 EAC5 PO; +VITAMIN D31250 MC1 PO
[2024-07-09] MEDS ORDERED: CYCLOBENZAPRINE10 MG PO (09:38)
[2024-07-09 09:46] VITALS: BP 156/79
== END 2024-07-09 09:48 | disposition home or self-care (01) ==
LOC: ED 08:02
DX: M54.42 Lumbago with sciatica, left side (principal); M32.9 Systemic lupus erythematosus, unspecified; E78.00 Pure hypercholesterolemia, unspecified; I10 Essential (primary) hypertension; Z79.60 Long term (current) use of unspecified immunomodulators and immunosuppressants; Z79.899 Other long term (current) drug therapy
CPT/HCPCS: 72148; 99285-25

== ENCOUNTER 2024-12-28 14:11 | Inpatient (IN) | payer OTHER, BC ==
[~2024-12-28] VITALS: Ht 180.3 cm; Wt 147.6 kg
[2024-12-28] MEDS ORDERED: PREGABALIN75 MG PO (15:06)
[2024-12-28] MEDS ORDERED: BENZONATATE200 MG PO (15:06)
[2024-12-28] MEDS ORDERED: ACETAMINOPHEN 500 MG TAB PO ONE (15:15)
[2024-12-28] MEDS ORDERED: KETOROLAC TROMETHAMINE 30 MG/ML VIAL IV ONE (15:15)
[2024-12-28] MEDS ORDERED: CEFTRIAXONE SODIUM 2 GM in SODIUM CHLORIDE 0.9% 100 ML IV ONE (15:15)
[2024-12-28] MEDS ORDERED: SODIUM CHLORIDE 0.9% 1,000 ML IV ONE ×2 (15:15→16:15)
[2024-12-28 15:22] LABS: BASOPHILS 0.3 % (0.2-1.2); EOSINOPHILS 0.6 % (0.8-7.0); HEMATOCRIT 40.4 % (40.1-51.0); HEMOGLOBIN 13.5 g/dL (13.7-17.5); LYMPHOCYTES 5.8 % (21.8-53.1); MCH 33.9 PG (25.7-32.2); MCHC 33.4 g/dL (32.3-36.5); MCV 101.5 fL (79.0-92.2); MONOCYTES 6.6 % (5.3-12.2); NEUTROPHILS 86.4 % (34.0-67.9); PLATELET COUNT 205 K/uL (163-337); RBC 3.98 M/uL (4.63-6.08)
[2024-12-28 15:31] LABS: BILIRUBIN, URINE NEGATIVE (negative); BLOOD/HGB, URINE NEGATIVE (Negative); KETONE, URINE NEGATIVE (Negative); LEUK ESTERASE, URINE NEGATIVE (negative); NITRITE, URINE NEGATIVE (negative); PH, URINE 6.5 (5-7)
[2024-12-28 15:39] LABS: ALBUMIN 3.2 g/dL (3.4-5.0); ALBUMIN/GLOBULIN RATIO 0.68 (1.1-2.4); BUN/CREATININE RATIO 18.88 (6.0-28.6); CALCIUM 9.2 mg/dL (8.5-10.1); CREATININE, SERUM 0.9 mg/dL (0.70-1.30); PROTEIN, TOTAL 7.9 g/dL (6.4-8.2)
[2024-12-28 15:44] LABS: LACTIC ACID, BLOOD 2.6 mmol/L (0.4-2.0)
[2024-12-28] MEDS ORDERED: AZITHROMYCIN 500 MG in DEXTROSE 5% 250 ML IV ONE (16:15)
[2024-12-28 17:54] LABS: LACTIC ACID, BLOOD 1.4 mmol/L (0.4-2.0)
[2024-12-28] MEDS ORDERED: IBUPROFEN 400 MG TAB PO PRN (18:45)
[2024-12-28] MEDS ORDERED: TRAMADOL HCL 50 MG TAB PO PRN (19:00)
[2024-12-28] MEDS ORDERED: ondansetron HCL 4 MG/2 ML VIAL IV PRN (19:00)
[2024-12-28] MEDS ORDERED: ACETAMINOPHEN 325 MG TAB PO PRN (19:00)
--- NOTE | 2024-12-28 19:25 | NUR ---
REPORT RECEIVED FROM ESTHER MCKEON RN. PATIENT TRANSFERRED TO HOSPITAL BED FROM ED STRETCHER VIA 1PR ASSIST. PATIENT WITHOUT ANY NEEDS AT THIS TIME. CALL LIGHT AND PERSONAL BELONGINGS ARE WITHIN REACH.
[2024-12-28 19:30] VITALS: BP 114/35
[2024-12-28] MEDS ORDERED: MELOXICAM15 MG PO (19:43)
[2024-12-28] MEDS ORDERED: KLOR-CON 1010 MEQ PO (19:43)
[2024-12-28] MEDS ORDERED: METFORMIN HCL500 MG PO (19:44)
[2024-12-28 20:00] VITALS: BP 114/35
--- NOTE | 2024-12-28 20:40 | NUR ---
PATIENT ASSESSMENT COMPLETED. PATIENT MEDICATED PER EMAR. PATIENT WITHOUT FURTHER NEEDS AT THIS TIME. CALL LIGHT AND PERSONAL BELONGINGS ARE WITHIN REACH.
[2024-12-28 21:00] LABS: CORONAVIRUS COVID-19 AG NEGATIVE (NEGATIVE); INFLUENZA A AG NEGATIVE (NEGATIVE); INFLUENZA B AG NEGATIVE (NEGATIVE)
[2024-12-28] MEDS ORDERED: PRAMIPEXOLE DIHYDROCHLORIDE 1 MG TAB PO SCH (21:00)
[2024-12-28] MEDS ORDERED: PREGABALIN 75 MG CAP PO SCH (21:00)
--- NOTE | 2024-12-28 21:30 | NUR ---
PATIENT MEDICATED PER EMAR FOR TEMPERATURE OF 100.6. TOP BLANKET REMOVED FROM PATIENT AT THIS TIME. PATIENT WITHOUT FURTHER NEEDS. CALL LIGHT AND PERSONAL BELONGINGS ARE WITHIN REACH.
--- NOTE | 2024-12-28 22:00 | NUR ---
PATIENT CALLED TO USE THE BATHROOM TO VOID. SBA USING HIS CANE. PATIENT URINATED 275 ML DARK URINE. PATIENT IS BACK IN BED. NO FURTHER NEEDS AT THIS TIME. CALL LIGHT IN PATIENT'S REACH.
--- NOTE | 2024-12-28 22:38 | NUR ---
PATIENT TEMPERATURE RECHECKED AT THIS TIME AND WAS DOWN TO 100.1 ORALLY FROM 100.5. PATIENT WITHOUT FURTHER NEEDS AT THIS TIME. CALL LIGHT AND PERSONAL BELONGINGS ARE WITHIN REACH.
--- NOTE | 2024-12-28 23:15 | NUR ---
PATIENT RESTING IN BED WITH HIS EYES CLOSED. EVEN AND UNLABORED RESPIRATIONS NOTED. CALL LIGHT AND PERSONAL BELONGINGS ARE WITHIN REACH.
--- NOTE | 2024-12-29 00:05 | NUR ---
PATIENT RESTING IN BED WITH HIS EYES CLOSED. EVEN AND UNLABORED RESPIRATIONS NOTED. CALL LIGHT AND PERSONAL BELONGINGS ARE WITHIN REACH.
--- NOTE | 2024-12-29 01:10 | NUR ---
PATIENT RESTING IN BED, REPOSITIONING SELF. PATIENT WITHOUT ANY NEEDS AT THIS TIME. CALL LIGHT AND PERSONAL BELONGINGS ARE WITHIN REACH.
[2024-12-29 02:41] VITALS: BP 120/76
--- NOTE | 2024-12-29 02:49 | NUR ---
PATIENT CALLED REQUESTING TO USE THE BATHROOM. THIS RN IN ROOM TO ASSIST PATIENT. PATIENT UP TO BATHROOM VIA ONE PERSON ASSIST WITH HIS CANE. PATIENT AMBULATED TO BATHROOM AND BACK TO BED WITHOUT COMPLAINTS OF DIZZINESS. PATIENT REPORTING PAIN "ALL OVER". PRN PAIN MEDICATION ADMINISTERED PER EMAR. FOCUS ASSESMENT COMPLETED AT THIS TIME. PATIENT IS ON ROOM AIR, LUNG SOUNDS ARE DIMINISHED WITH CRACKLES ALL THROUGHOUT. VITAL SIGNS ARE STABLE, PATIENT IS AFEBRILE AT THIS TIME. CALL LIGHT AND PERSONAL BELONGINGS ARE WITHIN REACH. IV'S X2 WERE FLUSHED WITH 10ML OF NS, DRESSINGS ARE INTACT, AND IV'S ARE SALINE LOCKED. PATIENT WITHOUT FURTHER NEEDS AT THIS TIME. CALL LIGHT AND PERSONAL BELONGINGS ARE WITHIN REACH.
--- NOTE | 2024-12-29 04:11 | NUR ---
PATIENT RESTING IN BED ON HIS RIGHT SIDE WITH HIS EYES CLOSED. EVEN AND UNLABORED RESPIRATIONS NOTED. CALL LIGHT AND PERSONAL BELONGINGS ARE WITHIN REACH.
[2024-12-29 05:16] VITALS: BP 107/43
--- NOTE | 2024-12-29 05:17 | NUR ---
BLOOD DRAWN FROM PATIENT IV BY THIS RN. BLOOD GIVEN TO LAB. IV FLUSHED WITH 10ML OF NS, DRESSING IS INTACT, IV IS SALINE LOCKED. PATIENT VITAL SIGNS TAKEN AND ARE STABLE. PATIENT WITHOUT FURTHER NEEDS AT THIS TIME. CALL LIGHT AND PERSONAL BELONGINGS ARE WITHIN REACH.
[2024-12-29 05:18] LABS: BASOPHILS 0.7 % (0.2-1.2); EOSINOPHILS 3.3 % (0.8-7.0); HEMATOCRIT 34.8 % (40.1-51.0); HEMOGLOBIN 11.5 g/dL (13.7-17.5); LYMPHOCYTES 15.2 % (21.8-53.1); MONOCYTES 11.5 % (5.3-12.2); NEUTROPHILS 69.1 % (34.0-67.9); PLATELET COUNT 173 K/uL (163-337); RBC 3.38 M/uL (4.63-6.08)
[2024-12-29 05:28] LABS: ANION GAP 9.5 (7-21); BUN/CREATININE RATIO 20.63 (6.0-28.6); CALCIUM 8.1 mg/dL (8.5-10.1); CREATININE, SERUM 0.63 mg/dL (0.70-1.30); MAGNESIUM 1.6 mg/dL (1.8-2.4); POTASSIUM 3.5 mmol/L (3.5-5.1)
--- NOTE | 2024-12-29 06:40 | NUR ---
PATIENT RESTING IN BED ON HIS LEFT SIDE WITH HIS EYES CLOSED. EVEN AND UNLABORED RESPIRATIONS NOTED. CALL LIGHT AND PERSONAL BELONGINGS ARE WITHIN REACH.
[2024-12-29] MEDS ORDERED: MAGNESIUM SULFATE 2 GM/50 ML BAG IV SCH (07:30)
[2024-12-29] MEDS ORDERED: POTASSIUM CHLORIDE 10 MEQ TABCR PO ONE (07:30)
--- NOTE | 2024-12-29 07:40 | NUR ---
UR CLINICAL REVIEW: [facility] ENCOUNTER INACTIVE. PER TENNIS DESK TEAM MEMBER MEETS INPT FOR PNEUMONIA WITH TACHYPNEA, DYSPNEA AND TACHYCARDIA [facility] INPT 12/28/24 @ 4050 ORDER MATCHES REG CLINICALS FAXED TO MD FOR REVIEW 12/30/24
--- NOTE | 2024-12-29 08:11 | NUR ---
PT SITTING UP IN BED AT TIME OF SHIFT REPORT, ALERT AND INTERACTIVE. DENIES NEEDS. FRESH H20 TO BEDSIDE CALL LIGHT AND NEEDED ITEMS IN REACH.
--- NOTE | 2024-12-29 08:47 | NUR ---
HOURLY ROUNDING. PATIENT IS READY FOR BREAKFEAST BOARD HAS BEEN UPDATED AND CALL LIGHT HAS BEEN PLACED WITHIN REACH
[2024-12-29] MEDS ORDERED: CEFTRIAXONE SODIUM 1 GM in SODIUM CHLORIDE 0.9% 100 ML IV SCH (09:00)
[2024-12-29] MEDS ORDERED: AZITHROMYCIN 250 MG TAB PO SCH (09:00)
[2024-12-29] MEDS ORDERED: ENOXAPARIN SODIUM 40 MG/0.4 ML SYR SUB-Q SCH (09:00)
[2024-12-29] MEDS ORDERED: CYCLOBENZAPRINE10 MG PO (09:47)
[2024-12-29] MEDS ORDERED: VENTOLIN HFA18 GM INH (09:49)
[2024-12-29 09:53] VITALS: BP 118/62
[2024-12-29] MEDS ORDERED: LEVOFLOXACIN750 MG PO (10:23)
[2024-12-29 10:41] VITALS: BP 118/62
--- NOTE | 2024-12-29 10:42 | NUR ---
DR BUTLER IN TO SEE PT GIVES HIM CHOICE OF DC TODAY OR TOMORROW PT CHOOSES TODAY. DC PLANS DISCUSSED ALL QUESTIONS ANSWERED. PT UP IN THE CHAIR MG INFUSING IS PRESENT PLANS FOR DC LATER
--- NOTE | 2024-12-29 11:27 | NUR ---
HOURLY ROUNDING. PATIENT IS SITTINF IN RECLINER,PATIENT IS A STAND BY ASSIST TO INDEPENDENT. PATIENT USES A CANE TO AMBULATE. CALL LIGHT HAS BEEN PLACEED WITHIN REACH.
--- NOTE | 2024-12-29 11:32 | NUR ---
MED REC COMPLETE
[2024-12-29] MEDS ORDERED: PHARMACY RENAL DOSE ADJUSTMENT 1 DOSE MISC PO SCH (12:00)
--- NOTE | 2024-12-29 12:06 | NUR ---
SKY DC'D X2. PT RESTING IN THE CHAIR DC INSTRUCTIONS PROVIDED PT DENIES QUESTIONS VERBALIZES UNDERSTANDING. NOON MEAL WILL BE HEAR ANYTIME PT AGREES TO EAT AND THEN NOTIFY STAFF OF ANY ASSISTANCE NEEDED FOR DRESSING AND GATHERING PERSONAL ITEMS.
[2024-12-29 12:55] VITALS: BP 144/72
== END 2024-12-29 13:00 | disposition home or self-care (01) | DRG 871 ==
LOC: ED 14:11 → MS 18:18
PROVIDERS: Emergency Medicine; ADMIT Student in an Organized Health Care Education/Training Program; ATTEND Student in an Organized Health Care Education/Training Program
DX: A41.9 Sepsis, unspecified organism (principal); J18.9 Pneumonia, unspecified organism; E87.20 Acidosis, unspecified; Z68.42 Body mass index [BMI] 45.0-49.9, adult; I10 Essential (primary) hypertension; M32.9 Systemic lupus erythematosus, unspecified; G25.81 Restless legs syndrome; Z66 Do not resuscitate; E66.9 Obesity, unspecified; E87.6 Hypokalemia; E83.42 Hypomagnesemia; N20.0 Calculus of kidney; R39.15 Urgency of urination; E78.00 Pure hypercholesterolemia, unspecified; G89.29 Other chronic pain; M54.50 Low back pain, unspecified; M25.562 Pain in left knee; Z90.49 Acquired absence of other specified parts of digestive tract; Z87.891 Personal history of nicotine dependence; Z96.652 Presence of left artificial knee joint; Z98.1 Arthrodesis status; Z79.1 Long term (current) use of non-steroidal anti-inflammatories (NSAID); Z79.899 Other long term (current) drug therapy
CPT/HCPCS: 36415; 71045; 71260; 74177; 80048; 80053; 81003; 83036; 83605; 83735; 85025; 87040; 97161; 97165; 97530; A9270; J0456; J0696; J1650; J1885; J3475; J7030; J7060; Q9967